=== PATIENT | female | born 1955 | race African-American/Black ===

== ENCOUNTER 2020-02-14 08:37 | Outpatient (CLI) | payer MEDICARE, SELFPAY ==
--- NOTE | 2020-02-14 08:59 | ECG_ITS ---
Measurements Intervals [place] Rate: 75 P: 30 [place]: 160 QRS: 15 QRSD: 81 T: 30 QT: 384 QTc: 430 Interpretive Statements SINUS RHYTHM LOW QRS VOLTAGE IN PRECORDIAL LEADS CANNOT RULE OUT SEPTAL INFARCT, AGE INDETERMINATE BASELINE WANDER- V1 ABNORMAL ECG Electronically Signed On 02-14-2020 10:18:49 TILE MOLDER by Raf Solis D.O.
== END 2020-02-14 08:38 | disposition home or self-care (01) ==
PROVIDERS: PCP Physician Assistant; Visit Provider Physician Assistant
DX: Z13.6 Encounter for screening for cardiovascular disorders (principal)
CPT/HCPCS: 93005

== ENCOUNTER 2020-03-27 01:14 | Outpatient (CLI) | payer MEDICARE, SELFPAY ==
[2020-03-27 18:47] LABS: SARS-CoV-2 RNA PCR Negative
== END 2020-03-27 01:15 | disposition home or self-care (01) ==
LOC: ANHCOVIDDT 01:14
PROVIDERS: Family Provider Internal Medicine; PCP Physician Assistant; Visit Provider Internal Medicine Cardiovascular Disease
DX: Z01.812 Encounter for preprocedural laboratory examination (principal); Z20.822 Contact with and (suspected) exposure to COVID-19
CPT/HCPCS: C9803; U0003; U0005

== ENCOUNTER 2021-08-17 11:21 | Outpatient (CLI) | payer MEDICARE, SELFPAY ==
--- NOTE | ~2021-08-17 | MM_ITS ---
EXAMINATION: MM diagnostic emely BI w keith HISTORY: Left breast pain TECHNIQUE: ML, MLO and CC 3-D tomosynthesis images of both breasts were performed and synthetic 2-D i mages were generated. CAD analysis was submitted and interpreted. COMPARISON: Mammogram and ultrasound examinations dating back to 01/07/2016, including 08/21 2017 conner vidal right breast ultrasound BREAST PARENCHYMAL COMPOSITION: There are scattered areas of fibroglandular density. FINDINGS: No suspicious mass, architectural distortion, malignant calcification, skin thickening or r etraction or significant new or developing density of either breast is evident since 01/07/2016 IMPRESSION: 1. No mammographic evidence of malignancy 2. Routine annual mammographic screening is recommended BI-RADS Category 1: Negative Reviewed, dictated and finalized at location A.
== END 2021-08-17 11:22 | disposition home or self-care (01) ==
PROVIDERS: PCP Physician Assistant; Visit Provider Physician Assistant
DX: R92.8 Other abnormal and inconclusive findings on diagnostic imaging of breast (principal)
CPT/HCPCS: 77062; 77066; G0279

== ENCOUNTER 2021-11-14 08:52 | Outpatient (CLI) | payer MEDICARE, SELFPAY ==
--- NOTE | ~2021-11-14 | NM_ITS ---
EXAMINATION: NM hepatobiliary wo pharm DATE: 11/14/2021 11:48 CDT INDICATION: Right upper quadrant abdominal pain COMPARISON: None. TECHNIQUE: 5 mCi Tc-99m mebrofenin (Choletec) was administered intravenously. Scintigraphic images o f the abdomen were obtained for one hour. At the 1 hour time point, the patient drank 8 oz Ensure, an d imaging was continued for 60 minutes. Gallbladder ejection fraction was calculated by the technolog ist. FINDINGS: There is normal clearance of radiotracer from the blood pool. There is homogeneous tracer u ptake by the liver. Activity progresses to the bowel and gallbladder. The gallbladder ejection fract ion is 70%. Note that with this technique, normal GBEF >= 33%. IMPRESSION: 1. Normal hepatobiliary scan. Reviewed, dictated and finalized at location A.
== END 2021-11-14 08:53 | disposition home or self-care (01) ==
PROVIDERS: PCP Physician Assistant; Visit Provider Physician Assistant
DX: R10.11 Right upper quadrant pain (principal)
CPT/HCPCS: 78226; A9537

== ENCOUNTER 2021-12-29 00:54 | Day surgery (SDC) | payer MEDICARE, SELFPAY ==
[2021-12-19 10:46] VITALS: BMI 27.2
--- NOTE | 2021-12-28 15:46 | PM.HPGS ---
History of Present Illness History of Present Illness Consent: Risks, benefits, and alternatives have been discussed and questions answered. Patient agrees to proceed with procedure. Chief complaint: epigastric pain; neoplasm screening Narrative: Jacki Leslie is a 66 year old female Was being investigated for persistent upper abdominal pain. She has had pain for the past several months. Ultrasound and HIDA scan were done which were normal. She became aware of these pains some time after starting Enbrel injections for her rheumatoid arthritis. She is due for colon cancer screening. Her last colonoscopy was 12 years ago. Review of Systems Review of Systems: All systems reviewed & are unremarkable except as noted in HPI and below PMFSH Past Medical History Medical History Arthritis COPD (chronic obstructive pulmonary disease) History of torn meniscus of right knee Hx of anxiety disorder Hx of diverticulitis of colon Lupus Surgical History Surgical History Hx of tubal ligation Family History Family History Father Family history of glaucoma Family history of cataracts Family history of diabetes mellitus in first degree relative Family history of heart disease in male family member before age 55 Grandparent Family history of glaucoma Diabetes mellitus Mother Family history of cataracts Family history of arthritis Family history of heart disease in male family member before age 55 Social History Social History Smoking status: Former smoker Alcohol intake: current Alcohol use details: social Substance use: never Substance use type: does not use Living arrangements: with family Spiritual care concerns: No Meds Home Medications and Allergies Home Medications Medication Instructions Recorded Confirmed Type amlodipine 5 mg tablet 10 mg PO DAILY 11/22/21 12/19/21 History aspirin 81 mg tablet,delayed 81 mg PO DAILY 11/22/21 12/19/21 History release cholecalciferol (vitamin D3) 25 25 mcg PO DAILY 11/22/21 12/19/21 History mcg (1,000 unit) capsule fluticasone propionate 44 1 inh inhalation ONCE 11/22/21 12/19/21 History mcg/actuation HFA aerosol inhaler folic acid 1 mg tablet 1 mg PO DAILY 11/22/21 12/19/21 History isosorbide dinitrate 30 mg tablet 30 mg PO DAILY 11/22/21 12/19/21 History leflunomide 20 mg tablet 20 mg PO DAILY 11/22/21 12/19/21 History methotrexate sodium 2.5 mg tablet 15 mg PO WEEKLY 11/22/21 12/19/21 History multivitamin 1 tablet PO DAILY 11/22/21 12/19/21 History nitroglycerin 0.4 mg sublingual 0.4 mg sublingual Q5M PRN Chest 11/22/21 12/19/21 History tablet Pain polyvinyl alcohol-povidone (PF) 1 drp EACH EYE QHS 11/22/21 12/19/21 History 1.4 %-0.6 % eye drops in a dropperette prednisone 5 mg tablet 5 mg PO .COMPLEX 11/22/21 12/19/21 History rosuvastatin 40 mg tablet 40 mg PO DAILY 11/22/21 12/19/21 History Allergies Allergy/AdvReac Type Severity Reaction Status Date / Time hydrocodone AdvReac ITCHING, Verified 12/29/21 09:04 VOMITING Exam Const: General: alert Orientation/consciousness: patient oriented x3 Chest: Chest palpation & inspection: localized rib tenderness with anteroposterior compression ( Right lower ribs) Resp: Auscultation: clear to auscultation bilaterally Cardio: Rhythm: regular rhythm GI: GI Palp: Yes Soft to palpation and No Tenderness to palpation present (GI) Neuro: General: patient oriented x3 Assessment and Plan Assessment and plan (1) Epigastric pain: Code(s): R10.13 - Epigastric pain Status: Acute Assessment and Plan: EGD with possible biopsy or dilatation or cautery. (2) Colon cancer screening: Code(s): Z12.11 - Encounter for screening for malign
[2021-12-29 09:05] VITALS: BP 167/59; PULSE 77; RESP 20; TEMP 36.2; O2SAT 100
[2021-12-29] MEDS: LACTATED RINGERS 1,000 ML 150 ML IV CONT (09:23)
--- NOTE | 2021-12-29 09:57 | WPDANESEPPF ---
Anes - Initial Pre Proc Eval Procedure: Operation Date: 12/29/21 10:30 Proposed Procedures p Esophagogastroduodenoscopy & Screening Colonoscopy - Lauro Pham MD Date/Time: 12/29/21 09:57 Surgeon: Lauro Pham MD Pre Op Diagnosis: epigastric pain; neoplasm screening Patient Data Age: 66 Gender: F Height: 1.7 m Weight: 77.4 kg Last Vital Signs Temp 97.1 F L 12/29/21 09:05 Pulse 77 12/29/21 09:05 Resp 20 12/29/21 09:05 BP 167/59 H 12/29/21 09:05 Pulse Ox 100 12/29/21 09:05 O2 Del Method Room Air 12/29/21 09:05 Allergies Allergy/AdvReac Type Severity Reaction Status Date / Time hydrocodone AdvReac ITCHING, Verified 12/29/21 09:04 VOMITING Home Medications Medication Instructions Recorded Confirmed Type amlodipine 5 mg tablet 10 mg PO DAILY 11/22/21 12/19/21 History aspirin 81 mg tablet,delayed 81 mg PO DAILY 11/22/21 12/19/21 History release cholecalciferol (vitamin D3) 25 25 mcg PO DAILY 11/22/21 12/19/21 History mcg (1,000 unit) capsule fluticasone propionate 44 1 inh inhalation ONCE 11/22/21 12/19/21 History mcg/actuation HFA aerosol inhaler folic acid 1 mg tablet 1 mg PO DAILY 11/22/21 12/19/21 History isosorbide dinitrate 30 mg tablet 30 mg PO DAILY 11/22/21 12/19/21 History leflunomide 20 mg tablet 20 mg PO DAILY 11/22/21 12/19/21 History methotrexate sodium 2.5 mg tablet 15 mg PO WEEKLY 11/22/21 12/19/21 History multivitamin 1 tablet PO DAILY 11/22/21 12/19/21 History nitroglycerin 0.4 mg sublingual 0.4 mg sublingual Q5M PRN Chest 11/22/21 12/19/21 History tablet Pain polyvinyl alcohol-povidone (PF) 1 drp EACH EYE QHS 11/22/21 12/19/21 History 1.4 %-0.6 % eye drops in a dropperette prednisone 5 mg tablet 5 mg PO .COMPLEX 11/22/21 12/19/21 History rosuvastatin 40 mg tablet 40 mg PO DAILY 11/22/21 12/19/21 History Patient hx anesthesia problems: none Family hx anesthesia problems: none Results Review: All pre-operative results and documents have been reviewed as part of the pre-operative evaluation. [facility] Past Medical History Medical History Arthritis COPD (chronic obstructive pulmonary disease) History of torn meniscus of right knee Hx of anxiety disorder Hx of diverticulitis of colon Lupus Surgical History Surgical History Hx of tubal ligation Family History Family History Father Family history of glaucoma Family history of cataracts Family history of diabetes mellitus in first degree relative Family history of heart disease in male family member before age 55 Grandparent Family history of glaucoma Diabetes mellitus Mother Family history of cataracts Family history of arthritis Family history of heart disease in male family member before age 55 Social History Social History Smoking status: Former smoker Alcohol intake: current Alcohol use details: social Substance use: never Substance use type: does not use Living arrangements: with family Spiritual care concerns: No Anes - Eval Final PreProcedure Day of Procedure 12/29/21 09:57 Patient weight: normal Heart: regular rate and rhythm Lungs: clear to auscultation Airway: Mallampati scale class II Neurological: alert and oriented Last oral intake: >/= 8 hours ASA classification: III Emergent: no Anesthetic plan: proceed Anesthesia type and monitoring: general GIVS and standard monitoring Results Review: All pre-operative results and documents have been reviewed as part of the pre-operative evaluation. Informed Consent: The patient's anesthetic plan and its attendant risks and benefits were discussed with the patient/family/POA. Questions were solicited and answers provided to the satisfaction of the patient/family/POA.
[2021-12-29] MEDS: BENZOCAINE (*SP) 60 ML SPRAY CAN (HURRICAINE) 1 SPRAY MUCOUS MEM (10:03)
--- NOTE | 2021-12-29 10:07 | SUR.OPER ---
EGD: [id number] COLON: [id number]
[2021-12-29 10:30] VITALS: BP 92/48; PULSE 75; RESP 22; O2SAT 100
[2021-12-29 10:40] VITALS: BP 100/43; PULSE 70; RESP 26; O2SAT 100
[2021-12-29 10:50] VITALS: BP 107/52; PULSE 67; RESP 13; O2SAT 100
== END 2021-12-29 11:05 | disposition home or self-care (01) ==
PROVIDERS: PCP Physician Assistant; Visit Provider Internal Medicine Gastroenterology
PROC: 0DJ08ZZ Inspection of Upper Intestinal Tract, Via Natural or Artificial Opening Endoscopic (ICD-10-PCS; CPT 43235; principal; 2021-12-29 10:30)
DX: R10.13 Epigastric pain (principal); K22.2 Esophageal obstruction; Z12.11 Encounter for screening for malignant neoplasm of colon; K57.30 Diverticulosis of large intestine without perforation or abscess without bleeding; K64.8 Other hemorrhoids; J44.9 Chronic obstructive pulmonary disease, unspecified
CPT/HCPCS: 43239; 43249; G0121; 87081; 88305; C1726; J2704; J7120

== ENCOUNTER 2022-10-05 09:33 | Outpatient (CLI) | payer MEDICARE, SELFPAY ==
--- NOTE | ~2022-10-05 | MR_ITS ---
MRI of the right elbow CLINICAL HISTORY: Mass, swelling TECHNIQUE: Coronal T1-weighted and T2 fat-sat images, axial T1-weighted, T2 fat-sat, and T1 fat-sat i mages, and sagittal T1-weighted and T2 fat-sat images were acquired. Following intravenous administra tion of 15 cc MultiHance gadolinium, T1-weighted fat-sat imaging was performed in the axial, coronal, and sagittal planes. FINDINGS: Ulnar collateral ligament is intact. Radial collateral ligament and the lateral ulnar colla teral ligament are intact. There is minimal tendinosis at the common extensor tendon origin. Common f lexor tendon origin is unremarkable. There is focal degenerative change at the articulation of the coronoid process of the ulna with the d istal humerus, with focal subchondral marrow edema and underlying chondromalacia. Remaining bone lima ow signals are unremarkable. No significant elbow joint effusion. Biceps, brachialis, and triceps tendons are intact. Visualized muscle signals are unremarkable. There is fat attenuation intramuscular mass at the proximal aspect of the brachioradialis muscle belly, co mpatible with intramuscular lipoma, measuring 2.7 x 1.7 x 4.8 cm in size.. No abnormal postcontrast enhancement identified. IMPRESSION: 2.7 x 1.7 x 4.8 cm intramuscular lipoma at the proximal aspect of the brachioradialis muscle belly. Focal degenerative change at the elbow joint, as detailed above. Reviewed, dictated and finalized at [facility]. IMPRESSION: 2.7 x 1.7 x 4.8 cm intramuscular lipoma at the proximal aspect of the brachiora dialis muscle belly. Focal degenerative change at the elbow joint, as detailed above.
--- NOTE | ~2022-10-05 | US_ITS ---
EXAMINATION: US soft tissue head and neck DATE: 10/05/2022 11:23 INDICATION: Sialadenitis, unspecified. TECHNIQUE: Multiple grayscale and Doppler ultrasound images of the head and neck were obtained. COMPARISON: None FINDINGS: The parotid glands are unremarkable. There are normal lymph nodes in the parotid glands. IMPRESSION: 1. Normal parotid glands. Reviewed, dictated and finalized at location A. IMPRESSION: 1. Normal parotid glands.
== END 2022-10-05 09:34 ==
LOC: GOSHIMG 09:36
PROVIDERS: PCP Physician Assistant; Visit Provider Physician Assistant
DX: R22.31 Localized swelling, mass and lump, right upper limb (principal); K11.20 Sialoadenitis, unspecified
CPT/HCPCS: 73223; 76536; A9577

== ENCOUNTER 2022-12-21 08:52 | Outpatient (CLI) | payer MEDICARE, SELFPAY ==
--- NOTE | ~2022-12-21 | CT_ITS ---
EXAMINATION: CT soft tissue neck w con DATE: 12/21/2022 09:38 INDICATION: Neck swelling. TECHNIQUE: Computed tomography (CT) of the neck was performed with 75 mL Omnipaque-350 intravenous co ntrast. Automated exposure control and iterative reconstruction technique were employed. The dose-deon gth product was 559.70 mGy-cm. COMPARISON: Ultrasound 10/05/2022 FINDINGS: There is mild emphysema. There is plaque in proximal left internal carotid artery with 0% s tenosis relative to normal distal artery lumen diameter. Aortic atherosclerosis is noted. There are n o pathologically enlarged lymph nodes. The major salivary glands are unremarkable. There is mild muco hector thickening in the paranasal sinuses. There is a trace left mastoid effusion. There is mild cervic al spondylosis. IMPRESSION: 1. No abnormal mass or lymphadenopathy. 2. Mild emphysema. Reviewed, dictated and finalized at location E.
[2022-12-21 09:24] LABS: Estimated Glomerular Filt Rate > 60
== END 2022-12-21 08:53 ==
LOC: GOSHIMG 08:53
PROVIDERS: PCP Physician Assistant; Visit Provider Physician Assistant
DX: R22.1 Localized swelling, mass and lump, neck (principal); J43.9 Emphysema, unspecified
CPT/HCPCS: 70491; Q9967

== ENCOUNTER 2023-03-08 12:36 | Outpatient (CLI) | payer MEDICARE, SELFPAY ==
--- NOTE | ~2023-03-08 | XR_ITS ---
XR hand BI arthritis min 3V DATE: 03/08/2023 12:59 INDICATION: Rheumatoid arthritis TECHNIQUE: 3 views COMPARISON: None FINDINGS: Probable old healed fracture deformity of the head of the proximal phalanx of the right fir st digit. Mild osteoarthritis at the first 3 metacarpophalangeal joints of the right hand. There are are well marginated erosions along the lateral aspect of the head of the proximal phalanx a nd lateral base of the middle phalanx of the second digit. No erosive changes of either hand is noted otherwise. No fracture, dislocation, periosteal reaction or bone destruction of either hand is noted otherwise. No chondrocalcinosis. IMPRESSION: Well marginated erosions at either side of the lateral aspect of the proximal phalanx of the left second digit Minimal osteoarthritis at first through third metacarpophalangeal joints of right hand Probable old fracture deformity of head of proximal phalanx of right first digit Reviewed, dictated and finalized at location L. [facility] INFECTION PREVENTION IMPRESSION: Well marginated erosions at either side of the lateral aspect of th e proximal phalanx of the left second digit Minimal osteoarthritis at first through third metacarpophalangeal joints of rig ht hand Probable old fracture deformity of head of proximal phalanx of right first digi t
== END 2023-03-08 12:37 ==
PROVIDERS: PCP Physician Assistant
DX: M19.041 Primary osteoarthritis, right hand (principal)
CPT/HCPCS: 73130

== ENCOUNTER 2023-08-17 09:00 | Outpatient (CLI) | payer MEDICARE, SELFPAY ==
[2023-08-17 18:41] LABS: Basophils Percent Auto 0.4 % (0.2-1.2); Eosinophils Absolute Auto 0.1 K/mm3 (0-0.3); Eosinophils Percent Auto 1.1 % (0-4.4); Hematocrit 40.2 % (37.0-47.0); Hemoglobin 12.4 g/dL (12.0-15.0); Immature Granulocyte Absolute 0.02 K/mm3 (0.00-0.031); Immature Granulocyte Percent A 0.4 % (0-0.5); Lymphocytes Absolute Auto 1.82 K/mm3 (0.9-3.2); Mean Corpuscular HGB Conc 30.8 g/dl (32-36); Mean Corpuscular Hemoglobin 27.1 pg (26-34); Mean Corpuscular Volume 87.8 fl (80-100); Mean Platelet Volume 10.7 fl (7.4-10.4); Monocytes Absolute Auto 0.7 K/mm3 (0.1-0.6); Neutrophils Absolute Auto 2.9 K/mm3 (1.3-6.7); Neutrophils Percent Auto 52.1 % (45.5-73.1); Platelet Count Result 233 k/mm3 (150-375); Red Blood Count 4.58 M/mm3 (4.2-5.4); Red Cell Distribution Width 15.7 % (11.5-14.5); White Blood Count 5.5 K/mm3 (4.5-10.0)
[2023-08-17 19:14] LABS: LDL Cholesterol Direct 232 mg/dL
[2023-08-17 19:16] LABS: Erythrocyte Sedimentation Rate 40 mm/hr (0-20)
[2023-08-17 19:21] LABS: Free T4 Free Thyroxine 1.19 ng/mL (0.78-2.19)
[2023-08-17 19:34] LABS: Alanine Aminotransferase 12 U/L (6-35); Albumin Level 4.5 g/dL (3.5-5.1); Alkaline Phosphatase 81 U/L (38-126); Anion Gap 7 mmol/L (4-12); Aspartate Amino Transferase 31 U/L (14-36); Bilirubin,Total 0.7 mg/dL (0.2-1.3); Blood Urea Nitrogen 7 mg/dL (7-17); CRP 0.7 mg/dL (<1.0); Calcium 9.3 mg/dL (8.4-10.2); Carbon Dioxide 28 mmol/L (22-30); Chloride 107 mmol/L (98-107); Estimated Glomerular Filt Rate > 60; Glucose 81 mg/dL (65-110); HDL Direct 32 mg/dL; Sodium 142 mmol/L (137-145); Triglycerides 151 mg/dL (<150)
[2023-08-17 19:42] LABS: Cholesterol 344 mg/dL (0-200)
[2023-08-17 20:18] LABS: Hemoglobin A1C 4.9 % (<5.7)
[2023-08-17 22:01] LABS: Folic Acid 5.1 ng/mL (2.76->20)
== END 2023-08-17 09:01 | disposition home or self-care (01) ==
PROVIDERS: PCP Physician Assistant; Visit Provider Physician Assistant
DX: M06.9 Rheumatoid arthritis, unspecified (principal); Z79.899 Other long term (current) drug therapy
CPT/HCPCS: 36415; 80053; 80061; 82607; 82746; 83036; 84439; 84443; 85025; 85652; 86140

== ENCOUNTER 2023-08-17 09:14 | Outpatient (CLI) | payer MEDICARE, SELFPAY ==
--- NOTE | ~2023-08-17 | XR_ITS ---
EXAMINATION: XR chest 2V 08/17/2023 09:33 INDICATION: Cough and fever. Shortness of breath. PROCEDURE: 2 view chest COMPARISON: 01/07/2016 FINDINGS: The lungs are clear. The cardiomediastinal silhouette is within normal limits. There are no pleural effusions. There is no pneumothorax suspected. IMPRESSION: 1: NO ACUTE CARDIOPULMONARY DISEASE. Reviewed, dictated and finalized at location B.
== END 2023-08-17 09:15 ==
LOC: GOSHIMG 09:14
PROVIDERS: PCP Physician Assistant; Visit Provider Physician Assistant
DX: R05.9 Cough, unspecified (principal); R50.9 Fever, unspecified; R06.02 Shortness of breath
CPT/HCPCS: 71046

== ENCOUNTER 2023-09-03 10:05 | Outpatient (CLI) | payer MEDICARE, SELFPAY ==
[2023-09-04 07:19] LABS: Protein, Total 7.5 g/dL (6.1-8.1)
[2023-09-04 13:32] LABS: Albumin 3.7 g/dL (3.8-4.8); Alpha 1 Globulin 0.3 g/dL (0.2-0.3); Alpha 2 Globulin 0.7 g/dL (0.5-0.9); Beta 1 Globulin 0.4 g/dL (0.4-0.6); Gamma Globulin 1.8 g/dL (0.8-1.7)
[2023-09-04 15:09] LABS: Creatinine, Random Urine 140 mg/dL (20-275); Total Protein/Creatinine Ratio 100 mg/g creat (24-184)
[2023-09-05 15:29] LABS: Kappa\\Lambda Light Chains 1.96 (0.26-1.65); Lambda Light Chain 36.5 mg/L (5.7-26.3)
== END 2023-09-03 10:06 | disposition home or self-care (01) ==
PROVIDERS: PCP Physician Assistant; Visit Provider Physician Assistant
DX: R79.89 Other specified abnormal findings of blood chemistry (principal)
CPT/HCPCS: 36415; 82570; 83883; 84155; 84156; 84165; 84166

== ENCOUNTER 2023-09-11 09:05 | Outpatient (CLI) | payer MEDICARE, SELFPAY ==
--- NOTE | ~2023-09-11 | MR_ITS ---
EXAMINATION: MR lower leg LT wo con DATE: 09/11/2023 10:05 INDICATION: Left lower leg pain TECHNIQUE: Magnetic resonance imaging (MRI) of the left lower leg was performed without intravenous c ontrast. A marker was placed over the mass. Sequences included axial, sagittal and coronal T1-weight ed FSE and fluid sensitive FSE STIR. The contralateral right lower leg is included on the coronal hugh ges. COMPARISON: None. FINDINGS: There is a focal reticular pattern of subcutaneous edema in the fat the anteromedial to the proximal left tibial diaphysis there is a small focus of susceptibility artifact in the subcutaneous fat at th e same level but along the lateral margin of the anterior tibia likely related to the reported prior laceration. No abscess or other abnormal fluid collections. Physiologic amount fluid at the knee join t. There is somewhat serpiginous pattern of low T1 and increased fluid signal in the medial patella w hich is nonspecific but suggestive of osteonecrosis. Bone marrow signal is otherwise normal throughou t both lower legs. The musculature in the left calf appears normal and symmetric with the contralater al right calf. Vasculature is unremarkable. IMPRESSION: 1. Minimal subcutaneous edema underlying the marker indicating the region of concern with tiny focus of susceptibility artifact in the adjacent subcutaneous tissues likely related to reported prior lace ration. No abscess or underlying osseous abnormality. 2. Nonspecific region of decreased T1 and increased T2 signal in the patella with somewhat serpiginou s pattern suggestive of osteonecrosis. Consider correlation with either dedicated radiographs or CT o f the left knee. Reviewed, dictated and finalized at location A. IMPRESSION: 1. Minimal subcutaneous edema underlying the marker indicating the region of co ncern with tiny focus of susceptibility artifact in the adjacent subcutaneous t issues likely related to reported prior laceration. No abscess or underlying os seous abnormality. 2. Nonspecific region of decreased T1 and increased T2 signal in the patella wi th somewhat serpiginous pattern suggestive of osteonecrosis. Consider correlati on with either dedicated radiographs or CT of the left knee.
== END 2023-09-11 09:06 ==
LOC: GOSHIMG 09:07
PROVIDERS: PCP Physician Assistant; Visit Provider Family Medicine Sports Medicine
DX: M79.662 Pain in left lower leg (principal); R50.9 Fever, unspecified; Z86.19 Personal history of other infectious and parasitic diseases
CPT/HCPCS: 73718

== ENCOUNTER 2023-09-24 12:39 | Outpatient (CLI) | payer MEDICARE, SELFPAY ==
--- NOTE | ~2023-09-24 | CT_ITS ---
EXAMINATION: CT knee LT wo con DATE: 09/24/2023 13:03 INDICATION: Acute left knee pain. TECHNIQUE: Computed tomography (CT) of the left knee was performed without intravenous contrast. Auto mated exposure control and iterative reconstruction technique were employed. The dose-length product was 321.76 mGy-cm. COMPARISON: MRI 09/11/2023. FINDINGS: Bone alignment is normal. No fracture. There is sclerosis in the patella, consistent with o steonecrosis. There is mild tricompartmental osteoarthritis. There is chondrocalcinosis of menisci. T here is a small knee joint effusion. IMPRESSION: 1. Osteonecrosis of the patella. 2. Mild left knee osteoarthritis. 3. Small left knee joint effusion. Reviewed, dictated and finalized at location A.
== END 2023-09-24 12:40 ==
LOC: GOSHIMG 12:40
PROVIDERS: PCP Physician Assistant; Visit Provider Family Medicine Sports Medicine
DX: M17.12 Unilateral primary osteoarthritis, left knee (principal); M25.462 Effusion, left knee; M87.88 Other osteonecrosis, other site
CPT/HCPCS: 73700

== ENCOUNTER 2023-10-03 12:53 | Outpatient (CLI) | payer MEDICARE, SELFPAY ==
--- NOTE | ~2023-10-03 | XR_ITS ---
COMPLETE BONE SURVEY Ordering provider: Kodi Murphy MD History: 67 years Female with . Plasma cell disorder . Comparison: FINDINGS: Standard bone survey for multiple myeloma was performed with images of the spine, lower and upper extremities as well as the chest and skull. BONES: No bony lytic or sclerotic lesions of the imaged osseous structures are identified. JOINT SPACES: Degenerative disc disease at the level of L4-L5 with degenerative changes of the lumbar spine. Degenerative changes of the thoracic spine loss of height is seen at the level of T10, T11 an d T12. Changes are most likely chronic. Follow-up mammography SOFT TISSUES: Normal. IMPRESSION: 1. No radiographic findings of multiple myeloma or metastatic lesions. Reviewed, dictated and finalized at location A.
== END 2023-10-03 12:54 ==
PROVIDERS: PCP Physician Assistant; Visit Provider Internal Medicine Hematology & Oncology
DX: D72.9 Disorder of white blood cells, unspecified (principal)
CPT/HCPCS: 77075

== ENCOUNTER 2023-10-05 09:29 | Outpatient (CLI) | payer MEDICARE, SELFPAY ==
[2023-10-05 13:45] LABS: Basophils Percent Auto 0.3 % (0.2-1.2); Eosinophils Absolute Auto 0.1 K/mm3 (0-0.3); Eosinophils Percent Auto 1.3 % (0-4.4); Hematocrit 40.6 % (37.0-47.0); Hemoglobin 12.5 g/dL (12.0-15.0); Immature Granulocyte Absolute 0.03 K/mm3 (0.00-0.031); Immature Granulocyte Percent A 0.5 % (0-0.5); Lymphocytes Absolute Auto 1.34 K/mm3 (0.9-3.2); Lymphocytes Percent Auto 21.9 % (18.3-44.2); Mean Corpuscular HGB Conc 30.8 g/dl (32-36); Mean Corpuscular Hemoglobin 27.5 pg (26-34); Mean Corpuscular Volume 89.4 fl (80-100); Mean Platelet Volume 9.9 fl (7.4-10.4); Monocytes Absolute Auto 0.6 K/mm3 (0.1-0.6); Monocytes Percent Auto 9.5 % (2.6-8.5); Neutrophils Absolute Auto 4.1 K/mm3 (1.3-6.7); Neutrophils Percent Auto 66.5 % (45.5-73.1); Platelet Count Result 281 k/mm3 (150-375); Red Blood Count 4.54 M/mm3 (4.2-5.4); Red Cell Distribution Width 16.5 % (11.5-14.5); White Blood Count 6.1 K/mm3 (4.5-10.0)
[2023-10-05 15:04] LABS: Erythrocyte Sedimentation Rate 19 mm/hr (0-20)
[2023-10-05 19:01] LABS: Alanine Aminotransferase 11 U/L (6-35); Albumin Level 4.2 g/dL (3.5-5.1); Alkaline Phosphatase 87 U/L (38-126); Anion Gap 8 mmol/L (4-12); Aspartate Amino Transferase 38 U/L (14-36); Bilirubin,Total 0.8 mg/dL (0.2-1.3); Blood Urea Nitrogen 7 mg/dL (7-17); CRP < 0.5 mg/dL (<1.0); Calcium 9.6 mg/dL (8.4-10.2); Carbon Dioxide 28 mmol/L (22-30); Chloride 104 mmol/L (98-107); Estimated Glomerular Filt Rate > 60; Glucose 81 mg/dL (65-110); Potassium 3.9 mmol/L (3.4-5.0); Sodium 140 mmol/L (137-145)
[2023-10-05 21:32] LABS: Immunoglobulin A 518 mg/dL (70-400); Immunoglobulin G 2156 mg/dL (700-1600); Immunoglobulin M 124 mg/dL (40-230)
[2023-10-08 13:03] LABS: Albumin 4.1 g/dL (3.8-4.8); Alpha 1 Globulin 0.3 g/dL (0.2-0.3); Alpha 2 Globulin 0.7 g/dL (0.5-0.9); Beta 1 Globulin 0.4 g/dL (0.4-0.6); Gamma Globulin 1.8 g/dL (0.8-1.7)
[2023-10-08 13:33] LABS: Kappa\\Lambda Light Chains 1.97 (0.26-1.65); Lambda Light Chain 29.5 mg/L (5.7-26.3)
== END 2023-10-05 09:30 | disposition home or self-care (01) ==
LOC: ANHGOSHLAB 09:35
PROVIDERS: PCP Physician Assistant; Visit Provider Internal Medicine Hematology & Oncology
DX: D72.9 Disorder of white blood cells, unspecified (principal)
CPT/HCPCS: 36415; 80053; 82784; 83883; 84155; 84165; 85025; 85652; 86140

== ENCOUNTER 2023-10-30 13:53 | Outpatient (CLI) | payer MEDICARE, SELFPAY ==
--- NOTE | ~2023-10-30 | CT_ITS ---
EXAMINATION:CT diagnostic chest wo con DATE: 10/30/2023 15:46 INDICATION: Chronic obstructive pulmonary disease, unspecified. TECHNIQUE: Computed tomography (CT) of the chest was performed without intravenous contrast. Automate d exposure control and iterative reconstruction technique were employed. The dose-length product (DLP ) was 208.76 mGy-cm. COMPARISON: None. FINDINGS: There is mild emphysema. There is a 4 mm nodule in left upper lobe, likely benign. There is bronchiectasis in the inferior lungs. There is mild atelectasis bilaterally. No pleural effusion. Th e heart size is normal. No pericardial effusion. There is moderate thoracic spondylosis. There is mil d chronic anterior wedging of T11-L1 vertebral bodies. IMPRESSION: 1. Mild emphysema. Reviewed, dictated and finalized at location A. IMPRESSION: 1. Mild emphysema.
--- NOTE | 2023-10-31 07:23 | WPDPFTINT ---
PFT Procedure Performed PFT Procedure Performed Spirometry with Pre/Post Bronchodilator Plethysmography (Lung Vol) Diffusing Cap (DLCO) Flow Vol Loop PFT Interpretation This is a pulmonary function test with pre and post-bronchodilator spirometry, plethysmography and diffusing capacity. The test was performed and results interpreted in accordance with the 2019 and 2005 ATS/ERS Task Force guidelines respectively using the Global Lung Function Initiative-2012 reference equations. Patient demonstrated good effort and cooperation. Reproducibility criteria were met. The quality of the pre bronchodilator spirometry maneuver was Grade A and post bronchodilator spirometry maneuver was Grade A. Findings: Spirometry: There is decreased maximal expiratory airflow at low lung volumes. The contour the inspiratory flow tracing is normal. The pre bronchodilator FVC is 3.06 L, 112% predicted. The pre bronchodilator FEV1 is 2.30 L, 109% predicted. The pre bronchodilator FEV1: FVC ratio 75%. The post bronchodilator FVC is 3.14 L, representing a 3% increase. The post bronchodilator FEV1 is 2.38 L, representing a 3% increase. The post bronchodilator FEV1: FVC ratio is 76%. Plethysmography: The total lung capacity is 5.88 L, 122% predicted. The functional residual capacity is 3.72 L, 119% predicted. The residual volume is 2.43 L, 113% predicted. The slow vital capacity is 3.45 L, 126% predicted. Diffusing capacity: The diffusing capacity unadjusted for hemoglobin and carboxyhemoglobin is 15.1, 69% predicted. The diffusing capacity adjusted for alveolar volume is 3.10, 74% predicted. Impression: The slow vital capacity is greater than forced vital capacity with a mildly concave expiratory tracing with a normal FEV1. This is suggestive of small airways disease. There is no significant improvement after inhaling a single dose of albuterol. The lung volumes are normal. The diffusing capacity unadjusted for hemoglobin and carboxyhemoglobin is mildly decreased and normalizes when adjusted for alveolar volume. There are no prior studies for comparison
== END 2023-10-30 13:54 | disposition home or self-care (01) ==
LOC: ANHPFT 13:56
PROVIDERS: PCP Internal Medicine; Visit Provider Physician Assistant
DX: J43.9 Emphysema, unspecified (principal); L93.0 Discoid lupus erythematosus; M06.9 Rheumatoid arthritis, unspecified; R91.1 Solitary pulmonary nodule
CPT/HCPCS: 71250; 94060; 94726; 94729

== ENCOUNTER 2024-04-23 08:30 | Outpatient (CLI) | payer MEDICARE, SELFPAY ==
--- OUTSIDE RECORDS SUMMARY | 2024-04-23 08:55 | XMS_ITS | Encounter Summary ---
Author Organization [facility] Address [address] [place] [address] Phone Care Team Providers Care Light Industrial Supervisor Name Role Phone Caitlin Luo Primary Care Pr ovider Encounter Details Date Type Department Care Team (Late st Contact Info) Description 06/08/2020 Orders Only [facility] Scanning, Provider Social History Tobacco Use Types Packs/Day Years Used Date Smoking Tobacco: Former Smokeless Tobacco: Never Alcohol Use Standard Drinks/Week Comments Yes 0 (1 standard drink = 0.6 oz pur e alcohol) socially Comments Unknown Sex and Gender Information Value Date Recorded Sex Assigned at Not on file Legal Sex 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 Gender Identity Female 08/07/2018 2:56 PM CDT Sexual Orientation Not on file documented as of this encounter Plan of Treatment Not on file documented as of this encounter Procedures Procedure Name Priority Date/Time Associated Diagnosis Comments SCAN - LABS 06/08/2020 documented in this encounter Results * SCAN - LABS (06/08/2020) us Provider Scanning Final Result documented in this encounter Visit Diagnoses Not on filedocumented in this encounter Care Teams Light Industrial Supervisor Relationship Specialty Start Date End Date Caitlin Luo PA PCP - General Physician Claim Approver 06/30/19 documented as of this encounter
--- OUTSIDE RECORDS SUMMARY | 2024-04-23 08:56 | XMS_ITS | Data Portability ---
Author Organization [facility] [employer], Main Office Address [address] [place] [address] Assessment No assessment recorded. Plan of Treatment Reminders Order Date Submit Date Provider Last Modified By Organization Details Last Modified Time Details Appointments None recorded. Lab HbA1c (hemoglobin A1c), blood 2022 023 [email or web address] Not available 4 08:46:46 lipid panel, serum 2022 023 MICHAEL Not available 3 15:52:24 CBC w/ auto diff 2022 023 MICHAEL Not available 3 15:52:25 BMP, serum or plasma 2022 023 MICHAEL Not available 3 15:52:24 hepatic function panel, serum 2022 023 MICHAEL Not available 3 15:52:25 TSH + free T4, serum 2022 023 MICHAEL Not available 3 15:52:25 Referral None recorded. Procedures None recorded. Surgeries None recorded. Imaging MRI, elbow, w/wo contrast 2022 023 [facility], [address], [place], [address], 3 16:15:38 US, parotid gland 2022 023 [facility], [facility] [facility] , [address], [place], [address], 3 16:15:11 Medication Orders amoxicillin 875 mg-potassiu m clavulanate 125 mg tablet 2022 023 [email or web address] [facility] [address], [address] [facility], [place], [address], 15:37:52 Patient TargetsNo targets recorded. Patient InstructionsNo instructions recorded. Reason for Referral None Reported. Results Created Date Observation Date Name Description Value Unit Range Abnormal Flag Note LastModifiedBy Organization Detail LastModifiedTime 08/19/19 21 07/14/2020 naga r monit or No observ ation record ed. MIGRATION. Not Available 04/26/2022 06:51:47 01/14/20 21 01/11/2021 XR, chest , 2 view No observ ation record ed. MIGRATION. Not Available 04/26/2022 06:51:47 08/18/19 22 08/17/2021 MAMMO , diagn ostic , digit al, bilat eral No observ ation record ed. MIGRATION. [facility] [address], [place], [address], 04/26/2022 06:51:47 10/05/19 22 08/09/2021 XR, knee No observ ation record ed. MIGRATION. [facility] [id number] [place] [address], [address], 04/26/2022 06:51:47 10/25/19 22 10/24/2021 US, abdom en No observ ation record ed. MIGRATION. [address] , [place], [address], 04/26/2022 06:51:47 11/16/19 22 11/14/2021 NM, hepat obili boogie scan, w/ CCK No observ ation record ed. MIGRATION. [facility] ([facility]) [address] [facility] [address], [place], [address], 04/26/2022 06:51:47 12/30/19 22 12/29/2021 upper endos copy proce dure (EGD) (PROC ) No observ ation record ed. [id number] Not Available 04/26/2022 06:51:47 01/04/20 22 08/19/2021 imagi ng/di agnos tic resul t No observ ation record ed. [id number] Not Available 04/26/2022 06:51:47 10/07/19 23 10/05/2022 US, parot id gland No observ ation record ed. [email or web address] [facility] [address] [facility] [address], [place], [address], 10/11/2022 16:51:27 10/07/19 23 10/05/2022 MRI, elbow , w/wo contr ast No observ ation record ed. [email or web address] [facility] [address], [place], [address], 10/11/2022 16:51:28 12/22/19 23 12/21/2022 CT, neck, soft tissu e, w/ contr ast No observ ation record ed. [email or web address] [facility] [facility] [address], [place], [address], 12/21/2022 16:14:04 03/09/19 24 03/08/2023 XR, hand, 2 view No observ ation record ed. [email or web address] [facility] [address] [place], [address], 03/10/2023 13:02:51 Result Notes None recorded. Problems Name Problem SNOMED Code Status Onset Date Resolution Date Notes Provider Name and Address Organization Details Recorded Time Pain in upper limb 631667561 Active Not Available [facility] 3 06:45:02 Benign essential hypertension 2758434 Active 2020 DEVEN Timmons, [place] [facility] 3 15:44:07 Scattered fibroglandula r densities 540780222 Active 2021 Not Available [facility] 3 06:45:02 Chronic obstructive pulmonary disease 03261312 Active 2021 Not Available Count includes the [facility] 3 06:45:02 Acute sinusitis 08009749 Active 2021 Not Available [facility] 3 06:45:03 Backache 466537717 Active Not Available Count includes the [facility] 3 06:45:03 Blood glucose outside reference range 817587133 Active 2021 Not Available [facility] 3 06:45:03 Mammography abnormal 599134421 Active Not Available Count includes the [facility] 3 06:45:03 Gastroesophag eal reflux disease 295959459 Active DEVEN Timmons, [place] - [facility] 3 15:44:10 Pure hypercholeste rolemia 281996222 Active Not Available Count includes the [facility] 3 06:45:03 Malaise and fatigue 112192577 Active Not Available Count includes the [facility] 3 06:45:03 Eruption 866395046 Active Not Available Count includes the [facility] 3 06:45:03 Hip joint painful on movement 120094768 Active Not Available Count includes the [facility] 3 06:45:04 Right upper quadrant pain 909623252 Active 2021 Not Available Count includes the [facility] 3 06:45:04 Vitamin D deficiency 40554997 Active Not Available Count includes the [facility] 3 06:45:04 Acute pharyngitis 246713794 Active Not Available Count includes the [facility] 3 06:45:04 Sinusitis 52770168 Active Not Available Count includes the [facility] 3 06:45:04 Familial hypercholeste rolemia 513878612 Active 2021 Not Available Count includes the [facility] 3 06:45:04 Cough 42174408 Active Not Available Count includes the [facility] 3 06:45:04 Rheumatoid arthritis 78558630 Active Not Available Count includes the [facility] 3 06:45:05 Epicondylitis 67701381 Active Not Available Count includes the [facility] 3 06:45:05 Upper abdominal pain 36461779 Active 2021 Not Available Count includes the [facility] 3 06:45:05 Parotitis 47140212 Active 2022 SUNNY Buchanan [address], [place], [address] , [employer] 3 15:29:14 Mass of upper limb 911909247 Active 2022 SUNNY Buchanan [address], [place], [address] , [employer] 3 15:37:36 High glucose level in blood 799825824 Active 2022 SUNNY Buchanan [address], [place], [address] , [employer] 15:38:37 Anxiety 05732048 Active 2022 SUNNY Buchanan [address], [place], [address] , [employer] 3 13:50:10 Lipoma of upper arm 683280431 Active 2022 SUNNY Buchanan [address], [place], [address] , [employer] 3 09:16:52 Hypertrophy of parotid gland 51155405 Active 2022 SUNNY Buchanan [address], [place], [address] , [employer] 3 19:46:00 Neck swelling 317545098 Active 2022 SUNNY Buchanan [address], [place], [address] , [employer] 3 19:46:10 Problem Notes None recorded. Procedures Surgical History Date Name Laterality Status Provider Name and Address Organization Details Recorded Time 02/26/18 79 Tubal Ligation completed Not Available [facility] 04/26 06:40:21 02/26/18 70 tonsillectomy completed Not Available [facility] 2022 06:40:21 Imaging Results Imaging Date Name Status LastModified by Organization Details LastModified Time 07/14/2020 holter monitor completed [id number] Information not available 04/26/2022 06:51:47 01/11/2021 XR, chest, 2 view completed [id number] Information not available 04/26/2022 06:51:47 11/14/2021 NM, hepatobiliary scan, w/ CCK completed [id number] [facility]) [address] [facility] [address], [place], [address], 04/26/2022 06:51:47 08/19/2021 imaging/diagnosti c result completed [id number] Information not available 04/26/2022 06:51:47 12/29/2021 upper endoscopy procedure (EGD) (PROC) completed [id number] Information not available 04/26/2022 06:51:47 08/17/2021 MAMMO, diagnostic, digital, bilateral completed [id number] [facility] [address], [place], [address], 04/26/2022 06:51:47 10/24/2021 US, abdomen completed [id number], [place], [address], 04/26/2022 06:51:47 08/09/2021 XR, knee completed [id number] 0026 [facility] [address] [place] [address], [address], 04/26/2022 06:51:47 10/05/2022 US, parotid gland completed [email or web address] [facility] [address] [facility] [address], [place], [address], 10/11/2022 16:51:27 10/05/2022 MRI, elbow, w/wo contrast completed [email or web address] [facility] [address], [place], [address], 10/11/2022 16:51:28 12/21/2022 CT, neck, soft tissue, w/ contrast completed [email or web address] [facility] [address] [facility] [address], [place], [address], 12/21/2022 16:14:04 03/08/2023 XR, hand, 2 view completed [email or web address] [facility] [address] [place], [address], 03/10/2023 13:02:51 Procedure Notes None recorded. Medical Equipment None Reported. Allergies No known drug allergies Medications Name Sig Start Date Stop Date Status Note LastModified by Organization Details LastModified Time cyclobenz aprine 10 mg tablet TAKE 1 TABLET BY MOUTH EVERYDAY AT BEDTIME PRN 05/15 completed Not Available Not Available Not Available amoxicill in 500 mg capsule Take 1 capsule every 8 hours by oral route for 7 days. 05/21 completed Not Available Not Available Not Available Qvar 80 mcg/actua tion Metered Aerosol oral inhaler INHALE 2 PUFFS BY MOUTH TWICE DAILY 05/15 completed Not Available Not Available Not Available prednison e 10 mg tablet Take by oral route. active Not Available Not Available No t Available azithromy miguel 250 mg tablet TAKE 2 TABLETS BY MOUTH ON DAY 1 THEN TAKE 1 TABLET ON DAYS 2 5 active Not Available Not Available No t Available ibuprofen 800 mg tablet TAKE 1 TAB BY MOUTH W/ FOOD EVERY 8 HRS NEEDED FOR MODERATE /SEVERE PAIN X3DAYS THEN NEEDED 08/06 completed Not Available Not Available Not Available benzonata te 200 mg capsule Take 1 capsule 3 times a day by oral route as needed. 04/07 completed Not Available Not Available Not Available hydrocodo ne 5 mg-acetam inophen 325 mg tablet TAKE 1 TABLET BY MOUTH AT BEDTIME NEEDED FOR PAIN 09/08 completed Not Available Not Available Not Available prednison e 20 mg tablet TAKE 2 TABLETS BY MOUTH DAILY FOR 5 DAYS active Not Available Not Available No t Available isosorbid e mononitra te ER 30 mg tablet,ex tended release 24 hr Take 1 tablet every day by oral route. 05/15 completed Not Available Not Available Not Available Tubersol 5 tub. unit/0.1 mL intraderm al injection solution 0.1ml subderma l 10/[address] [facility] #[id number] 752-21 Pt tests NEGATIVE on 04/06/17 ds Not Available Not Available Not Available prednison e 5 mg tablet TAKE 4 TABLETS BY MOUTH ONCE DAILY FOR 7 DAYS THEN 3 ONCE DAILY FOR 7 DAYS THEN 2 ONCE DAILY FOR 7 DAYS THEN 1 ONCE DAILY FOR 7 DAYS 09/29 completed Not Available Not Available Not Available Pyridium 200 mg tablet Take 1 tablet 3 times a day by oral route for 3 days. 08/06 completed Not Available Not Available Not Available clobetaso l 0.05 % topical cream APPLY 8 TIMES DAILY 07/05 completed Not Available Not Available Not Available Remicade 100 mg intraveno us solution Inject by intraven ous route. active Not Available Not Available No t Available amlodipin e 5 mg tablet TAKE 1 TABLET BY MOUTH EVERY DAY 2022 active Not Available Not Available Not Avai lable leflunomi de 20 mg tablet TAKE 1 TABLET BY MOUTH ONCE DAILY 09/26 completed Not Available Not Available Not Available tramadol 50 mg tablet TAKE 1-2 TABS BY MOUTH UP TO 3 TIMES DAILY NEEDED 2023 active Not Available Not Available Not Avai lable Macrobid 100 mg capsule Take 1 capsule every 12 hours by oral route. 08/06 completed Not Available Not Available Not Available cyprohept adine 4 mg tablet TAKE 2 TABLETS BY MOUTH EVERY DAY AT BEDTIME 07/05 completed Not Available Not Available Not Available alprazola m 0.5 mg tablet TAKE 1 TABLET BY MOUTH 1 HOUR PRIOR TO PROCEDUR E, ANOTHER 30 MIN PRIOR TO PROCEDUR E AND 1 ON STANDBY 05/15 completed Not Available Not Available Not Available amoxicill in 875 mg tablet TAKE 1 TABLET BY MOUTH EVERY 12 HOURS active Not Available Not Available No t Available famotidin e 20 mg tablet Take 1 tablet twice a day by oral route for 30 days. 05/15 completed Not Available Not Available Not Available lorazepam 0.5 mg tablet TAKE 1-2 tabs 30 min. before testing PRN active Not Available Not Available No t Available methotrex ate sodium 2.5 mg tablet TAKE 6 TABLETS BY MOUTH ONCE A WEEK active Not Available Not Available No t Available benzonata te 100 mg capsule active Not Available Not Available Not Available erythromy miguel 5 mg/gram (0.5 %) eye ointment APPLY 1/2 INCH STRIP TO BOTH EYE INCISION SITES THREE TIMES DAILY 09/25 completed Not Available Not Available Not Available Cipro 500 mg tablet Take 1 tablet every 12 hours by oral route with meals. active Not Available Not Available No t Available promethaz ine 25 mg tablet 09/08 completed Not Available Not Available Not Available Qvar 40 mcg/actua tion Metered Aerosol oral inhaler Inhale 2 puffs twice a day by inhalati on route. 2015 active Not Available Not Available Not Avai lable nitroglyc deana 0.4 mg sublingua l tablet DISSOLVE ONE TABLET UNDER THE TONGUE EVERY 5 MINUTES NEEDED FOR CHEST PAIN. DO NOT EXCEED A TOTAL OF 3 DOSES IN 15 MINUTES active Not Available Not Available No t Available diclofena c sodium 75 mg tablet,de layed release TAKE ONE BY MOUTH TWICE DAILY WITH FOOD 06/30 completed Not Available Not Available Not Available folic acid 1 mg tablet TAKE 1 TABLET BY MOUTH ONCE DAILY active Not Available Not Available No t Available halobetas ol propionat e 0.05 % topical cream 03/05 completed Not Available Not Available Not Available Levaquin 500 mg tablet Take 1 tablet every 24 hours by oral route. 08/24 completed Not Available Not Available Not Available clobetaso l 0.05 % topical ointment APPLY A THIN LAYER TO THE AFFECTED AREA(S) TOPICALL Y 2 TIMES PER DAY 07/05 completed Not Available Not Available Not Available lotepredn ol etabonate 0.5 % eye drops,magdiel pension INSTILL 1 DROP INTO EACH EYE ONCE DAILY 09/26 completed Not Available Not Available Not Available Cheratuss in AC 10 mg-100 mg/5 mL oral liquid Take 10 mL every 4 hours by oral route as needed. 08/24 completed Not Available Not Available Not Available hydroxych loroquine 200 mg tablet Take 1 tablet every day by oral route. 2014 active Not Available Not Available Not Avai lable ibuprofen 600 mg tablet 07/05 completed Not Available Not Available Not Available fluocinon cas 0.05 % topical solution active Not Available Not Available Not Available cefuroxim e axetil 500 mg tablet TAKE 1 TABLET BY MOUTH EVERY 12 HOURS active Not Available Not Available No t Available methylpre dnisolone 4 mg tablets in a dose pack active Not Available Not Available Not Available fluticaso ne propionat e 50 mcg/actua tion nasal spray,magdiel pension SPRAY 2 SPRAYS BY INTRANAS AL ROUTE ONCE DAILY NEEDED 05/15 completed Not Available Not Available Not Available diazepam 5 mg tablet 07/05 completed Not Available Not Available Not Available amoxicill in 875 mg-potass ium clavulana te 125 mg tablet TAKE 1 TABLET BY MOUTH TWICE A DAY active Not Available Not Available No t Available Adderall 10 mg tablet Take 1 tablet every day by oral route as needed. 06/29 completed Not Available Not Available Not Available Restasis 0.05 % eye drops in a dropperet te INSTILL 1 DROP INTO EACH EYE TWICE DAILY active Not Available Not Available No t Available rosuvasta tin 20 mg tablet Take 1 tablet every day by oral route at bedtime. 04/25 completed Not Available Not Available Not Available rosuvasta tin 40 mg tablet TAKE 1 TABLET BY MOUTH EVERY DAY active Not Available Not Available No t Available Crestor 10 mg tablet 05/15 completed Not Available Not Available Not Available Cymbalta 30 mg capsule,d elayed release Take 1 capsule every day by oral route at bedtime. 08/06 completed Not Available Not Available Not Available fluocinol one acetonide oil 0.01 % ear drops APPLY 4 DROPS TO EACH EAR ONCE DAILY NEEDED FOR ITCHING active Not Available Not Available No t Available Enbrel SureClick 50 mg/mL (1 mL) subcutane ous pen injector 06/29 completed Not Available Not Available Not Available oxycodone 10 mg tablet TAKE 1 TABLET BY MOUTH TWICE A DAY 05/15 completed Not Available Not Available Not Available diclofena c 1 % topical gel APPLY 4 GRAMS TO ARTHRITI C JOINTS THREE TIMES DAILY NEEDED. active Not Available Not Available No t Available Cimzia Starter Kit 03/01 completed Has not started yet. Not Available Not Available Not Available Combivent Respimat 20 mcg-100 mcg/actua tion solution for inhalatio n INHALE 1 PUFF(S) 4 TIMES A DAY BY INHALATI ON ROUTE NEEDED. 06/29 completed Not Available Not Available Not Available Praluent Pen 75 mg/mL subcutane ous pen injector Inject 1 mL every 2 weeks by subcutan eous route as directed . 01/25 completed Patient stated it was never rx Not Available Not Available Not Available Repatha Pushtrone x 420 mg/3.5 mL subcutane ous wearable injector Inject 3.5 mL every month by subcutan eous route. active Not Available Not Available No t Available Wixela Inhub 250 mcg-50 mcg/dose powder for inhalatio n TAKE 1 PUFF BY MOUTH TWICE A DAY 2023 active Not Available Not Available Not Avai lable Vitals Date Recorded Body mass index (BMI) Body height Oxygen saturation Oxygen saturation in Arterial blood by Pulse oximetry Heart rate Respiratory rate Body temperature Body weight Systolic blood pressure Diastolic blood pressure Provider Name and Address Organization Details Last Updated DateTime 1 27.6 kg/m2 171.45 cm 97 % 97 % 81 /min 16 /min 97.3 [degF] 25275.0 3 g 138 mm[Hg] 76 mm[Hg] Not Available [facility] 3 06:42:05 Date Recorded Body mass index (BMI) Body height Oxygen saturation Oxygen saturation in Arterial blood by Pulse oximetry Heart rate Body temperature Body weight Systolic blood pressure Diastolic blood pressure Provider Name and Address Organization Details Last Updated DateTime 1 26.8 kg/m2 171.45 cm 92 % 92 % 82 /min 96.7 [degF] 02727.3 5 g 120 mm[Hg] 80 mm[Hg] Not Available [facility] 3 06:42:05 Date Recorded Body mass index (BMI) Body height Oxygen saturation Oxygen saturation in Arterial blood by Pulse oximetry Heart rate Body weight Systolic blood pressure Diastolic blood pressure Provider Name and Address Organization Details Last Updated DateTime 2 27.2 kg/m2 171.45 cm 100 % 100 % 68 /min 41329.2 6 g 128 mm[Hg] 80 mm[Hg] Not Available [facility] 3 06:42:05 Date Recorded Body height Body weight Body temperature Heart rate Oxygen saturation Oxygen saturation in Arterial blood by Pulse oximetry Systolic blood pressure Diastolic blood pressure Provider Name and Address Organization Details Last Updated DateTime 3 171.45 cm 28768.0 7 g 97.2 [degF] 77 /min 96 % 96 % 116 mm[Hg] 72 mm[Hg] Tg Strong RN [facility] Evri [facility] 3 15:12:06 Date Recorded Body height Body temperature Body mass index (BMI) Body weight Respiratory rate Heart rate Systolic blood pressure Diastolic blood pressure Provider Name and Address Organization Details Last Updated DateTime 3 171.45 cm 98.3 [degF] 27.9 kg/m2 12917.4 2 g 16 /min 67 /min 130 mm[Hg] 82 mm[Hg] DEVEN Timmons [facility] Evri [facility] 3 15:11:14 Social History Question Answer Notes LastModified by Organizat ion Details LastModified Time Tobacco Smoking Status Former Smoker Not Available [facility] 04/26/2022 06:39:57 What Is Your Level Of Alcohol Consumption? None [id number] Information not available 04/26/2022 What Is Your Level Of Caffeine Consumption? Occasional [id number] Information not available 04/26/2022 How Much Tobacco Do You Chew? None [id number] Information not available 04/26/2022 In The 14 Days Before Symptom Onset, Have You Had Close Contact With A Laboratory-confir med COVID-19 While That Case Was Ill? No [id number] Information not available 04/26/2022 In The 14 Days Before Symptom Onset, Have You Had Close Contact With A Person Who Is Under Investigation For COVID-19 While That Person Was Ill? No [id number] Information not available 04/26/2022 Are You Currently Employed? Yes [email or web address] Information not available 09/25/2022 What Type Of Diet Are You Following? REGULAR [id number] Information not available 04/26/2022 Which Illicit Or Recreational Drugs Have You Used? None [id number] Information not available 04/26/2022 Do You Or Have You Ever Used E-cigarettes Or Vape? Never Used Electronic Cigarettes [id number] Information not available 04/26/2022 What Is Your Occupation? [employer] [id number] Information not available 04/26/2022 Have There Been Any Changes To Your Family Or Social Situation? No [email or web address] Information no t available 09/25/2022 Do You Use Insect Repellent Routinely? No [email or web address] Information not available 09/25/2022 What Was The Date Of Your Most Recent Tobacco Screening? 05/21/2020 [id number] Information not available 04/26/2022 Do You Use Your Seat Belt Or Car Seat Routinely? Yes [email or web address] Information not available 09/25/2022 Do You Have Smoke And Carbon Monoxide Detectors In Your Home? Yes Information not available 09/25/2022 At What Age Did You Start Smoking Tobacco? 14 [id number] Information not available 04/26/2022 Do You Or Have You Ever Used Smokeless Tobacco? Never Used Smokeless Tobacco [id number].[id number] Information not available 04/26/2022 How Much Tobacco Do You Smoke? 0.25 PPD [id number] Information not available 04/26/2022 Do You Use Any Illicit Or Recreational Drugs? No Information not available 09/25/2022 Do You Use Sunscreen Routinely? Yes [email or web address] Information not available 09/25/2022 Have You Recently Traveled Abroad? No [email or web address] Information not available 09/25/2022 Do You Have Any Dietary Restrictions? No [email or web address] Information not available 09/25/2022 Do You Or Have You Ever Used Any Other Forms Of Tobacco Or Nicotine? No [email or web address] Information not available 09/25/2022 Sex: Unknown Functional Status Question Answer Note LastModified by Organizat ion Details LastModified Time What is your exercise level? None [id number] Information not available 04/26/2022 Mental Status None recorded. Family History Relationship Description Onset Age of this Age Resolved Age Notes LastModified by Organization Details LastModified Time Mother Heart disease [id number] Not available 04/26/2022 06:40:23 Father Diabetes mellitus [id number] Not available 04/26/2022 06:40:23 Son Malignant neoplasm of brain [id number] Not available 04/26/2022 06:40:23 Son Malignant tumor of lung Right [id number] Not available 04/26/2022 06:40:23 Medical History Condition Response BACK / NECK PROBLEMS Y HEARTBURN / REFLUX Y HYPERTENSION Y HIGH CHOLESTEROL / HYPERLIPIDEMIA Y Gynecological HistoryNo gynecological history recorded. Obstetrics History GPAL:G 0 P 0 0 0 0 Immunizations Vaccine Type Date Status Note Provider Nam e and Address Organization Details Recorded Time Influenza, split virus, trivalent, preservative 3 completed Not Available Count includes the [facility] 04/26/2022 06:51:18 influenza, unspecified formulation 5 completed Not Available Count includes the [facility] 04/26/2022 06:51:18 influenza, unspecified formulation 6 completed Not Available Count includes the [facility] 04/26/2022 06:51:18 Past Encounters Encounter ID Performer Location Encounter Start Date Encounter Closed Date Diagnosis/Indication Diagnosis SNOMED-CT Code Diagnosis ICD10 Code Diagnosis Note [id number] [facility] [address] [place] [address] 05/21/2020 00:00:00 05/22/2020 14:46:18 [id number] [facility] [place] [facility] [address] [place] [address] 06/30/2020 00:00:00 07/13/2020 18:28:00 [id number] [facility] [address] [place] [address] 09/29/2021 00:00:00 10/26/2021 15:26:19 [id number] SUNNY Buchanan [facility] [place] [facility] [address] [place] [address] 05/15/2022 14:45:21 05/15/2022 15:36:02 Parotitis [id number] K11.20 start augmentin course as directed Rheumatoid arthritis [id number] M06.9 pt has underlying Rheumatoid arthritis, follows with Rheumatolo gy. They have told patient to have her PCP complete order for walker rollator. [id number] SUNNY Buchanan [facility] [place] [address] [place] [address] 09/26/2022 14:26:14 09/26/2022 15:42:40 Parotitis [id number] K11.20 still to get u/s of parotid gland for hx of parotitis x 2 episodes Mass of upper limb 48343 5008 R22.31 refer for RUE /elbow MRI w/wo contrast. Familial hypercholesterolemia [id number] E78.01 due for fasting lipids High gluco se level in blood [id number] R73.9 due for A1c lab Long-term drug therapy [id number] Z79.899 routine bmp, CBC, LFT and TFTs Health Concerns Section Related Observation LastModified by Organization Detai ls LastModified Time None Recorded Concern Status LastModified by Organization Details LastModified Time None Recorded Advance Directives Directive None Recorded Payers Encounter Date Sequence Insurance Name Policy Number Policy Olivas Covered Member ID Olivas Member ID Guarantor Name 05/15/2022 1 [facility] [id number] Karitta C Anuj [id number] Karitta C Anuj 09/26/2022 1 [facility] [id number] Karitta C Anuj [id number] Karitta C Anuj Notes Date Note Type Note Provider Name and Address Organization Details Recorded Time 021 text/ht ml Generic HPI TemplateReported bypatient.Notes:Pt presents today for second repatha injection. Pt reports she could not walk for five days after first inj. States her leg was very sore. Not Available [employer] 05/22/2020 14:46:18 021 text/ht ml NeckReported bypatient.Location:midline Quality:aching; burning; throbbing; sharp; frequent; not changing Severity:severe; pain level 8/10 Duration:3 weeks Timing:cannot identify Context:cannot identify Alleviating Factors:lying down; heat Aggravating Factors:sitting Associated Symptoms:no weakness; no numbness; no tingling; no swelling; no redness; no warmth; no ecchymosis; no catching/locking; no popping/clicking; no buckling; no grinding; no instability; no radiation down arm; no drainage; no fever; no chills; no weight loss; no change in bowel/bladder habits Previous Surgery:none Prior Imaging:none Previous Injections:none Previous PT:none Work Related:no Working:no Not Available [employer] 07/13/2020 18:28:00 022 text/ht ml COPDReported bypatient.Notes:stable on medication regimenGeneric HPI TemplateReported bypatient.Notes:rheumatoid arthritis on medication from specialistHyperlipidemiaReported bypatient.Notes:not taking medicationHypertensionReported bypatient.Notes:on medication Not Available [employer] 10/26/2021 15:26:19 023 text/ht ml Enlarged Lymph NodeReported bypatient.Location:right; upper neck Identified:patient identified Associated Symptoms:fatigue; right ear pain SUNNY Buchanan [address], [place], [address], [employer] 05/23/2022 23:25:14 023 text/ht ml Generic HPI TemplateReported bypatient.Location:R upper arm Quality:painful swollen knot that radiates down to her hand Severity:worse Duration:pain comes and goes. Onset/Timing:couple weeks Context:unknown Aggravating factors:using that arm SUNNY Buchanan [address], [place], [address], [employer] 10/22/2022 23:16:15 OBGyn Episode No OBEpisode recorded.
--- OUTSIDE RECORDS SUMMARY | 2024-04-23 08:56 | XMS_ITS | Data Portability ---
Author Organization [facility]win Chetan Address [address] [place] [address] Care Team Providers Care Mechanic Senior Name Role Phone CAITLIN LUO Primary Care Provider Unavailab le Assessment Encounter Date Assessment Date Assessment LastModified by Organization Details LastModified Time 03/18/2024 03/18/2024 APR 23 NCS of LE s planned. Seeing ortho surgeon LLJose Enrique. Not available 03/18/2024 11:17:45 Plan of Treatment Reminders Order Date Submit Date Provider Last Modified By Organization Details Last Modified Time Details Appointments ANY 15 2024 10:00A M SUNNY Buchanan Not available Not available Not available Lab CBC w/ auto diff 2023 024 [email or web address] [address], [place], [address], 08/31/2023 15:08:41 BMP, serum or plasma 2023 024 [email or web address] [address], [place], [address], 09/05/2023 09:22:43 hepatic function panel, serum 2023 024 [email or web address] [facility] [address], [place], [address], 09/04/2023 12:01:58 TSH + free T4, serum 2023 024 [email or web address] [address], [place], [address], 08/31/2023 15:08:21 vitamin B12 + folate, serum or blood [address] [facility] [address], [place], [address], 08/31/2023 15:08:22 lipid panel w/ direct LDL, serum 2023 024 [facility], [address] [place] [address] [address], [place], [address], 09/05/2023 11:11:22 HbA1c (hemoglob in A1c), blood [address] [facility] [address], [place], [address], 08/31/2023 15:08:22 ESR (erythroc yte sedimenta tion rate), blood [address] [facility] [address], [place], [address], 08/31/2023 15:08:22 C reactive protein, QN, serum or plasma [address] [facility] [address], [place], [address], 08/31/2023 15:08:22 Referral orthopedi c surgeon referral 2023 024 [facility], [address], [place], [address], 10/15/2023 13:44:19 physical therapist referral 2023 024 [email or web address] [facility] [address] , [place], [address], 07/19/2023 11:05:29 Procedures None recorded. Surgeries None recorded. Imaging None recorded. Medication Orders lidocaine 5 % topical patch 2024 025 [id number] [address] [place], [address], 03/18/2024 11:27:00 amlodipin e 5 mg tablet 2024 025 [email or web address] [address] [place], [address], 04/17/2024 10:55:23 ergocalci ferol (vitamin D2) 1,250 mcg (50,000 unit) capsule 2023 024 [facility] [address] [place], [address], 07/30/2023 10:56:41 sulfameth oxazole 800 mg-trimet hoprim 160 mg tablet 2023 024 [email or web address] [facility] [address] [place], [address], 07/30/2023 10:22:11 Patient TargetsNo targets recorded. Patient Instructions Encounter Date Encounter Id Patient Instructions Last Modified By Organization Details Last Modified Time 03/18/2024 [id number] A healthy lifestyle: care instructions Not available 03/18/2024 11:26:58 Reason for Referral Physical Therapist Referral for Decreased muscle function left leg pain s/p fall and incision Referring Physician: Kristal Harrison, Family Medicine, Encounter Date: 05/31/2023 Orthopedic Surgeon Referral for Injury of left lower leg left lower leg injury , sequalae of pain Referring Physician: Caitlin Luo, Internal Medicine, Encounter Date: 07/30/2023 Results Created Date Observation Date Name Description Value Unit Range Abnormal Flag Note LastModifiedBy Organization Detail LastModifiedTime 08/17/19 24 08/17/2023 XR, chest , 2 view No observ ation record ed. [facility] [address] [place], [address], 08/21/2023 11:52:23 09/11/19 24 09/11/2023 MRI, lower leg, w/o contr ast No observ ation record ed. [email or web address] [address], [place], [address], 09/16/2023 01:01:36 09/24/19 24 09/24/2023 CT, knee, w/o contr ast No observ ation record ed. [email or web address] [address] [facility] [address], [place], [address], 09/24/2023 19:51:51 10/30/19 24 10/30/2023 CT, chest , w/o contr ast No observ ation record ed. [address], [place], [address], 10/31/2023 08:41:21 10/31/19 24 10/30/2023 PFT, compl ete No observ ation record ed. [address], [place], [address], 10/31/2023 08:42:11 Result Notes None recorded. Problems Name Problem SNOMED Code Status Onset Date Resolution Date Notes Provider Name and Address Organization Details Recorded Time Long-term drug therapy Active 2023 SUNNY Buchanan Attn: Pebbles melgar,[address] [place], [address], [facility] 4 13:51:56 Anxiety 49504287 Active 2023 SUNNY Buchanan Attn: Pebbles melgar,[address] [place], [address], [facility] 4 13:53:21 Vitamin D deficiency 55164107 Active 2023 SUNNY Buchanan Attn: Pebbles melgar,[address] [place], [address], [place] [facility] 4 13:53:33 Familial hypercholes terolemia 772189588 Active 2023 SUNNY Buchanan Attn: Pebbles melgar,[address] [facility], [place], [address], [place] [facility] 4 13:53:59 Rheumatoid arthritis 35787021 Active 2023 SUNNY Buchanan Attn: Pebbles melgar,[address] [facility], [place], [address], [place] [facility] 4 13:54:00 Asthma 303985826 Active 2023 SUNNY Buchanan Attn: Pebbles melgar,[address] [facility], [place], [address], [place] [facility] 4 13:54:50 Body mass index 25-29 - overweight 260881711 Active 2023 SUNNY Buchanan Attn: Pebbles melgar,[address] [facility], [place], [address], [place] [facility] 4 13:55:17 Pain of left knee joint 8885517542975 07 Active 2024 SUNNY Buchanan Attn: Pebbles melgar,[address] [facility], [place], [address], [place] [facility] 5 17:03:14 Notes:Some problems listed i n Document: #[id number] could not be added to this patient's chart. Please review this document and add these problems to the patient's chart manually as needed. Problem Notes None recorded. Procedures Surgical History Date Name Laterality Status Provider Name and Address Organization Details Recorded Time 4 Suture/Stapl e removal completed SUNNY CESAR Attn: Accounting,[address] [facility], [place], [address], [place] [facility] 06/03/2023 12:36:39 Imaging Results Imaging Date Name Status [facility]Modified by [facility] Details LastModified Time 08/17/2023 XR, chest, 2 view completed [facility] [address] [facility] [address], [place], [address], 08/21/2023 11:52:23 09/11/2023 MRI, lower leg, w/o contrast [facility], [place], [address], 09/16/2023 01:01:36 09/24/2023 CT, knee, w/o contrast completed [facility] [address] [place] [address] [address], [place], [address], 09/24/2023 19:51:51 10/30/2023 CT, chest, w/o contrast completed [address], [place], [address], 10/31/2023 08:41:21 10/30/2023 PFT, complete completed [address] [facility] [place] [address] [address], [place], [address], 10/31/2023 08:42:11 Procedure Notes None recorded. Medical Equipment None Reported. Allergies No known drug allergies Medications Name Sig Start Date Stop Date Status Note LastModified by Organization Details LastModified Time prednison e 10 mg tablet Take 4 tablets as needed by oral route for 90 days. active Not Available Not Available No t Available meloxicam 15 mg tablet TAKE 1 TABLET (15 MG TOTAL) BY MOUTH DAILY. 03/18 completed stomach issues Not Available Not Available Not Available leflunomi de 10 mg tablet Take 1 tablet every day by oral route for 90 days. active Not Available Not Available No t Available Advair Diskus 100 mcg-50 mcg/dose powder for inhalatio n Inhale 1 puff twice a day by inhalati on route. 07/29 completed Not Available Not Available Not Available Remicade 100 mg intraveno us solution Inject by intraven ous route. active 500 mg every 6 weeks Not Available Not Available Not Available amlodipin e 5 mg tablet Take 1 tablet every day by oral route for 90 days. active Not Available Not Available No t Available sulfameth oxazole 800 mg-trimet hoprim 160 mg tablet Take 1 tablet every 12 hours by oral route with meal(s) for 7 days. 07/29 completed Not Available Not Available Not Available leflunomi de 20 mg tablet Take 1 tablet every day by oral route. 07/29 completed Not Available Not Available Not Available tramadol 50 mg tablet TAKE 1 TO 2 TABLETS BY MOUTH 3 TIMES A DAY NEEDED active Not Available Not Available No t Available lorazepam 0.5 mg tablet TAKE 1 TABLET BY MOUTH 30 MIN BEFORE APPOINTM ENT NEEDED. 03/18 completed Not Available Not Available Not Available methotrex ate sodium 2.5 mg tablet TAKE 8 TABLETS BY MOUTH ONCE A WEEK 03/18 completed Not Available Not Available Not Available cephalexi n 500 mg capsule TAKE 1 CAPSULE BY MOUTH EVERY 6 HOURS 05/24 completed Not Available Not Available Not Available erythromy miguel 5 mg/gram (0.5 %) eye ointment APPLY 1/2 INCH STRIP TO BOTH EYE INCISION SITES THREE TIMES A DAY. 07/29 completed Not Available Not Available Not Available lidocaine 5 % topical patch APPLY 1 PATCH BY TOPICAL ROUTE ONCE DAILY (MAY WEAR UP TO 12HOURS. ) 2024 active Not Available Not Available Not Avai lable nitroglyc deana 0.4 mg sublingua l tablet DISSOLVE ONE TABLET UNDER THE TONGUE EVERY 5 MINUTES NEEDED FOR CHEST PAIN. DO NOT EXCEED A TOTAL OF 3 DOSES IN 15 MINUTES active Not Available Not Available No t Available diclofena c sodium 75 mg tablet,de layed release TAKE 1 TABLET (75 MG TOTAL) BY MOUTH 2 (TWO) TIMES A DAY TAKE WITH FOOD 03/18 completed Not Available Not Available Not Available folic acid 1 mg tablet TAKE 1 TABLET BY MOUTH ONCE DAILY 03/18 completed Not Available Not Available Not Available mupirocin 2 % topical ointment APPLY TO AFFECTED AREA 3 TIMES A DAY 07/29 completed No longer using, Patient stated Not Available Not Available Not Available ergocalci ferol (vitamin D2) 1,250 mcg (50,000 unit) capsule TAKE 1 CAPSULE EVERY WEEK BY ORAL ROUTE. active Not Available Not Available No t Available lotepredn ol etabonate 0.5 % eye drops,magdiel pension INSTILL 1 DROP INTO EACH EYE ONCE DAILY active Not Available Not Available No t Available ketoconaz ole 2 % topical cream APPLY TOPICALL Y DAILY FOR 2 WEEKS 07/29 completed No longer taking due to end of course Not Available Not Available Not Available amoxicill in 875 mg-potass ium clavulana te 125 mg tablet TAKE 1 TABLET BY MOUTH EVERY 12 HOURS 07/29 completed No longer taking due to end of course Not Available Not Available Not Available polyvinyl alcohol-p ovidone (PF) 1.4 %-0.6 % eye drops in a dropperet te active Not Available Not Available Not Available elderberr y fruit active Not Available Not Available Not Available diclofena c 1 % topical gel APPLY 4 GRAMS TO ARTHRITI C JOINTS THREE TIMES DAILY NEEDED. 07/29 completed Not Available Not Available Not Available salmon oil 1,000 mg-omega- 3 fatty acids 210 mg capsule Take by oral route. active Not Available Not Available No t Available lidocaine 5 % medicated patch and dimethico ne 5 % topical cream 03/18 completed Not Available Not Available Not Available Repatha Pushtrone x 420 mg/3.5 mL subcutane ous wearable injector Inject 3.5 mL every month by subcutan eous route. 03/18 completed ever 6 weeks infusion Not Available Not Available Not Available Wixela Inhub 250 mcg-50 mcg/dose powder for inhalatio n Inhale 1 puff twice a day by inhalati on route. active Not Available Not Available No t Available aspirin 81 mg capsule Take 1 capsule every day by oral route. active Not Available Not Available No t Available Vitals Date Recorded Oxygen saturation Oxygen saturation in Arterial blood by Pulse oximetry Heart rate Body height Body mass index (BMI) Body weight Systolic blood pressure Diastolic blood pressure Provider Name and Address Organization Details Last Updated DateTime 4 99 % 99 % 64 /min 170.18 cm 29.1 kg/m2 14277.1 8 g 156 mm[Hg] 81 mm[Hg] Kami Rankin [place] - [facility] 4 15:08:16 Date Recorded Respiratory rate Systolic blood pressure Diastolic blood pressure Provider Name and Address Organization Details Last Updated DateTime 05/25/2023 18 /min 130 mm[Hg] 86 mm[Hg] SUNNY CESAR Attn: Accounting, [address] [place], [address], [facility] 05/25/2023 15:54:27 Date Recorded Body height Body mass index (BMI) Body weight Oxygen saturation Oxygen saturation in Arterial blood by Pulse oximetry Heart rate Respiratory rate Systolic blood pressure Diastolic blood pressure Provider Name and Address Organization Details Last Updated DateTime 4 170.18 cm 28.3 kg/m2 01076.2 2 g 97 % 97 % 103 /min 20 /min 126 mm[Hg] 80 mm[Hg] Yael Cruz MA [place] - [facility] 4 11:43:09 Date Recorded Heart rate Provider Name an d Address Organization Details Last Updated DateTime 05/31/2023 76 /min SUNNY CESAR Attn: Accounting,[address] [place], [address], [place] - [facility] 06/03/2023 12:34:31 Date Recorded Body height Body mass index (BMI) Body weight Heart rate Oxygen saturation Oxygen saturation in Arterial blood by Pulse oximetry Systolic blood pressure Diastolic blood pressure Provider Name and Address Organization Details Last Updated DateTime 4 170.18 cm 27.5 kg/m2 50992.1 8 g 71 /min 99 % 99 % 140 mm[Hg] 72 mm[Hg] Cherise Interiano [place] [facility] 4 10:36:30 Date Recorded Respiratory rate Systolic blood pressure Diastolic blood pressure Provider Name and Address Organization Details Last Updated DateTime 07/30/2023 18 /min 110 mm[Hg] 80 mm[Hg] SUNNY Buchanan Attn: Accounting, [address] [place], [address], [place] [facility] 07/30/2023 10:57:02 Date Recorded Body height Body mass index (BMI) Body weight Respiratory rate Oxygen saturation Oxygen saturation in Arterial blood by Pulse oximetry Heart rate Systolic blood pressure Diastolic blood pressure Provider Name and Address Organization Details Last Updated DateTime 5 170.18 cm 28 kg/m2 38270.0 3 g 18 /min 99 % 99 % 72 /min 140 mm[Hg] 82 mm[Hg] Sammie Munoz [place] - [facility] 5 11:07:31 Date Recorded Body height Body mass index (BMI) Body weight Respiratory rate Oxygen saturation Oxygen saturation in Arterial blood by Pulse oximetry Heart rate Systolic blood pressure Diastolic blood pressure Provider Name and Address Organization Details Last Updated DateTime 170.18 cm 27.3 kg/m2 97637.0 7 g 18 /min 97 % 97 % 82 /min 140 mm[Hg] 82 mm[Hg] Sammie Munoz MA [facility] 5 10:58:48 Date Recorded Systolic blood pressure Diastolic blood pressure Provider Name and Address Organization Details Last Updated DateTime 04/17/2024 148 mm[Hg] 80 mm[Hg] SUNNY Buchanan Attn: Accounting,[address] [place], [address], [facility] 04/17/2024 11:15:44 Social History Question Answer Notes LastModified by Organizat ion Details LastModified Time Tobacco Smoking Status Former Smoker Cherise Interiano MA [facility], [facility] 07/30/2023 10:33:14 Do You Have An Advance Directive? No Information not available 07/30/2023 What Is Your Level Of Alcohol Consumption? Occasional Information not available 07/30/2023 How Many Years Have You Consumed Alcohol? 50 Information not available 07/30/2023 Are You Blind Or Do You Have Difficulty Seeing? No Information not available 07/30/2023 What Is Your Level Of Caffeine Consumption? Heavy Information not available 07/30/2023 In The 14 Days Before Symptom Onset, Have You Had Close Contact With A Laboratory-confir med COVID-19 While That Case Was Ill? No Information not available 07/27/2023 In The 14 Days Before Symptom Onset, Have You Had Close Contact With A Person Who Is Under Investigation For COVID-19 While That Person Was Ill? No Information not available 07/27/2023 Have You Been To An Area Known To Be High Risk For COVID-19? No Information not available 07/27/2023 Are You Currently Employed? No Information not available 07/30/2023 Are You Deaf Or Do You Have Serious Difficulty Hearing? Yes Information not available 07/30/2023 What Type Of Diet Are You Following? REGULAR Information not available 07/30/2023 Are There Any Guns Present In Your Home? No Information not available 07/30/2023 What Was The Date Of Your Most Recent Tobacco Screening? 04/17/2024 Information not available 04/17/2024 What Is Your Current Pack Years? 10packyears Information not available 07/30/2023 What Is Your Relationship Status? Information not available 07/30/2023 Do You Use Your Seat Belt Or Car Seat Routinely? Yes Information not available 07/27/2023 Do You Have Smoke And Carbon Monoxide Detectors In Your Home? Yes Information not available 07/27/2023 How Much Tobacco Do You Smoke? 0.5 PPD Information not available 07/30/2023 Do You Feel Stressed (tense, Restless, Nervous, Or Anxious, Or Unable To Sleep At Night)? [id number] Information not available 07/30/2023 Do You Use Any Illicit Or Recreational Drugs? No Information not available 07/30/2023 Do You Use Sunscreen Routinely? No Information not available 07/30/2023 Has Tobacco Cessation Counseling Been Provided? No Information not available 07/30/2023 On What Date Was Tobacco Cessation Counseling Provided? 04/17/2024 Information not available 04/17/2024 How Many Years Have You Smoked Tobacco? 30 Information not available 07/30/2023 Do You Or Have You Ever Used Any Other Forms Of Tobacco Or Nicotine? No Information not available 07/30/2023 Sex: Female Functional Status Question Answer Note LastModified by Organization D etails LastModified Time Are you able to care for yourself? Yes Information n ot available 07/27/2023 What is your exercise level? None Information not available 07/30/2023 Mental Status None recorded. Family History Relationship Description Onset Age of this Age Resolved Age Notes LastModified by Organization Details LastModified Time Mother Coronary arterioscler osis mebyma Not available 2023 10:30:30 Mother Heart disease mebyma Not available 2023 10:31:05 Mother Hypercholest erolemia mebyma Not available 2023 10:31:12 Maternal Grandmother Diabetes mellitus mebyma Not available 2023 10:30:49 Father Diabetes mellitus mebyma Not available 2023 10:30:49 Father Hypertensive disorder mebyma Not available 2023 10:31:31 Paternal Grandmother Heart disease mebyma Not available 2023 10:31:05 Paternal Grandmother Hypertensive disorder mebyma Not available 2023 10:31:36 Medical History Condition Response Muscle, Joint, or Bone Problems Y Other Osteoporosis Y Gynecological History Statement/Question Response Menses Monthly N If Post Menopausal, Age at Menopause 49 Obstetrics History GPAL:G 0 P 0 0 0 0 Immunizations Vaccine Type Date Status Note Provider Nam e and Address Organization Details Recorded Time SARS-COV-2 (COVID-19) vaccine, UNSPECIFIED 4 completed SUNNY Buchanan Attn: Accounting,[address] [place], [address], [place] [facility] 11/07/2023 12:57:55 Influenza, high-dose, quadrivalent, PF 2 completed Sammie Munoz [place] null, [place] [facility] 02/25/2024 16:06:52 COVID-19, mRNA, LNP-S, PF, 30 mcg/0.3 mL dose 2 completed Sammie Munoz [place], [place] [facility] 02/25/2024 16:06:52 COVID-19 vaccine, vector-nr, rS-Ad26, PF, 0.5 mL 1 completed Sammie Munoz [place], [place] [facility] 02/25/2024 16:06:52 COVID-19, mRNA, LNP-S, PF, 30 mcg/0.3 mL dose, niko-sucrose 2 completed Sammie Munoz [place], [place] [facility] 02/25/2024 16:06:52 COVID-19, mRNA, LNP-S, bivalent, PF, 30 mcg/0.3 mL dose 2 completed GIANFRANCO [place], [place] [facility] 02/25/2024 16:06:52 Tdap 4 completed GIANFRANCO [place] [facility] 02/25/2024 16:06:52 Influenza, split virus, trivalent, preservative 3 completed GIANFRANCO [place] [facility] 02/25/2024 16:06:52 Respiratory syncytial virus (RSV) MAB, unspecified 4 completed GIANFRANCO [place], [place] [facility] 02/25/2024 16:08:02 Past Encounters Encounter ID Performer Location Encounter Start Date Encounter Closed Date Diagnosis/Indication Diagnosis SNOMED-CT Code Diagnosis ICD10 Code Diagnosis Note [id number] SUNNY CESAR [facility] [address] [place] [address] 05/25/2023 14:49:49 05/25/2023 15:59:40 Superficial bacterial infection of skin 372008927 L08.9 15 sutures placed 9 days agoput on keflex 05/17/23PEx - 7.5 cm horizontal laceration to L upper leg, 15 interrupte d sutures in place, erythema and minimal yellow discharge present, moderately TTPremoved 1 stitch, pt could not tolerate further removal due to painstart bactrimwil l remove stitches next week [id number] SUNNY CESAR [facility] [address] [place] [address] 05/31/2023 11:37:11 05/31/2023 12:21:25 Decreased muscle function 98697478 M62.9 pt c/o weakness to left lower leg s/p fall and suture placements tates that she has not applied full weight on left leg since fallambula aydin with cane to R handrefer to PTf/u after complete PT Removal of suture 079614 01 Z48.02 05/31/23: 14 sutures removed, see pictures in chart post suture removaladv ised to finish bactrim scriptappl y neosporin once a day, thin layerkeep wound dry and clean, can leave band-aid off at home 05/25/23:15 sutures placed 9 days agoput on keflex 05/17/23PEx - 7.5 cm horizontal laceration to L upper leg, 15 interrupte d sutures in place, erythema and minimal yellow discharge present, moderately TTPremoved 1 stitch, pt could not tolerate further removal due to painstart bactrimwil l remove stitches next week [id number] SUNNY Buchanan [facility] [employer] [address] [place] [address] 07/30/2023 09:49:47 07/30/2023 10:59:45 Long-term drug therapy 914023551 Z79.899 full lab panel due: cbc, cmp, lft, tft, b12 and folate Rheumatoid arthritis 698 19179 M06.9 pt is managed by [facility]os . she is due for ESR and CRP and we will copy her specialist on this lab. Familial hypercholesterolemia 919286563 E78.01 due for fasting lipids Vitamin D deficiency 347 55989 E55.9 refill on weekly high dose vit D rx Diabetes m ellitus screening 264912208 Z13.1 a1c screening is due Anxiety 26383001 F41.9 patient has notable anxiety related to her fall on the sidewalk, causing laceration to the LLE that was extended healing and treatment course. she is very nervous to walk outside now. Injury of left lower leg 4196532239 3469577 S89.92XS pt would like to consult with Ortho for her continued LLE pain post fall injury. Asthma 341702927 J45.90 9 stable. controlled . on Wixela inhaler. Body mass index 25-29 - overweight 900958454 Z68.27 [id number] SUNNY Buchanan [facility] [employer] [address] [place] [address] 03/18/2024 10:28:38 03/18/2024 15:03:16 Body mass index 25-29 - overweight 144383184 Z68.28 BMI is 28 Overweight 132785078 E66 .3 Familial hypercholesterolemia 310533019 E78.01 Patient needs to touch base again with her cardiologi st if she is interested in restarting aggressive injectable hyperlipid emia treatment. In the past she was on Repatha that was managed by Dr. Denson Rheumatoid arthritis 698 19031 M06.9 pt is managed by [facility] . remicade 500mg every 6 weeks. Vitamin D deficiency 347 24113 E55.9 Patient has a history of vitamin-D deficiency and does take high-dose weekly supplement Long-term drug therapy 309694299 Z79.899 Labs are up-to-date with this office and from her specialist Pain of le ft knee joint 4177878136 07834 M25.562 Refill given on lidocaine topical patches to use for 12 hour increments as Benign ess ential hypertension 1517476 I10 Start amlodipine 5 mg daily to treat blood pressure that has been elevated higher at home and today is 140/82. Adult heal th examination 129801170 Z00.01 Annual wellness exam completed [id number] SUNNY Buchanan [facility] - [place] [address] [place] [address] 04/17/2024 10:41:57 04/17/2024 11:24:02 Body mass index 25-29 - overweight 099895627 Z68.28 BMI is 28 Overweight 598131793 E66 .3 Pain of left breast 1010 224382 N64.4 Pain in axilla 388875915 M79.629 Benign ess ential hypertension 1925400 I10 continue amlodipine 5mg daily. Positive s creening for depression on PHQ-9 (Patient Health Questionnaire 9) [id number] 42999 Z13.31 Health Concerns Section Related Observation LastModified by Organization Detai ls LastModified Time None Recorded Concern Status LastModified by Organization Details LastModified Time None Recorded Advance Directives Directive N: Payers Encounter Date Sequence Insurance Name Policy Number Policy Olivas Covered Member ID Olivas Member ID Guarantor Name 05/25/2023 1 *SELF PAY* Mary Marshall Anuj 05/25/2023 1 [facility] [id number] [place] C Anuj [id number] Jacki Marshall Anuj 05/31/2023 1 [facility] [id number] [place] Joanna Anuj [id number] Jacki Marshall Anuj 07/30/2023 1 [facility] [id number] Karitta C Anuj [id number] Jacki Leslie 03/18/2024 1 [facility] (MEDICARE REPLACEMENT/A DVANTAGE - HMO) [id number] Jacki Keenet [id number] Jacki Leslie Notes Date Note Type Note Provider Name and Address Organization Details Recorded Time 4 text/html Pt presents for suture removal. Reports 9 days ago, she was walking on side walk, tried to step over metal sign in the middle of the sidewalk and fell. She went to [place] [facility] and had 15 stitches placed to her L lower leg. Pt was given keflex on 05/17/23. C/o pain to L lower leg where stitches are placed. She has been elevating her leg, no relief with tramadol. SUNNY CESAR Attn: Accounting,[address] [facility], [place], [address], [facility] - [facility] 05/28/2023 12:09:53 4 text/html Pt presents for suture removal. Reports she has 1 more day left of bactrim. SUNNY CESAR Attn: Accounting,[address] [facility], [place], [address], [place] 06/03/2023 12:40:29 4 text/html Asthma F/UReported bypatient.Notes:underling asthma. no acute concerns or c/o. she is on wixela inhaler.Musculoskeletal PainReported bypatient.Notes:Patient has underlying Rheumatoid Arthritis and f/u with specialist for management. LLE leg injury, fell on sidewalk and hit a road closed sign that was laying across sidewalk. Severe LLE leg laceration and injury , her bone was visible the laceration was so bad. She had sutures. she has seen wound care at [facility]. Wound has healed very well, but her LLE lateral is still very painful. She is scared walking and has so much anxiety related to this traumatic event. SUNNY Buchanan Attn: Accounting,[address] [facility], [place], [address], [place] 08/25/2023 13:55:24 5 text/html Asthma F/UReported bypatient.Notes:underling asthma. no acute concerns or c/o. 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 In the past she has seen Cardiology for injectable hyperlipidemia therapy but she is not on that any longer and has not followed up with the interior systems carpenter about it.HypertensionReported bypatient.Notes:Patient's blood pressure has been running a bit higher lately per her report. She used to be on amlodipine therapy but that was stopped at some point when her pressure was lower and she has not been on any agent.Musculoskeletal PainReported bypatient.Notes:Patient has underlying Rheumatoid Arthritis and f/u with specialist for management.Currently the patient has pain in her left knee joint which is as a result of a fall she suffered on the sidewalk when her left lower extremity was injured. She would like a refill on lidocaine patches that have been helpful. SUNNY Buchanan Attn: Accounting,[address] [place], [address], [facility] 03/30/2024 17:03:52 OBGyn Episode No OBEpisode recorded.
--- OUTSIDE RECORDS SUMMARY | 2024-04-23 08:56 | XMS_ITS | Patient Health Record ---
Author Organization [facility] Address [address] [place] [address] Care Team Providers Care Greenhouse Grower Name Role Phone SHANICE LORENZO Unavailable [phone] DARNELL ESCOTO Unavailable Unavailable Reason For Referral No Information Plan Of Treatment No Information Insurance Providers Payer Name Payer Address Payer Phone Subscriber Number Group Number Insured Name Patient Relationship to Insured Coverage Start Date Coverage End Date [employer] MEDICARE COMPLETE [address] [address] [place] [address] [id number] LEONARDO PATEL Self - patient is the insured
--- OUTSIDE RECORDS SUMMARY | 2024-04-23 08:57 | XMS_ITS | Patient Health Summary ---
Author Organization [facility] Address [address] [place] [address] Care Team Providers Care Manager Hospital Name Role Phone Caitlin Covarrubias Primary Care Pr ovider Note from [facility],non-owned Affiliates and Associated Physician Practices is amultiple site organization consisting of ambulatory clinics and hospital sitesin [place], [place], [place] and [place]. This disclosure is being madepursuant to the Care Everywhere program and may not contain all information available regarding this patient. Last updated 17.[facility] Ship It Bag Check Allergies No known active allergies Social History Tobacco Use Types Packs/Day Years Used Date Smoking Tobacco: Never Assessed Sex and Gender Information Value Date Recorded Sex Assigned at Not on file Gender Identity Not on file Sexual Orientation Not on file Procedures * CT NECK SOFT TISSUE W CONT(Performed 08/14/2019) Performed for Neck mass * CREATININE BLOOD - POINT OF CARE (IP)(Performed 08/14/2019) Performed for Neck mass Results * CT NECK SOFT TISSUE W CONT (08/14/2019 12:58 PM CDT) Anatomical Region Laterality Modality Head Computed Tomogra phy 08/14/2019 1:00 PM CDT Impressions 08/14/2019 1:03 PM CDT BB marker adjacent to left parotid gland and a small associated lymph node. No extensive inflammation or fluid collection or mass identified. *Reading Radiologist: Arnel Cintron on 08/14/2019 at 1:03 PM Narrative 08/14/2019 1:[address] neck for soft tissues with contrast. HISTORY: Leg left-sided neck swelling. Images from the skull base to the thoracic inlet during contrast infusion of 80 cc Isovue-370 are reviewed. A BB marker was placed on the skin surface on the left near the area of inflammation. This lies just superficial to the parotid gland. Parotid gland is normal in size and has normal homogeneous density. Few small lymph nodes are seen nearby but I do not see a large mass fluid collection or extensive inflammation in this area. The airway is patent. Thyroid gland is homogeneous. Lung apices are clear. Procedure Note Arnel Cintron MD - 08/14/2019 CT neck for soft tissues with contrast. HISTORY: Leg left-sided neck swelling. Images from the skull base to the thoracic inlet during contrast infusion of 80 cc Isovue-370 are reviewed. A BB marker was placed on the skin surface on the left near the area of inflammation. This lies just superficial to the parotid gland. Parotid gland is normal in size and has normal homogeneous density. Few small lymph nodes are seen nearby but I do not see a large mass fluid collection or extensive inflammation in this area. The airway is patent. Thyroid gland is homogeneous. Lung apices are clear. IMPRESSION BB marker adjacent to left parotid gland and a small associated lymph node. No extensive inflammation or fluid collection or mass identified. *Reading Radiologist: Arnel Cintron on 08/14/2019 at 1:03 PM [address]ie Cobb MD CT ORDERABLES * CREATININE BLOOD - POINT OF CARE (IP) (08/14/2019 12:48 PM CDT) Creatinine POCT 0.89 0.7 - 1.2 mg/dL [facility] POCT TESTING QC Verified Yes Yes [facility] POC T TESTING Blood BLOOD SPECIMEN / Unknown 08/14/2019 12:48 PM CDT Carie Cobb MD LAB - POINT OF CARE ORDERABLES [facility] POCT TESTING [address] [phone] Care Teams Manager Hospital Relationship Specialty Start Date End Date Caitlin Covarrubias PA [address] [place] [id number] PCP - General Physician Pizza Cook 08/14/19
--- OUTSIDE RECORDS SUMMARY | 2024-04-23 08:57 | XMS_ITS | CONTINUITY OF CARE DOCUMENT ---
Author Name reginaldo hair Address Unknown Organization [facility] Address [address] [facility] [address] [place] [address] Phone [phone] Care Team Providers Care Motel Keeper Name Role Phone Bruno Flores MD Unavailable PATRICK YODER Unavailable [phone] PATRICK YODER Unavailable [phone] INSURANCE PROVIDERS Payer name Policy type / Coverage type [place] red republican ID [id number] PPO Other [id number]
--- OUTSIDE RECORDS SUMMARY | 2024-04-23 08:57 | XMS_ITS ---
Author Organization [facility] Address [address] [address] Care Team Providers Care Hospitality Ambassador Name Role Phone SHANICE LORENZO Unavailable [phone] DARNELL ESCOTO Unavailable Unavailable Encounters Encounter Location Date Provider Diagnosis [facility] [address] [address] 01/09/2024 SHANICE LORENZO Plan Of Treatment No Information Progress Notes * JORGEYOLIERegina CDOB: (68 yo F)Acc No.[id number]:01/09/2024 Progress Notes Patient: LEONARDO NEFF Provider: Kristy LORENZO M.D. :1955 A ge:68 Y S ex:Female Date:01/09/2024 Address:[address] [place], [place] [id number] Subjective: * Chief Complaints: * * Medical History: Objective: * Vitals: Assessment: Plan: * Treatment: * * Electronic signature of SANTA LORENZO MD on 04/23/2024 at 08:57 AM STOCKROOM KEEPER Sign off status: Pending * Provider: Kristy LORENZO M.D. Date: 03/10/2023 Generated for Michael ortega/Gera/Jerri on: 0 04/23/2024 08:57 AM STOCKROOM KEEPER
--- OUTSIDE RECORDS SUMMARY | 2024-04-23 08:57 | XMS_ITS | Encounter Summary ---
Author Organization [facility] Address [address] [place] [address] Phone Care Team Providers Care Building Manager Name Role Phone Caitlin Luo Primary Care Pr ovider Encounter Details Date Type Department Care Team (Late st Contact Info) Description 08/19/2021 Orders Only [facility] Scanning, Provider Social History Tobacco Use Types Packs/Day Years Used Date Smoking Tobacco: Former Smokeless Tobacco: Never Alcohol Use Standard Drinks/Week Comments Yes 0 (1 standard drink = 0.6 oz pur e alcohol) socially Comments Unknown Sex and Gender Information Value Date Recorded Sex Assigned at Not on file 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 Gender Identity Female 08/07/2018 2:56 PM CDT Sexual Orientation Not on file documented as of this encounter Plan of Treatment Not on file documented as of this encounter Procedures Procedure Name Priority Date/Time Associated Diagnosis Comments SCAN - RADIOLOGY/IMAGING 08/19/2021 documented in this encounter Results * SCAN - RADIOLOGY/IMAGING (08/19/2021) Anatomical Region Laterality Modality Other us Provider Scanning Final Result documented in this encounter Visit Diagnoses Not on filedocumented in this encounter Care Teams Building Manager Relationship Specialty Start Date End Date Caitlin Lou PA PCP - General Physician Steel Division Supervisor 06/30/19 documented as of this encounter
--- OUTSIDE RECORDS SUMMARY | 2024-04-23 08:57 | XMS_ITS | Clinical Summary ---
Author Organization [facility] Address [address] [place] [address] Phone Care Team Providers Care Bottoming Room Supervisor Name Role Phone Iglesia Junior MD Primary Care Provider [phone] Allergies No known active allergies Medications traMADol (ULTRAM) 50 mg tablet Take 100 mg by mouth every 6 hours as needed for Pain. Active multivitamin (DAILY-ANNA MARIE) tablet Take 1 Tab by mouth daily women's lacrosse coach. Active rosuvastatin (CRESTOR) 40 mg tablet TAKE 1 TABLET BY MOUTH EVERY DAY 5 8 Active predniSONE (DELTASONE) 5 mg tablet Take 5 mg by mouth daily with breakfast. Active dextroamphetami ne-amphetamine (ADDERALL) 10 mg tablet Take 10 mg by mouth 4 times daily. Active leflunomide (ARAVA) 20 mg Tablet Take 20 mg by mouth daily. Active cyanocobalamin 1,000 mcg Tablet Take 1,000 mcg by mouth daily. Active vit C/vit E/lutein/min/om ega-3 (OCUVITE ORAL) Take by mouth. Activ e ipratropium/alb uterol sulfate (COMBIVENT INHALATION) Take by inhalation Continuous as needed. Active ibuprofen (MOTRIN) 800 mg tablet Take 1 Tablet (800 mg) by mouth every 8 hours as needed for Pain, Moderate or Pain, Severe 3 times a day for 3 days WITH FOOD, then prn. 30 Tablet 8 Active cyclobenzaprine (FLEXERIL) 10 mg tablet Take 1 Tablet (10 mg) by mouth 3 times daily as needed for Spasm. 10 Tablet 8 Active aspirin (ECOTRIN EC) 81 mg Tablet, Delayed Release (E.C.) Take 81 mg by mouth daily. Active cephALEXin (KEFLEX) 500 mg capsule Take 500 mg by mouth every 6 hours. 4 Active cholecalciferol , vitamin D3, 1,000 unit Take 1,000 Units by mouth daily. Active diclofenac sodium (VOLTAREN) 1 % gel APPLY 4 GRAMS TO ARTHRITIC JOINTS THREE TIMES DAILY NEEDED 4 Active fluticasone propion-salmete roL (Wixela Inhub) 250-50 mcg/dose disk inhaler TAKE 1 PUFF BY MOUTH TWICE A DAY 3 Active Flaxseed Oil Oil Take 1 Tablet by mouth. Active lidocaine (LIDODERM) 5 % Adhesive Patch, Medicated Apply 1 Patch to skin as directed. 4 Active methotrexate (RHEUMATREX) 2.5 mg Tablet Take 2.5 mg by mouth every 7 days. 4 Active mupirocin (BACTROBAN) 2 % Ointment Apply to affected area. 4 Active polyvinyl alcohol-povidon ,PF, (REFRESH CLASSIC) 1.4-0.6 % solution 1 Drop by Ophthalmic route. Active sulfamethoxazol e-trimethoprim (BACTRIM DS) 800-160 mg tablet 160 mg of trimethoprim. 4 Active Active Problems Problem Noted Date Diagnosed Date Mastodynia 10/25/2017 Muscle spasm 10/25/2017 Lymphedema 10/25/2017 Chest pain 05/16/2013 SOB (shortness of breath) 05/16/2013 Right leg pain 05/16/2013 S/P TKR (total knee replacement) 05/16/2013 Encounters Date Type Department Care Team Description 04/15/2024 External Device Data ST[facility] ABSTRACTION Provider, Abstract 03/19/2024 External Device Data ST[facility] ABSTRACTION Provider, Abstract 03/19/2024 External Device Data ST[facility] ABSTRACTION Provider, Abstract 03/12/2024 External Device Data [facility] ABSTRACTION Provider, Abstract from Last 3 Months Immunizations Immunization Administration Dates Next Due (PREVNAR 13)(6 WKS UP) PNEUM OCOCCAL CONJUGATE (PCV13) 0.5 ML, IM 12/16/2012 Family History Medical History Relation Name Comments Diabetes Father Hypertension Father Diabetes Maternal Grandmother Hypertension Maternal Grandmother Heart Disease Mother Diabetes Paternal Grandmother Hypertension Paternal Grandmother Relation Name Status Comments Father Maternal Grandmother Mother Paternal Grandmother Social History Tobacco Use Types Packs/Day Years Used Date Smoking Tobacco: Former Cigarettes 1 40 0 07/28/1967 - 07/28/2007 Smokeless Tobacco: Never Tobacco Cessation:Counseling Given: Not Answered Alcohol Use Standard Drinks/Week Comments Yes 0 (1 standard drink = 0.6 oz pur e alcohol) social Comments No Sex and Gender Information Value Date Recorded Sex Assigned at Not on file 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 Gender Identity Not on file Sexual Orientation Not on file Occupation Industry Job Start Date Job End Date Not on file Not on file Not on file Not on file Last Filed Vital Signs Vital Sign Reading Time Taken Comments Blood Pressure 118/87 11/01/2023 9:36 AM CDT Pulse 66 11/01/2023 9:36 AM CDT Temperature 36.5 C (97.7 F) 11/01/2023 9:36 AM CDT Respiratory Rate 16 11/01/2023 9:36 AM CDT Oxygen Saturation 98% 11/01/2023 9:36 AM CDT Inhaled Oxygen Concentration - - Weight 80.3 kg (177 lb) 11/01/2023 9:36 AM CDT Height 170.2 cm (5' 7 ) 09/25/2023 10:11 AM CDT Body Mass Index 27.72 09/25/2023 10:11 AM CDT Plan of Treatment Upcoming Encounters Date Type Department Care Team (Late st Contact Info) Description 05/01/2024 10:15 AM LOGGING TRUCK DRIVER Office Visit [facility] Oncology and Hematology - [place] [address] [facility] [address] [place] [address] Kodi Murphy MD [address] [facility] [address] [place] [address] Health Maintenance Due Date Last Done Comments Pre-Diabetes and Diabetes Screening 1955 BREAST CANCER SCREENING 1994 COLORECTAL SCREENING 10/09/1999 Colorectal Cancer Screening 10/09/1999 FIT-DNA Q 3 years 10/09/1999 FIT/FOBT Q 1 year 10/09/1999 Flex Sig/CT Colonography Q 5 years 10/09/1999 ZOSTER VACCINE (1 of 2) 2004 PNEUMOCOCCAL VACCINE 65+ YEARS (2 of 2 - PPSV23) 02/1012/16/2012 RSV VACCINE (60+ or ) (1 - Risk 60-74 years 1-dose series) 2014 OSTEOPOROSIS SCREENING 10/09/2019 INFLUENZA VACCINE (#1) 2023 11/28/2012 COVID-19 Vaccine (2 - season) 2023 DTAP/TDAP/TD VACCINES (2 - Td or Tdap) 05/14/2033 Insurance [address] [place] [id number] [facility] Address: [facility] [address] [place] [address] [place] [address] [address] [place] [id number] Advance Directives For more information, please contact: [phone] * Full Code (Latest Code Status on File) Date Activated Date Inactivated Comments 05/16/2013 8:51 PM 05/17/2013 6:48 PM Care Teams Bottoming Room Supervisor Relationship Specialty Start Date End Date Iglesia Junior MD [address] [place] [address] PCP - General Internal Medicine 09/25/23
--- OUTSIDE RECORDS SUMMARY | 2024-04-23 08:57 | XMS_ITS | Referral Summary ---
Author Organization [facility] Address [address] [place] [address] Care Team Providers Care Public Health Worker Name Role Phone Caitlin Luo Primary Care Pr ovider Encounters Date Type Department Care Team Description 04/21/2024 10:30 AM CHAIRMAN AND CHIEF EXECUTIVE OFFICER Infusion [facility] [address] [place] [phone] Rheumatoid arthritis involving multiple sites, unspecified whether rheumatoid factor present (HCC) (Primary Dx) 04/03/2024 ACO Quality [facility] Accountable Care Organization [address] [place] [id number] Darling Whyte 03/10/2024 10:00 AM CHAIRMAN AND CHIEF EXECUTIVE OFFICER Infusion [facility] [address] [place] [phone] Rheumatoid arthritis involving multiple sites, unspecified whether rheumatoid factor present (HCC) (Primary Dx) 02/16/2024 Nurse Triage [facility] Medical Group Patient Access [address] [place] [address] [place] [phone] Mercedes Valdez, KAROLINE 02/05/2024 2:00 PM CHAIRMAN AND CHIEF EXECUTIVE OFFICER Office Visit [facility] Sports Medicine and Primary Care at [address] [place] [address] Iglesia Bolden DO Osteonecrosis of left knee region (HCC) (Primary Dx) 01/30/2024 Telephone [facility] Sports Medicine and Primary Care at [address] [place] [phone] Iglesia Bolden, 01/29/2024 Telephone [facility] Sports Medicine and Primary Care at [address] [place] [address] Iglesia Bolden, 01/28/2024 Telephone [facility] Sports Medicine and Primary Care at [address] [place] [address] Iglesia Bolden, DO from Last 3 Months Allergies No known active allergies Medications amLODIPine (NORVASC) 5 mg tabletIndicatio ns:hypertension ,patient reports not everyday Take 1 tablet (5 mg total) by mouth cherry cutter before breakfast 3 Active multivitamin tabletIndicatio ns:Vitamin Deficiency Prevention Take 1 tablet by mouth cherry cutter before breakfast Active polyvinyl alcohol-povidon e (REFRESH CLASSIC) 1.4-0.6 % dropperetteIndi cations:Dry Eye Administer 1 drop into both eyes as needed Active fluticasone propion/salmete rol (ADVAIR DISKUS INHAL) Inhale 1 Dose as needed Active aspirin 81 mg enteric coated tabletIndicatio ns:heart health Take 1 tablet (81 mg total) by mouth cherry cutter before breakfast Active cholecalciferol (VITAMIN D-3) 25 mcg (1,000 unit) tabletIndicatio ns:Vitamin D Deficiency Take 1 tablet (1,000 Units total) by mouth cherry cutter before breakfast Active isosorbide mononitrate ER (IMDUR) 30 mg 24 hr tablet Take 1 tablet (30 mg total) by mouth daily 30 tablet 11 1 Active traMADoL (ULTRAM) 50 mg tablet Take 1 tablet (50 mg total) by mouth every 6 (six) hours as needed for pain 2 Active rosuvastatin (CRESTOR) 20 mg tabletIndicatio ns:hyperlipidem ia Take 1 tablet (20 mg total) by mouth nightly Active ascorbic acid/elderberry fruit (AIRBORNE, ELDERBERRY, ORAL)Indication s:supplement Take 1 tablet by mouth cherry cutter before breakfast Active zinc 50 mg tabletIndicatio ns:supplement Take 1 tablet by mouth cherry cutter before breakfast Active flaxseed oiL oilIndications: supplement Take 1 tablet by mouth cherry cutter before breakfast Active vitamin E acetate (VITAMIN E ORAL) Take 1 tablet by mouth cherry cutter before breakfast Active ubidecarenone (CO Q-10 ORAL)Indication s:supplement Take 1 tablet by mouth cherry cutter before breakfast Active traMADoL (ULTRAM) 50 mg tablet Take 1 tablet (50 mg total) by mouth every 6 (six) hours as needed for pain 15 tablet 3 Active inFLIXimab (Remicade) 100 mg injection Infuse 30 mL (300 mg total) into a venous catheter Every 8 weeks. Active nitroglycerin (NITROSTAT) 0.4 mg SL tabletIndicatio ns:acute episode of anginal pain Place 1 tablet (0.4 mg total) under the tongue every 5 (five) minutes as needed for chest pain May repeat dose q 5 min, up to 3 doses total 25 tablet 3 3 Active Additional Information Patient not taking.Reported on 06/11/2023 evolocumab (Repatha Pushtronex) 420 mg/3.5 mL wearable injector Inject 420 mg under the skin every 28 (twenty-eight) days 3.5 mL 11 3 Active Wixela Inhub 250-50 mcg/dose diskus inhaler TAKE 1 PUFF BY MOUTH TWICE A DAY 3 Active vit C/E/Zn/hand coper/lut/ lui/bio/saf (RETAINE VISION ORAL) Take by mouth Active NON FORMULARY, FOR INPATIENT USE, Tumeric oral daily Active folic acid (FOLVITE) 1 mg tabletIndicatio ns:Rheumatoid arthritis involving multiple sites, unspecified whether rheumatoid factor present (HCC),Encounter for long-term (current) use of high-risk medication Take 1 tablet (1 mg total) by mouth daily 90 tablet 3 4 Active sulfamethoxazol e-trimethoprim (BACTRIM DS) 800-160 mg per tablet 1 tablet (160 mg of trimethoprim total) 4 Active mupirocin (BACTROBAN) 2 % ointmentIndicat ions:Unspecifie d open wound, left lower leg, initial encounter Apply topically 3 (three) times a day 22 g 4 Active ketoconazole (NIZORAL) 2 % cream Apply topically daily X 2 weeks 30 g 4 Active leflunomide (ARAVA) 10 mg tabletIndicatio ns:Rheumatoid Arthritis Take 1 tablet (10 mg total) by mouth daily 90 tablet 1 4 06/24/19 25 Active meloxicam (MOBIC) 15 mg tabletIndicatio ns:Osteonecrosi s of left knee region (HCC) Take 1 tablet (15 mg total) by mouth daily 30 tablet 1 4 Active Additional Information Patient not taking.Informant: Self, Reported on 03/10/2024 lidocaine (LIDODERM) 5 %Indications:Os teonecrosis of left knee region (HCC),Chronic pain of left knee,Hypersensi tivity, subsequent encounter,Wound of left lower extremity, sequela PLACE 1 PATCH ON THE LEFT BARRETO DAILY NEEDED FOR PAIN REMOVE & DISCARD PATCH WITHIN 12 HOURS. 30 patch 1 4 Active Active Problems Problem Noted Date Diagnosed Date Meibomian gland dysfunction (MGD) of both eyes 0 06/13/2023 Assessment & Plan (06/13/2023 9:19 AM CDT): Rec daily lid massage with warm cloth and baby shampoo Warm compress daily Refraction disorder 06/23/2022 Assessment & Plan (06/13/2023 9:17 AM CDT): Release updated glasses Rx Assessment & Plan (06/23/2022 9:36 AM CDT): Release updated glasses Rx Dermatochalasis of both upper eyelids 05/11/2022 Overview (05/11/2022): Added automatically from request for surgery [id number] Assessment & Plan (07/16/2022 1:14 AM CDT): Jacki Leslie is doing well after Bilateral Upper Eyelid Blepharoplasty - Bilateral and Left Upper Eyelid Lesion Excision - Left on 06/07/2022. She demonstrates excellent healing and has been instructed to return in 2-3 months to allow further healing. Photophobia of both eyes 04/21/2022 Dry eye syndrome of both eyes 04/21/2022 Assessment & Plan (06/13/2023 9:17 AM CDT): Cont pfats BID+ Assessment & Plan (04/21/2022 10:40 AM CHAIRMAN AND CHIEF EXECUTIVE OFFICER): Moderate to severe dry eye disease No improvement with Restasis in the past Recommend retain artificial tear drops 3 to 4 times a day Continue lubricating ointment at night Add daily steroid Blepharospasm of both eyes 04/21/2022 Assessment & Plan (04/21/2022 10:40 AM CHAIRMAN AND CHIEF EXECUTIVE OFFICER): Patient at that this should improve with the dry eye Age-related nuclear cataract, bilateral 04/21/19 Assessment & Plan (06/13/2023 9:16 AM CDT): Defer cataract surgery until signs and symptoms indicate. Pt was educated on the diagnosis. Recommend daily UV protection. Release updated glasses Rx Assessment & Plan (04/21/2022 10:41 AM CHAIRMAN AND CHIEF EXECUTIVE OFFICER): Not yet visually significant, monitor Xanthelasma of eyelid, bilateral 04/06/2022 Assessment & Plan (05/11/2022 6:03 PM CDT): Risks, benefits and alternatives were discussed. Risks included but were not limited to pain, infection, bleeding, scarring, eyelid asymmetry, need for additional procedures, and anesthetic morbidity. Following this discussion, the patient wishes to proceed with bilateral upper eyelid lesion excision. We will schedule this in the near future. Assessment & Plan (04/06/2022 4:57 PM CHAIRMAN AND CHIEF EXECUTIVE OFFICER): Risks, benefits and alternatives were discussed. Risks included but were not limited to pain, bleeding, scarring, recurrence, and possible need for additional procedures. Following this discussion, the patient wishes to proceed with bilateral upper eyelid lesion excision. We will schedule this in the near future. Myogenic ptosis of eyelid of both eyes Assessment & Plan (06/23/2022 9:41 AM CDT): status post (s/p) ptosis repair follow as scheduled with Dr. Eliezer verdugo to incision sites Assessment & Plan (05/11/2022 6:03 PM CDT): Bilateral upper eyelid ptosis with symptomatic visual obstruction. Risks, benefits and alternatives were discussed. Risks of surgery included but were not limited to pain, infection, bleeding, scarring, eyelid asymmetry, need for additional procedures, anesthetic morbidity. Following this discussion, the patient wishes to proceed with bilateral upper eyelid ptosis repair. We will schedule this in the near future. Assessment & Plan (04/06/2022 4:59 PM CHAIRMAN AND CHIEF EXECUTIVE OFFICER): Bilateral upper eyelid ptosis with symptomatic visual obstruction. Risks, benefits and alternatives were discussed. Risks of surgery included but were not limited to pain, infection, bleeding, scarring, eyelid asymmetry, need for additional procedures, anesthetic morbidity. Following this discussion, the patient wishes to proceed with bilateral upper eyelid ptosis repair. We will schedule this in the near future following ptosis visual zamora at next visit. Decreased peripheral vision of both eyes 023 Upper abdominal pain 11/16/2021 Right upper quadrant pain 10/19/2021 Blood glucose abnormal 09/29/2021 Chronic obstructive pulmonary disease 09/29/2021 Familial hypercholesterolemia 09/29/2021 Acute pharyngitis 07/21/2020 Cough 07/21/2020 Epicondylitis 07/21/2020 Gastroesophageal reflux disease 07/21/2020 Hip joint painful on movement 07/21/2020 Malaise and fatigue 07/21/2020 Pain in upper limb 07/21/2020 Vitamin D deficiency 07/21/2020 Sinusitis 07/21/2020 Rash 07/21/2020 Pure hypercholesterolemia 07/21/2020 Benign essential hypertension 04/20/2020 Lymphedema 10/25/2017 Muscle spasm 10/25/2017 Overweight 04/06/2014 Hyperlipidemia 04/06/2014 Chest pain 05/16/2013 Right leg pain 05/16/2013 S/P TKR (total knee replacement) 05/16/2013 SOB (shortness of breath) 05/16/2013 Raised antibody titer 08/27/2012 Raynaud's phenomenon 08/27/2012 Encounter for long-term (cur rent) use of high-risk medication 06/30/2010 Rheumatoid arthritis 06/30/2010 Encounter for preventive health examination 04/26 Immunizations Immunization Administration Dates Next Due Tdap 05/15/2023 Social History Tobacco Use Types Packs/Day Years Used Date Smoking Tobacco: Former Cigarettes Q uit: 2004 Smokeless Tobacco: Never Tobacco Cessation:Counseling Given: Not Answered Alcohol Use Standard Drinks/Week Comments Yes 0 (1 standard drink = 0.6 oz pur e alcohol) socially AUDIT-C Answer Date Recorded Q1: How often do you have a drink containing alcohol? Never 09/03/2023 Q2: How many drinks containi ng alcohol do you have on a typical day when you are drinking? Patient does not drink Q3: How often do you have si x or more drinks on one occasion? Never 09/03/2023 Hunger Vital Sign Answer Date Recorded Within the past 12 months, y ou worried that your food would run out before you got the money to buy more. Often true 04/21/19 25 Within the past 12 months, t he food you bought just didn't last and you didn't have money to get more. Often true 04/21/2024 Personal Safety Answer Date Recorded Have you ever been in or are you currently in a harmful physical or emotional relationship or is someone making you feel afraid or unsafe? Denies 04/21/2024 Comments No Sex and Gender Information Value Date Recorded Sex Assigned at Not on file Legal Sex Female 10:27 PM CHAIRMAN AND CHIEF EXECUTIVE OFFICER Gender Identity Female 08/07/2018 2:56 PM CDT Sexual Orientation Not on file Last Filed Vital Signs Vital Sign Reading Time Taken Comments Blood Pressure 165/71 04/21/2024 1:40 PM CHAIRMAN AND CHIEF EXECUTIVE OFFICER Pulse 77 04/21/2024 1:40 PM CHAIRMAN AND CHIEF EXECUTIVE OFFICER Temperature 36.4 C (97.5 F) 04/21/2024 10:28 AM CHAIRMAN AND CHIEF EXECUTIVE OFFICER Respiratory Rate 18 03/10/2024 10:02 AM CHAIRMAN AND CHIEF EXECUTIVE OFFICER Oxygen Saturation 98% 04/21/2024 1:40 PM CHAIRMAN AND CHIEF EXECUTIVE OFFICER Inhaled Oxygen Concentration - - Weight 78.5 kg (173 lb) 04/21/2024 10:28 AM CHAIRMAN AND CHIEF EXECUTIVE OFFICER Height 170.2 cm (5' 7 ) 02/05/2024 2:10 PM CHAIRMAN AND CHIEF EXECUTIVE OFFICER Body Mass Index 27.1 02/05/2024 2:10 PM CHAIRMAN AND CHIEF EXECUTIVE OFFICER Plan of Treatment Not on file Procedures Procedure Name Priority Date/Time Associated Diagnosis Comments HEPATITIS C ANTIBODY Routine 08/09/2021 12:52 PM CDT Rheumatoid arthritis involving multiple sites, unspecified whether rheumatoid factor present (HCC) Encounter for long-term (current) use of high-risk medication from Last 3 Months or Most Recently Relevant to Health Maintenance Results * Hepatitis C antibody (08/09/2021 12:52 PM CDT) Hep C Ab Nonreactive Nonreactive JORGE VELA Comment: Interpretive Data Nonreactive: Antibodies to HCV not detected. Does NOT exclude the possibility of recent exposure to HCV. Equivocal: Equivocal for HCV antibodies. Supplemental molecular testing will be automatically performed to determine infection status in accordance with current CDC screening recommendations. Reactive: Positive for HCV antibodies. This may represent current or past HCV infection. Supplemental molecular testing will be automatically performed to determine current infection status in accordance with current CDC screening recommendations. Interpretive data was last revised on 2019. Testing performed by: [facility], [address] [place] [address]., [id number] Blood 08/09/2021 12:5 2 PM CDT 08/09/2021 4:13 PM CDT us Katherine Calle MD LAB MICROBIOLOGY - GENERAL ORDERABLES Final Result Performing Organization Address City/State/ZIP Co wy Phone Number [facility] [id number] [facility] Department [place] [address] from Last 3 Months or Most Recently Relevant to Health Maintenance Insurance [facility] [facility] MEDICARE Address: [address] [place] [phone] MEDICARE [employer] Care Teams Public Health Worker Relationship Specialty Start Date End Date Caitlin Luo PA PCP - General Physician Animal Behaviourist 06/30/19
--- OUTSIDE RECORDS SUMMARY | 2024-04-23 08:57 | XMS_ITS | Clinical Summary ---
Author Organization [facility] Address [address] [place] [address] Care Team Providers Care Director Of Events Name Role Phone Unavailable Primary Care Provider Unavailabl e Immunizations Immunization Administration Dates Next Due Covid-19 Vaccine, Vector-nr, [id number], Pf, 0.5 Ml ([employer]) 11/09/2020 Social History Tobacco Use Types Packs/Day Years Used Date Smoking Tobacco: Never Assessed Comments Unknown Sex and Gender Information Value Date Recorded Sex Assigned at Not on file Legal Sex Female 9:52 PM CDT Gender Identity Not on file Sexual Orientation Not on file Plan of Treatment Health Maintenance Due Date Last Done Comments DEXA Bone Density 1955 Hepatitis C Virus (HCV) Screening 1955 TdaP Immunization 1955 Colonoscopy 10/09/1999 Colorectal Cancer Screening 10/09/1999 Cologuard 2004 Immunochemical Fecal Occult Blood 2004 Mammogram 2004 Pneumococcal Immunization (5 0+ years) (1 of 1 - PCV) 2004 Zoster Immunization (1 of 2) 2004 Influenza Immunization (#1) 2023 SARS-COV-2 Immunization (3 - 2023- season) 2023 03/27/2021, 11/09/2020 Respiratory Syncytial Virus (RSV) Immunization (Adult) (1 - 1-dose 75+ series) 2029 Hepatitis B Immunization Aged Out No longer eligible based on patient's age to complete this topic Meningococcal Immunization (ACWY) Aged Out No longer eligible b ased on patient's age to complete this topic Rotavirus Immunization Aged Out No lo nger eligible based on patient's age to complete this topic
--- OUTSIDE RECORDS SUMMARY | 2024-04-23 08:57 | XMS_ITS | Clinical Summary ---
Author Organization [facility] Address [address] [address] Care Team Providers Care Warp Spooler Name Role Phone Caitlin Luo Primary Care Pr ovider Allergies No known active allergies Medications amLODIPine (NORVASC) 5 mg tabletIndicatio ns:hypertension ,patient reports not everyday Take 1 tablet (5 mg total) by mouth shot examiner before breakfast 3 Active multivitamin tabletIndicatio ns:Vitamin Deficiency Prevention Take 1 tablet by mouth shot examiner before breakfast Active polyvinyl alcohol-povidon e (REFRESH CLASSIC) 1.4-0.6 % dropperetteIndi cations:Dry Eye Administer 1 drop into both eyes as needed Active fluticasone propion/salmete rol (ADVAIR DISKUS INHAL) Inhale 1 Dose as needed Active aspirin 81 mg enteric coated tabletIndicatio ns:heart health Take 1 tablet (81 mg total) by mouth shot examiner before breakfast Active cholecalciferol (VITAMIN D-3) 25 mcg (1,000 unit) tabletIndicatio ns:Vitamin D Deficiency Take 1 tablet (1,000 Units total) by mouth shot examiner before breakfast Active isosorbide mononitrate ER (IMDUR) [...] ORAL)Indication s:supplement Take 1 tablet by mouth shot examiner before breakfast Active zinc 50 mg tabletIndicatio ns:supplement Take 1 tablet by mouth shot examiner before breakfast Active flaxseed oiL oilIndications: supplement Take 1 tablet by mouth shot examiner before breakfast Active vitamin E acetate (VITAMIN E ORAL) Take 1 tablet by mouth shot examiner before breakfast Active ubidecarenone (CO Q-10 ORAL)Indication s:supplement Take 1 tablet by mouth shot examiner before breakfast Active traMADoL (ULTRAM) 50 mg [...] MOUTH TWICE A DAY 3 Active vit C/E/Zn/copper roller handler printing/lut/ lui/bio/saf (RETAINE VISION ORAL) Take by mouth [...] (05/11/2022): Added automatically from request for surgery [id number] Assessment & Plan (07/16/2022 1:14 AM CDT): [...] BID+ Assessment & Plan (04/21/2022 10:40 AM VINE FRUIT FARMING SUPERVISOR): Moderate to severe dry eye disease No improvement with Restasis in the past Recommend retain artificial tear drops 3 to 4 times a day Continue lubricating ointment at night Add daily steroid Blepharospasm of both eyes 04/21/2022 Assessment & Plan (04/21/2022 10:40 AM VINE FRUIT FARMING SUPERVISOR): Patient at that this should improve with the dry eye Age-related nuclear cataract, bilateral 04/21/19 Assessment & Plan (06/13/2023 9:16 AM CDT): Defer cataract surgery until signs and symptoms indicate. Pt was educated on the diagnosis. Recommend daily UV protection. Release updated glasses Rx Assessment & Plan (04/21/2022 10:41 AM VINE FRUIT FARMING SUPERVISOR): Not yet visually significant, monitor Xanthelasma of [...] future. Assessment & Plan (04/06/2022 4:57 PM VINE FRUIT FARMING SUPERVISOR): Risks, benefits and alternatives were discussed. Risks [...] future. Assessment & Plan (04/06/2022 4:59 PM VINE FRUIT FARMING SUPERVISOR): Bilateral upper eyelid ptosis with symptomatic visual [...] 06/30/2010 Encounter for preventive health examination 04/26 Encounters Date Type Department Care Team Description 04/21/2024 10:30 AM VINE FRUIT FARMING SUPERVISOR Infusion [facility] [address] [place] [phone] Rheumatoid arthritis involving multiple sites, unspecified whether rheumatoid factor present (HCC) (Primary Dx) 04/03/2024 ACO Quality [facility] Accountable Care Organization [address] [place] [id number] Darling Whyte 03/10/2024 10:00 AM VINE FRUIT FARMING SUPERVISOR Infusion [facility] Formerly [facility] [place] [phone] Rheumatoid arthritis involving multiple sites, unspecified whether rheumatoid factor present (HCC) (Primary Dx) 02/16/2024 Nurse Triage [facility] Medical Group Patient Access [address] [place] [address] [place] [phone] Mercedes Valdez RN 02/05/2024 2:00 PM VINE FRUIT FARMING SUPERVISOR Office Visit [facility] Medical [facility] Sports Medicine and Primary Care at [address] [phone] Iglesia Bolden DO Osteonecrosis of left knee region (HCC) (Primary Dx) 01/30/2024 Telephone [facility] Medical [facility] Sports Medicine and Primary Care at [address] [place] [phone] Iglesia Bolden DO 01/29/2024 Telephone [facility] Sports Medicine and Primary Care at [address] [place] [address] Iglesia Bolden DO 01/28/2024 Telephone [facility] Sports Medicine and Primary Care at [address] [place] [address] Iglesia Bolden, from Last 3 Months Immunizations Immunization Administration Dates Next Due Tdap 05/15/2023 Surgical History Surgery Date Site/Laterality Comments TUBAL LIGATION 02/26/1979 - 02/26/1980 KNEE CARTILAGE SURGERY 02/27/2012 - 02/25/2013 Medical History Medical History Date Comments Hypertension Hyperlipidemia Lupus COPD (chronic obstructive pulmonary disease) (HC C) Arthritis Dry eye syndrome, bilateral Family History Medical History Relation Name Comments Diabetes Father Hypertension Father Family history of hypertension - (Added by TW Conv) Stroke Father Heart disease Mother Hyperlipidemia Mother Anesthesia problems Neg Hx Relation Name Status Comments Father (Age 70) Mother (Age 70) Social History Tobacco Use Types Packs/Day Years [...] on file Legal Sex Female 10:27 PM VINE FRUIT FARMING SUPERVISOR Gender Identity Female 08/07/2018 2:56 PM CDT Sexual Orientation Not on file Obstetrics History Last Filed Vital Signs Vital Sign Reading Time Taken Comments Blood Pressure 165/71 04/21/2024 1:40 PM VINE FRUIT FARMING SUPERVISOR Pulse 77 04/21/2024 1:40 PM VINE FRUIT FARMING SUPERVISOR Temperature 36.4 C (97.5 F) 04/21/2024 10:28 AM VINE FRUIT FARMING SUPERVISOR Respiratory Rate 18 03/10/2024 10:02 AM VINE FRUIT FARMING SUPERVISOR Oxygen Saturation 98% 04/21/2024 1:40 PM VINE FRUIT FARMING SUPERVISOR Inhaled Oxygen Concentration - - Weight 78.5 kg (173 lb) 04/21/2024 10:28 AM VINE FRUIT FARMING SUPERVISOR Height 170.2 cm (5' 7 ) 02/05/2024 2:10 PM VINE FRUIT FARMING SUPERVISOR Body Mass Index 27.1 02/05/2024 2:10 PM VINE FRUIT FARMING SUPERVISOR Plan of Treatment Health Maintenance Due Date Last Done Comments Breast Cancer Screening-Mammogram 1955 Colon Cancer Screening-Colonoscopy 1954 Depression Screening 1954 Osteoporosis Screening-Bone Density Scan 1954 Zoster Vaccine (1 of 2) 1973 Pneumococcal vaccine 65+ (2 of 2 - PPSV23) 02/10/2013 12/16/2012 Well Visit 65+ 10/09/2019 Covid-19 Vaccine (2 - Jansse n risk series) 12/07/2020 11/09/2020 Fall Risk Assessment 06/08/2023 06/07/2022 Influenza Vaccine (#1) 2023 6, 02/26/2014, 11/28/2012 DTaP/Tdap/Td Vaccine (2 - Td or Tdap) 05/14/2033 Hepatitis B Screening Completed 08/09/2021 Hepatitis C Screening Completed 08/09/2021 Procedures Procedure Name Priority Date/Time Associated Diagnosis [...] last revised on 2019. Testing performed by: [facility], [facility] [place]., [address] Blood 08/09/2021 12:5 2 PM CDT 08/09/2021 4:13 PM CDT us Katherine Calle MD LAB MICROBIOLOGY - GENERAL ORDERABLES Final Result [facility] [id number] [facility]. Department of Laboratories [place], [place] [id number] from Last 3 Months or Most Recently Relevant to Health Maintenance Insurance [address] [place] [address] MEDICARE SOLUTIONS MEDICARE SOLUTIONS MEDICARE SOLUTIONS Care Teams Warp Spooler Relationship Specialty Start Date End Date Caitlin Luo PA PCP - General Physician Electronic Video Games Servicer 06/30/19
--- OUTSIDE RECORDS SUMMARY | 2024-04-23 08:57 | XMS_ITS | Clinical Summary ---
Author Organization [facility] Address [address] [place] [address] Care Team Providers Care Pole Truck Driver Name Role Phone Caitlin Covarrubias Primary Care Pr ovider Source Comments [facility],non-owned Affiliates and Associated Physician Practices is amultiple site organization consisting of ambulatory clinics and hospital sitesin [place], [place], [place] and [place]. This disclosure is being madepursuant to the Care Everywhere program and may not contain all information available regarding this patient. Last updated 17.[facility] [employer] Allergies No known active allergies Social History Tobacco Use Types Packs/Day Years Used Date Smoking Tobacco: Never Assessed Sex and Gender Information Value Date Recorded Sex Assigned at Not on file Gender Identity Not on file Sexual Orientation Not on file Plan of Treatment Health Maintenance Due Date Last Done Comments BONE DENSITY TESTING 1955 COLOGUARD (AGES 45-75) - COL ON CA SCREENING 1954 COLON MONITORING 1954 COLONOSCOPY - COLON CA SCREENING 1954 CT COLONOGRAPHY - COLON CA SCREENING 1954 Colorectal Cancer Screening 1954 FIT - COLON CA SCREENING 1954 FLEX SIG - COLON CA SCREENING 1954 LIPID TESTING 1954 MAMMOGRAM 1954 HEPATITIS C SCREENING 10/03/1972 DTAP/TDAP/TD VACCINES (1 - Tdap) 1973 PNEUMOCOCCAL VACCINE 50+ (1 of 1 - PCV) 2004 ZOSTER VACCINE (1 of 2) 2004 COVID-19 VACCINE (1 - 2023-2 5 season) 2023 INFLUENZA VACCINE (#1) 2023 11/28/2012 DEPRESSION SCREENING 02/27/2024 Respiratory Syncytial Virus (RSV) Vaccine Pt: or over 60 yrs (1 - 1-dose 75+ series) 2029 HEPATITIS B VACCINE Aged Out No longe r eligible based on patient's age to complete this topic HIB VACCINE Aged Out No longer eligi ble based on patient's age to complete this topic HPV VACCINE Aged Out No longer eligi ble based on patient's age to complete this topic MENINGOCOCCAL (Group B) VACCINE Aged Out No longer eligible based on patient's age to complete this topic MENINGOCOCCAL VACCINE Aged Out No tamara williams eligible based on patient's age to complete this topic Care Teams Pole Truck Driver Relationship Specialty Start Date End Date Caitlin Covarrubias PA [address] [place] [phone] PCP - General Physician Vehicle Insurance Agent 08/14/19
--- OUTSIDE RECORDS SUMMARY | 2024-04-23 08:57 | XMS_ITS | Encounter Summary ---
Author Organization [facility] Address [address] [place] [address] Phone Care Team Providers Care Gasket Supervisor Name Role Phone Caitlin Luo Primary Care Pr ovider Encounter Details Date Type Department Care Team (Late st Contact Info) Description 03/08/2023 Orders Only [facility] Scanning, Provider Social History Tobacco Use Types Packs/Day Years Used Date Smoking Tobacco: Former Cigarettes Q uit: 2005 Smokeless Tobacco: Never Alcohol Use Standard Drinks/Week Comments Yes 0 (1 standard drink = 0.6 oz pur e alcohol) socially AUDIT-C Answer Date Recorded Q1: How often do you have a drink containing alc ohol? 2-4 times a month 06/07/2022 Q2: How many drinks containi ng alcohol do you have on a typical day when you are drinking? 1 or 2 06/07/2022 Q3: How often do you have si x or more drinks on one occasion? Less than monthly 06/07/2022 Hunger Vital Sign Answer Date Recorded Within the past 12 months, y ou worried that your food would run out before you got the money to buy more. Often true 12/28/19 23 Within the past 12 months, t he food you bought just didn't last and you didn't have money to get more. Often true 12/27/2022 Personal Safety Answer Date Recorded Getting School Help Needed Denies 02/12 Comments No Sex and Gender Information Value Date Recorded Sex Assigned at Not on file Legal Sex Female 10:27 PM PERSONAL COMPANION Gender Identity Female 08/07/2018 2:56 PM CDT Sexual Orientation Not on file documented as of this encounter Plan of Treatment Not on file documented as of this encounter Procedures Procedure Name Priority Date/Time Associated Diagnosis Comments SCAN - RADIOLOGY/IMAGING 03/08/2023 documented in this encounter Results * SCAN - RADIOLOGY/IMAGING (03/08/2023) Anatomical Region Laterality Modality Other us Provider Scanning Final Result documented in this encounter Visit Diagnoses Not on filedocumented in this encounter Care Teams Gasket Supervisor Relationship Specialty Start Date End Date Caitlin Luo PA PCP - General Physician Tightener 06/30/19 documented as of this encounter
--- OUTSIDE RECORDS SUMMARY | 2024-04-23 08:57 | XMS_ITS | Referral Summary ---
Author Organization [facility] Address [address] [place] [address] Care Team Providers Care Sheet Ironworker Name Role Phone Caitlin Covarrubias Primary Care Pr ovider Source Comments [facility],non-owned Affiliates and Associated Physician Practices is amultiple site organization consisting of ambulatory clinics and hospital sitesin [place], [place], [place] and [place]. This disclosure is being madepursuant to the Care Everywhere program and may not contain all information available regarding this patient. Last updated 17.[facility] [employer] Social Allergies No known active allergies Social History Tobacco Use Types Packs/Day Years Used Date Smoking Tobacco: Never Assessed Sex and Gender Information Value Date Recorded Sex Assigned at Not on file Gender Identity Not on file Sexual Orientation Not on file Plan of Treatment Not on file Care Teams Sheet Ironworker Relationship Specialty Start Date End Date Caitlin Covarrubias PA [address] [place] [address] PCP - General Physician Certified Coding Specialist 08/14/19
== END 2024-04-23 08:31 | disposition home or self-care (01) ==
PROVIDERS: PCP Physician Assistant; Visit Provider Orthopaedic Surgery
DX: G57.32 Lesion of lateral popliteal nerve, left lower limb (principal)
CPT/HCPCS: 95886; 95908

== ENCOUNTER 2024-05-02 11:53 | Outpatient (CLI) | payer MEDICARE, SELFPAY ==
--- NOTE | ~2024-05-02 | MMUS_ITS ---
EXAMINATION: MM diagnostic emely BI w keith, US breast BI limited HISTORY: 68-year-old woman with a history of rheumatoid arthritis and lupus presents for diagnostic e valuation of bilateral breast pain. She describes it as focal pain within the LEFT lateral breast rad iating into her axilla for the past 3 weeks. She also describes a RIGHT lateral breast pain that is n onfocal, and comes and goes TECHNIQUE: Craniocaudal and mediolateral oblique 3-D tomosynthesis images were obtained and synthetic 2-D images were generated. CAD analysis was submitted and interpreted. High resolution limited bilateral breast ultrasound was performed, assessing grayscale appearance and color Doppler flow COMPARISON: Examination is compared with multiple prior studies, performed most recently on 08/17/2021 and dating back to 12/11/2012. BREAST PARENCHYMAL COMPOSITION: Not Dense. There are scattered areas of fibroglandular density. FINDINGS: MAMMOGRAPHIC FINDINGS: Multiple morphologically suspicious lymph nodes within the right axilla for which focused ultrasound will be performed. Punctate calcifications detected bilaterally, vascular in origin and benign in appearance. Otherwise, stable parenchymal pattern without suspicious microcalcifications, architectural distortio n, discrete masses or significant asymmetry. ULTRASOUND: Sonographic evaluation of the bilateral breasts were performed assessing grayscale appearance and col or Doppler flow. Sonographic evaluation of the right axilla was also performed corresponding to the area of mammograph ic/tomographic concern. Multiple nonpathologically enlarged or morphologically benign lymph nodes are detected within the erin ateral axillary tails, for which no further interrogation is needed. These lymph nodes demonstrate a robust fatty hilum and benign appearing cortical thickness. The largest within the right breast is at the 10:00 position approximately 16 cm from the nipple krishna ures 6 mm in short axis dimension. The largest within the left breast is at the 2:00 position, approximately 17 cm from the nipple, krishna uring 5.7 mm in short axis dimension. And approximately 19 cm from the nipple measuring 7.9 mm in beatriz rt axis dimension. Sonographic evaluation of the bilateral breast tissue demonstrates benign fibroglandular elements wit hout a cystic or a solid lesion of concern. IMPRESSION: No mammographic/tomographic or sonographic evidence to suggest the presence of malignancy. BI-RADS Category 2: Benign finding(s). Resumption of yearly mammography is recommended. Reviewed, dictated and finalized at location A. ANCE WILDLIFE SPECIALIST IMPRESSION: No mammographic/tomographic or sonographic evidence to suggest the presence of malignancy. BI-RADS Category 2: Benign finding(s). Resumption of yearly mammography is recommended.
--- OUTSIDE RECORDS SUMMARY | 2024-05-02 12:37 | XMS_ITS | Clinical Summary ---
Author Organization [facility] Address [address] [address] [place] [address] Care Team Providers Care Advertising Designer Name Role Phone Caitlin Covarrubias Primary Care Pr ovider Source Comments [facility],non-owned Affiliates and Associated Physician Practices is amultiple site organization consisting of ambulatory clinics and hospital sitesin [place], [place], [place] and [place]. This disclosure is being madepursuant to the Care Everywhere program and may not contain all information available regarding this patient. Last updated 17.[facility] bubl Allergies No known active allergies Social History [...] age to complete this topic Care Teams Advertising Designer Relationship Specialty Start Date End Date Caitlin Covarrubias PA [address] [place] [phone] PCP - General Physician Professor Of Business Administration 08/14/19
--- OUTSIDE RECORDS SUMMARY | 2024-05-02 12:37 | XMS_ITS | Clinical Summary ---
Author Organization [facility] Address [address] [place] [address] Phone Care Team Providers Care Geological Scout Name Role Phone Iglesia Junior MD Primary Care Provider [phone] Allergies No known active allergies Medications traMADol (ULTRAM) 50 mg tablet Take 100 mg by mouth every 6 hours as needed for Pain. 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 LAYER Gender Identity Not on file Sexual Orientation [...] 09/25/2023 10:11 AM CDT Plan of Treatment Health Maintenance Due Date Last Done Comments Pre-Diabetes and Diabetes Screening 1954 BREAST CANCER SCREENING 1994 COLORECTAL SCREENING 10/09/1999 Colorectal Cancer Screening 10/09/1999 FIT-DNA Q 3 years 10/09/1999 FIT/FOBT Q 1 year 10/09/1999 Flex Sig/CT Colonography Q 5 years 10/09/1999 ZOSTER VACCINE (1 of 2) 2004 PNEUMOCOCCAL VACCINE 50+ YEARS (2 of 2 - PPSV23) 02/1012/16/2012 RSV VACCINE (60+ or ) (1 - Risk 60-74 years 1-dose series) 2014 OSTEOPOROSIS SCREENING 10/09/2019 INFLUENZA VACCINE (#1) 2023 11/28/2012 COVID-19 Vaccine (2 - 2024-25 season) 2023 DTAP/TDAP/TD VACCINES (2 - Td or Tdap) 05/14/2033 Insurance Advance Directives For more information, please contact: [phone] * Full Code (Latest Code Status on File) Date Activated Date Inactivated Comments 05/16/2013 8:51 PM 05/17/2013 6:48 PM Care Teams Geological Scout Relationship Specialty Start Date End Date Iglesia Junior MD [address] [place] [phone] PCP - General Internal Medicine 09/25/23
--- OUTSIDE RECORDS SUMMARY | 2024-05-02 12:37 | XMS_ITS | Referral Summary ---
Author Organization [facility] Address [address] [place] [address] Care Team Providers Care Residence Director Name Role Phone Caitlin Covarrubias Primary Care Pr ovider Source Comments [facility],non-owned Affiliates and Associated Physician Practices is amultiple site organization consisting of ambulatory clinics and hospital sitesin [place], [place], [place] and [place]. This disclosure is being madepursuant to the Care Everywhere program and may not contain all information available regarding this patient. Last updated 17.[facility] [employer] Allergies No known active allergies Social History Tobacco Use Types Packs/Day Years Used Date Smoking Tobacco: Never Assessed Sex and Gender Information Value Date Recorded Sex Assigned at Not on file Gender Identity Not on file Sexual Orientation Not on file Plan of Treatment Not on file Care Teams Residence Director Relationship Specialty Start Date End Date Caitlin Covarrubias PA [address] [place] [address] PCP - General Physician Internet Manager 08/14/19
--- OUTSIDE RECORDS SUMMARY | 2024-05-02 12:37 | XMS_ITS | Clinical Summary ---
Author Organization [facility] Address [address] [place] [address] Care Team Providers Care Time Signal Wirer Name Role Phone Unavailable Primary Care Provider Unavailabl e Immunizations Immunization Administration Dates Next Due Covid-19 Vaccine, Vector-nr, Rs-ad26, Pf, 0.5 Ml (SendHub/Lumus&Lumus) 11/09/2020 Social History Tobacco Use Types Packs/Day [...]
--- OUTSIDE RECORDS SUMMARY | 2024-05-02 12:37 | XMS_ITS | Data Portability ---
Author Organization [facility] Address [address] [place] [address] Care Team Providers Care Dispatcher Ship Pilot Name Role Phone CAITLIN LUO Primary Care [...] Lab CBC w/ auto diff 2023 024 [email or web address] [address], [place], [address], 08/31/2023 15:08:41 BMP, serum or plasma 2023 024 [email or web address] [facility] [address], [place], [address], 09/05/2023 09:22:43 hepatic function panel, serum 2023 024 [email or web address] [facility] [address], [place], [address], 09/04/2023 12:01:58 TSH + free T4, serum 2023 024 [email or web address] [address], [place], [address], 08/31/2023 15:08:21 vitamin B12 + folate, serum or blood [address] [facility] [address], [place], [address], 08/31/2023 15:08:22 lipid panel w/ direct LDL, serum 2023 024 [facility] [place], [address] [place] [address] [address], [place], [address], 09/05/2023 11:11:22 HbA1c (hemoglob in A1c), blood [address] [facility] [address], [place], [address], 08/31/2023 15:08:22 ESR (erythroc yte sedimenta tion rate), blood [address] [facility] [address], [place], [address], 08/31/2023 15:08:22 C reactive protein, QN, serum or plasma [address] [facility] [address], [place], [address], 08/31/2023 15:08:22 Referral orthopedi c surgeon referral 2023 024 [facility], [address], [place], [address], 10/15/2023 13:44:19 physical therapist referral 2023 024 [email or web address] [facility] [address] , [place], [address], 07/19/2023 11:05:29 Procedures None recorded. Surgeries None recorded. Imaging US, breast, unilatera l, w/ axilla 2024 025 [email or web address] [facility], [address], [place], [address], 04/17/2024 11:24:02 MAMMO, diagnosti c, bilateral [email or web address] [facility] [address] [facility], [address], [place], [address], 04/17/2024 11:24:02 Medication Orders lidocaine 5 % topical patch 2024 025 [facility]acy #[id number], [address] [place] [address], [address], 03/18/2024 11:27:00 amlodipin e 5 mg tablet 2024 025 [email or web address] [facility]Pharmacy #3259, [address] [place], [address], 04/17/2024 10:55:23 ergocalci ferol (vitamin D2) 1,250 mcg (50,000 unit) capsule 2023 024 [facility]Ph[facility]acy #3259, [address] [place], [address], 07/30/2023 10:56:41 sulfameth oxazole 800 mg-trimet hoprim 160 mg tablet 2023 024 [email or web address] [facility]/Pharmacy #3259, [address] [place], [address], 07/30/2023 10:22:11 Patient TargetsNo targets recorded. Patient Instructions Encounter Date Encounter Id Patient Instructions Last Modified By Organization Details Last Modified Time 03/18/2024 [id number] A healthy lifestyle: care instructions Not available 03/18/2024 11:26:58 04/17/2024 [id number] A healthy lifestyle: care instructions [facility] Not available 04/17/2024 11:17:47 Reason for Referral Physical Therapist Referral for [...] 2 view No observ ation record ed. [facility] [address] [place] [address] [address], [place], [address], 08/21/2023 11:52:23 09/11/19 24 09/11/2023 MRI, lower leg, w/o contr ast No observ ation record ed. [address] [facility] [address] [place] [address] [address], [place], [address], 09/16/2023 01:01:36 09/24/19 24 09/24/2023 CT, knee, w/o contr ast No observ ation record ed. [address] [facility] [address] [place] [address] [address], [place], [address], 09/24/2023 19:51:51 10/30/19 24 10/30/2023 CT, chest , w/o contr ast No observ ation record ed. [place] [address] [facility] [address], [place], [address], 10/31/2023 08:41:21 10/31/19 24 10/30/2023 PFT, compl ete No observ ation record ed. [place] [address] [facility] [address], [place], [address], 10/31/2023 08:42:11 Result Notes None recorded. Problems Name Problem SNOMED Code Status Onset Date Resolution Date Notes Provider Name and Address Organization Details Recorded Time Long-term drug therapy Active 2023 SUNNY Buchanan Attn: Pebbles g,[address] [place], [address], [place] [facility] 4 13:51:56 Anxiety 86887281 Active 2023 SUNNY Buchanan Attn: Pebbles g,[address] [place], [address], [place] [facility] 4 13:53:21 Vitamin D deficiency 81232673 Active 2023 SUNNY Buchanan Attn: Pebbles g,[address] [place], [address], [place] [facility] 4 13:53:33 Familial hypercholes terolemia 239606601 Active 2023 SUNNY Buchanan Attn: Accountin g,[address] [place], [address], [place] [facility] 4 13:53:59 Rheumatoid arthritis 50285881 Active 2023 SUNNY Buchanan Attn: Accountin g,[address] [place], [address], [place] [facility] 4 13:54:00 Asthma 531216996 Active 2023 SUNNY Buchanan Attn: Accountin g,[address] [place], [address], [place] [facility] 4 13:54:50 Body mass index 25-29 - overweight 108687538 Active 2023 SUNNY Buchanan Attn: Accountin g,[address] [place], [address], [place] [facility] 4 13:55:17 Pain of left knee joint 1334999647234 07 Active 2024 SUNNY Buchanan Attn: Accountin g,[address] [facility], [place], [address], [place] [facility] 5 17:03:14 Benign essential hypertensio n 7779676 Active 2024 SUNNY Buchanan Attn: Pebbles melgar,[address] [facility], [place], [address], [place] [facility] 5 08:04:55 Overweight 528451885 Active 2024 SUNNY Buchanan Attn: Pebbles melgar,[address] [facility], [place], [address], [place] [facility] 5 08:05:20 Positive screening for depression on PHQ-9 (Patient Health Questionnai re 9) 8967688716127 00 Active 2024 SUNNY Buchanan Attn: Pebbles melgar,[address] [facility], [place], [address], [place] [facility] 5 08:05:35 Notes:Some problems listed i n Document: #[id number] could not be added to this patient's chart. Please review this document and add these problems to the patient's chart manually as needed. Problem Notes None recorded. Procedures Surgical History Date Name Laterality Status Provider Name and Address Organization Details Recorded Time 4 Suture/Stapl e removal completed SUNNY CESAR Attn: Accounting,[address] [facility], [place], [address], [place] [facility] 06/03/2023 12:36:39 Imaging Results Imaging Date Name Status [facility] by [facility] Details LastModified Time 08/17/2023 XR, chest, 2 view completed [facility] [address] [facility], [place], [address], 08/21/2023 11:52:23 09/11/2023 MRI, lower leg, w/o contrast completed [email or web address] [facility] [address] [facility] [address], [place], [address], 09/16/2023 01:01:36 09/24/2023 CT, knee, w/o contrast completed [email or web address] [facility] [address] [facility] [address], [place], [address], 09/24/2023 19:51:51 10/30/2023 CT, chest, w/o contrast completed [address] [facility] [address], [place], [address], 10/31/2023 08:41:21 10/30/2023 PFT, complete completed [email or web address] [address] [facility] [address], [place], [address], 10/31/2023 08:42:11 Procedure Notes None recorded. Medical [...] % 64 /min 170.18 cm 29.1 kg/m2 46079.1 8 g 156 mm[Hg] 81 mm[Hg] Kami Rankin MA [facility] 4 15:08:16 Date Recorded Respiratory rate Systolic blood pressure Diastolic blood pressure Provider Name and Address Organization Details Last Updated DateTime 05/25/2023 18 /min 130 mm[Hg] 86 mm[Hg] SUNNY CESAR Attn: Accounting, [address] [place], [address], [facility] 05/25/2023 15:54:27 Date Recorded Body height Body mass index (BMI) Body weight Oxygen saturation Oxygen saturation in Arterial blood by Pulse oximetry Heart rate Respiratory rate Systolic blood pressure Diastolic blood pressure Provider Name and Address Organization Details Last Updated DateTime 4 170.18 cm 28.3 kg/m2 52389.2 2 g 97 % 97 % 103 /min 20 /min 126 mm[Hg] 80 mm[Hg] Yael Cruz MA [facility] 4 11:43:09 Date Recorded Heart rate Provider Name an d Address Organization Details Last Updated DateTime 05/31/2023 76 /min SUNNY CESAR Attn: Accounting,[address] [place], [address], [facility] 06/03/2023 12:34:31 Date Recorded Body height Body mass index (BMI) Body weight Heart rate Oxygen saturation Oxygen saturation in Arterial blood by Pulse oximetry Systolic blood pressure Diastolic blood pressure Provider Name and Address Organization Details Last Updated DateTime 170.18 cm 27.5 kg/m2 42838.1 8 g 71 /min 99 % 99 % 140 mm[Hg] 72 mm[Hg] Cherise Interiano MA [facility] 4 10:36:30 Date Recorded Respiratory rate Systolic blood pressure Diastolic blood pressure Provider Name and Address Organization Details Last Updated DateTime 07/30/2023 18 /min 110 mm[Hg] 80 mm[Hg] SUNNY Buchanan Attn: Accounting, [address] [place], [address], [facility] 07/30/2023 10:57:02 Date Recorded Body height Body mass index (BMI) Body weight Respiratory rate Oxygen saturation Oxygen saturation in Arterial blood by Pulse oximetry Heart rate Systolic blood pressure Diastolic blood pressure Provider Name and Address Organization Details Last Updated DateTime 5 170.18 cm 28 kg/m2 59785.0 3 g 18 /min 99 % 99 % 72 /min 140 mm[Hg] 82 mm[Hg] Sammie Munoz MA [facility] 5 11:07:31 Date Recorded Body height Body mass index (BMI) Body weight Respiratory rate Oxygen saturation Oxygen saturation in Arterial blood by Pulse oximetry Heart rate Systolic blood pressure Diastolic blood pressure Provider Name and Address Organization Details Last Updated DateTime 5 170.18 cm 27.3 kg/m2 42157.0 7 g 18 /min 97 % 97 % 82 /min 140 mm[Hg] 82 mm[Hg] Sammie Munoz MA [facility] 5 10:58:48 Date Recorded Systolic blood pressure Diastolic blood pressure Provider Name and Address Organization Details Last Updated DateTime 04/17/2024 148 mm[Hg] 80 mm[Hg] SUNNY Buchanan Attn: Accounting,[address] [facility], [place], [address], [facility] 04/17/2024 11:15:44 Social History Question Answer Notes LastModified by Organizat ion Details LastModified Time Tobacco Smoking Status Former Smoker Cherise Interiano MA [facility], [facility] 07/30/2023 10:33:14 Do You Have An Advance [...] Anxious, Or Unable To Sleep At Night)? [id number] Information not available 07/30/2023 Do You Use [...] 4 completed SUNNY Buchanan Attn: Accounting,[address] [place], [address], [place] [facility] 11/07/2023 12:57:55 Influenza, high-dose, quadrivalent, PF 2 completed GIANFRANCO [place], [place] [facility] 02/25/2024 16:06:52 COVID-19, mRNA, LNP-S, PF, 30 mcg/0.3 mL dose 2 completed GIANFRANCO [place] [facility] 02/25/2024 16:06:52 COVID-19 vaccine, vector-nr, rS-Ad26, PF, 0.5 mL 1 completed GIANFRANCO [place] [facility] 02/25/2024 16:06:52 COVID-19, mRNA, LNP-S, PF, 30 mcg/0.3 mL dose, niko-sucrose 2 completed GIANFRANCO [place] [facility] 02/25/2024 16:06:52 COVID-19, mRNA, LNP-S, bivalent, PF, 30 mcg/0.3 mL dose 2 completed GIANFRANCO [place] [facility] 02/25/2024 16:06:52 Tdap 4 completed GIANFRANCO [place] [facility] 02/25/2024 16:06:52 Influenza, split virus, trivalent, preservative 3 completed GIANFRANCO [place] [facility] 02/25/2024 16:06:52 Respiratory syncytial virus (RSV) MAB, unspecified 4 completed Sammie Munoz MA [facility] 02/25/2024 16:08:02 Past Encounters Encounter ID Performer Location Encounter Start Date Encounter Closed Date Diagnosis/Indication Diagnosis SNOMED-CT Code Diagnosis ICD10 Code Diagnosis Note [id number] SUNNY CESAR [facility] [address] [place] [address] 05/25/2023 14:49:49 05/25/2023 15:59:40 Superficial bacterial infection of skin 964363045 L08.9 15 sutures placed 9 days agoput on keflex 05/17/23PEx - 7.5 cm horizontal laceration to L upper leg, 15 interrupte d sutures in place, erythema and minimal yellow discharge present, moderately TTPremoved 1 stitch, pt could not tolerate further removal due to painstart bactrimwil l remove stitches next week [id number] SUNNY CESAR [facility] [address] [place] [address] 05/31/2023 11:37:11 05/31/2023 12:21:25 Decreased muscle function 62487364 M62.9 pt c/o weakness to left lower leg s/p fall and suture placements tates that she has not applied full weight on left leg since fallambula aydin with cane to R handrefer to PTf/u after complete PT Removal of suture 171710 01 Z48.02 05/31/23: 14 sutures removed, see [...] painstart bactrimwil l remove stitches next week [id number] SUNNY Buchanan [facility] [place] [address] [place] [address] 07/30/2023 09:49:47 07/30/2023 10:59:45 Long-term drug therapy 682708935 Z79.899 full lab panel due: cbc, cmp, lft, tft, b12 and folate Rheumatoid arthritis 698 39654 M06.9 pt is managed by Ninoska cobos . she is due for ESR and CRP and we will copy her specialist on this lab. Familial hypercholesterolemia 248625926 E78.01 due for fasting lipids Vitamin D deficiency 347 33548 E55.9 refill on weekly high dose vit D rx Diabetes m ellitus screening 511683461 Z13.1 a1c screening is due Anxiety 93720545 F41.9 patient has notable anxiety related to her fall on the sidewalk, causing laceration to the LLE that was extended healing and treatment course. she is very nervous to walk outside now. Injury of left lower leg 2879261032 1361689 S89.92XS pt would like to consult with Ortho for her continued LLE pain post fall injury. Asthma 104350317 J45.90 9 stable. controlled . on Wixela inhaler. Body mass index 25-29 - overweight 796562749 Z68.27 [id number] SUNNY Buchanan [facility] [employer] [place] [address] [place] [address] 03/18/2024 10:28:38 03/18/2024 15:03:16 Body mass index 25-29 - overweight 940090518 Z68.28 BMI is 28 Overweight 284410057 E66 .3 Familial hypercholesterolemia 187936135 E78.01 Patient needs to touch base again with her cardiologi st if she is interested in restarting aggressive injectable hyperlipid emia treatment. In the past she was on Repatha that was managed by Dr. Denson Rheumatoid arthritis 698 00352 M06.9 pt is managed by Ninoska cobos . remicade 500mg every 6 weeks. Vitamin D deficiency 347 46703 E55.9 Patient has a history of vitamin-D deficiency and does take high-dose weekly supplement Long-term drug therapy 695336116 Z79.899 Labs are up-to-date with this office and from her specialist Pain of le ft knee joint 7815212766 79500 M25.562 Refill given on lidocaine topical patches to use for 12 hour increments as Benign ess ential hypertension 9966999 I10 Start amlodipine 5 mg daily to treat blood pressure that has been elevated higher at home and today is 140/82. Adult heal th examination 963275175 Z00.01 Annual wellness exam completed [id number] SUNNY Buchanan [facility] - Yoni Denise [address] [place] [address] 04/17/2024 10:41:57 04/17/2024 11:24:02 Body mass index 25-29 - overweight 298243235 Z68.27 BMI is 27.3 Overweight 637567043 E66 .3 Pain of left breast 1010 950268 N64.4 Refer for diagnostic bilateral mammogram for pain in the left breast Pain in axilla 585578262 M79.629 Check ultrasound of the left axilla Benign ess ential hypertension 4619839 I10 continue amlodipine 5mg daily. Patient still has blood pressure a little bit above goal today at 148/80 but she is in quite a bit of discomfort today. Positive s creening for depression on PHQ-9 (Patient Health Questionnaire 9) 5582447987 72839 Z13.31 Patient scored a 10 on her screening today. She is not interested in any medication for mental health. A lot of her symptoms are related to her joint pain and fatigue Health Concerns Section Related Observation LastModified by Organization Detai ls LastModified Time None Recorded Concern Status LastModified by Organization Details LastModified Time None Recorded Advance Directives Directive N: Payers Encounter Date Sequence Insurance Name Policy Number Policy Olivas Covered Member ID Olivas Member ID Guarantor Name 05/25/2023 1 *SELF PAY* Mary Marshall Anuj 05/25/2023 1 [facility] [id number] Jacki Marshall Anuj [id number] Jacki Marshall Anuj 05/31/2023 1 [facility] [id number] Jacki Marshall Anuj [id number] Jacki Marshall Anuj 07/30/2023 1 [facility] [id number] Jacki Marshall Anuj [id number] Jacki Marshall Anuj 03/18/2024 1 [facility] (MEDICARE REPLACEMENT/ ADVANTAGE - HMO) [id number] Jacki Keenet [id number] Jacki Leslie 04/17/2024 1 [facility] (MEDICARE REPLACEMENT/ ADVANTAGE - HMO) [id number] Jacki Keenet [id number] Jacki Leslie Notes Date Note Type Note Provider Name and Address Organization Details Recorded Time 4 text/html Pt presents for suture removal. Reports 9 days ago, she was walking on side walk, tried to step over metal sign in the middle of the sidewalk and fell. She went to [facility] and had 15 stitches placed to her L lower leg. Pt was given keflex on 05/17/23. C/o pain to L lower leg where stitches are placed. She has been elevating her leg, no relief with tramadol. SUNNY CESAR Attn: Accounting,[address] [place], [address], [facility] 05/28/2023 12:09:53 4 text/html Pt presents for suture removal. Reports she has 1 more day left of bactrim. SUNNY CESAR Attn: Accounting, [address] [place], [address], [facility] 06/03/2023 12:40:29 4 text/html Asthma F/UReported bypatient.Notes:underling [...] sutures. she has seen wound care at [facility]. Wound has healed very well, but her LLE lateral is still very painful. She is scared walking and has so much anxiety related to this traumatic event. SUNNY Buchanan Attn: Accounting,[address] [place], [address], [facility] 08/25/2023 13:55:24 5 text/html Asthma F/UReported bypatient.Notes:underling asthma. no acute concerns or c/o. 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 In the past she has seen Cardiology for injectable hyperlipidemia therapy but she is not on that any longer and has not followed up with the nurse practitioner per diem about it.HypertensionReported bypatient.Notes:Patient's blood pressure has been [...] been helpful. SUNNY Buchanan Attn: Accounting,[address] [place], [address], [facility] 03/30/2024 17:03:52 5 text/html Asthma F/UReported bypatient.Notes:underling asthma. no acute concerns or c/o. 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 In the past she has seen Cardiology for injectable hyperlipidemia therapy but she is not on that any longer and has not followed up with the nurse practitioner per diem about it.HypertensionReported bypatient.Notes:Patient's blood pressure has been [...] on lidocaine patches that have been helpful. Patient has pain in her left breast and in her left axillary region for about a week. No injury no redness no warmth mild swelling she thinks. USNNY Buchanan Attn: Accounting,[address] [place], [address], [facility] 04/28/2024 08:05:54 OBGyn Episode No OBEpisode recorded.
--- OUTSIDE RECORDS SUMMARY | 2024-05-02 12:37 | XMS_ITS | CONTINUITY OF CARE DOCUMENT ---
Author Name reginaldo hair Address Unknown Organization [facility] Address [address] [place] [address] Phone [phone] Care Team Providers Care Bread Dough Mixer Name Role Phone Bruno Flores MD Unavailable PATRICK YODER Unavailable PATRICK YODER Unavailable INSURANCE PROVIDERS Payer name Policy type / Coverage type [place] red constitution party ID [employer] PPO Other [id number]
--- OUTSIDE RECORDS SUMMARY | 2024-05-02 12:37 | XMS_ITS | Continuity of Care Document ---
Author Organization [facility] Address [address] [place] [address] Phone Care Team Providers Care Machinist Job Setter Name Role Phone Unavailable Unavailable Unavailable Procedures Procedure Date ELECTROCARDIOGRAM, TRACING OFFICE OUTPT NEW 30 MIN Advance Directives Directive Yes / No Effective Date File Name No Information Encounters Encounter Description Practice Location Reason(s) For Visit Diagnoses Date Provider Providers Copied on Encounter OFFICE OUTPT NEW 30 MIN [facility], [address], [place], [place], [id number] , tel:[phone] [place] TOBACCO USE DISORDERRHEUMATO ID ARTHRITISCHEST PAIN NECPURE HYPERCHOLESTEROL [id number] No Information Family History Family Member Type Diagnosis Age At Onset No Information Payers Payer name Insurance type Covered alliance party ID Authoriza tion(s) No Information Social History Type Description Quantity Date Captured Comments Sex Female Smoking Status No Information Vital Signs Date / Time: Height Weight BMI Pulse Rate Blood Pressure Temperature Respiratory Rate Body Surface Area Head Circumference Head Circ. Percentile Wt./[place]ill[place]. Percentile BMI percentile Pulse Ox Inhaled Ox 5:20 PM 0.00 in 206.00 lbs 0.00 kg/m eter (2) 0 /min 158/72 mm[Hg] 97.40 F 0 /min 0.00 cm 0 % Chief Complaint And Reason For Visit No Information Reason For Referral Reason For Referral No Information History Of Present Illness Encounter Date Complaint History Of Prese nt Illness No Information Functional Status Date Functional Assessmen t No Information Instructions Date Instruction Additional Infor mation No Information Assessments Type Assessment Date No Information Patient Care Teams Name Effective Dates (start - stop) Status Members No Information
--- OUTSIDE RECORDS SUMMARY | 2024-05-02 12:37 | XMS_ITS | Encounter Summary ---
Author Organization [facility] Address [address] [place] [address] Phone Care Team Providers Care Office Systems Technology Instructor Name Role Phone Caitlin Luo Primary Care [...] on file Legal Sex Female 10:27 PM [employer] Gender Identity Female 08/07/2018 2:56 PM CDT [...] on filedocumented in this encounter Care Teams Office Systems Technology Instructor Relationship Specialty Start Date End Date Caitlin Luo PA PCP - General Physician Sewage Treatment Plant Operator 06/30/19 documented as of this encounter
--- OUTSIDE RECORDS SUMMARY | 2024-05-02 12:37 | XMS_ITS | Encounter Summary ---
Author Organization [facility] Address [address] [place] [address] Phone Care Team Providers Care Cupola Operator Insulation Name Role Phone Caitlin Luo Primary Care [...] on file Legal Sex Female 10:27 PM LOCKSTITCH BINDER Gender Identity Female 08/07/2018 2:56 PM CDT [...] on filedocumented in this encounter Care Teams Cupola Operator Insulation Relationship Specialty Start Date End Date Caitlin Luo PA PCP - General Physician Purchasing Manager 06/30/19 documented as of this encounter
--- OUTSIDE RECORDS SUMMARY | 2024-05-02 12:37 | XMS_ITS | Encounter Summary ---
Author Organization [facility] Address [address] [place] [address] Phone Care Team Providers Care Coil Rewind Machine Operator Name Role Phone Caitlin Luo Primary Care [...] on file Legal Sex Female 10:27 PM MEDICAL EDUCATION COORDINATOR Gender Identity Female 08/07/2018 2:56 PM CDT [...] on filedocumented in this encounter Care Teams Coil Rewind Machine Operator Relationship Specialty Start Date End Date Caitlin Luo PA PCP - General Physician Risk Engineer 06/30/19 documented as of this encounter
--- OUTSIDE RECORDS SUMMARY | 2024-05-02 12:37 | XMS_ITS | Continuity of Care Document ---
Author Organization [facility] Address [address] [place] [address] Phone Care Team Providers Care Chief Engineer Research Name Role Phone Onesimo Garcia DO Unavailable Unavailable Advance Directives Directive Yes / No Effective Date File Name No Information Encounters Encounter Description Practice Location Reason(s) For Visit Diagnoses Date Provider Providers Copied on Encounter [facility], [address], [place], [place], [id number], [place] tel:[phone] [facility] No Information Jose Ott. [address] [facility], [place], [address], [place]. tel: [phone] Family History Family Member Type Diagnosis Age At Onset No Information Payers Payer name Insurance type Covered libertarian ID Authoriza tion(s) No Information Social History Type Description Quantity Date Captured Comments Sex Female Smoking Status No Information Chief Complaint And Reason For Visit No [...]
--- OUTSIDE RECORDS SUMMARY | 2024-05-02 12:37 | XMS_ITS | Data Portability ---
Author Organization [facility], Main Office Address [address] [place] [address] Assessment No assessment recorded. Plan of Treatment [...] Imaging MRI, elbow, w/wo contrast 2022 023 [facility], [address], [place], [address], 3 16:15:38 US, parotid gland 2022 023 [facility], [facility] [facility] , [address], [place], [address], 3 16:15:11 Medication Orders amoxicillin 875 mg-potassiu m clavulanate 125 mg tablet 2022 023 [email or web address] [facility] [address], [address] [facility], [place], [address], 15:37:52 Patient TargetsNo targets recorded. Patient InstructionsNo [...] eral No observ ation record ed. MIGRATION. [facility] [address], [place], [address], 04/26/2022 06:51:47 10/05/19 22 08/09/2021 XR, knee No observ ation record ed. MIGRATION. [facility] [address] [place] [address], [address], 04/26/2022 06:51:47 10/25/19 22 10/24/2021 US, abdom en No observ ation record ed. MIGRATION. [address] , [place], [address], 04/26/2022 06:51:47 11/16/19 22 11/14/2021 NM, hepat obili boogie scan, w/ CCK No observ ation record ed. MIGRATION. [facility] (Imaging) [address] [facility] [address], [place], [address], 04/26/2022 06:51:47 12/30/19 22 12/29/2021 upper endos copy proce dure (EGD) (PROC ) No observ ation record ed. [id number] Not Available 04/26/2022 06:51:47 01/04/20 22 08/19/2021 imagi ng/di agnos tic resul t No observ ation record ed. [id number] Not Available 04/26/2022 06:51:47 10/07/19 23 10/05/2022 US, parot id gland No observ ation record ed. [email or web address] [facility] [address] [facility] [address], [place], [address], 10/11/2022 16:51:27 10/07/19 23 10/05/2022 MRI, elbow , w/wo contr ast No observ ation record ed. [email or web address] [facility] [address], [place], [address], 10/11/2022 16:51:28 12/22/19 23 12/21/2022 CT, neck, soft tissu e, w/ contr ast No observ ation record ed. [email or web address] [facility] [facility] [address], [place], [address], 12/21/2022 16:14:04 03/09/19 24 03/08/2023 XR, hand, 2 view No observ ation record ed. [email or web address] [facility] [address] [place], [address], 03/10/2023 13:02:51 Result Notes None recorded. Problems Name Problem SNOMED Code Status Onset Date Resolution Date Notes Provider Name and Address Organization Details Recorded Time Pain in upper limb 908871045 Active Not Available [facility] 3 06:45:02 Benign essential hypertension 2521783 Active 2020 DEVEN Timmons, [place] - [place] [employer] 3 15:44:07 Scattered fibroglandula r densities 132634233 Active 2021 Not Available [facility] 3 06:45:02 Chronic obstructive pulmonary disease 62040498 Active 2021 Not Available [facility] 3 06:45:02 Acute sinusitis 39573162 Active 2021 Not Available [facility] 3 06:45:03 Backache 429301917 Active Not Available [facility] 3 06:45:03 Blood glucose outside reference range 189715278 Active 2021 Not Available [facility] 3 06:45:03 Mammography abnormal 511575354 Active Not Available [facility] 3 06:45:03 Gastroesophag eal reflux disease 624639960 Active DEVEN Timmons, [place] - [facility] 3 15:44:10 Pure hypercholeste rolemia 843105817 Active Not Available [facility] 3 06:45:03 Malaise and fatigue 127898037 Active Not Available [facility] 3 06:45:03 Eruption 063214341 Active Not Available [facility] 3 06:45:03 Hip joint painful on movement 054168518 Active Not Available [facility] 3 06:45:04 Right upper quadrant pain 965961984 Active 2021 Not Available [facility] 3 06:45:04 Vitamin D deficiency 59190389 Active Not Available [facility] 3 06:45:04 Acute pharyngitis 391044267 Active Not Available [facility] 3 06:45:04 Sinusitis 71626143 Active Not Available [facility] 3 06:45:04 Familial hypercholeste rolemia 698419937 Active 2021 Not Available [facility] 3 06:45:04 Cough 43481818 Active Not Available [facility] 3 06:45:04 Rheumatoid arthritis 25335081 Active Not Available [facility] 3 06:45:05 Epicondylitis 82993085 Active Not Available [facility] 3 06:45:05 Upper abdominal pain 54981377 Active 2021 Not Available [facility] 3 06:45:05 Parotitis 28763463 Active 2022 SUNNY Buchanan [address], [place], [address] , [employer] 3 15:29:14 Mass of upper limb 726684186 Active 2022 SUNNY Buchanan [address], [place], [address] , [employer] 3 15:37:36 High glucose level in blood 209712008 Active 2022 SUNNY Buchanan [address], [place], [address] , [employer] 15:38:37 Anxiety 46405422 Active 2022 SUNNY Buchanan [address], [place], [address] , [employer] 3 13:50:10 Lipoma of upper arm 785347995 Active 2022 SUNNY Buchanan [address], [place], [address] , [employer] 3 09:16:52 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 Procedures Surgical History Date Name Laterality Status Provider Name and Address Organization Details Recorded Time 02/26/18 79 Tubal Ligation completed Not Available [facility] 04/26 06:40:21 02/26/18 70 tonsillectomy completed Not Available [facility] 2022 06:40:21 Imaging Results Imaging Date Name Status LastModified by Organization Details LastModified Time 07/14/2020 holter monitor completed [id number] Information not available 04/26/2022 06:51:47 01/11/2021 XR, chest, 2 view completed [id number]. [id number] Information not available 04/26/2022 06:51:47 11/14/2021 NM, hepatobiliary scan, w/ CCK completed [id number] [facility] (Imaging) [address] [facility] [address], [place], [address], 04/26/2022 06:51:47 08/19/2021 imaging/diagnosti c result completed [id number] Information not available 04/26/2022 06:51:47 12/29/2021 upper endoscopy procedure (EGD) (PROC) completed MIGRATION.[id number] Information not available 04/26/2022 06:51:47 08/17/2021 MAMMO, diagnostic, digital, bilateral completed [id number] 7397 [facility] [address], [place], [address], 04/26/2022 06:51:47 10/24/2021 US, abdomen completed [id number].[id number], [place], [address], 04/26/2022 06:51:47 08/09/2021 XR, knee completed [id number].[id number] 3 0026 [facility] [address] [place] [address], [address], 04/26/2022 06:51:47 10/05/2022 US, parotid gland completed [email or web address] [facility] [address] [facility] [address], [place], [address], 10/11/2022 16:51:27 10/05/2022 MRI, elbow, w/wo contrast completed [email or web address] [facility] [address], [place], [address], 10/11/2022 16:51:28 12/21/2022 CT, neck, soft tissue, w/ contrast completed [email or web address] [facility] [address] [facility] [address], [place], [address], 12/21/2022 16:14:04 03/08/2023 XR, hand, 2 view completed [email or web address] [facility] [address] [place], [address], 03/10/2023 13:02:51 Procedure Notes None recorded. Medical [...] injection solution 0.1ml subderma l 10/01 completed [facility] #[id number] Pt tests NEGATIVE on 04/06/17 ds [...] % 81 /min 16 /min 97.3 [degF] 22123.0 3 g 138 mm[Hg] 76 mm[Hg] Not Available [facility] 3 06:42:05 Date Recorded Body mass index (BMI) Body height Oxygen saturation Oxygen saturation in Arterial blood by Pulse oximetry Heart rate Body temperature Body weight Systolic blood pressure Diastolic blood pressure Provider Name and Address Organization Details Last Updated DateTime 1 26.8 kg/m2 171.45 cm 92 % 92 % 82 /min 96.7 [degF] 55806.3 5 g 120 mm[Hg] 80 mm[Hg] Not Available [facility] 3 06:42:05 Date Recorded Body mass index (BMI) Body height Oxygen saturation Oxygen saturation in Arterial blood by Pulse oximetry Heart rate Body weight Systolic blood pressure Diastolic blood pressure Provider Name and Address Organization Details Last Updated DateTime 2 27.2 kg/m2 171.45 cm 100 % 100 % 68 /min 07696.2 6 g 128 mm[Hg] 80 mm[Hg] Not Available [facility] 3 06:42:05 Date Recorded Body height Body weight Body temperature Heart rate Oxygen saturation Oxygen saturation in Arterial blood by Pulse oximetry Systolic blood pressure Diastolic blood pressure Provider Name and Address Organization Details Last Updated DateTime 3 171.45 cm 44564.0 7 g 97.2 [degF] 77 /min 96 % 96 % 116 mm[Hg] 72 mm[Hg] Tg Strong RN [facility] [employer] [facility] 3 15:12:06 Date Recorded Body height Body temperature Body mass index (BMI) Body weight Respiratory rate Heart rate Systolic blood pressure Diastolic blood pressure Provider Name and Address Organization Details Last Updated DateTime 3 171.45 cm 98.3 [degF] 27.9 kg/m2 43546.4 2 g 16 /min 67 /min 130 mm[Hg] 82 mm[Hg] DEVEN Timmons [facility] [employer] [facility] 3 15:11:14 Social History Question Answer Notes LastModified by Organizat ion Details LastModified Time Tobacco Smoking Status Former Smoker Not Available [facility] 04/26/2022 06:39:57 What Is Your Level Of Alcohol Consumption? None [id number] Information not available 04/26/2022 What Is Your Level Of Caffeine Consumption? Occasional [id number].[id number] Information not available 04/26/2022 How Much Tobacco Do You Chew? None MIGRATION.[id number] 1752 Information not available 04/26/2022 In The 14 Days Before Symptom Onset, Have You Had Close Contact With A Laboratory-confir med COVID-19 While That Case Was Ill? No MIGRATION.[id number] 2935 Information not available 04/26/2022 In The 14 Days Before Symptom Onset, Have You Had Close Contact With A Person Who Is Under Investigation For COVID-19 While That Person Was Ill? No MIGRATION.[id number] 9256 Information not available 04/26/2022 Are You Currently Employed? Yes [email or web address] Information not available 09/25/2022 What Type Of Diet Are You Following? REGULAR [id number] 1850 Information not available 04/26/2022 Which Illicit Or Recreational Drugs Have You Used? None MIGRATION.[id number] Information not available 04/26/2022 Do You Or Have You Ever Used E-cigarettes Or Vape? Never Used Electronic Cigarettes MIGRATION.[id number] Information not available 04/26/2022 What Is Your Occupation? [employer] MIGRATION.[id number] 7296 Information not available 04/26/2022 Have There Been Any Changes To Your Family Or Social Situation? No [email or web address] Information no t available 09/25/2022 Do You Use Insect Repellent Routinely? No Information not available 09/25/2022 What Was The Date Of Your Most Recent Tobacco Screening? 05/21/2020 MIGRATION.[id number] Information not available 04/26/2022 Do You Use Your Seat Belt Or Car Seat Routinely? Yes [email or web address] Information not available 09/25/2022 Do You Have Smoke And Carbon Monoxide Detectors In Your Home? Yes [email or web address] Information not available 09/25/2022 At What Age Did You Start Smoking Tobacco? 14 MIGRATION.539971 2763 Information not available 04/26/2022 Do You Or Have You Ever Used Smokeless Tobacco? Never Used Smokeless Tobacco MIGRATION.466030 3771 Information not available 04/26/2022 How Much Tobacco Do You Smoke? 0.25 PPD MIGRATION.337880 4889 Information not available 04/26/2022 Do You Use Any Illicit Or Recreational Drugs? No [email or web address] Information not available 09/25/2022 Do You Use Sunscreen Routinely? Yes [email or web address] Information not available 09/25/2022 Have You Recently Traveled Abroad? No Information not available 09/25/2022 Do You Have Any Dietary Restrictions? No Information not available 09/25/2022 Do You Or Have You Ever Used Any Other Forms Of Tobacco Or Nicotine? No [email or web address] Information not available 09/25/2022 Sex: Unknown Functional Status Question Answer Note LastModified by Organizat ion Details LastModified Time What is your exercise level? None [id number] Information not available 04/26/2022 Mental Status None recorded. Family History Relationship Description Onset Age of this Age Resolved Age Notes LastModified by Organization Details LastModified Time Mother Heart disease [id number] [id number] Not available 04/26/2022 06:40:23 Father Diabetes mellitus MIGRATION.981 [id number] Not available 04/26/2022 06:40:23 Son Malignant neoplasm of brain MIGRATION.646 [id number] Not available 04/26/2022 06:40:23 Son Malignant tumor of lung Right MIGRATION.037 [id number] Not available 04/26/2022 06:40:23 Medical History Condition Response BACK / NECK PROBLEMS Y HEARTBURN / REFLUX Y HYPERTENSION Y HIGH CHOLESTEROL / HYPERLIPIDEMIA Y Gynecological HistoryNo gynecological history recorded. Obstetrics History GPAL:G 0 P 0 0 0 0 Immunizations Vaccine Type Date Status Note Provider Nam e and Address Organization Details Recorded Time Influenza, split virus, trivalent, preservative 3 completed Not Available [facility] 04/26/2022 06:51:18 influenza, unspecified formulation 5 completed Not Available [facility] 04/26/2022 06:51:18 influenza, unspecified formulation 6 completed Not Available [facility] 04/26/2022 06:51:18 Past Encounters Encounter ID Performer Location Encounter Start Date Encounter Closed Date Diagnosis/Indication Diagnosis SNOMED-CT Code Diagnosis ICD10 Code Diagnosis Note [id number] [facility] [address] [place] [address] 05/21/2020 00:00:00 05/22/2020 14:46:18 [id number] [facility] [address] [place] [address] 06/30/2020 00:00:00 07/13/2020 18:28:00 [id number] [facility] [address] [place] [address] 09/29/2021 00:00:00 10/26/2021 15:26:19 [id number] SUNNY Buchanan [facility] [address] [place] [address] 05/15/2022 14:45:21 05/15/2022 15:36:02 Parotitis 92291670 K11.20 start augmentin course as directed Rheumatoid arthritis 698 87984 M06.9 pt has underlying Rheumatoid arthritis, follows with Rheumatolo gy. They have told patient to have her PCP complete order for walker rollator. [id number] SUNNY Buchanan [facility] [address] [place] [address] 09/26/2022 14:26:14 09/26/2022 15:42:40 Parotitis 51648697 K11.20 still to get u/s of parotid gland for hx of parotitis x 2 episodes Mass of upper limb 30306 5008 R22.31 refer for RUE /elbow MRI w/wo contrast. Familial hypercholesterolemia 792335951 E78.01 due for fasting lipids High gluco se level in blood 725067306 R73.9 due for A1c lab Long-term drug therapy 671729397 Z79.899 routine bmp, CBC, LFT and TFTs Health Concerns Section Related Observation LastModified by Organization Detai ls LastModified Time None Recorded Concern Status LastModified by Organization Details LastModified Time None Recorded Advance Directives Directive None Recorded Payers Encounter Date Sequence Insurance Name Policy Number Policy Olivas Covered Member ID Olivas Member ID Guarantor Name 05/15/2022 1 [facility] [id number] Karitta C Anuj [id number] Karitta C Anuj 09/26/2022 1 [facility] [id number] Karitta C Anuj [id number] Karitta C Anuj Notes Date Note Type Note Provider Name and Address Organization Details Recorded Time 021 text/ht ml Generic HPI TemplateReported bypatient.Notes:Pt presents today for second repatha injection. Pt reports she could not walk for five days after first inj. States her leg was very sore. Not Available [employer] 05/22/2020 14:46:18 021 text/ht ml NeckReported bypatient.Location:midline [...] Previous PT:none Work Related:no Working:no Not Available [employer] 07/13/2020 18:28:00 022 text/ht ml COPDReported bypatient.Notes:stable on medication regimenGeneric HPI TemplateReported bypatient.Notes:rheumatoid arthritis on medication from specialistHyperlipidemiaReported bypatient.Notes:not taking medicationHypertensionReported bypatient.Notes:on medication Not Available [employer] 10/26/2021 15:26:19 023 text/ht ml Enlarged Lymph NodeReported bypatient.Location:right; upper neck Identified:patient identified Associated Symptoms:fatigue; right ear pain SUNNY Buchanan [address], [place], [address], [employer] 05/23/2022 23:25:14 023 text/ht ml Generic HPI TemplateReported bypatient.Location:R upper arm Quality:painful swollen knot that radiates down to her hand Severity:worse Duration:pain comes and goes. Onset/Timing:couple weeks Context:unknown Aggravating factors:using that arm SUNNY Buchanan [address], [place], [address], [employer] 10/22/2022 23:16:15 OBGyn Episode No OBEpisode recorded.
--- OUTSIDE RECORDS SUMMARY | 2024-05-02 12:38 | XMS_ITS | Patient Health Summary ---
Author Organization [facility] Address [address] [facility] [place] [address] Care Team Providers Care Hose Tender Name Role Phone Caitlin Covarrubias Primary Care Pr ovider Note from [facility],non-owned Affiliates and Associated Physician Practices is amultiple site organization consisting of ambulatory clinics and hospital sitesin [place], [place], [place] and [place]. This disclosure is being madepursuant to the Care Everywhere program and may not contain all information available regarding this patient. Last updated 17.[facility] [employer] Allergies No known active allergies Social History [...] OF CARE ORDERABLES [facility] [address] [phone] Care Teams Hose Tender Relationship Specialty Start Date End Date Caitlin Covarrubias PA [address] [place] [id number] PCP - General Physician Extractor Puller 08/14/19
--- OUTSIDE RECORDS SUMMARY | 2024-05-02 12:38 | XMS_ITS | Referral Summary ---
Author Organization [facility] Address [address] [facility] [place] [address] Care Team Providers Care Automobile Service Writer Name Role Phone Caitlin Luo Primary Care Pr ovider Encounters Date Type Department Care Team Description 04/23/2024 Telephone [facility] Accountable Care Organization [address] [place] [id number] Sharda Rios MA Successful Phone Call (AWV SCHEDULING) 04/21/2024 10:30 AM DISTRIBUTION TECH Infusion [facility] [address] [facility] [address] [place] [phone] Rheumatoid arthritis involving multiple sites, unspecified whether rheumatoid factor present (HCC) (Primary Dx) 04/03/2024 ACO Quality [facility] Care [address] [address] Darling Whyte 03/10/2024 10:00 AM DISTRIBUTION TECH Infusion [facility] [address] [facility] [address] [place] [phone] Rheumatoid arthritis involving multiple sites, unspecified whether rheumatoid factor present (HCC) (Primary Dx) 02/16/2024 Nurse Triage [facility] Medical [facility] Patient Access [address] [place] [address] [place] [phone] Mercedes Valdez RN 02/05/2024 2:00 PM DISTRIBUTION TECH Office Visit [facility] Sports Medicine and Primary Care at [address] [place] [address] Iglesia Bolden DO Osteonecrosis of left knee region (HCC) (Primary Dx) from Last 3 Months Allergies No known active allergies Medications amLODIPine (NORVASC) 5 mg tabletIndicatio ns:hypertension ,patient reports not everyday Take 1 tablet (5 mg total) by mouth display mechanic before breakfast 3 Active multivitamin tabletIndicatio ns:Vitamin Deficiency Prevention Take 1 tablet by mouth display mechanic before breakfast Active polyvinyl alcohol-povidon e (REFRESH CLASSIC) 1.4-0.6 % dropperetteIndi cations:Dry Eye Administer 1 drop into both eyes as needed Active fluticasone propion/salmete rol (ADVAIR DISKUS INHAL) Inhale 1 Dose as needed Active aspirin 81 mg enteric coated tabletIndicatio ns:heart health Take 1 tablet (81 mg total) by mouth display mechanic before breakfast Active cholecalciferol (VITAMIN D-3) 25 mcg (1,000 unit) tabletIndicatio ns:Vitamin D Deficiency Take 1 tablet (1,000 Units total) by mouth display mechanic before breakfast Active isosorbide mononitrate ER (IMDUR) [...] ORAL)Indication s:supplement Take 1 tablet by mouth display mechanic before breakfast Active zinc 50 mg tabletIndicatio ns:supplement Take 1 tablet by mouth display mechanic before breakfast Active flaxseed oiL oilIndications: supplement Take 1 tablet by mouth display mechanic before breakfast Active vitamin E acetate (VITAMIN E ORAL) Take 1 tablet by mouth display mechanic before breakfast Active ubidecarenone (CO Q-10 ORAL)Indication s:supplement Take 1 tablet by mouth display mechanic before breakfast Active traMADoL (ULTRAM) 50 mg [...] MOUTH TWICE A DAY 3 Active vit C/E/Zn/sonoscope operator/lut/ lui/bio/saf (RETAINE VISION ORAL) Take by mouth [...] (05/11/2022): Added automatically from request for surgery [id number] Assessment & Plan (07/16/2022 1:14 AM CDT): [...] BID+ Assessment & Plan (04/21/2022 10:40 AM DISTRIBUTION TECH): Moderate to severe dry eye disease No improvement with Restasis in the past Recommend retain artificial tear drops 3 to 4 times a day Continue lubricating ointment at night Add daily steroid Blepharospasm of both eyes 04/21/2022 Assessment & Plan (04/21/2022 10:40 AM DISTRIBUTION TECH): Patient at that this should improve with the dry eye Age-related nuclear cataract, bilateral 04/21/19 23 Assessment & Plan (06/13/2023 9:16 AM CDT): Defer cataract surgery until signs and symptoms indicate. Pt was educated on the diagnosis. Recommend daily UV protection. Release updated glasses Rx Assessment & Plan (04/21/2022 10:41 AM DISTRIBUTION TECH): Not yet visually significant, monitor Xanthelasma of [...] future. Assessment & Plan (04/06/2022 4:57 PM DISTRIBUTION TECH): Risks, benefits and alternatives were discussed. Risks included but were not limited to pain, bleeding, scarring, recurrence, and possible need for additional procedures. Following this discussion, the patient wishes to proceed with bilateral upper eyelid lesion excision. We will schedule this in the near future. Myogenic ptosis of eyelid of both eyes 3 Assessment & Plan (06/23/2022 9:41 AM CDT): [...] future. Assessment & Plan (04/06/2022 4:59 PM DISTRIBUTION TECH): Bilateral upper eyelid ptosis with symptomatic visual [...] Cigarettes Q uit: 2005 Smokeless Tobacco: Never Tobacco Cessation:Counseling Given: Not [...] on file Legal Sex Female 10:27 PM DISTRIBUTION TECH Gender Identity Female 08/07/2018 2:56 PM CDT Sexual Orientation Not on file Last Filed Vital Signs Vital Sign Reading Time Taken Comments Blood Pressure 165/71 04/21/2024 1:40 PM DISTRIBUTION TECH Pulse 77 04/21/2024 1:40 PM DISTRIBUTION TECH Temperature 36.4 C (97.5 F) 04/21/2024 10:28 AM DISTRIBUTION TECH Respiratory Rate 18 03/10/2024 10:02 AM DISTRIBUTION TECH Oxygen Saturation 98% 04/21/2024 1:40 PM DISTRIBUTION TECH Inhaled Oxygen Concentration - - Weight 78.5 kg (173 lb) 04/21/2024 10:28 AM DISTRIBUTION TECH Height 170.2 cm (5' 7 ) 02/05/2024 2:10 PM DISTRIBUTION TECH Body Mass Index 27.1 02/05/2024 2:10 PM DISTRIBUTION TECH Plan of Treatment Not on file Procedures [...] CDT) Hep C Ab Nonreactive Nonreactive [facility] Comment: Interpretive Data Nonreactive: Antibodies to HCV [...] last revised on 2019. Testing performed by: [facility], [facility] [facility], [place]., [address] Blood 08/09/2021 12:5 2 PM CDT 08/09/2021 4:13 PM CDT us Katherine Calle MD LAB MICROBIOLOGY - GENERAL ORDERABLES Final Result [facility] [address] [facility]. Department [place] [address] from Last 3 Months or Most Recently Relevant to Health Maintenance Insurance [employer] [facility] Address: [facility] [address] [place] [address] [employer] [facility] Address: [address] [phone] [address] [place] [address] [employer] [facility] Address: [address] [phone] Care Teams Automobile Service Writer Relationship Specialty Start Date End Date Caitlin Luo PA PCP - General Physician Machine Marker 06/30/19
--- OUTSIDE RECORDS SUMMARY | 2024-05-02 12:38 | XMS_ITS | Clinical Summary ---
Author Organization [facility] Address [address] [phone] Care Team Providers Care Plaster Machine Operator Name Role Phone Caitlin Luo Primary Care Pr ovider Allergies No known active allergies Medications amLODIPine (NORVASC) 5 mg tabletIndicatio ns:hypertension ,patient reports not everyday Take 1 tablet (5 mg total) by mouth credit collections specialist before breakfast 3 Active multivitamin tabletIndicatio ns:Vitamin Deficiency Prevention Take 1 tablet by mouth credit collections specialist before breakfast Active polyvinyl alcohol-povidon e (REFRESH CLASSIC) 1.4-0.6 % dropperetteIndi cations:Dry Eye Administer 1 drop into both eyes as needed Active fluticasone propion/salmete rol (ADVAIR DISKUS INHAL) Inhale 1 Dose as needed Active aspirin 81 mg enteric coated tabletIndicatio ns:heart health Take 1 tablet (81 mg total) by mouth credit collections specialist before breakfast Active cholecalciferol (VITAMIN D-3) 25 mcg (1,000 unit) tabletIndicatio ns:Vitamin D Deficiency Take 1 tablet (1,000 Units total) by mouth credit collections specialist before breakfast Active isosorbide mononitrate ER (IMDUR) [...] ORAL)Indication s:supplement Take 1 tablet by mouth credit collections specialist before breakfast Active zinc 50 mg tabletIndicatio ns:supplement Take 1 tablet by mouth credit collections specialist before breakfast Active flaxseed oiL oilIndications: supplement Take 1 tablet by mouth credit collections specialist before breakfast Active vitamin E acetate (VITAMIN E ORAL) Take 1 tablet by mouth credit collections specialist before breakfast Active ubidecarenone (CO Q-10 ORAL)Indication s:supplement Take 1 tablet by mouth credit collections specialist before breakfast Active traMADoL (ULTRAM) 50 mg [...] MOUTH TWICE A DAY 3 Active vit C/E/Zn/certified flex endoscope reprocessor/lut/ lui/bio/saf (RETAINE VISION ORAL) Take by mouth [...] (05/11/2022): Added automatically from request for surgery [id number] Assessment & Plan (07/16/2022 1:14 AM CDT): Jacki eLslie is doing well after Bilateral Upper Eyelid [...] BID+ Assessment & Plan (04/21/2022 10:40 AM HOUSING MANAGEMENT OFFICER): Moderate to severe dry eye disease No improvement with Restasis in the past Recommend retain artificial tear drops 3 to 4 times a day Continue lubricating ointment at night Add daily steroid Blepharospasm of both eyes 04/21/2022 Assessment & Plan (04/21/2022 10:40 AM HOUSING MANAGEMENT OFFICER): Patient at that this should improve with the dry eye Age-related nuclear cataract, bilateral 04/21/19 Assessment & Plan (06/13/2023 9:16 AM CDT): Defer cataract surgery until signs and symptoms indicate. Pt was educated on the diagnosis. Recommend daily UV protection. Release updated glasses Rx Assessment & Plan (04/21/2022 10:41 AM HOUSING MANAGEMENT OFFICER): Not yet visually significant, monitor Xanthelasma [...] future. Assessment & Plan (04/06/2022 4:57 PM HOUSING MANAGEMENT OFFICER): Risks, benefits and alternatives were discussed. [...] future. Assessment & Plan (04/06/2022 4:59 PM HOUSING MANAGEMENT OFFICER): Bilateral upper eyelid ptosis with symptomatic [...] Type Department Care Team Description 04/23/2024 Telephone [facility] Accountable Care [address] [address] Sharda Rios MA Successful Phone Call (AWV SCHEDULING) 04/21/2024 10:30 AM HOUSING MANAGEMENT OFFICER Infusion [facility]fusion [facility] [address] [facility] [address] [facility] [address] [place] [phone] Rheumatoid arthritis involving multiple sites, unspecified whether rheumatoid factor present (HCC) (Primary Dx) 04/03/2024 ACO Quality [address] [address] Darling Whyte 03/10/2024 10:00 AM HOUSING MANAGEMENT OFFICER Infusion [facility] [address] [facility] [address] [facility] [address] [place] [phone] Rheumatoid arthritis involving multiple sites, unspecified whether rheumatoid factor present (HCC) (Primary Dx) 02/16/2024 Nurse Triage [facility] Patient Access [address] [place] [address] [place] [phone] Mercedes Valdez RN 02/05/2024 2:00 PM HOUSING MANAGEMENT OFFICER Office Visit [facility] Sports Medicine and Primary Care at [address] [place] [address] Iglesia Bolden DO Osteonecrosis of left knee region (HCC) (Primary Dx) from Last 3 Months Immunizations Immunization Administration [...] on file Legal Sex Female 10:27 PM HOUSING MANAGEMENT OFFICER Gender Identity Female 08/07/2018 2:56 PM CDT Sexual Orientation Not on file Obstetrics History Last Filed Vital Signs Vital Sign Reading Time Taken Comments Blood Pressure 165/71 04/21/2024 1:40 PM HOUSING MANAGEMENT OFFICER Pulse 77 04/21/2024 1:40 PM HOUSING MANAGEMENT OFFICER Temperature 36.4 C (97.5 F) 04/21/2024 10:28 AM HOUSING MANAGEMENT OFFICER Respiratory Rate 18 03/10/2024 10:02 AM HOUSING MANAGEMENT OFFICER Oxygen Saturation 98% 04/21/2024 1:40 PM HOUSING MANAGEMENT OFFICER Inhaled Oxygen Concentration - - Weight 78.5 kg (173 lb) 04/21/2024 10:28 AM HOUSING MANAGEMENT OFFICER Height 170.2 cm (5' 7 ) 02/05/2024 2:10 PM HOUSING MANAGEMENT OFFICER Body Mass Index 27.1 02/05/2024 2:10 PM HOUSING MANAGEMENT OFFICER Plan of Treatment Health Maintenance Due Date [...] CDT) Hep C Ab Nonreactive Nonreactive [facility] Comment: Interpretive Data Nonreactive: Antibodies to HCV [...] last revised on 2019. Testing performed by: [facility], [facility] [facility], [place]., [address] Blood 08/09/2021 12:5 2 PM CDT 08/09/2021 4:13 PM CDT Katherine Calle MD LAB MICROBIOLOGY - GENERAL ORDERABLES Final Result [facility] [id number] [place] [address] from Last 3 Months or Most Recently Relevant to Health Maintenance Insurance [employer]IC[employer] [place] [address] Care Teams Plaster Machine Operator Relationship Specialty Start Date End Date Caitlin Luo PA PCP - General Physician Driver Operator 06/30/19
== END 2024-05-02 11:54 | disposition home or self-care (01) ==
PROVIDERS: PCP Physician Assistant; Visit Provider Physician Assistant
DX: N64.4 Mastodynia (principal); M79.629 Pain in unspecified upper arm
CPT/HCPCS: 76642; 77062; 77066; G0279

== ENCOUNTER 2024-09-24 08:13 | Outpatient (CLI) | payer MEDICARE, SELFPAY ==
--- OUTSIDE RECORDS SUMMARY | 2024-09-24 08:25 | XMS_ITS | Clinical Summary ---
Author Organization [facility] Address [address] [place] [address] Care Team Providers Care Rehab Specialist Name Role Phone Caitlin Covarrubias Primary Care Pr ovider Source Comments [facility],non-owned Affiliates and Associated Physician Practices is amultiple site organization consisting of ambulatory clinics and hospital sitesin [place], [place], [place] and [place]. This disclosure is being madepursuant to the Care Everywhere program and may not contain all information available regarding this patient. 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 Gender Identity Not on file Sexual Orientation [...] (1 of 2) 2004 COVID-19 VACCINE (1 2023-2 5 season) 2023 DEPRESSION SCREENING 02/27/2024 INFLUENZA VACCINE (#1) 2024 11/28/2012 Respiratory Syncytial Virus (RSV) Vaccine Pt: or [...] to complete this topic MENINGOCOCCAL (Group B) VACC INE SHARED DECISION-MAKING Aged Out No longer eligibl e based on patient's age to complete this topic MENINGOCOCCAL GROUPS A/C/Y/W VACCINE Aged Out No longer eligible b ased on patient's age to complete this topic Insurance [employer] [address] [place] [address] Care Teams Rehab Specialist Relationship Specialty Start Date End Date Caitlin Covarrubias PA [address] [place] [address] PCP - General Physician Lacer And Tier 08/14/19
--- OUTSIDE RECORDS SUMMARY | 2024-09-24 08:25 | XMS_ITS | Encounter Summary ---
Author Organization [facility] Healthcare Address [address] [place] [address] Care Team Providers Care Rn Diabetes Name Role Phone Caitlin Luo Primary Care Pr ovider Katherine Calle MD Unavailable [phone] Stuart Denson MD Unavailable Reason for Referral * MRI/CAT/PET Scan (Routine) - Closed Specialty Diagnoses / Procedures Referred By Guy winslow Referred To Contact Radiology Diagnoses Abnormal nuclear stress test Encounter for pre-operative cardiovascular clearance Procedures CTA Heart and Coronary Arteries W Morphology when Performed Misti Michel NP [address] [place] [address] Phone: tel: fax: [address] [address] Referral ID Status Reason Start Date Expiration Date Visits Re quested Visits Authorized [id number] Closed 08/26/2024 09/25/2025 1 1 Reason for Visit * MRI/CAT/PET Scan (Routine) - Closed Specialty Diagnoses / Procedures Referred By Contsawyer winslow Referred To Contact Radiology Diagnoses Abnormal nuclear stress test Encounter for pre-operative cardiovascular clearance Procedures CTA Heart and Coronary Arteries W Morphology when Performed Misti Michel NP [address] [place] [address] Phone: tel: fax: [facility] [address] [place] [address] Referral ID Status Reason Start Date Expiration Date Visits Re quested Visits Authorized [id number] Closed 08/26/2024 09/25/2025 1 1 Encounter Details Date Type Department Care Team (Latest Contact Info) Description 09/22/2024 12:00 PM CDT - 09/22/2024 11:59 PM CDT Hospital Encounter [facility] [address] [place] [id number] Abnormal nuclear stress test; Encounter for pre-operative cardiovascular clearance Discharge Disposition: Discharge to home or self care Social History Tobacco Use Types Packs/Day Years Used Date Smoking Tobacco: Former Cigarettes 0.1 32 1 973 - 2005 Smokeless Tobacco: Never Alcohol Use Standard Drinks/Week Comments Yes 0 (1 standard drink = 0.6 oz pur e alcohol) socially AUDIT-C Answer Date Recorded Q1: How often do you have a drink containing alc ohol? Monthly or less 08/15/2024 Q2: How many drinks containi ng alcohol do you have on a typical day when you are drinking? 1 or 2 08/15/2024 Q3: How often do you have si x or more drinks on one occasion? Never 08/15/2024 Hunger Vital Sign Answer Date Recorded Within the past 12 months, y ou worried that your food would run out before you got the money to buy more. Often true 07/02/19 25 Within the past 12 months, t he food you bought just didn't last and you didn't have money to get more. Often true 07/01/2024 Personal Safety Answer Date Recorded Have you ever been in or are you currently in a harmful physical or emotional relationship or is someone making you feel afraid or unsafe? 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 CTA uses a CAT scan machine and an injection of contrast (radiology dye) into your blood vessels tohelp see blood vessel diseases or conditions such as abnormal blood vessels or blockages. You may have been given 0.8mg sublingual Nitroglycerin during the study today. A headache will be the most common side effect of Nitroglycerin administration. You should not experience any other sideeffects from these medications. You may take prescribed medication as normal. documented in this encounter Medications at Time of Discharge amLODIPine (NORVASC) 5 mg tabletIndications:hypert ension Take 1 tablet (5 mg total) by mouth truck driver helper before breakfast 05/16/19 13 cod liver oiL capsuleIndications:Vitam in D Deficiency,supplement Take 1 capsule by mouth truck driver helper before breakfast evolocumab (Repatha SureClick) 140 mg/mL pen injectorIndications:Pure hypercholesterolemia INJECT 1 ML SUBCUTANEOUSLY EVERY 2 WEEKS IN ABDOMEN,THIGH,OR OUTER AREA OF UPPER ARM (ROTATE SITES) 2 mL 11 08/27/19 25 garlic 1,000 mg capsuleIndications:suppl ement Take 1 capsule by mouth truck driver helper before breakfast inFLIXimab (Remicade) 100 mg injectionIndications:Rhe umatoid Arthritis Infuse 60 mL (600 mg total) IV every 6 (six) weeks Last dose 06/2024 isosorbide mononitrate ER (IMDUR) 30 mg 24 hr tabletIndications:Hypert ension, unspecified type,Abnormal nuclear stress test Take 1 tablet (30 mg total) by mouth daily 90 tablet 3 08/27/19 25 026 leflunomide (ARAVA) 10 mg tabletIndications:Rheuma toid arthritis involving multiple sites, unspecified whether rheumatoid factor present (HCC) TAKE 1 TABLET BY MOUTH EVERY DAY 90 tablet 1 07/16/19 25 lidocaine (LIDODERM) 5 %Indications:Osteonecros is of left knee region (HCC),Chronic pain of left knee,Hypersensitivity, subsequent encounter,Wound of left lower extremity, sequela PLACE 1 PATCH ON THE LEFT BARRETO DAILY NEEDED FOR PAIN REMOVE & DISCARD PATCH WITHIN 12 HOURS. 30 patch 1 09/09/19 25 pregabalin (LYRICA) 25 mg capsule Take 1 capsule (25 mg total) by mouth 3 (three) times a day 90 capsule 3 08/06/19 25 salmon oiL-omega-3 fatty acids 1,000-210 mg capsuleIndications:suppl ement Take 1 capsule by mouth truck driver helper before breakfast traMADoL (ULTRAM) 50 mg tablet Take 1 tablet (50 mg total) by mouth every 6 (six) hours as needed for pain 15 tablet 06/08/19 23 turmeric root extract 500 mg capsuleIndications:suppl ement Take 1 capsule by mouth truck driver helper before breakfast ubidecarenone (CO Q-10 ORAL)Indications:supplem ent Take 1 tablet by mouth truck driver helper before breakfast vit C/E/Zn/helicopter mechanic/lut/lui/bio/s af (RETAINE VISION ORAL)Indications:eye supplement Take 1 capsule by mouth truck driver helper before breakfast Vitamin D2 1,250 mcg (50,000 unit) capsuleIndications:Vitam in D Deficiency Take 1 capsule (50,000 Units total) by mouth once a week Sunday05/21/19 25 vitamin E acetate (VITAMIN E ORAL)Indications:supplem ent Take 1 tablet by mouth every other day Wixela Inhub 250-50 mcg/dose diskus inhalerIndications:COPD SOB Inhale 1 puff daily as needed (COPD SOB) 12/27/19 23 documented as of this encounter Discharge Disposition Disposition Code Departure Means Destination Discharge to home or self care documented in this encounter Plan of Treatment Upcoming Encounters Date Type Department Care Team (Latest Contact Info) Description 10/09/2024 11:30 AM CDT Hospital Encounter [facility] Cardiac Catheterization Lab [address] [place] [address] Stuart Denson MD [address] [place] [address] Abnormal nuclear stress test; Hypercholesterolemia 10/09/2024 11:30 AM CDT - 10/09/2024 1:00 PM CDT Surgery [facility] Cardiac Catheterization Lab [address] [place] [address] Stuart Denson MD [address] [place] [address] LEFT HEART CATHETERIZATION WITH CORONARY ANGIOGRAPHY GRAFT AND WITH OR WITHOUT LEFT VENTRICULOGRAM [id number] documented as of this encounter Goals Goal Patient Goal Type Associated Problems Recent Progress Patient-Stated? Author CCM Chronic Pain Care Plan Chronic Care Management Worsening(0 08/05/2024 9:36 AM CDT) Shira Giron RN Note: Problem: Chronic Pain Goals: 1. Minimize further functional decline 2. Maximize quality of life 3. Control pain Strategies: - Activity/exercise program recommendation - Conservative stepwise pain medicine strategy with multi-disciplinary approach - Recommend healthy lifestyle strategies and compensatory methods as needed documented as of this encounter Procedures Procedure Name Priority Date/Time Associated Diagnosis Comments CT HEART MORPHOLOGY AND CORONARY ARTERIES W CONTRAST Schedule Routine, Read Routine (OP Routine) 09/22/2024 1:30 PM CDT Abnormal nuclear stress test Encounter for pre-operative cardiovascular clearance documented in this encounter Results * CTA Heart and Coronary Arteries W Morphology when Performed (09/22/2024 1:30 PM CDT) Anatomical Region Laterality Modality Chest N/A Computed Tomogra phy 09/22/2024 2:26 PM CDT Impressions 09/22/2024 4:27 PM CDT 1. Noncalcified atherosclerotic plaque of the mid right coronary artery results in severe (70-99%) stenosis. Recommend further evaluation with cardiac catheterization. Dictated by: Jimbo Patel M.D. The radiology attending physician has personally reviewed this study, and had reviewed and/or edited this written report and agrees with it. Electronically signed by: Arnie Tay M.D., MPH Narrative 09/22/2024 4:27 PM CDT EXAMINATION: CORONARY CT ANGIOGRAM HISTORY: Ischemic symptoms, presurgical clearance COMPARISON: CT 04/20/2017 TECHNIQUE: CT angiography of the coronary arteries was performed after the administration of 95 mL of Optiray 350. Images were also obtained precontrast for the purposes of calcium scoring. Prior to the examination, 0 mg of intravenous metoprolol and 0.8 mg of sublingual nitroglycerin were administered. The patient's heart rate and blood pressure at the time of the examination were 73 beats per minute and 160/75 mmHg. Images were transferred to a 3D workstation for additional post-processing. FINDINGS: The coronary arteries are right system dominant. There is no anomalous coronary artery origin or course. Right coronary system: There is a noncalcified atherosclerotic plaque of the mid right coronary artery resulting in severe (70-99%) stenosis. Left coronary system: Focal noncalcified plaque at the left anterior descending coronary artery origin results in minimal (less than 25%) stenosis. No significant left main or left circumflex coronary artery atherosclerotic disease. The calculated calcium score is 0. This score places the patient between the 25th and 50th percentiles for an age- and gender-matched population. Other findings: Bibasilar mild linear atelectasis or scarring. Heart size is normal. No pericardial effusion. Thoracic aorta and main pulmonary artery are normal caliber. Procedure Note Arnie Tay MD - 09/22/2024 EXAMINATION: CORONARY CT ANGIOGRAM HISTORY: Ischemic symptoms, presurgical clearance COMPARISON: CT 04/20/2017 TECHNIQUE: CT angiography of the coronary arteries was performed after the administration of 95 mL of Optiray 350. Images were also obtained precontrast for the purposes of calcium scoring. Prior to the examination, 0 mg of intravenous metoprolol and 0.8 mg of sublingual nitroglycerin were administered. The patient's heart rate and blood pressure at the time of the examination were 73 beats per minute and 160/75 mmHg. Images were transferred to a 3D workstation for additional post-processing. FINDINGS: The coronary arteries are right system dominant. There is no anomalous coronary artery origin or course. Right coronary system: There is a noncalcified atherosclerotic plaque of the mid right coronary artery resulting in severe (70-99%) stenosis. Left coronary system: Focal noncalcified plaque at the left anterior descending coronary artery origin results in minimal (less than 25%) stenosis. No significant left main or left circumflex coronary artery atherosclerotic disease. The calculated calcium score is 0. This score places the patient between the 25th and 50th percentiles for an age- and gender-matched population. Other findings: Bibasilar mild linear atelectasis or scarring. Heart size is normal. No pericardial effusion. Thoracic aorta and main pulmonary artery are normal caliber. IMPRESSION: 1. Noncalcified atherosclerotic plaque of the mid right coronary artery results in severe (70-99%) stenosis. Recommend further evaluation with cardiac catheterization. Dictated by: Jimbo Patel M.D. The radiology attending physician has personally reviewed this study, and had reviewed and/or edited this written report and agrees with it. Electronically signed by: Arnie Tay M.D., MPH Misti Michel NP IMG CT PROCEDURES Eleonora l Result documented in this encounter Visit Diagnoses Diagnosis Abnormal nuclear stress test Encounter for pre-operative cardiovascular clearance Abnormal nuclear stress test Hypercholesterolemia Pure hypercholesterolemia Abnormal nuclear stress test Hypercholesterolemia Pure hypercholesterolemia documented in this encounter Administered Medications Inactive Administered Medications - up to 3 most recent administrations Medication Order MAR Action Action Date Dose Rate Site ioversoL (OPTIRAY 350) syringe 100 mL 100 mL, intravenous, Once in imaging, contrast, Starting on Sun09/22/24 at 1318, For 1 dose Contrast Given 09/22/2024 1:29 PM CDT 95 mL nitroglycerin (NITROSTAT) sublingual tablet 0.8 mg 0.8 mg, sublingual, Once as needed, other, coronary artery vasodilation, Starting on Sun09/22/24 at 1312, For 1 hour, Administer during CT procedure only. Administer when blood pressure is greater than 100/60 and patient has not taken any vasodilator medication or has critical aortic stenosis. Given by Other 09/22/2024 1:24 PM CDT 0.8 mg documented in this encounter Orders Medications Ordered That Javad ht Not Have Been Administered Count Last Ordered Date First Ordered Date metoprolol (LOPRESSOR) injection 10 mg 1 documented in this encounter Care Teams Rn Diabetes Relationship Specialty Start Date End Date Caitlin Luo PA PCP - General Physician Before And After School Daycare Worker 06/30/19 Katherine Calle MD [address] [facility] RHE[facility], [address] [address] Consulting Physician Rheumatology 06/24/24 Stuart Denson MD [address] [facility] [address] [facility], [address] [address] Consulting Physician Cardiology 08/22/24 documented as of this encounter
--- OUTSIDE RECORDS SUMMARY | 2024-09-24 08:25 | XMS_ITS | Encounter Summary ---
Author Organization [facility] Address [address] [place] [address] Care Team Providers Care Government Property Inspector Name Role Phone Iglesia Junior MD Primary Care Provider [phone] Encounter Details Date Type Department Care Team (Late st Contact Info) Description 09/23/2024 External Device Data [place] ABSTRACTION Provider, Abstract NO ADDRESS ON FILE Social History Tobacco Use Types Packs/Day Years Used Date Smoking Tobacco: Former Cigarettes 1 40 0 07/28/1967 - 07/28/2007 Smokeless Tobacco: Never Alcohol Use Standard Drinks/Week Comments Yes 0 (1 standard drink = 0.6 oz pur e alcohol) social Comments No Sex and Gender Information Value Date Recorded Sex Assigned at Not on file Legal Sex Female 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
--- OUTSIDE RECORDS SUMMARY | 2024-09-24 08:25 | XMS_ITS | Clinical Summary ---
Author Organization [facility] Address [address] [place] [address] Care Team Providers Care Unit Tender Name Role Phone Marisol Luoeva CORREA Primary Care Pr ovider Katherine Calle MD Unavailable [phone] Stuart Denson MD Unavailable Allergies No known active allergies Medications amLODIPine (NORVASC) 5 mg tabletIndications:hype rtension Take 1 tablet (5 mg total) by mouth insurance risk analyst before breakfast 2012 Active vitamin E acetate (VITAMIN E ORAL)Indications:suppl ement Take 1 tablet by mouth every other day Active ubidecarenone (CO Q-10 ORAL)Indications:suppl ement Take 1 tablet by mouth insurance risk analyst before breakfast Active traMADoL (ULTRAM) 50 mg tablet Take 1 tablet (50 mg total) by mouth every 6 (six) hours as needed for pain 15 tablet 2022 Active Additional Information Patient taking differently:50 mg oral Every 6 hours PRN, pain,Indications: Pain, Informant: Self, Reported on 08/26/2024 inFLIXimab (Remicade) 100 mg injectionIndications:R heumatoid Arthritis Infuse 60 mL (600 mg total) IV every 6 (six) weeks Last dose 06/2024 Active nitroglycerin (NITROSTAT) 0.4 mg SL tabletIndications:acut e episode of anginal pain Place 1 tablet (0.4 mg total) under the tongue every 5 (five) minutes as needed for chest pain May repeat dose q 5 min, up to 3 doses total 25 tablet 3 2022 Active Additional Information Patient taking differently:0.4 mg sublingual Every 5 min PRN, chest pain, May repeat dose q 5 min, up to 3 doses totalLast dose 08/01/2024 x2, Indications: acute episode of anginal pain, Informant: Self, Reported on 08/15/2024 Wixela Inhub 250-50 mcg/dose diskus inhalerIndications: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 D SOB Inhale 1 puff daily as needed (COPD SOB) 2022 Active vit C/E/Zn/photocopier technician/lut/lui/bio /saf (RETAINE VISION ORAL)Indications:eye supplement Take 1 capsule by mouth insurance risk analyst before breakfast Active Vitamin D2 1,250 mcg (50,000 unit) capsuleIndications:Vit mack D Deficiency Take 1 capsule (50,000 Units total) by mouth once a week Sunday Active leflunomide (ARAVA) 10 mg tabletIndications:Rheu matoid arthritis involving multiple sites, unspecified whether rheumatoid factor present (HCC) TAKE 1 TABLET BY MOUTH EVERY DAY 90 tablet 1 2024 Active Additional Information Patient taking differently:10 mg oralDaily (early AM), Indications: Rheumatoid Arthritis, Informant: Self, Reported on 08/26/2024 pregabalin (LYRICA) 25 mg capsule Take 1 capsule (25 mg total) by mouth 3 (three) times a day 90 capsule 3 2024 Active Additional Information Patient taking differently:25 mg oral 3 times daily,Indications: Pain from RA, Lupus, Informant: Self, Reported on 08/26/2024 turmeric root extract 500 mg capsuleIndications:sup plement Take 1 capsule by mouth insurance risk analyst before breakfast Active garlic 1,000 mg capsuleIndications:sup plement Take 1 capsule by mouth insurance risk analyst before breakfast Active salmon oiL-omega-3 fatty acids 1,000-210 mg capsuleIndications:sup plement Take 1 capsule by mouth insurance risk analyst before breakfast Active cod liver oiL capsuleIndications:Vit mack D Deficiency,supplement Take 1 capsule by mouth insurance risk analyst before breakfast Active isosorbide mononitrate ER (IMDUR) 30 mg 24 hr tabletIndications:Hype rtension, unspecified type,Abnormal nuclear stress test Take 1 tablet (30 mg total) by mouth daily 90 tablet 3 08/26 Active evolocumab (Repatha SureClick) 140 mg/mL pen injectorIndications:Pu re hypercholesterolemia INJECT 1 ML SUBCUTANEOUSLY EVERY 2 WEEKS IN ABDOMEN,THIGH,O R OUTER AREA OF UPPER ARM (ROTATE SITES) 2 mL 11 2024 Active lidocaine (LIDODERM) 5 %Indications:Osteonecr osis of left knee region (HCC),Chronic pain of left knee,Hypersensitivity, subsequent encounter,Wound of left lower extremity, sequela PLACE 1 PATCH ON THE LEFT BARRETO DAILY NEEDED FOR PAIN REMOVE & DISCARD PATCH WITHIN 12 HOURS. 30 patch 1 2024 Active isosorbide mononitrate ER (IMDUR) 30 mg 24 hr tablet Take 1 tablet (30 mg total) by mouth daily 30 tablet 11 08/26 Discontinued( Reorder) evolocumab (Repatha Pushtronex) 420 mg/3.5 mL wearable injector Inject 420 mg under the skin every 28 (twenty-eight) days 3.5 mL 11 08/26 Discontinued lidocaine (LIDODERM) 5 %Indications:Osteonecr osis of left knee region (HCC),Chronic pain of left knee,Hypersensitivity, subsequent encounter,Wound of left lower extremity, sequela PLACE 1 PATCH ON THE LEFT BARRETO DAILY NEEDED FOR PAIN REMOVE & DISCARD PATCH WITHIN 12 HOURS. 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 Neuropathic pain 07/01/2024 Meibomian gland dysfunction (MGD) of both eyes [...] (05/11/2022): Added automatically from request for surgery [id number] Assessment & Plan (07/16/2022 1:14 AM CDT): [...] BID+ Assessment & Plan (04/21/2022 10:40 AM WINDOW SYSTEMS ADMINISTRATOR): Moderate to severe dry eye disease No improvement with Restasis in the past Recommend retain artificial tear drops 3 to 4 times a day Continue lubricating ointment at night Add daily steroid Blepharospasm of both eyes 04/21/2022 Assessment & Plan (04/21/2022 10:40 AM WINDOW SYSTEMS ADMINISTRATOR): Patient at that this should improve with the dry eye Age-related nuclear cataract, bilateral 04/21/19 Assessment & Plan (06/13/2023 9:16 AM CDT): Defer cataract surgery until signs and symptoms indicate. Pt was educated on the diagnosis. Recommend daily UV protection. Release updated glasses Rx Assessment & Plan (04/21/2022 10:41 AM WINDOW SYSTEMS ADMINISTRATOR): Not yet visually significant, monitor Xanthelasma of [...] future. Assessment & Plan (04/06/2022 4:57 PM WINDOW SYSTEMS ADMINISTRATOR): Risks, benefits and alternatives were discussed. Risks [...] future. Assessment & Plan (04/06/2022 4:59 PM WINDOW SYSTEMS ADMINISTRATOR): Bilateral upper eyelid ptosis with symptomatic visual [...] Encounters Date Type Department Care Team Description 09/23/2024 Results Follow-Up [facility] Cardiology [address] [place] [phone] Misti Michel NP CTA Heart and Coronary Arteries W Morphology when Performed 09/22/2024 12:00 PM CDT - 09/22/2024 11:59 PM CDT Hospital Encounter [facility] [address] [place] [address] Abnormal nuclear stress test; Encounter for pre-operative cardiovascular clearance Discharge Disposition: Discharge to home or self care 09/05/2024 12:00 PM CDT Infusion [facility] [address] [place] [address] for Advanced Medicine 7th [place] [address] Rheumatoid arthritis involving multiple sites, unspecified whether rheumatoid factor present (HCC) (Primary Dx) 08/26/2024 10:30 AM CDT Office Visit [facility] Cardiology [address] [place] [address] [place] [phone] Misti Mcihel NP Abnormal nuclear stress test (Primary Dx); Hypertension, unspecified type; Pure hypercholesterolemia; Lipid screening; Encounter for pre-operative cardiovascular clearance 08/26/2024 Telephone [facility] Cardiology [address] [place] [address] [place] [phone] Misti Michel NP Med Change Request 08/25/2024 Telephone [facility] Cardiology [address] [place] [address] [place] [phone] Misti Michel NP 08/22/2024 Telephone [facility] [address] [place] [address] Advanced Medicine 6th [place] [address] Inés De Jesus 08/21/2024 Telephone [facility] [address] [place] [address] Advanced Medicine 6th [place] [address] Marisela Avalos 08/20/2024 Telephone [facility] [address] [place] [address] Advanced Medicine 6th [place] [address] Inés De Jesus 08/20/2024 Telephone [facility] [address] [place] [address] Advanced Medicine 6th [place] [address] Marisela Avalos SURGERY CANCELLATION 08/18/2024 Telephone [facility] [address] [place] [address] Advanced Medicine 6th [place] [address] Inés De Jesus 08/15/2024 11:59 PM CDT Anesthesia Event [facility] Operating Room [facility] [address] [place] [phone] Sharona Mariano NP 08/08/2024 Telephone [facility] [address] [place] [address] Advanced Medicine [address] [place] [phone] Virginia Lujan MD PhD question 08/05/2024 9:03 AM CDT - 08/05/2024 11:59 PM CDT Hospital Encounter [facility] at the [facility] Medicine [address] [place] [address] Virginia Lujan MD PhD Neuropathic pain (Primary Dx) Discharge Disposition: Discharge to home or self care 08/05/2024 Telephone [facility] [address] 6th [place] [address] [place] [address] Inés De Jesus 07/15/2024 10:30 AM CDT Infusion [facility] Outpatient Infusion Center [facility] [place] [address] Rheumatoid arthritis involving multiple sites, unspecified whether rheumatoid factor present (HCC) (Primary Dx) 07/01/2024 8:06 AM CDT - 07/01/2024 11:59 PM CDT Hospital Encounter [facility] at the [facility] Advanced Medicine [address] [place] [address] Virginia Lujan MD PhD Neuropathic pain (Primary Dx); Chronic pain of left knee Discharge Disposition: Discharge to home or self care 06/27/2024 Orders Only [facility] [address] [place] [address] 5th [place] [address] [place] [address] Katherine Calle MD Rheumatoid arthritis involving multiple sites, unspecified whether rheumatoid factor present (HCC) (Primary Dx); Encounter for long-term (current) use of high-risk medication 06/25/2024 11:25 AM CDT Lab [facility] Metabolism and Lipid [facility] 5th [place] [address] [place] [address] Rheumatoid arthritis involving multiple sites, unspecified whether rheumatoid factor present (HCC); Encounter for long-term (current) use of high-risk medication 06/25/2024 10:00 AM CDT Office Visit [facility] [address] [place] [address] 5th [place] [address] Katherine Calle MD Rheumatoid arthritis involving multiple sites, unspecified whether rheumatoid factor present (HCC) (Primary Dx); Encounter for long-term (current) use of high-risk medication; Chronic pain of right knee 06/25/2024 Results Follow-Up [facility] [address] 5th [place] [address] [place] [address] Katherine Calle MD Comprehensive metabolic panel, CBC with auto differential from Last 3 Months Immunizations Immunization Administration Dates Next Due Tdap 05/15/2023 Surgical History Surgery Date Site/Laterality Comments TUBAL LIGATION 02/26/1979 - 02/26/1980 KNEE CARTILAGE SURGERY 02/27/2012 - 02/25/2013 Can't remember which knee COLONOSCOPY 02/26/2023 - 02/26/2024 N/A Medical History Medical History Date Comments Hypertension [...] 1 973 - 2005 Smokeless Tobacco: Never Tobacco Cessation:Counseling Given: [...] on file Legal Sex Female 10:27 PM WINDOW SYSTEMS ADMINISTRATOR Gender Identity Female 08/07/2018 2:56 PM CDT Sexual Orientation Not on file Obstetrics History Last Filed Vital Signs Vital Sign Reading Time Taken Comments Blood Pressure 160/75 09/22/2024 1:05 PM CDT Pulse 71 09/22/2024 1:05 PM CDT Temperature 36.3 C (97.4 F) 09/05/2024 12:22 PM CDT Respiratory Rate 16 09/05/2024 3:20 PM CDT Oxygen Saturation 99% 09/05/2024 3:20 PM CDT Inhaled Oxygen Concentration - - Weight 80.3 kg (177 lb) 09/05/2024 12:22 PM CDT Height 170.2 cm (5' 7) 08/26/2024 10:04 AM CDT Body Mass Index 27.72 08/26/2024 10:04 AM CDT Plan of Treatment Upcoming Encounters Date Type Department Care Team (Latest Contact Info) Description 10/09/2024 11:30 AM CDT Hospital Encounter [facility] Cardiac Catheterization Lab [id number] [place] [phone] Stuart Denson MD [address] [facility] [place] [address] Abnormal nuclear stress test; Hypercholesterolemia 10/09/2024 11:30 AM CDT - 10/09/2024 1:00 PM CDT Surgery [facility] Cardiac Catheterization Lab [id number] [place] [address] Stuart Denson MD [address] [place] [address] LEFT HEART CATHETERIZATION WITH CORONARY ANGIOGRAPHY GRAFT AND WITH OR WITHOUT LEFT VENTRICULOGRAM [address] Health Maintenance Due Date Last Done Comments Breast Cancer Screening-Mammogram 1954 Colon Cancer Screening-Colonoscopy 1954 Depression Screening 1954 Osteoporosis Screening-Bone Density Scan 1954 Hepatitis B Screening 1972 Zoster Vaccine (1 of 2) 1973 Pneumococcal vaccine 65+ (2 of 2 - PPSV23) 02/10/2013 12/16/2012 Well Visit 65+ 10/09/2019 Fall Risk Assessment 06/08/2023 06/07/2022 Covid-19 Vaccine (3 - season) 2023, 11/09/2020 Influenza Vaccine (#1) 2024 6, 02/26/2014, 11/28/2012 DTaP/Tdap/Td Vaccine (2 - Td or Tdap) 05/14/2033 Hepatitis C Screening Completed 08/09/2021 Goals Goal Patient Goal Type Associated Problems Recent Progress Patient-Stated? Author CCM Chronic Pain Care Plan Chronic Care Management Worsening(0 08/05/2024 9:36 AM CDT) Shira Giron, KAROLINE Note: Problem: Chronic Pain Goals: 1. Minimize further functional decline 2. Maximize quality of life 3. Control pain Strategies: - Activity/exercise program recommendation - Conservative stepwise pain medicine strategy with multi-disciplinary approach - Recommend healthy lifestyle strategies and compensatory methods as needed Procedures Procedure Name Priority Date/Time Associated Diagnosis Comments CT HEART MORPHOLOGY AND CORONARY ARTERIES W CONTRAST Schedule Routine, Read Routine (OP Routine) 09/22/2024 1:30 PM CDT Abnormal nuclear stress test Encounter for pre-operative cardiovascular clearance ELECTROCARDIOGRAM REPORT Routine 08/26/2024 3:07 PM CDT Hypertension, unspecified type Encounter for pre-operative cardiovascular clearance POCT LIPID PANEL Routine 08/26/2024 10:17 AM CDT Lipid screening CBC WITH AUTO DIFFERENTIAL Routine 06/25/2024 11:36 AM CDT Rheumatoid arthritis involving multiple sites, unspecified whether rheumatoid factor present (HCC) Encounter for long-term (current) use of high-risk medication COMPREHENSIVE METABOLIC PANEL Routine 06/25/2024 11:36 AM CDT Rheumatoid arthritis involving multiple sites, unspecified whether rheumatoid factor present (HCC) Encounter for long-term (current) use of high-risk medication ID ARTHROCENTESIS ASPIR&/INJ MAJOR JT/BURSA W/O US Routine 06/25/2024 10:00 AM CDT Rheumatoid arthritis involving multiple sites, unspecified whether rheumatoid factor present (HCC) Encounter for long-term (current) use of high-risk medication Chronic pain of right knee HEPATITIS C ANTIBODY Routine 08/09/2021 12:52 PM CDT Rheumatoid arthritis involving multiple sites, unspecified whether rheumatoid factor present (HCC) Encounter for long-term (current) use of high-risk medication from Last 3 Months or Most Recently Relevant to Health Maintenance Results * CTA Heart and Coronary Arteries [...] NP IMG CT PROCEDURES Eleonora l Result * Electrocardiogram Report (08/26/2024 3:07 PM CDT) [facility] ORDERABLES Final Result * (ABNORMAL) POCT lipid panel (08/26/2024 10:17 AM CDT) [facility] Cholesterol, POC 416 <200 MG/DL HDL, POC 28(A) >=40 mg/dL Triglycerides, POC 407(A) <=149 mg/dL LDL Cholesterol POC 307(A) <=129 mg/dL Chol/HDL Ratio, POC 14.9 NONE Non-HDL Cholesterol, POC 388 NONE mg/dL Cholesterol Total, POC 416(A) 30 - 199 mg/dL Capillary blood 08/26/2024 1 0:17 AM CDT [facility] POINT OF CARE TEST ORD ERABLES Final Result * (ABNORMAL) CBC with auto differential (06/25/2024 11:36 AM CDT) [facility] White Blood Count 3.2(L) 3.6 - 11.2 K/uL [facility] RBC 4.65 3.63 - 4.92 M/uL [facility] Hemoglobin 12.5 11.9 - 15.5 g/dL [facility] Hematocrit 38.3 36.1 - 44.3 % [facility] MCV 82.3 80.0 - 97.6 fL [facility] MCH 26.9 26.7 - 33.7 pg [facility] MCHC 32.7 32.7 - 35.5 g/dL [facility] RBC Dist Width 14.3 12.3 - 17.0 % [facility] Platelet Count 271 140 - 440 K/uL [facility] MPV 6.9 6.8 - 10.4 fL [facility] Neutrophils % 31.4(L) 38.7 - 74.5 % [facility] Lymphocyte % 52.6 20.0 - 54.3 % [facility] Monocytes % 15.1(H) 4.3 - 13.5 % [facility] Eosinophils % 0.0 0.0 - 6.0 % [facility] Basophil % 0.9 0.0 - 3.0 % [facility] Absolute Neutrophil 1.0(L) 1.8 - 6.6 K/uL [facility] Absolute Lymphocyte 1.7 0.8 - 3.3 K/uL [facility] Absolute Monocyte 0.5 0.2 - 1.2 K/uL [facility] Absolute Eosinophil 0.0 0.0 - 0.5 K/uL [facility] Absolute Basophil 0.0 0.0 - 0.2 K/uL [facility] Nucleated RBC % 0.5(H) 0.0 - 0.4 /100 WBC [facility] Blood 06/25/2024 11:3 6 AM CDT 06/25/2024 12:37 PM CDT us Mason Barnes MD LAB BLOOD ORDERABLES Eleonora l Result [facility] CORE LAB [facility] * (ABNORMAL) Comprehensive metabolic panel (06/25/2024 11:36 AM CDT) Pathologist [facility] Total Protein 9.7(H) 6.1 - 8.4 g/dL [facility] Comment:Repeated and Verifie d Albumin 3.8 3.5 - 5.2 g/dL [facility] Calcium 9.2 8.6 - 10.3 mg/dL [facility] BUN 6(L) 7 - 23 mg/dL [facility] Total Bilirubin 0.46 0.20 - 1.40 mg/dL [facility] Alk Phos, Total 72 35 - 129 IU/L [facility] AST (SGOT) 28 11 - 47 IU/L [facility] ALT (SGPT) 13 6 - 53 IU/L [facility] Creatinine 0.69 0.60 - 1.10 mg/dL [facility] Sodium 141 135 - 145 mmol/L [facility] Potassium 3.8 3.3 - 5.1 mmol/L [facility] Chloride 104 95 - 107 mmol/L [facility] CO2 Content 26 21 - 29 mmol/L [facility] Glucose 73 64 - 99 mg/dL [facility] Comment: NONFASTING GLUCOSE RANGE = 64-199 mg/dL FASTING GLUCOSE 64 - 99 = NORMAL FASTING GLUCOSE 100 - 125 = IMPAIRED FASTING GLUCOSE FASTING GLUCOSE >=126 = PROVISIONAL DIAGNOSIS OF DIABETES eGFR >90.0 >60.0 mL/min/1.7 3 m2 [facility] Blood 06/25/2024 11:3 6 AM CDT 06/25/2024 12:37 PM CDT us Mason Barnes MD LAB BLOOD ORDERABLES Eleonora l Result [facility] * ID ARTHROCENTESIS ASPIR&/INJ MAJOR JT/BURSA W/O US (06/25/2024 10:00 AM CDT) Narrative Katherine Calle MD - 06/25/2024 10:00 AM CDT Katherine Calle MD 06/27/2024 2:15 PM Arthrocentesis Large Joint: R knee Performed by: Mason Barnes MD Authorized by: Katherine Calle MD Large Joint Injection/Aspiration: Consent Given by: Patient Site marked: the procedure site was marked Timeout: prior to procedure the correct patient, procedure, and site was verified Verbal consent obtained: Yes Supporting Documentation: Indications: Pain Procedure Details: Location: Knee Site: R knee Prep: patient was prepped using a clean technique Needle Size: 25 G Approach: Anterolateral Medications: 40 mg triamcinolone 40 mg/mL Patient tolerance: Patient tolerated the procedure well with no immediate complications us Katherine Calle MD IN CLINIC/BEDSIDE ORDERABL ES Final Result * Hepatitis C antibody (08/09/2021 12:52 PM [...] last revised on 2019. Testing performed by: [facility], [address] [place] [address]., [id number] Blood 08/09/2021 12:5 2 PM CDT 08/09/2021 4:13 PM CDT us Katherine Calle MD LAB MICROBIOLOGY - GENERAL ORDERABLES Final Result [facility] [address] [facility]. [place] [address] from Last 3 Months or Most Recently Relevant to Health Maintenance Insurance [address] [place] [phone] [facility] MEDICARE ADVANTAGE [facility] MEDICARE ADVANTAGE [facility] MEDICARE ADVANTAGE [employer] Care Teams Unit Tender Relationship Specialty Start Date End Date Caitlin Luo PA PCP - General Physician [employer] 06/30/19 Katherine Calle MD [address] [facility], [address] [address] Consulting Physician Rheumatology 06/24/24 Stuart Denson MD [address] [facility] [address] [facility], [facility] [address] [place] [address] Consulting Physician Cardiology 08/22/24
--- OUTSIDE RECORDS SUMMARY | 2024-09-24 08:25 | XMS_ITS | Referral Summary ---
Author Organization [facility] Address [address] [place] [address] Care Team Providers Care Hot Knife Foxing Cutter Name Role Phone Marisol Luoeva CORREA Primary Care Pr ovider Katherine Calle MD Unavailable [phone] Stuart Denson MD Unavailable Encounters Date Type Department Care Team Description 09/23/2024 Results Follow-Up [facility] Cardiology [address] [address] Misti Michel NP CTA Heart and Coronary Arteries W Morphology when Performed 09/22/2024 12:00 PM CDT - 09/22/2024 11:59 PM CDT Hospital Encounter [facility] Radiology [facility] [address] [place] [address] Abnormal nuclear stress test; Encounter for pre-operative cardiovascular clearance Discharge Disposition: Discharge to home or self care 09/05/2024 12:00 PM CDT Infusion [facility] [address] [place] [address] for Advanced Medicine 7th [place] [address] Rheumatoid arthritis involving multiple sites, unspecified whether rheumatoid factor present (HCC) (Primary Dx) 08/15/2024 11:59 PM CDT Anesthesia Event [facility] Operating Room [facility] [address] [place] [address] Sharona Mariano NP 08/26/2024 Telephone [facility] Cardiology [address] [place] [address] [place] [address] Misti Michel NP Med Change Request 08/26/2024 10:30 AM CDT Office Visit [facility] Cardiology [address] [place] [address] [place] [address] Misti Michel NP Abnormal nuclear stress test (Primary Dx); Hypertension, unspecified type; Pure hypercholesterolemia; Lipid screening; Encounter for pre-operative cardiovascular clearance 08/25/2024 Telephone [facility] Cardiology [address] [place] [address] [place] [address] Misti Michel NP 08/22/[address] [facility] Surgery [address] [place] [address] Advanced Medicine 6th [place] [address] Inés De Jesus 08/21/[address] [facility] Surgery [address] [place] [address] [facility] 6th [place] [address] Marisela Avalos 08/20/[address] [facility] Surgery [facility] Advanced Medicine 6th [place] [address] Inés De Jesus 08/20/[address] [facility] Surgery [address] [place] [address] [facility] 6th [place] [address] Marisela Avalos SURGERY CANCELLATION 08/18/[address] [facility] Surgery [address] [facility] Advanced Medicine 6th [place] [address] Inés De Jesus 08/08/[address] [facility] [address] [place] [address] Advanced Medicine [address] [place] [address] Virginia Lujan MD PhD question 08/05/[address] [facility] Surgery [facility] Advanced Medicine 6th [place] [address] Inés De Jesus 08/05/2024 9:03 AM CDT - 08/05/2024 11:59 PM CDT Hospital Encounter [facility] Medicine [address] [facility] [address] [place] [address] Virginia Lujan MD PhD Neuropathic pain (Primary Dx) Discharge Disposition: Discharge to home or self care 07/15/2024 10:30 AM CDT Infusion [facility] Outpatient Infusion Center [address] [facility] [address] [place] [address] Rheumatoid arthritis involving multiple sites, unspecified whether rheumatoid factor present (HCC) (Primary Dx) 07/01/2024 8:06 AM CDT - 07/01/2024 11:59 PM CDT Hospital Encounter [facility] [address] [facility] [address] [place] [address] Virginia Lujan MD PhD Neuropathic pain (Primary Dx); Chronic pain of left knee Discharge Disposition: Discharge to home or self care 06/27/[address] [facility] Rheumatology [address] [place] [address] [place] [address] [place] [address] Katherine Calle MD Rheumatoid arthritis involving multiple sites, unspecified whether rheumatoid factor present (HCC) (Primary Dx); Encounter for long-term (current) use of high-risk medication 06/25/2024 Results Follow-Up [facility] Rheumatology [facility] [address] [place] [address] [place] [address] Katherine Calle MD Comprehensive metabolic panel, CBC with auto differential 06/25/2024 11:[address] [facility] Endocrinology Metabolism and Lipid [facility] [address] [place] [address] [place] [address] Rheumatoid arthritis involving multiple sites, unspecified whether rheumatoid factor present (HCC); Encounter for long-term (current) use of high-risk medication 06/25/2024 10:00 AM CDT Office Visit [facility] Rheumatology [address] [place] [address] [place] [address] [place] [address] Katherine Calle MD Rheumatoid arthritis involving multiple sites, unspecified whether rheumatoid factor present (HCC) (Primary Dx); Encounter for long-term (current) use of high-risk medication; Chronic pain of right knee from Last 3 Months Allergies No known active allergies Medications amLODIPine (NORVASC) 5 mg tabletIndications:hype rtension Take 1 tablet (5 mg total) by mouth senior buyer planner before breakfast 2012 Active vitamin E acetate (VITAMIN E ORAL)Indications:suppl ement Take 1 tablet by mouth every other day Active ubidecarenone (CO Q-10 ORAL)Indications:suppl ement Take 1 tablet by mouth senior buyer planner before breakfast Active traMADoL (ULTRAM) 50 mg [...] on 08/15/2024 Wixela Inhub 250-50 mcg/dose diskus inhalerIndications:CONCRETE CONVEYOR OPERATOR D SOB Inhale 1 puff daily as needed (COPD SOB) 2022 Active vit C/E/Zn/copying machine mechanic/lut/lui/bio /saf (RETAINE VISION ORAL)Indications:eye supplement Take 1 capsule by mouth senior buyer planner before breakfast Active Vitamin D2 1,250 mcg [...] capsuleIndications:sup plement Take 1 capsule by mouth senior buyer planner before breakfast Active garlic 1,000 mg capsuleIndications:sup plement Take 1 capsule by mouth senior buyer planner before breakfast Active salmon oiL-omega-3 fatty acids 1,000-210 mg capsuleIndications:sup plement Take 1 capsule by mouth senior buyer planner before breakfast Active cod liver oiL capsuleIndications:Vit mack D Deficiency,supplement Take 1 capsule by mouth senior buyer planner before breakfast Active isosorbide mononitrate ER (IMDUR) 30 mg 24 hr tabletIndications:Hype rtension, unspecified type,Abnormal nuclear stress test Take 1 tablet (30 mg total) by mouth daily 90 tablet 3 08/26 Active evolocumab (Repatha Eugene) 140 mg/mL pen injectorIndications:Pu re hypercholesterolemia INJECT [...] (twenty-eight) days 3.5 mL 11 08/26 Discontinued Active Problems Problem Noted Date [...] (05/11/2022): Added automatically from request for surgery [id number] Assessment & Plan (07/16/2022 1:14 AM CDT): [...] BID+ Assessment & Plan (04/21/2022 10:40 AM HEALTHCARE RECRUITER): Moderate to severe dry eye disease No improvement with Restasis in the past Recommend retain artificial tear drops 3 to 4 times a day Continue lubricating ointment at night Add daily steroid Blepharospasm of both eyes 04/21/2022 Assessment & Plan (04/21/2022 10:40 AM HEALTHCARE RECRUITER): Patient at that this should improve with the dry eye Age-related nuclear cataract, bilateral 04/21/19 23 Assessment & Plan (06/13/2023 9:16 AM CDT): Defer cataract surgery until signs and symptoms indicate. Pt was educated on the diagnosis. Recommend daily UV protection. Release updated glasses Rx Assessment & Plan (04/21/2022 10:41 AM HEALTHCARE RECRUITER): Not yet visually significant, monitor Xanthelasma of [...] future. Assessment & Plan (04/06/2022 4:57 PM HEALTHCARE RECRUITER): Risks, benefits and alternatives were discussed. Risks [...] future. Assessment & Plan (04/06/2022 4:59 PM HEALTHCARE RECRUITER): Bilateral upper eyelid ptosis with symptomatic visual [...] on file Legal Sex Female 10:27 PM HEALTHCARE RECRUITER Gender Identity Female 08/07/2018 2:56 PM CDT [...] Description 10/09/2024 11:30 AM CDT Hospital Encounter [facility] Cardiac Catheterization Lab [address] [place] [address] Stuart Denson MD [address], [address] [place], [place] [phone] Abnormal nuclear stress test; Hypercholesterolemia 10/09/2024 11:30 AM CDT - 10/09/2024 1:00 PM CDT Surgery [facility] Cardiac Catheterization Lab [id number] [place] [address] Stuart Denson MD [address], [address] [place] [address] LEFT HEART CATHETERIZATION WITH CORONARY ANGIOGRAPHY GRAFT AND WITH OR WITHOUT LEFT VENTRICULOGRAM [id number] Goals Goal Patient Goal Type Associated Problems [...] for long-term (current) use of high-risk medication IN ARTHROCENTESIS ASPIR&/INJ MAJOR JT/BURSA W/O US Routine [...] Electronically signed by: Arnie Tay M.D., MPH us Misti Michel NP IMG CT PROCEDURES Eleonora l Result * Electrocardiogram Report (08/26/2024 3:07 PM CDT) us Misti Michel NP ECG ORDERABLES Final Result * (ABNORMAL) POCT lipid panel (08/26/2024 10:17 AM CDT) [facility] Cholesterol, POC 416 <200 MG/DL HDL, POC 28(A) >=40 mg/dL Triglycerides, POC 407(A) <=149 mg/dL LDL Cholesterol POC 307(A) <=129 mg/dL Chol/HDL Ratio, POC 14.9 NONE Non-HDL Cholesterol, POC 388 NONE mg/dL Cholesterol Total, POC 416(A) 30 - 199 mg/dL Capillary blood 08/26/2024 1 0:17 AM CDT us Misti Michel NP POINT OF CARE TEST ORD ERABLES Final Result * (ABNORMAL) CBC with auto differential (06/25/2024 11:36 AM CDT) White Blood Count 3.2(L) 3.6 - 11.2 [...] Mason Barnes MD LAB BLOOD ORDERABLES Eleonora tovar Result [facility] * (ABNORMAL) Comprehensive metabolic panel (06/25/2024 11:36 AM CDT) Total Protein 9.7(H) 6.1 - 8.4 g/dL [...] IM [facility] * IN ARTHROCENTESIS ASPIR&/INJ MAJOR JT/BURSA W/O US (06/25/2024 [...] the procedure well with no immediate complications Katherine Calle MD IN CLINIC/BEDSIDE ORDERABL ES [...] last revised on 2019. Testing performed by: [facility], [address] [place] [address]., [id number] Blood 08/09/2021 12:5 2 PM CDT 08/09/2021 4:13 PM CDT Katherine Calle MD LAB MICROBIOLOGY - GENERAL ORDERABLES Final Result [facility] [address] [facility]. [place] [address] from Last 3 Months or Most Recently Relevant to Health Maintenance Insurance UHC MEDICARE ADVANTAGE UHC MEDICARE ADVANTAGE [id number] [place] [address] MEDICARE ADVANTAGE IDPA Care Teams Hot Knife Foxing Cutter Relationship Specialty Start Date End Date Caitlin Luo PA PCP - General Physician Technology Teacher 06/30/19 Katherine Calle MD [address] [facility] RHEUMATOLOGY, [address] [address] Consulting Physician Rheumatology 06/24/24 Stuart Denson MD [address] C [facility] [address] [facility], [facility] [address]10 [place] [address] Consulting Physician Cardiology 08/22/24
--- OUTSIDE RECORDS SUMMARY | 2024-09-24 08:25 | XMS_ITS | Encounter Summary ---
Author Organization [facility] Address [address] [place] [address] Phone Care Team Providers Care Lining Cutter Name Role Phone BhargaviMarisol martineva CORREA Primary Care Pr ovider Katherine Calle MD Unavailable [phone] Stuart Denson MD Unavailable Encounter Details Date Type Department Care Team (Late st Contact Info) Description 03/08/2023 Orders Only [facility] Scanning, Provider Social History Tobacco Use Types Packs/Day Years Used Date Smoking Tobacco: Former Cigarettes Q uit: 2004 Smokeless Tobacco: Never Alcohol Use Standard Drinks/Week [...] on file 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 Gender Identity Female 08/07/2018 2:56 PM CDT Sexual Orientation Not on file documented as of this encounter Plan of Treatment Upcoming Encounters Date Type Department Care Team (Latest Contact Info) Description 10/09/2024 11:30 AM CDT Hospital Encounter [facility] Cardiac Catheterization Lab [address] [place] [address] Stuart Denson MD [address] [facility] [address], [address] [id number] Abnormal nuclear stress test; Hypercholesterolemia 10/09/2024 11:30 AM CDT - 10/09/2024 1:00 PM CDT Surgery [facility] Cardiac Catheterization Lab [address] [place] [address] Stuart Denson MD [address], [place] [address] [place], [place] [id number] LEFT HEART CATHETERIZATION WITH CORONARY ANGIOGRAPHY GRAFT AND WITH OR WITHOUT LEFT VENTRICULOGRAM [id number] documented as of this encounter Procedures Procedure Name Priority Date/Time Associated Diagnosis Comments SCAN - RADIOLOGY/IMAGING 03/08/2023 documented in this encounter Results * SCAN - RADIOLOGY/IMAGING (03/08/2023) Anatomical Region Laterality Modality Other us Provider Scanning Final Result documented in this encounter Visit Diagnoses Not on filedocumented in this encounter Care Teams Lining Cutter Relationship Specialty Start Date End Date Caitlin Luo PA PCP - General Physician Industrial Automation Specialist 06/30/19 Katherine Calle MD [address] [facility] RHEUMATOLOGY, [address] [address] Consulting Physician Rheumatology 06/24/24 Stuart Denson MD [address], [address] [place] [address] Consulting Physician Cardiology 08/22/24 documented as of this encounter
--- OUTSIDE RECORDS SUMMARY | 2024-09-24 08:25 | XMS_ITS | Patient Health Record ---
Author Organization [facility] Address [address] [place] [address] Care Team Providers Care Rack Loader Name Role Phone SHANICE LORENZO Unavailable [phone] DARNELL ESCOTO Unavailable Unavailable Reason For Referral No Information Plan Of Treatment No Information Insurance Providers Payer Name Payer Address Payer Phone Subscriber Number Group Number Insured Name Patient Relationship to Insured Coverage Start Date Coverage End Date [employer] MEDICARE COMPLETE [address] [address] [place] [id number] LEONARDO PATEL Self - patient is the insured
--- OUTSIDE RECORDS SUMMARY | 2024-09-24 08:25 | XMS_ITS ---
Author Organization [facility] Address [address] [address] Care Team Providers Care Matrix Repairer Name Role Phone SHANCIE LORENZO Unavailable [phone] DARNELL ESCOTO Unavailable Unavailable Encounters Encounter Location Date Provider Diagnosis [facility] [address] [address] 01/09/2024 SHANICE LORENZO Plan Of Treatment No Information Progress Notes * JORGEYOLIERegina CDOB: (68 yo F)Acc No.[id number]:01/09/2024 Progress Notes Patient: LEONARDO NEFF Provider: Kristy LORENZO M.D. :1955 A ge:68 Y S ex:Female Date:01/09/2024 Address:[address] [place], [place] [id number] Subjective: * Chief Complaints: * * Medical History: Objective: * Vitals: Assessment: Plan: * Treatment: * * Electronic signature of SANTA LORENZO MD on 09/24/2024 at 08:24 AM CDT Sign off status: Pending * Provider: Kristy LORENZO M.D. Date: 03/10/2023 Generated for Michael ortega/Gera/Jerri on: 0 09/24/2024 08:24 AM CDT
--- OUTSIDE RECORDS SUMMARY | 2024-09-24 08:25 | XMS_ITS | Clinical Summary ---
Author Organization [facility] Address [address] [place] [address] Phone Care Team Providers Care Middle School Humanities Teacher Name Role Phone Iglesia Junior MD Primary Care Provider [phone] Allergies No known active allergies Medications traMADol (ULTRAM) 50 mg tablet Take 100 mg by mouth every 6 hours as needed for Pain. Active multivitamin (DAILY-ANNA MARIE) tablet Take 1 Tab by mouth daily tone regulator. Active rosuvastatin (CRESTOR) 40 mg tablet TAKE [...] Date Type Department Care Team Description 09/23/2024 External Device Data [facility] ABSTRACTION Provider, Abstract 09/23/2024 External Device Data [facility] ABSTRACTION Provider, Abstract 09/23/2024 External Device Data [facility] ABSTRACTION Provider, Abstract 09/10/2024 External Device Data [facility] AB[facility]CTION Provider, Abstract 09/10/2024 External Device Data [facility] AB[facility]CTION Provider, Abstract 09/09/2024 External Device Data [facility] ABSTRACTION Provider, Abstract 07/17/2024 External Device Data [facility] ABSTRACTION Provider, Abstract 07/17/2024 External Device Data [facility] ABSTRACTION Provider, Abstract 07/16/2024 External Device Data [facility] ABSTRACTION Provider, Abstract 07/15/2024 External Device Data [facility] ABSTRACTION Provider, Abstract [...] on file 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 Gender Identity Not on file Sexual Orientation [...] 9:36 AM CDT Height 170.2 cm (5' 7) 09/25/2023 10:11 AM CDT Body Mass Index [...] (1 of 2) 2004 PNEUMOCOCCAL VACCINE 50+ YEA RS (2 of 2 - PPSV23, PCV20, or PCV21) 02/10/2013 12/16/2012 RSV VACCINE (60+ or ) (1 - Risk 60-74 years 1-dose series) 2014 OSTEOPOROSIS SCREENING 10/09/2019 COVID-19 Vaccine (2 - 2023- season) 2023 INFLUENZA VACCINE (#1) 2024 11/28/2012 DTAP/TDAP/TD VACCINES (2 - Td or Tdap) 05/14/2033 Insurance [address] [place] [address] [id number] [place] [address] [place], [place] [id number] Advance Directives For more information, please contact: [phone] * Full Code (Latest Code Status on File) Date Activated Date Inactivated Comments 05/16/2013 8:51 PM 05/17/2013 6:48 PM Care Teams Middle [employer] Humanities Teacher Relationship Specialty Start Date End Date Iglesia Junior MD [address] [place] [address] PCP - General Internal Medicine 09/25/23
--- OUTSIDE RECORDS SUMMARY | 2024-09-24 08:25 | XMS_ITS | Encounter Summary ---
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 Gender Identity Female 08/07/2018 2:56 PM CDT Sexual Orientation Not on file documented as of this encounter Plan of Treatment Upcoming Encounters Date Type Department Care Team (Latest Contact Info) Description 10/09/2024 11:30 AM CDT Hospital Encounter [facility] Cardiac Catheterization Lab [address] [place] [address] Stuart Denson MD [address] [place] [address], [address] [place] [address] Abnormal nuclear stress test; Hypercholesterolemia 10/09/2024 11:30 AM CDT - 10/09/2024 1:00 PM CDT Surgery [facility] Cardiac Catheterization Lab [address] [place] [address] Stuart Denson MD [address] [facility] [address], [place] [address] [place] [address] LEFT HEART CATHETERIZATION WITH CORONARY ANGIOGRAPHY GRAFT AND WITH OR WITHOUT LEFT VENTRICULOGRAM [id number] documented as of this encounter Procedures Procedure Name Priority Date/Time Associated Diagnosis Comments SCAN - LABS 06/08/2020 documented in this encounter Results * SCAN - LABS (06/08/2020) us Provider Scanning Final Result documented in this encounter Visit Diagnoses Not on filedocumented in this encounter Care Teams Sales Development Specialist Relationship Specialty Start Date End Date Caitlin Luo PA PCP - General Physician Inspector Tubes 06/30/19 Katherine Calle MD [address] [facility] DIV IM RHEUMATOLOGY, [address] [address] Consulting Physician Rheumatology 06/24/24 Stuart Denson MD [address] [facility] [address], [facility] [address] [place] [address] Consulting Physician Cardiology 08/22/24 documented as of this encounter
--- OUTSIDE RECORDS SUMMARY | 2024-09-24 08:25 | XMS_ITS | Encounter Summary ---
Author Organization [facility] Address 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
--- OUTSIDE RECORDS SUMMARY | 2024-09-24 08:25 | XMS_ITS | Clinical Summary ---
Author Organization [facility] Address [address] [place] [address] Care Team Providers Care Real Estate Closer Name Role Phone Unavailable Primary Care Provider Unavailabl e Immunizations Immunization Administration Dates Next Due Covid-19 Vaccine, Vector-nr, Rs-ad26, Pf, 0.5 Ml ([employer]vitalclip[employer]vitalclip) 11/09/2020 Social History Tobacco Use Types Packs/Day Years Used Date Smoking Tobacco: Never Assessed Comments Unknown Sex and Gender Information Value Date Recorded Sex Assigned at Not on file Legal Sex Female 9:52 PM CDT Gender Identity Not on file Sexual Orientation Not on file Plan of Treatment Health Maintenance Due Date Last Done Comments Hepatitis C Virus (HCV) Screening 1955 TdaP Immunization 1955 Cologuard 10/09/1999 Colonoscopy 10/09/1999 Colorectal Cancer Screening 10/09/1999 Immunochemical Fecal Occult Blood 10/09/1999 Pneumococcal Immunization (5 0+ years) (1 of 1 - PCV) 2004 Zoster Immunization (1 of 2) 2004 SARS-COV-2 Immunization ( season) 2023 03/27/2021, 11/09/2020 Influenza Immunization (#1) 2024 11/28/2012 Respiratory Syncytial Virus (RSV) Immunization (Adult) (1 - 1-dose 75+ series) 2029 Hepatitis B Immunization Aged Out No longer eligible based on patient's age to complete this topic Human Papillomavirus (HPV) Immunization Aged Out No longer eligible b ased on patient's age to complete this topic Meningococcal Immunization (ACWY) Aged Out No longer eligible b ased on patient's age to complete this topic Rotavirus Immunization Aged Out No lo nger eligible based on patient's age to complete this topic
--- OUTSIDE RECORDS SUMMARY | 2024-09-24 08:25 | XMS_ITS | Encounter Summary ---
Author Organization [facility] Healthcare Address [address] [place] [address] Care Team Providers Care Dermatology Sales Representative Name Role Phone Caitlin Luo Primary Care Pr ovider Katherine Calle MD Unavailable [phone] Stuart Lynch MD Unavailable Reason for Referral * Procedure (Routine) - Pending Review Specialty Diagnoses / Procedures Referred By Contac t Referred To Contact Cardiology Diagnoses Abnormal nuclear stress test Hypercholesterolemia Misti Michel, ERICA [address] [place] [address] Phone: tel: fax: Stuart Lynch MD [address] [facility] [address], [address] [place] [address] Phone: tel: fax: Referral ID Status Reason Start Date Expiration Date Visits Requested Visits Authorized [id number] Pending Review Specialty Services Required 09/23/2024 10/23/2025 1 1 Question Answer Please select the performing region: [facility] [[id number]] Please select the performing department: [facility] [[id number]] To provider: STUART LYNCH [[id number]] # of visits: 1 Comments Patient name: Jacki Leslie :53 Procedure: [facility] Location: [facility] Date & Time: 10/09/24 at 11:30 am Arrive at 9:30 am doing procedure: SYED Dx: Abnormal Nuclear Stress Test, Hypercholesterolemia Ordering Provider: Syed Insurance: [facility] Medicare Advantage Encounter Details Date Type Department Care Team (Late st Contact Info) Description 09/23/2024 Results Follow-Up [facility] Cardiology [address] 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 Discussed Cardiac Cath procedure. Pt verbalized understanding. Procedure: [facility] Location: [facility] Date & Time: 10/09/24 at 11:30 am Arrive at 9:30 am MD doing procedure: KOYUMIKO Dx: Abnormal Nuclear Stress Test, Hypercholesterolemia Ordering Provider: Syed Insurance: [facility] Medicare Advantage Sent Email to MD Pt should take: morning meds with sips of water * Telephone Encounter - Rena Galvin RN - 09/23/2024 11:50 AM CDT LM on , reviewed result note from PH. Advised pt to call the office to discuss scheduling a cardiac catheterization. Pt cannot be cleared for nerve decompression until after cath is completed. documented in this encounter Plan of Treatment Upcoming Encounters Date Type Department Care Team (Latest Contact Info) Description 10/09/2024 11:30 AM CDT Hospital Encounter [facility] Cardiac Catheterization Lab [id number] [place] [address] Stuart Lynch MD [address], [address] [place] [address] Abnormal nuclear stress test; Hypercholesterolemia 10/09/2024 11:30 AM CDT - 10/09/2024 1:00 PM CDT Surgery [facility] Cardiac Catheterization Lab [id number] [place] [address] Stuart Lynch MD [address], [address] [place] [address] LEFT HEART CATHETERIZATION WITH CORONARY ANGIOGRAPHY GRAFT AND WITH OR WITHOUT LEFT VENTRICULOGRAM [id number] Scheduled Referrals Name Type Priority Associated Diagnoses Order Schedule Ambulatory referral to Cardiology Outpatient Referral Routine Abnormal nuclear stress test Hypercholesterolemi a 1 Occurrences starting 09/23/2024 until 09/23/2025 documented as of this encounter Goals Goal Patient Goal Type Associated Problems Recent Progress Patient-Stated? Author CCM Chronic Pain Care Plan Chronic Care Management Worsening(0 08/05/2024 9:36 AM CDT) Shira Giron, RN Note: Problem: Chronic Pain Goals: 1. Minimize further functional decline 2. Maximize quality of life 3. Control pain Strategies: - Activity/exercise program recommendation - Conservative stepwise pain medicine strategy with multi-disciplinary approach - Recommend healthy lifestyle strategies and compensatory methods as needed documented as of this encounter Visit Diagnoses Diagnosis Abnormal nuclear stress test- Primary Hypercholesterolemia Pure hypercholesterolemia Abnormal nuclear stress test Hypercholesterolemia Pure hypercholesterolemia Abnormal nuclear stress test Hypercholesterolemia Pure hypercholesterolemia documented in this encounter Care Teams Dermatology Sales Representative Relationship Specialty Start Date End Date Caitlin Luo PA PCP - General Physician Consulting Analyst 06/30/19 Katherine Calle MD [address] [facility] RHEUMATOLOGY, [address] [address] Consulting Physician Rheumatology 06/24/24 Stuart Lynch MD [address] [facility] [address], [address] [place] [address] Consulting Physician Cardiology 08/22/24 documented as of this encounter
--- OUTSIDE RECORDS SUMMARY | 2024-09-24 08:25 | XMS_ITS | Encounter Summary ---
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 Gender Identity Female 08/07/2018 2:56 PM CDT Sexual Orientation Not on file documented as of this encounter Plan of Treatment Upcoming Encounters Date Type Department Care Team (Latest Contact Info) Description 10/09/2024 11:30 AM CDT Hospital Encounter [facility] Cardiac Catheterization Lab [address] [place] [address] Stuart Denson MD [address], [address] [place] [address] Abnormal nuclear stress test; Hypercholesterolemia 10/09/2024 11:30 AM CDT - 10/09/2024 1:00 PM CDT Surgery [facility] Cardiac Catheterization Lab [address] [place] [address] Stuart Denson MD [address] [facility] [address] , [address] [address] LEFT HEART CATHETERIZATION WITH CORONARY ANGIOGRAPHY GRAFT AND WITH OR WITHOUT LEFT VENTRICULOGRAM [id number] documented as of this encounter Procedures Procedure Name Priority Date/Time Associated Diagnosis Comments SCAN - RADIOLOGY/IMAGING 08/19/2021 documented in this encounter Results * SCAN - RADIOLOGY/IMAGING (08/19/2021) Anatomical Region Laterality Modality Other us Provider Scanning Final Result documented in this encounter Visit Diagnoses Not on filedocumented in this encounter Care Teams Rhit Relationship Specialty Start Date End Date Caitlin Luo PA PCP - General Physician Signing Agent 06/30/19 Katherine Calle MD [address] [facility] RHEUMATOLOGY, [address] [address] Consulting Physician Rheumatology 06/24/24 Stuart Denson MD [address] [facility] [address], [address] [id number] Consulting Physician Cardiology 08/22/24 documented as of this encounter
--- OUTSIDE RECORDS SUMMARY | 2024-09-24 08:25 | XMS_ITS | Encounter Summary ---
Author Organization [facility] Address 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
[2024-09-24 20:05] LABS: Hematocrit 42.1 % (37.0-47.0); Hemoglobin 12.4 g/dL (12.0-15.0); Immature Granulocyte Percent A 0.0 % (0-0.5); Lymphocytes Absolute Auto 1.48 K/mm3 (0.9-3.2); Mean Corpuscular HGB Conc 29.5 g/dl (32-36); Mean Corpuscular Hemoglobin 25.3 pg (26-34); Mean Corpuscular Volume 85.9 fl (80-100); Nucleated Red Blood Cells Absolute Auto 0.000 K/mm3 (0.0-0.012); Nucleated Red Blood Cells Perc 0.0 % (0.0-0.2); Platelet Count Result 264 k/mm3 (150-375); Red Blood Count 4.90 M/mm3 (4.2-5.4); White Blood Count 2.6 K/mm3 (4.5-10.0)
[2024-09-24 20:27] LABS: Immunoglobulin A 505 mg/dL (70-400); Immunoglobulin M 247 mg/dL (40-230)
[2024-09-24 20:48] LABS: Immunoglobulin G 4457 mg/dL (700-1600)
[2024-09-24 21:32] LABS: Hypochromasia 1+; Schistocytes None Seen
[2024-09-24 21:33] LABS: Anisocytosis 1+; Band Neutrophils Percent 0 % (0-6)
== END 2024-09-24 08:14 | disposition home or self-care (01) ==
PROVIDERS: PCP Physician Assistant
DX: M06.9 Rheumatoid arthritis, unspecified (principal); Z79.899 Other long term (current) drug therapy
CPT/HCPCS: 36415; 82784; 85025

== ENCOUNTER 2024-09-24 08:31 | Outpatient (CLI) | payer MEDICARE, MEDICAID, SELFPAY ==
--- NOTE | ~2024-09-24 | XR_ITS ---
Left Hand Technique: PA, oblique, and lateral views were obtained. Clinical History: Pain Findings: No acute fracture or dislocation is seen. Osseous alignment is anatomic. There is mild dege nerative change at the second and third DIP joints. Soft tissues are unremarkable. Impression: Mild degenerative changes, as above. Reviewed, dictated and finalized at location . Impression: Mild degenerative changes, as above.
== END 2024-09-24 08:32 | disposition home or self-care (01) ==
PROVIDERS: Visit Provider Physician Assistant
DX: M79.642 Pain in left hand (principal)
CPT/HCPCS: 73130

== ENCOUNTER 2024-10-03 08:52 | Outpatient (CLI) | payer MEDICARE, MEDICAID, SELFPAY ==
--- OUTSIDE RECORDS SUMMARY | 2024-10-03 09:09 | XMS_ITS | Clinical Summary ---
Author Organization [facility] Address [address] [place] [address] Care Team Providers Care Engineering Clerk Name Role Phone Unavailable Primary Care Provider Unavailabl e Immunizations Immunization Administration Dates Next Due Covid-19 Vaccine, Vector-nr, Rs-ad26, Pf, 0.5 Ml ([employer]) 11/09/2020 Social History Tobacco Use Types Packs/Day [...]
--- OUTSIDE RECORDS SUMMARY | 2024-10-03 09:09 | XMS_ITS | Encounter Summary ---
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 Gender Identity Female 08/07/2018 2:56 PM CDT Sexual Orientation Not on file documented as of this encounter Plan of Treatment Upcoming Encounters Date Type Department Care Team (Latest Contact Info) Description 10/09/2024 11:30 AM CDT Hospital Encounter [facility] Cardiac Catheterization Lab [address] [place] [address] Stuart Denson MD [address], [address] [place] [address] Abnormal nuclear stress test; Hypercholesterolemia 10/09/2024 11:30 AM CDT - 10/09/2024 1:00 PM CDT Surgery [facility] Cardiac Catheterization Lab [address] [place] [address] Stuart Denson MD [address] [facility] [address], [place] [address] [place] [address] LEFT HEART CATHETERIZATION WITH CORONARY ANGIOGRAPHY GRAFT AND WITH OR WITHOUT LEFT VENTRICULOGRAM [id number] documented as of this encounter Procedures Procedure Name Priority Date/Time Associated Diagnosis Comments SCAN - LABS 06/08/2020 documented in this encounter Results * SCAN - LABS (06/08/2020) us Provider Scanning Final Result documented in this encounter Visit Diagnoses Not on filedocumented in this encounter Care Teams Diesel Powerplant Mechanic Helper Relationship Specialty Start Date End Date Caitlin Luo PA PCP - General Physician Preschool Aide 06/30/19 Katherine Calle MD 49[address] [facility] RHEUMATOLOGY, [address] [address] Consulting Physician Rheumatology 06/24/24 Stuart Denson MD [address] [facility] [address], [facility] [address] [place] [address] Consulting Physician Cardiology 08/22/24 documented as of this encounter
--- OUTSIDE RECORDS SUMMARY | 2024-10-03 09:09 | XMS_ITS | Clinical Summary ---
Author Organization [facility] Address [address] [facility] [address] Care Team Providers Care Regulatory Analyst Name Role Phone Caitlin Covarrubias Primary Care Pr ovider Source Comments [facility],non-owned Affiliates and Associated Physician Practices is amultiple site organization consisting of ambulatory clinics and hospital sitesin [place], [place], [place] and [place]. This disclosure is being madepursuant to the Care Everywhere program and may not contain all information available regarding this patient. 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
--- OUTSIDE RECORDS SUMMARY | 2024-10-03 09:09 | XMS_ITS | Clinical Summary ---
Author Organization [facility] Address [address] [place] [address] Care Team Providers Care Two Way Radio Installer Name Role Phone Marisol Luoeva CORREA Primary Care Pr ovider Katherine Calle MD Unavailable [phone] Stuart Denson MD Unavailable Allergies No known active allergies Medications amLODIPine (NORVASC) 5 mg tabletIndications:hype rtension Take 1 tablet (5 mg total) by mouth yacht builder before breakfast 2012 Active vitamin E acetate (VITAMIN E ORAL)Indications:suppl ement Take 1 tablet by mouth every other day Active ubidecarenone (CO Q-10 ORAL)Indications:suppl ement Take 1 tablet by mouth yacht builder before breakfast Active traMADoL (ULTRAM) 50 mg [...] on 08/15/2024 Wixela Inhub 250-50 mcg/dose diskus inhalerIndications:LINEMAN A CLASS D SOB Inhale 1 puff daily as needed (COPD SOB) 2022 Active vit C/E/Zn/buffer copper/lut/lui/bio /saf (RETAINE VISION ORAL)Indications:eye supplement Take 1 capsule by mouth yacht builder before breakfast Active Vitamin D2 1,250 mcg [...] capsuleIndications:sup plement Take 1 capsule by mouth yacht builder before breakfast Active garlic 1,000 mg capsuleIndications:sup plement Take 1 capsule by mouth yacht builder before breakfast Active salmon oiL-omega-3 fatty acids 1,000-210 mg capsuleIndications:sup plement Take 1 capsule by mouth yacht builder before breakfast Active cod liver oiL capsuleIndications:Vit mack D Deficiency,supplement Take 1 capsule by mouth yacht builder before breakfast Active isosorbide mononitrate ER (IMDUR) [...] 12 HOURS. 30 patch 1 2024 Active lidocaine (LIDODERM) 5 %Indications:Osteonecr osis of left knee region (HCC),Chronic pain of left knee,Hypersensitivity, subsequent encounter,Wound of left lower extremity, sequela PLACE 1 PATCH ON THE LEFT BARRETO DAILY NEEDED FOR PAIN REMOVE & DISCARD PATCH WITHIN 12 HOURS. 30 patch 1 09/08 Discontinued Active Problems Problem Noted Date Diagnosed [...] (05/11/2022): Added automatically from request for surgery [id number] Assessment & Plan (07/16/2022 1:14 AM CDT): [...] BID+ Assessment & Plan (04/21/2022 10:40 AM DIGITAL X RAY SERVICE ENGINEER): Moderate to severe dry eye disease No improvement with Restasis in the past Recommend retain artificial tear drops 3 to 4 times a day Continue lubricating ointment at night Add daily steroid Blepharospasm of both eyes 04/21/2022 Assessment & Plan (04/21/2022 10:40 AM DIGITAL X RAY SERVICE ENGINEER): Patient at that this should improve with the dry eye Age-related nuclear cataract, bilateral 04/21/19 Assessment & Plan (06/13/2023 9:16 AM CDT): Defer cataract surgery until signs and symptoms indicate. Pt was educated on the diagnosis. Recommend daily UV protection. Release updated glasses Rx Assessment & Plan (04/21/2022 10:41 AM DIGITAL X RAY SERVICE ENGINEER): Not yet visually significant, monitor Xanthelasma of [...] future. Assessment & Plan (04/06/2022 4:57 PM DIGITAL X RAY SERVICE ENGINEER): Risks, benefits and alternatives were discussed. Risks [...] future. Assessment & Plan (04/06/2022 4:59 PM DIGITAL X RAY SERVICE ENGINEER): Bilateral upper eyelid ptosis with symptomatic visual [...] Encounters Date Type Department Care Team Description 09/29/2024 Telephone [facility] Rheumatology [address] [place] [address] Advanced Medicine 5th [place] [address] Katherine Calle MD 09/25/2024 Telephone [facility] Rheumatology [address] [place] [address] 5th [place] [address] Kanika Cee MD 09/23/2024 Results Follow-Up [facility] Cardiology [address] [place] [phone] Misti Michel NP CTA Heart and Coronary Arteries W Morphology when Performed 09/22/2024 12:00 PM CDT - 09/22/2024 11:59 PM CDT Hospital Encounter [facility] Rad[facility] ([facility]) [address] [place] [address] Abnormal nuclear stress test; Encounter for pre-operative cardiovascular clearance Discharge Disposition: Discharge to home or self care 09/05/2024 12:00 PM CDT Infusion [facility] Specialty Infusion Center [address] [place] [address] [address] [place] [address] Rheumatoid arthritis involving multiple sites, unspecified whether rheumatoid factor present (HCC) (Primary Dx) 08/26/2024 10:30 AM CDT Office Visit [facility] Cardiology [address] [place] [phone] Misti Michel NP Abnormal nuclear stress test (Primary Dx); Hypertension, unspecified type; Pure hypercholesterolemia; Lipid screening; Encounter for pre-operative cardiovascular clearance 08/26/2024 Telephone [facility] Cardiology [address] [place] [address] [place] [phone] Misti Michel NP Med Change Request 08/25/2024 Telephone [facility] Cardiology [address] [place] [address] [place] [phone] Misti Michel NP 08/22/2024 Telephone [facility] Surgery [address] [facility] Advanced Medicine 6th [place] [address] Inés De Jesus 08/21/2024 Telephone [facility] Surgery [address] [facility] Advanced Medicine 6th [place] [address] Marisela Avalos 08/20/2024 Telephone [facility] Surgery [address] [place] [address] Advanced Medicine 6th [place] [address] Inés De Jesus 08/20/2024 Telephone [facility] Surgery [address] [place] [address] Advanced Medicine 6th [place] [address] Marisela Avalos SURGERY CANCELLATION 08/18/2024 Telephone [facility] Surgery [address] [place] [address] [place] [address] Inés De Jesus 08/15/2024 11:59 PM CDT Anesthesia Event [facility] Operating Room [facility] ([facility]) [address] [place] [address] Sharona Mariano NP 08/08/2024 Telephone [facility] Pain [facility] at [facility] [address] [place] [address] Advanced Medicine [address] [place] [address] Virginia Lujan MD PhD question 08/05/2024 9:03 AM CDT - 08/05/2024 11:59 PM CDT Hospital Encounter [facility] [address] [place] [address] Advanced Medicine [address] [place] [address] Virginia Lujan MD PhD Neuropathic pain (Primary Dx) Discharge Disposition: Discharge to home or self care 08/05/2024 Telephone [facility] Surgery [address] [facility] 6th [place] [address] [place] [phone] Inés De Jesus 07/15/2024 10:30 AM CDT Infusion [facility] Outpatient Infusion Center [address] [place] [phone] Rheumatoid arthritis involving multiple sites, unspecified whether rheumatoid factor present (HCC) (Primary Dx) from Last 3 Months Immunizations Immunization Administration Dates Next Due Tdap 05/15/2023 Surgical History Surgery Date Site/Laterality Comments TUBAL LIGATION 02/26/1979 - 02/26/1980 KNEE CARTILAGE SURGERY 02/27/2012 - 02/25/2013 Can't remember which knee COLONOSCOPY 02/26/2023 - 02/26/2024 N/A Medical History Medical History Date Comments Hypertension Hyperlipidemia Lupus COPD (chronic obstructive pulmonary disease) Arthritis Dry eye syndrome, bilateral Heart murmur pt reported Rheumatoid arthritis (HCC) Neuropathy Chronic pain Anxiety Hypercholesterolemia Abnormal nuclear stress test Family History Medical History Relation Name Comments [...] on file Legal Sex Female 10:27 PM DIGITAL X RAY SERVICE ENGINEER Gender Identity Female 08/07/2018 2:56 PM CDT [...] Description 10/09/2024 11:30 AM CDT Hospital Encounter [facility] Cardiac Catheterization Lab [address] [place] [address] Stuart Denson MD [address], [address] [address] Abnormal nuclear stress test; Hypercholesterolemia 10/09/2024 11:30 AM CDT - 10/09/2024 1:00 PM CDT Surgery [facility] Cardiac Catheterization Lab [id number] [place] [address] Stuart Denson MD [address] [place] [address] LEFT HEART CATHETERIZATION WITH CORONARY ANGIOGRAPHY GRAFT AND WITH OR WITHOUT LEFT VENTRICULOGRAM [address] Health Maintenance Due Date Last Done Comments Breast Cancer Screening-Mammogram 1954 Colon Cancer Screening-Colonoscopy 1954 Depression Screening 1954 Osteoporosis Screening-Bone Density Scan 1954 Hepatitis B Screening 1972 Zoster Vaccine (1 of 2) 1973 Pneumococcal vaccine 65+ (2 of 2 - PPSV23) 02/10/2013 12/16/2012 Well Visit 65+ 10/09/2019 Covid-19 Vaccine (3 - season) 2023, 11/09/2020 Influenza Vaccine (#1) 2024 6, 02/26/2014, 11/28/2012 Fall Risk Assessment 10/02/2025 10/02/2024 DTaP/Tdap/Td Vaccine (2 - Td or Tdap) [...] Routine 08/26/2024 10:17 AM CDT Lipid screening HEPATITIS C ANTIBODY Routine 08/09/2021 12:52 PM [...] POCT lipid panel (08/26/2024 10:17 AM CDT) [facility] Signature Cholesterol, POC 416 <200 MG/DL HDL, POC 28(A) >=40 mg/dL Triglycerides, POC 407(A) <=149 mg/dL LDL Cholesterol POC 307(A) <=129 mg/dL Chol/HDL Ratio, POC 14.9 NONE Non-HDL Cholesterol, POC 388 NONE mg/dL Cholesterol Total, POC 416(A) 30 - 199 mg/dL Capillary blood 08/26/2024 1 0:17 AM CDT Misti Michel NP POINT OF CARE TEST ORD ERABLES Final Result * Hepatitis C antibody (08/09/2021 12:52 PM CDT) Pathologist [facility] Hep C Ab Nonreactive Nonreactive JORGE VELA [...] last revised on 2019. Testing performed by: , [address] [place] [address]., [id number] Blood 08/09/2021 12:5 2 PM CDT 08/09/2021 4:13 PM CDT Katherine Calle MD LAB MICROBIOLOGY - GENERAL ORDERABLES Final Result [facility] [address] [facility] Department [place] [address] from Last 3 Months or Most Recently Relevant to Health Maintenance Insurance [facility] MEDICARE ADVANTAGE MEDICARE ADVANTAGE IDPA Care Teams Two Way Radio Installer Relationship Specialty Start Date End Date Caitlin Luo PA PCP - General Physician Jewel Staker 06/30/19 Katherine Calle MD [address] [facility] RHEUMATOLOGY, [address] [address] Consulting Physician Rheumatology 06/24/24 Stuart Denson MD [address] [facility] [address] [facility] [address] [place] [address] Consulting Physician Cardiology 08/22/24
--- OUTSIDE RECORDS SUMMARY | 2024-10-03 09:09 | XMS_ITS | Clinical Summary ---
Author Organization [facility] Address [address] [place] [address] Phone Care Team Providers Care Printed Circuit Boards Plasma Etcher Name Role Phone Iglesia Junior MD Primary Care Provider [phone] Allergies No known active allergies Medications traMADol (ULTRAM) 50 mg tablet Take 100 mg by mouth every 6 hours as needed for Pain. Active multivitamin (DAILY-ANNA MARIE) tablet Take 1 Tab by mouth daily automotive sales professional. 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
--- OUTSIDE RECORDS SUMMARY | 2024-10-03 09:09 | XMS_ITS | Patient Health Record ---
Author Organization [facility] [employer] [facility] Address [address] [place] [address] Care Team Providers Care Product Safety Specialist Name Role Phone SHANICE LORENZO Unavailable [phone] DARNELL ESCOTO Unavailable Unavailable Reason For Referral No Information Plan Of Treatment No Information Insurance Providers Payer Name Payer Address Payer Phone Subscriber Number Group Number Insured Name Patient Relationship to Insured Coverage Start Date Coverage End Date [employer] MEDICARE COMPLETE [address] [address] [place] [address] [id number] LEONARDO PATEL Self - patient is the insured
--- OUTSIDE RECORDS SUMMARY | 2024-10-03 09:09 | XMS_ITS | Encounter Summary ---
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 Gender Identity Female 08/07/2018 2:56 PM CDT Sexual Orientation Not on file documented as of this encounter Plan of Treatment Upcoming Encounters Date Type Department Care Team (Latest Contact Info) Description 10/09/2024 11:30 AM CDT Hospital Encounter [facility] Cardiac Catheterization Lab [address] [place] [address] Stuart Denson MD [address], [address] [place] [address] Abnormal nuclear stress test; Hypercholesterolemia 10/09/2024 11:30 AM CDT - 10/09/2024 1:00 PM CDT Surgery [facility] Cardiac Catheterization Lab [address] [place] [address] Stuart Denson MD [address] [facility] [address] , [address] [address] LEFT HEART CATHETERIZATION WITH CORONARY ANGIOGRAPHY GRAFT AND WITH OR WITHOUT LEFT VENTRICULOGRAM [id number] documented as of this encounter Procedures Procedure Name Priority Date/Time Associated Diagnosis Comments SCAN - RADIOLOGY/IMAGING 08/19/2021 documented in this encounter Results * SCAN - RADIOLOGY/IMAGING (08/19/2021) Anatomical Region Laterality Modality Other us Provider Scanning Final Result documented in this encounter Visit Diagnoses Not on filedocumented in this encounter Care Teams Waiter/Waitress Tourist Class Relationship Specialty Start Date End Date Caitlin Luo PA PCP - General Physician Furniture Associate 06/30/19 Katherine Calle MD 49[address] [facility] RHEUMATOLOGY, [address] [address] Consulting Physician Rheumatology 06/24/24 Stuart Denson MD [address] [facility] [address], [address] [id number] Consulting Physician Cardiology 08/22/24 documented as of this encounter
--- OUTSIDE RECORDS SUMMARY | 2024-10-03 09:09 | XMS_ITS | Encounter Summary ---
Author Organization [facility] Address [address] [place] [address] Care Team Providers Care Trench Trimmer Fine Name Role Phone Caitlin Luo Primary Care Pr ovider Katherine Calle MD Unavailable [phone] Stuart Lynch MD Unavailable Reason for Referral * Procedure (Routine) - Canceled Specialty Diagnoses / Procedures Referred By Contac t Referred To Contact Cardiology Diagnoses Abnormal nuclear stress test Hypercholesterolemia Misti Michel, ERICA [address] [place] [address] Phone: tel: fax: Stuart Lynch MD [address] [facility] C, [address] [place] [address] Phone: tel: fax: Referral ID Status Reason Start Date Expiration Date Visits Requested Visits Authorized [id number] Canceled Specialty Services Required 09/23/2024 10/23/2025 1 1 Question Answer Please select the performing region: [facility] [[id number]] Please select the performing department: [facility] [[id number]] To Provider NOTE: we will do our best to honor your provider preference, but scheduling the patient in a timely manner in our clinic will take precedence. STUART LYNCH [[id number]] # of visits: 1 Comments Patient name: Jacki Leslie :53 Procedure: [facility] Location: [facility] Date & Time: 10/09/24 at 11:30 am Arrive at 9:30 am doing procedure: SYED Dx: Abnormal Nuclear Stress Test, Hypercholesterolemia Ordering Provider: Syed Insurance: [facility] Medicare Advantage Encounter Details Date Type Department Care Team (Late st Contact Info) Description 09/23/2024 Results Follow-Up [facility] Cardiology [address] [place] [address] [address], [place] [address] Misti Michel NP [address] [facility] [address] [place] [address] [facility]A Heart and Coronary Arteries W Morphology [...] on file 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 Pt verbalized understanding and agreement. 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 Sheis scheduled to be there at 9:30 am on 10/09. Contact: * Addendum Note - Rena Galvin RN - 09/23/2024 2:58 PM CDTAddended by: RENA GALVIN on: 09/23/2024 02:58 PM Modules accepted: Orders * Telephone Encounter - Rena Galvin RN - 09/23/2024 2:07 PM CDT Spoke with pt, reviewed result note from PH. Discussed Cardiac Cath procedure. Pt verbalized understanding. Procedure: [facility] Location: [facility] Date & Time: 10/09/24 at 11:30 am Arrive at 9:30 am doing procedure: SYED Dx: Abnormal Nuclear Stress Test, Hypercholesterolemia Ordering Provider: Syed Insurance: [facility] Medicare Advantage Sent Email to Pt should take: morning meds with sips of water * Telephone Encounter - Rena Galvni RN - 09/23/2024 11:50 AM CDT LM on VM, reviewed result note from PH. Advised pt to call the office to discuss scheduling a cardiac catheterization. Pt cannot be cleared for nerve decompression until after cath is completed. documented in this encounter Plan of Treatment Upcoming Encounters Date Type Department Care Team (Latest Contact Info) Description 10/09/2024 11:30 AM CDT Hospital Encounter [facility] Cardiac Catheterization Lab [address] [place] [address] Stuart Lynch MD [address], [address] [place] [phone] Abnormal nuclear stress test; Hypercholesterolemia 10/09/2024 11:30 AM CDT - 10/09/2024 1:00 PM CDT Surgery [facility] Cardiac Catheterization Lab [address] [place] [address] Stuart Lynch MD [address], [address] [place] [address] LEFT HEART CATHETERIZATION WITH CORONARY ANGIOGRAPHY GRAFT AND WITH OR WITHOUT LEFT VENTRICULOGRAM [id number] Scheduled Referrals Name Type Priority Associated Diagnoses [...] hypercholesterolemia documented in this encounter Care Teams Trench Trimmer Fine Relationship Specialty Start Date End Date Caitlin Luo PA PCP - General Physician Clinical Program Consultant 06/30/19 Katherine Calle MD 4921 [facility] RHEUMATOLOGY, [address] [address] Consulting Physician Rheumatology 06/24/24 Stuart Lynch MD [address] [facility] [address] , [facility] [address] [place] [address] Consulting Physician Cardiology 08/22/24 documented as of this encounter
--- OUTSIDE RECORDS SUMMARY | 2024-10-03 09:09 | XMS_ITS | Encounter Summary ---
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 Gender Identity Female 08/07/2018 2:56 PM CDT Sexual Orientation Not on file documented as of this encounter Plan of Treatment Upcoming Encounters Date Type Department Care Team (Latest Contact Info) Description 10/09/2024 11:30 AM CDT Hospital Encounter [facility] Cardiac Catheterization Lab [address] [place] [address] Stuart Denson MD [address] [facility] [address], [address] [phone] Abnormal nuclear stress test; Hypercholesterolemia 10/09/2024 11:30 AM CDT - 10/09/2024 1:00 PM CDT Surgery [facility] Cardiac Catheterization Lab [address] [place] [address] Stuart Denson MD [address], [place] [id number] [place], [place] [phone] LEFT HEART CATHETERIZATION WITH CORONARY ANGIOGRAPHY GRAFT AND WITH OR WITHOUT LEFT VENTRICULOGRAM [id number] documented as of this encounter Procedures Procedure Name Priority Date/Time Associated Diagnosis Comments SCAN - RADIOLOGY/IMAGING 03/08/2023 documented in this encounter Results * SCAN - RADIOLOGY/IMAGING (03/08/2023) Anatomical Region Laterality Modality Other us Provider Scanning Final Result documented in this encounter Visit Diagnoses Not on filedocumented in this encounter Care Teams Senior Pensions Administrator Relationship Specialty Start Date End Date Caitlin Luo PA PCP - General Physician Welt Wheeler 06/30/19 Katherine Calle MD 4921 [facility] RHEUMATOLOGY, [address] [address] Consulting Physician Rheumatology 06/24/24 Stuart Denson MD [address], [address] [place] [address] Consulting Physician Cardiology 08/22/24 documented as of this encounter
--- OUTSIDE RECORDS SUMMARY | 2024-10-03 09:09 | XMS_ITS ---
Author Organization [facility] Address [address] [address] Care Team Providers Care Button Pusher Name Role Phone SHANICE LORENZO Unavailable [phone] DARNELL ESCOTO Unavailable Unavailable Encounters Encounter Location Date Provider Diagnosis [facility] [address] [address] 01/09/2024 SHANICE LORENZO Plan Of Treatment No Information Progress Notes * JORGELEONARDO Villanueva CDOB: (68 yo F)Acc No.[id number]:01/09/2024 Progress Notes Patient: LEONARDO NEFF Provider: Kristy LORENZO M.D. :1955 A ge:68 Y S ex:Female Date:01/09/2024 Address:[address] [place], [place] [id number] Subjective: * Chief Complaints: * * Medical History: Objective: * Vitals: Assessment: Plan: * Treatment: * * Electronic signature of SANTA LORENZO MD on 10/03/2024 at 09:08 AM CDT Sign off status: Pending * Provider: Kristy LORENZO M.D. Date: 03/10/2023 Generated for Michael ortega/Gera/Jerri on: 0 10/03/2024 09:08 AM CDT
[2024-10-03 09:53] LABS: Hematocrit 37.7 % (37.0-47.0); Hemoglobin 11.8 g/dL (12.0-15.0); Immature Granulocyte Percent A 0.0 % (0-0.5); Lymphocytes Absolute Auto 1.27 K/mm3 (0.9-3.2); Mean Corpuscular HGB Conc 31.3 g/dl (32-36); Mean Corpuscular Hemoglobin 25.9 pg (26-34); Mean Corpuscular Volume 82.7 fl (80-100); Nucleated Red Blood Cells Absolute Auto 0.000 K/mm3 (0.0-0.012); Nucleated Red Blood Cells Perc 0.0 % (0.0-0.2); Platelet Count Result 249 k/mm3 (150-375); Red Blood Count 4.56 M/mm3 (4.2-5.4); White Blood Count 2.5 K/mm3 (4.5-10.0)
== END 2024-10-03 08:53 | disposition home or self-care (01) ==
DX: M06.9 Rheumatoid arthritis, unspecified (principal); Z79.899 Other long term (current) drug therapy
CPT/HCPCS: 36415; 85025

== ENCOUNTER 2024-11-10 09:54 | Outpatient (CLI) | payer MEDICARE, MEDICAID, SELFPAY ==
--- OUTSIDE RECORDS SUMMARY | 2024-01-09 05:00 | XMS_ITS ---
Author Organization [facility] Address [address] [address] Care Team Providers Care Group Dynamics Instructor Name Role Phone SHANICE LORENZO Unavailable [phone] DARNELL ESCOTO Unavailable Unavailable Encounters Encounter Location Date Provider Diagnosis [facility] [address] [address] 01/09/2024 SHANICE LORENZO Plan Of Treatment No Information Progress Notes * JORGELEONARDO Villanueva CDOB: (69 yo F)Acc No.[id number]:01/09/2024 Progress Notes Patient: LEONARDO NEFF Provider: Kristy LORENZO M.D. :1955 A ge:68 Y S ex:Female Date:01/09/2024 Address:[address] [place], [place] [id number] Subjective: * Chief Complaints: * * Medical History: Objective: * Vitals: Assessment: Plan: * Treatment: * * Electronic signature of SANTA LORENZO MD on 11/10/2024 at 11:10 AM CDT Sign off status: Pending * Provider: Kristy LORENZO M.D. Date: 03/10/2023 Generated for Michael ortega/Gera/Jerri on: 0 11/10/2024 11:10 AM CDT
[2024-11-10 10:16] LABS: Hematocrit 35.9 % (37.0-47.0); Hemoglobin 11.1 g/dL (12.0-15.0); Immature Granulocyte Percent A 0.0 % (0-0.5); Lymphocytes Absolute Auto 1.41 K/mm3 (0.9-3.2); Mean Corpuscular HGB Conc 30.9 g/dl (32-36); Mean Corpuscular Hemoglobin 25.4 pg (26-34); Mean Corpuscular Volume 82.2 fl (80-100); Nucleated Red Blood Cells Absolute Auto 0.000 K/mm3 (0.0-0.012); Nucleated Red Blood Cells Perc 0.0 % (0.0-0.2); Platelet Count Result 191 k/mm3 (150-375); Red Blood Count 4.37 M/mm3 (4.2-5.4); White Blood Count 2.3 K/mm3 (4.5-10.0)
[2024-11-10 10:40] LABS: Alanine Aminotransferase 34 U/L (6-35); Albumin Level 3.9 g/dL (3.5-5.1); Alkaline Phosphatase 80 U/L (38-126); Anion Gap 5 mmol/L (4-12); Aspartate Amino Transferase 81 U/L (14-36); Bilirubin,Total 0.7 mg/dL (0.2-1.3); Blood Urea Nitrogen 4 mg/dL (7-17); Calcium 8.6 mg/dL (8.4-10.2); Carbon Dioxide 26 mmol/L (22-30); Chloride 105 mmol/L (98-107); Estimated Glomerular Filt Rate > 60; Glucose 87 mg/dL (65-110); Potassium 3.9 mmol/L (3.4-5.0); Sodium 136 mmol/L (137-145); Total Protein 10.1 g/dL (6.3-8.2)
--- OUTSIDE RECORDS SUMMARY | 2024-11-10 11:10 | XMS_ITS | Encounter Summary ---
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 Gender Identity Female 08/07/2018 2:56 PM CDT Sexual Orientation Not on file documented as of this encounter Plan of Treatment Upcoming Encounters Date Type Department Care Team (Latest Contact Info) Description 11/13/2024 8:30 AM CDT Hospital Encounter [facility] Cardiac Catheterization Lab [address] [place], [place] [id number] Stuart Denson MD [address] [place] [address], [address] [place] [address] Coronary artery disease, unspecified vessel or lesion type, unspecified whether angina present, unspecified whether [place] or transplanted heart; Chest pain, unspecified type; Coronary artery disease involving [place] coronary artery of [place] heart with unstable angina pectoris (HCC) 11/13/2024 8:30 AM CDT - 11/13/2024 11:00 AM CDT Surgery [facility] Cardiac Catheterization Lab [address] [place] [address] Stuart Denson MD [address] [facility] [address] C, [address] [address] PCI DUARTE MAJOR CORONARY [id number] - [id number] documented as of this encounter Procedures Procedure Name Priority Date/Time Associated Diagnosis Comments SCAN - LABS 06/08/2020 documented in this encounter Results * SCAN - LABS (06/08/2020) us Provider Scanning Final Result documented in this encounter Visit Diagnoses Not on filedocumented in this encounter Care Teams Relay Tester Helper Relationship Specialty Start Date End Date Caitlin Luo PA PCP - General Physician Ditch Cleaner 06/30/19 Katherine Calle MD 4921 [facility] RHEUMATOLOGY, [address] [address] Consulting Physician Rheumatology 06/24/24 Stuart Denson MD [address] [facility] [address], [place] [address] [place] [address] Consulting Physician Cardiology 08/22/24 documented as of this encounter
--- OUTSIDE RECORDS SUMMARY | 2024-11-10 11:10 | XMS_ITS | Encounter Summary ---
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 Gender Identity Female 08/07/2018 2:56 PM CDT Sexual Orientation Not on file documented as of this encounter Plan of Treatment Upcoming Encounters Date Type Department Care Team (Latest Contact Info) Description 11/13/2024 8:30 AM CDT Hospital Encounter [facility] Cardiac Catheterization Lab [address] [place] [address] Stuart Denson MD [address], [facility] [address] [place] [address] Coronary artery disease, unspecified vessel or lesion type, unspecified whether angina present, unspecified whether [place] or transplanted heart; Chest pain, unspecified type; Coronary artery disease involving [place] coronary artery of [place] heart with unstable angina pectoris (HCC) 11/13/2024 8:30 AM CDT - 11/13/2024 11:00 AM CDT Surgery [facility] Cardiac Catheterization Lab [address] [place] [address] Stuart Denson MD [address], [address] [place] [address] PCI DUARTE MAJOR CORONARY [id number] - [id number] documented as of this encounter Goals Goal Patient Goal Type Associated Problems Recent Progress Patient-Stated? Author CCM Chronic Pain Care Plan Chronic Care Management Worsening(0 08/05/2024 9:36 AM CDT) No Shira Dent RN Note: Problem: Chronic Pain Goals: 1. Minimize further functional decline 2. Maximize quality of life 3. Control pain Strategies: - Activity/exercise program recommendation - Conservative stepwise pain medicine strategy with multi-disciplinary approach - Recommend healthy lifestyle strategies and compensatory methods as needed documented as of this encounter Procedures Procedure Name Priority Date/Time Associated Diagnosis Comments SCAN - LABS 10/03/2024 documented in this encounter Results * SCAN - LABS (10/03/2024) us Provider Scanning Final Result documented in this encounter Visit Diagnoses Not on filedocumented in this encounter Care Teams Almond Blancher Hand Relationship Specialty Start Date End Date ValerioMarisolSUNNY Barry PCP - General Physician Field Map Editor 06/30/19 Katherine Calle MD 4921 [facility] RHEUMATOLOGY, [address] [address] Consulting Physician Rheumatology 06/24/24 Stuart Denson MD [address] [facility] C, [address] [place] [address] Consulting Physician Cardiology 08/22/24 documented as of this encounter
--- OUTSIDE RECORDS SUMMARY | 2024-11-10 11:10 | XMS_ITS | Patient Health Record ---
Author Organization [facility] Address [address] [place] [address] Care Team Providers Care Literacy Coach Name Role Phone SHANICE LORENZO Unavailable [phone] DARNELL ESCOTO Unavailable Unavailable Reason For Referral No Information Plan Of Treatment No Information Insurance Providers Payer Name Payer Address Payer Phone Subscriber Number Group Number Insured Name Patient Relationship to Insured Coverage Start Date Coverage End Date [employer] MEDICARE COMPLETE [address] [address] [place] [id number] LEONARDO PATEL Self - patient is the insured
--- OUTSIDE RECORDS SUMMARY | 2024-11-10 11:10 | XMS_ITS | Encounter Summary ---
Author Organization [facility] Address [address] [place] [address] Care Team Providers Care Head Of Data Name Role Phone Caitlin Luo Era CORREA Primary Care Pr ovider Katherine Calle MD Unavailable [phone] Stuart Denson MD Unavailable Encounter Details Date Type Department Care Team (Late st Contact Info) Description 11/06/2024 Telephone [facility] Cardiology 1225 [facility] [address] [place] [address] Stuart Denson MD 1225 [facility] [address] [facility] [address] [place] [address] Social History Tobacco Use Types Packs/Day Years Used Date Smoking Tobacco: Former Cigarettes 0.1 32 1 973 - 2005 Smokeless Tobacco: Never Alcohol Use Standard Drinks/Week Comments Yes 0 (1 standard drink = 0.6 oz pur e alcohol) socially AUDIT-C Answer Date Recorded Q1: How often do you have a drink containing alc ohol? Monthly or less 10/09/2024 Q2: How many drinks containi ng alcohol do you have on a typical day when you are drinking? 1 or 2 10/09/2024 Q3: How often do you have si x or more drinks on one occasion? Never 10/09/2024 Hunger Vital Sign Answer Date Recorded Within the past 12 months, y ou worried that your food would run out before you got the money to buy more. Never true 10/25/19 25 Within the past 12 months, t he food you bought just didn't last and you didn't have money to get more. Never true 10/24/2024 Personal Safety Answer Date Recorded Have you ever been in or are you currently in a harmful physical or emotional relationship or is someone making you feel afraid or unsafe? 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 Advised that DK will not give cardiac clearance until after her upcoming LHC scheduled for 11/13. Pt verbalizes understanding. Pt also reminded of preprocedure labs to get done on Sunday for upcoming LHC. 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 Pt states she had cath already on 10/09 so she is requesting an update on cardiac clearance. She states she left her paperwork with Misti. Contact: documented in this encounter Plan of Treatment Upcoming Encounters Date Type Department Care Team (Latest Contact Info) Description 11/13/2024 8:30 AM CDT Hospital Encounter [facility] Cardiac Catheterization Lab [address] [place] [address] Stuart Denson MD [address], [address] [place] [address] Coronary artery disease, unspecified vessel or lesion type, unspecified whether angina present, unspecified whether [place] or transplanted heart; Chest pain, unspecified type; Coronary artery disease involving [place] coronary artery of [place] heart with unstable angina pectoris (HCC) 11/13/2024 8:30 AM CDT - 11/13/2024 11:00 AM CDT Surgery [facility] Cardiac Catheterization Lab [address] [place] [address] Stuart Denson MD [address], [address] [place] [address] PCI DUARTE MAJOR CORONARY [id number] - [id number] documented as of this encounter Goals Goal [...] on filedocumented in this encounter Care Teams Head Of Data Relationship Specialty Start Date End Date Caitlin Luo PA PCP - General Physician Gluing Pressman 06/30/19 Katherine Calle MD 4921 [facility] RHEUMATOLOGY, [address] [address] Consulting Physician Rheumatology 06/24/24 Stuart Denson MD [address], [address] [place] [address] Consulting Physician Cardiology 08/22/24 documented as of this encounter
--- OUTSIDE RECORDS SUMMARY | 2024-11-10 11:10 | XMS_ITS | Encounter Summary ---
Author Organization [facility] Address [address] [place] [address] Phone Care Team Providers Care Warehouse General Laborer Name Role Phone AnniMarisol englisheva CORREA Primary Care Pr ovider Katherine Calle MD Unavailable [phone] Stuart Denson MD Unavailable Encounter Details Date Type Department Care Team (Late st Contact Info) Description 09/24/2024 Orders Only [facility] Scanning, Provider [...] on file Legal Sex Female 10:27 PM CLOTH FOLDER HAND Gender Identity Female 08/07/2018 2:56 PM CDT Sexual Orientation Not on file documented as of this encounter Plan of Treatment Upcoming Encounters Date Type Department Care Team (Latest Contact Info) Description 11/13/2024 8:30 AM CDT Hospital Encounter [facility] Cardiac Catheterization Lab [id number] [place] [address] Stuart Denson MD [address], [facility] [address] [place] [address] Coronary artery disease, unspecified vessel or lesion type, unspecified whether angina present, unspecified whether [place] or transplanted heart; Chest pain, unspecified type; Coronary artery disease involving [place] coronary artery of [place] heart with unstable angina pectoris (HCC) 11/13/2024 8:30 AM CDT - 11/13/2024 11:00 AM CDT Surgery [facility] Cardiac Catheterization Lab [id number] [place] [address] Stuart Denson MD [address] [address], [place] [address] [place] [address] PCI DUARTE MAJOR CORONARY [id number] - [id number] documented as of this encounter Goals Goal [...] Date/Time Associated Diagnosis Comments SCAN - LABS 09/24/2024 documented in this encounter Results * SCAN - LABS (09/24/2024) us Provider Scanning Final Result documented in this encounter Visit Diagnoses Not on filedocumented in this encounter Care Teams Warehouse General Laborer Relationship Specialty Start Date End Date ValerioMarisolSUNNY Barry PCP - General Physician Manager Of Distribution 06/30/19 Katherine Calle MD [address] [facility] RHEUMATOLOGY, [address] [address] Consulting Physician Rheumatology 06/24/24 Stuart Denson MD [address] [place] [address] [facility] C, [address] [place] [address] Consulting Physician Cardiology 08/22/24 documented as of this encounter
--- OUTSIDE RECORDS SUMMARY | 2024-11-10 11:10 | XMS_ITS | Encounter Summary ---
Author Organization [facility] Address [address] [place] [address] Care Team Providers Care Travel Registered Nurse Nicu Name Role Phone Caitlin Luogonzalo CORREA Primary Care Pr ovider Katherine Calle MD Unavailable Stuart Denson MD Unavailable Encounter Details Date Type Department Care Team (Late st Contact Info) Description 11/10/2024 Telephone [facility] Medical Group Cardiology [address] [place] [address] Stuart Denson MD [address] [facility] C [place] [address] [facility], [address] [place] [address] Social History Tobacco Use Types [...] on file 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 He states that the neutrophil count flagged and was 0.3. He will be faxing those results to the [phone]. Please advise. Thank you. documented in this encounter Plan of Treatment Upcoming Encounters Date Type Department Care Team (Latest Contact Info) Description 11/13/2024 8:30 AM CDT Hospital Encounter [facility] Cardiac Catheterization Lab [address] [place] [address] Stuart Denson MD [address] [place] [address] [place] [address], [address] [place] [address] Coronary artery disease, unspecified vessel or lesion type, unspecified whether angina present, unspecified whether the [place] or transplanted heart; Chest pain, unspecified type; Coronary artery disease involving the [place] coronary artery of the [place] heart with unstable angina pectoris (HCC) 11/13/2024 8:30 AM CDT - 11/13/2024 11:00 AM CDT Surgery [facility] Cardiac Catheterization Lab [address] [place] [address] Stuart Denson MD [address], [address] [place] [address] PCI DUARTE MAJOR CORONARY [id number] - [id number] documented as of this encounter Goals Goal [...] on filedocumented in this encounter Care Teams Travel Registered Nurse Nicu Relationship Specialty Start Date End Date Caitlin Luo PA PCP - General Physician Tuckpointer Cleaner Caulker 06/30/19 Katherine Calle MD [address] [facility] RHEUMATOLOGY, [address] [address] Consulting Physician Rheumatology 06/24/24 Stuart Denson MD [address] [facility] [address] [facility] C, [facility] [address] [place] [address] Consulting Physician Cardiology 08/22/24 documented as of this encounter
--- OUTSIDE RECORDS SUMMARY | 2024-11-10 11:10 | XMS_ITS | Clinical Summary ---
Author Organization [facility] Address [address] [place] [address] Care Team Providers Care Epoxy Coatings Installer Name Role Phone Unavailable Primary Care Provider Unavailabl e Immunizations Immunization Administration Dates Next Due Covid-19 Vaccine, Vector-nr, Rs-ad26, Pf, 0.5 Ml (TransEngen/EcoSurge&EcoSurge) 11/09/2020 Social History Tobacco Use Types Packs/Day [...] (1 of 2) 2004 Influenza Immunization (#1) 2024 11/28/2012 SARS-COV-2 Immunization ( season) 2024 03/27/2021, 11/09/2020 Respiratory Syncytial Virus (RSV) Immunization [...]
--- OUTSIDE RECORDS SUMMARY | 2024-11-10 11:10 | XMS_ITS | Encounter Summary ---
Author Organization 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 Gender Identity Female 08/07/2018 2:56 PM CDT Sexual Orientation Not on file documented as of this encounter Plan of Treatment Upcoming Encounters Date Type Department Care Team (Latest Contact Info) Description 11/13/2024 8:30 AM CDT Hospital Encounter [facility] Cardiac Catheterization Lab [address] [place] [address] Stuart Denson MD [address] [place] [address], [address] [place] [address] Coronary artery disease, unspecified vessel or lesion type, unspecified whether angina present, unspecified whether [place] or transplanted heart; Chest pain, unspecified type; Coronary artery disease involving [place] coronary artery of [place] heart with unstable angina pectoris (HCC) 11/13/2024 8:30 AM CDT - 11/13/2024 11:00 AM CDT Surgery [facility] Cardiac Catheterization Lab [address] [place] [address] Stuart Denson MD [address], [address] [place], [place] [address] PCI DUARTE MAJOR CORONARY [id number] - [id number] documented as of this encounter Procedures Procedure Name Priority Date/Time Associated Diagnosis Comments SCAN - RADIOLOGY/IMAGING 03/08/2023 documented in this encounter Results * SCAN - RADIOLOGY/IMAGING (03/08/2023) Anatomical Region Laterality Modality Other us Provider Scanning Final Result documented in this encounter Visit Diagnoses Not on filedocumented in this encounter Care Teams Banbury Mill Operator Relationship Specialty Start Date End Date Caitlin Luo PA PCP - General Physician Deicer Inspector Electric 06/30/19 Katherine Calle MD 49[address] [facility] RHEUMATOLOG[facility], [address] [address] Consulting Physician Rheumatology 06/24/24 Stuart Denson MD [address] [facility] C [facility] [address] [facility] C, [facility] [address] [place] [address] Consulting Physician Cardiology 08/22/24 documented as of this encounter
--- OUTSIDE RECORDS SUMMARY | 2024-11-10 11:10 | XMS_ITS | Encounter Summary ---
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 Gender Identity Female 08/07/2018 2:56 PM CDT Sexual Orientation Not on file documented as of this encounter Plan of Treatment Upcoming Encounters Date Type Department Care Team (Latest Contact Info) Description 11/13/2024 8:30 AM CDT Hospital Encounter [facility] Cardiac Catheterization Lab [address] [place], [place] [id number] Stuart Denson MD [address] [address] [place] [address], [address] [place] [address] Coronary artery disease, unspecified vessel or lesion type, unspecified whether angina present, unspecified whether [place] or transplanted heart; Chest pain, unspecified type; Coronary artery disease involving [place] coronary artery of [place] heart with unstable angina pectoris (HCC) 11/13/2024 8:30 AM CDT - 11/13/2024 11:00 AM CDT Surgery [facility] Cardiac Catheterization Lab [address] [place] [address] Stuart Denson MD [address] [facility] [address] , [address] [id number] PCI DUARTE MAJOR CORONARY [id number] - [id number] documented as of this encounter Procedures Procedure Name Priority Date/Time Associated Diagnosis Comments SCAN - RADIOLOGY/IMAGING 08/19/2021 documented in this encounter Results * SCAN - RADIOLOGY/IMAGING (08/19/2021) Anatomical Region Laterality Modality Other Provider Scanning Final Result documented in this encounter Visit Diagnoses Not on filedocumented in this encounter Care Teams Service Or Work Dispatcher Chief Relationship Specialty Start Date End Date Caitlin Luo PA PCP - General Physician Inspector Receiving 06/30/19 Katherine Calle MD 49[address] [facility] RHEUMATOLOGY, [address] [address] Consulting Physician Rheumatology 06/24/24 Stuart Denson MD [address] [facility] [address] , [address] [id number] Consulting Physician Cardiology 08/22/24 documented as of this encounter
--- OUTSIDE RECORDS SUMMARY | 2024-11-10 11:10 | XMS_ITS | Clinical Summary ---
Author Organization [facility] Address [address] [facility] [place] [address] Care Team Providers Care Mini Shifter Name Role Phone Caitlin Covarrubias Primary Care Pr ovider Source Comments [facility],non-owned Affiliates and Associated Physician Practices is amultiple site organization consisting of ambulatory clinics and hospital sitesin [place], [place], [place] and [place]. This disclosure is being madepursuant to the Care Everywhere program and may not contain all information available regarding this patient. 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
--- OUTSIDE RECORDS SUMMARY | 2024-11-10 11:10 | XMS_ITS | Clinical Summary ---
Author Organization [facility] Address [address] [place] [address] Phone Care Team Providers Care Taper Machine Name Role Phone Iglesia Junior MD Primary Care Provider [phone] Allergies No known active allergies Medications traMADol (ULTRAM) 50 mg tablet Take 100 mg by mouth every 6 hours as needed for Pain. Active multivitamin (DAILY-ANNA MARIE) tablet Take 1 Tab by mouth daily entry analyst. 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 Gender Identity Not on file Sexual Orientation [...] Health Maintenance Due Date Last Done Comments BREAST CANCER SCREENING 1994 COLORECTAL SCREENING 10/09/1999 [...] 2014 OSTEOPOROSIS SCREENING 10/09/2019 INFLUENZA VACCINE (#1) 2024 11/28/2012 COVID-19 Vaccine (2 - 2024- season) 2024 DTAP/TDAP/TD VACCINES (2 - Td or Tdap) 05/14/2033 Insurance [facility] Address: [place] [address] [address] [place] [address] Advance Directives For more information, please contact: [phone] * Full Code (Latest Code Status on File) Date Activated Date Inactivated Comments 05/16/2013 8:51 PM 05/17/2013 6:48 PM Care Teams Taper Machine Relationship Specialty Start Date End Date Iglesia Junior MD [address] [place] [address] PCP - General Internal Medicine 09/25/23
--- OUTSIDE RECORDS SUMMARY | 2024-11-10 11:10 | XMS_ITS | Encounter Summary ---
Author Organization [facility] Healthcare Address [address] [place] [address] Care Team Providers Care Commercial Insulator Name Role Phone Caitlin Luogonzalo CORREA Primary Care Pr ovider Katherine Calle MD Unavailable [phone] Stuart Denson MD Unavailable Encounter Details Date Type Department Care Team (Late st Contact Info) Description 10/23/2024 Telephone [facility] Medical Group Cardiology [address] [place] [address] Stuart Denson MD [facility] [facility] [place] [address] [facility], [address] [place] [address] Social History Tobacco Use Types [...] on file 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 She verbalized understanding and appreciated the callback. * Telephone Encounter - Ana Ramirez - 10/23/2024 9:00 AM CDT Pt is scheduled for an infusion on Tuesday 10/24 at [facility] center. She is requesting consent to be able to take Tylenol prior to infusion. States she does this every 6 weeks and takes 2 tylenols, 1 pepsid, and 1 benadryl. She states if there are any questions to please contact the outpatient infusion center at [phone]. Contact: documented in this encounter Plan of Treatment Upcoming Encounters Date Type Department Care Team (Latest Contact Info) Description 11/13/2024 8:30 AM CDT Hospital Encounter [facility] Cardiac Catheterization Lab [address] [place] [address] Stuart Denson MD [address] [place] [address], [address] [place] [address] Coronary artery disease, unspecified vessel or lesion type, unspecified whether angina present, unspecified whether [place] or transplanted heart; Chest pain, unspecified type; Coronary artery disease involving [place] coronary artery of [place] heart with unstable angina pectoris (HCC) 11/13/2024 8:30 AM CDT - 11/13/2024 11:00 AM CDT Surgery [facility] Cardiac Catheterization Lab [address] [place] [address] Stuart Denson MD [address], [address] [place], [place] [id number] PCI DUARTE MAJOR CORONARY [id number] - [id number] documented as of this encounter Goals Goal [...] on filedocumented in this encounter Care Teams Commercial Insulator Relationship Specialty Start Date End Date AnniCaitlin english SUNNY Wolf PCP - General Physician Spinner Operator 06/30/19 Katherine Calle MD [address] [facility] RHEUM[facility]OLOGY, [facility] [address] [place] [address] Consulting Physician Rheumatology 06/24/24 Stuart Denson MD [address], [address] [place] [address] Consulting Physician Cardiology 08/22/24 documented as of this encounter
--- OUTSIDE RECORDS SUMMARY | 2024-11-10 11:10 | XMS_ITS | Clinical Summary ---
Author Organization [facility] Address [address] [address] Care Team Providers Care Chief Jailer Name Role Phone [facility] Pr ovider Katherine Calle MD Unavailable [phone] Stuart Lynch MD Unavailable Allergies No known active allergies Medications amLODIPine (NORVASC) 5 mg tabletIndications:hype rtension Take 1 tablet (5 mg total) by mouth preparole counseling aide before breakfast 013 Active traMADoL (ULTRAM) 50 mg tablet Take 1 tablet (50 mg total) by mouth every 6 (six) hours as needed for pain 15 tablet 023 Active Additional Information Patient taking differently:50 mg oral Every 6 hours PRN, pain,Indications: Pain, Informant: Self, Reported on 10/09/2024 inFLIXimab (Remicade) 100 mg injectionIndications:R heumatoid Arthritis [...] to 3 doses total 25 tablet 3 023 Active Additional Information Patient taking differently:0.4 mg sublingual Every 5 min PRN, chest pain, May repeat dose q 5 min, up to 3 doses totalLast dose 08/01/2024 x2, Indications: acute episode of anginal pain, Informant: Self, Reported on 08/15/2024 Wixela Inhub 250-50 mcg/dose diskus inhalerIndications: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 D SOB Inhale 1 puff daily as needed (COPD SOB) 023 Active Vitamin D2 1,250 mcg (50,000 unit) capsuleIndications:Vit mack D Deficiency Take 1 capsule (50,000 Units total) by mouth once a week Sunday 025 Active leflunomide (ARAVA) 10 mg tabletIndications:Rheu matoid arthritis involving multiple sites, unspecified whether rheumatoid factor present (HCC) TAKE 1 TABLET BY MOUTH EVERY DAY 90 tablet 1 025 Active Additional Information Patient taking differently:10 mg oralDaily (early AM), Indications: Rheumatoid Arthritis, Informant: Self, Reported on 10/09/2024 pregabalin (LYRICA) 25 mg capsule Take 1 capsule (25 mg total) by mouth 3 (three) times a day 90 capsule 3 025 Active Additional Information Patient taking differently:25 mg oral 3 times daily,Indications: Pain from RA, Lupus, Informant: Self, Reported on 10/09/2024 evolocumab (Repatha SureClick) 140 mg/mL pen injectorIndications:Pu re hypercholesterolemia INJECT 1 ML SUBCUTANEOUSLY EVERY 2 WEEKS IN ABDOMEN,THIGH,OR OUTER AREA OF UPPER ARM (ROTATE SITES) 2 mL 11 025 Active lidocaine (LIDODERM) 5 %Indications:Osteonecr osis of left knee region (HCC),Chronic pain of left knee,Hypersensitivity, subsequent encounter,Wound of left lower extremity, sequela PLACE 1 PATCH ON THE LEFT BARRETO DAILY NEEDED FOR PAIN REMOVE & DISCARD PATCH WITHIN 12 HOURS. 30 patch 1 025 Active ALPRAZolam (XANAX) 0.25 mg tablet Take 1 tablet (0.25 mg total) by mouth 2 (two) times a day as needed for anxiety 025 Active aspirin 81 mg capsule Take 81 mg by mouth preparole counseling aide before breakfast Active clopidogreL (PLAVIX) 75 mg tablet Take 1 tablet (75 mg total) by mouth daily Initial dose 600mg, then 75 mg daily thereafter. 38 tablet 11 025 2025 Active ticagrelor (BRILINTA) 90 mg tablet Take 1 tablet (90 mg total) by mouth 2 (two) times a day 60 tablet 6 025 2024 Disconti nued(Alt ernate therapy) Active Problems Problem Noted Date Diagnosed Date CAD (coronary artery disease) 10/09/2024 Coronary artery disease invo lving [place] coronary artery of [place] heart with unstable angina pectoris 10/09/2024 Abnormal nuclear stress test 09/23/2024 Hypercholesterolemia 09/23/2024 [...] (05/11/2022): Added automatically from request for surgery [id number] Assessment & Plan (07/16/2022 1:14 AM CDT): Leonardo Patel is doing well after Bilateral Upper Eyelid [...] BID+ Assessment & Plan (04/21/2022 10:40 AM TABLE MAKER): Moderate to severe dry eye disease No improvement with Restasis in the past Recommend retain artificial tear drops 3 to 4 times a day Continue lubricating ointment at night Add daily steroid Blepharospasm of both eyes 04/21/2022 Assessment & Plan (04/21/2022 10:40 AM TABLE MAKER): Patient at that this should improve with the dry eye Age-related nuclear cataract, bilateral 04/21/19 Assessment & Plan (06/13/2023 9:16 AM CDT): Defer cataract surgery until signs and symptoms indicate. Pt was educated on the diagnosis. Recommend daily UV protection. Release updated glasses Rx Assessment & Plan (04/21/2022 10:41 AM TABLE MAKER): Not yet visually significant, monitor Xanthelasma of [...] future. Assessment & Plan (04/06/2022 4:57 PM TABLE MAKER): Risks, benefits and alternatives were discussed. Risks [...] ptosis repair follow as scheduled with Dr. Martins - sai verudgo to incision sites Assessment & Plan (05/11/2022 [...] future. Assessment & Plan (04/06/2022 4:59 PM TABLE MAKER): Bilateral upper eyelid ptosis with symptomatic visual [...] Encounters Date Type Department Care Team Description 11/10/2024 Telephone [facility] Medical Group Cardiology [address] [place] [address] Stuart Lynch MD 11/06/2024 Telephone [facility] Cardiology [address] [facility] [address] [place] [address] Stuart Lynch MD 11/03/2024 Telephone [facility] Medicine Rheumatology [address] [facility] 5th [place] [address] [place] [phone] Katherine Calle MD 10/24/2024 1:00 PM CDT Infusion [facility]fusion [facility] [address] [place] [phone] Rheumatoid arthritis involving multiple sites, unspecified whether rheumatoid factor present (HCC) (Primary Dx) 10/23/2024 Telephone [facility] Cardiology [address] [place] [address] Stuart Lynch MD 10/15/2024 [facility] Post Discharge Follow up phone call [address] [address] Ratna Jung RN 10/14/2024 Telephone [facility] Cardiology [address] [place] [address] Stuart Lynch MD 10/10/2024 Telephone [facility] Medicine Surgery [address] [facility] 6th [place] [address] [place] [phone] Marisela Avalos 10/09/2024 11:30 AM CDT - 10/09/2024 1:00 PM CDT Surgery [facility] Cardiac Catheterization Lab [address] [place] [address] Stuart Lynch MD LEFT HEART CATHETERIZATION WITH CORONARY ANGIOGRAPHY GRAFT AND WITH OR WITHOUT LEFT VENTRICULOGRAM [id number] 10/09/2024 9:08 AM CDT - 10/10/2024 2:50 PM CDT Hospital Encounter [address] [address] Stuart Lynch MD Abnormal nuclear stress test; Hypercholesterolemia Discharge Disposition: Discharge to home or self care 10/03/2024 Orders Only [facility] Scanning, Provider 09/29/2024 Telephone [facility] [address] [facility] [address] 5th [place] [address] Katherine Calle MD 09/25/2024 Telephone [facility] Medicine Rheumatology [address] [facility] [address] 5th Floor [address] [place] [phone] Kanika Cee MD 09/24/2024 Orders Only [facility] Scanning, Provider 09/23/2024 Results Follow-Up [facility] Cardiology [address] [place] [phone] Misti Michel NP CTA Heart and Coronary Arteries W Morphology when Performed 09/22/2024 12:00 PM CDT - 09/22/2024 11:59 PM CDT Hospital Encounter [facility] ([facility]) [address] [place] [address] Abnormal nuclear stress test; Encounter for pre-operative cardiovascular clearance Discharge Disposition: Discharge to home or self care 09/05/2024 12:00 PM CDT Infusion [facility] Specialty Infusion Center [address] [place] [address] Rheumatoid arthritis involving multiple sites, unspecified whether rheumatoid factor present (HCC) (Primary Dx) 08/26/2024 10:30 AM CDT Office Visit [facility] Cardiology [address] [place] [phone] Misti Michel NP Abnormal nuclear stress test (Primary Dx); Hypertension, unspecified type; Pure hypercholesterolemia; Lipid screening; Encounter for pre-operative cardiovascular clearance 08/26/2024 Telephone [facility] Cardiology [address] [place] [phone] Misti Michel NP Med Change Request 08/25/2024 Telephone [facility] Cardiology [address] [place] [phone] Misti Michel NP 08/22/2024 Telephone [facility] Surgery [address] [facility] 6th [place] [address] Inés De Jesus 08/21/2024 [facility] [address] [facility] 6th [place] [address] Marisela Avalos 08/20/2024 [facility] [address] [facility] 6th [place] [address] Inés De Jesus 08/20/2024 [facility] [address] [facility] [address] [facility] [place] [address] Marisela Avalos SURGERY CANCELLATION 08/18/2024 Telephone [facility] Medicine Surgery [address] [facility] [address] [facility] [place] [address] Inés De Jesus 08/15/2024 11:59 PM CDT Anesthesia Event [facility] Operating [facility] [address] [place] [address] Sharona Mariano NP from Last 3 Months Immunizations Immunization Administration Dates Next Due Tdap 05/15/2023 Surgical History Surgery Date Site/Laterality Comments TUBAL LIGATION 02/26/1979 - 02/26/1980 KNEE CARTILAGE SURGERY 02/27/2012 - 02/25/2013 Can't remember which knee COLONOSCOPY 02/26/2023 - 02/26/2024 N/A CARDIAC CATHETERIZATION 10/09/2024 N/A Procedure: LEFT HEART CATHETERIZATION WITH CORONARY ANGIOGRAPHY GRAFT AND WITH OR WITHOUT LEFT VENTRICULOGRAM [id number]; Surgeon: Stuart Lynch MD; Location: [facility]; Service: Cardiovascular; Laterality: N/A; Medical devices from this surgery are in the Medical Devices section. CARDIAC CATHETERIZATION 10/09/2024 N/A Procedure: ULTRASOUND GUIDANCE FOR VASCULAR ACCESS S&I 81824; Surgeon: Stuart Lynch MD; Location: [facility]; Service: Cardiovascular; Laterality: N/A; Medical devices from this surgery are in the Medical Devices section. CARDIAC CATHETERIZATION 10/09/2024 N/A Procedure: IVUS/OCT CORS OR GRAFTS, FIRST VESSEL (+) [id number]; Surgeon: Stuart Lynch MD; Location: [facility]; Service: Cardiovascular; Laterality: N/A; Medical devices from this surgery are in the Medical Devices section. CARDIAC CATHETERIZATION 10/09/2024 N/A Procedure: PCI DUARTE MAJOR CORONARY [id number] - [id number]; Surgeon: Stuart Lynch MD; Location: [facility]; Service: Cardiovascular; Laterality: N/A; Medical devices from this surgery are in the Medical Devices section. Medical History Medical History Date Comments Hypertension [...] on file Legal Sex Female 10:27 PM TABLE MAKER Gender Identity Female 08/07/2018 2:56 PM CDT Sexual Orientation Not on file Obstetrics History Last Filed Vital Signs Vital Sign Reading Time Taken Comments Blood Pressure 127/85 10/24/2024 4:40 PM CDT Pulse 84 10/10/2024 12:36 PM CDT Temperature 36.2 C (97.1 F) 10/24/2024 1:41 PM CDT Respiratory Rate 18 10/10/2024 12:36 PM CDT Oxygen Saturation 98% 10/10/2024 12:36 PM CDT Inhaled Oxygen Concentration - - Weight 78.7 kg (173 lb 8 oz) 10/24/2024 1:41 PM CDT Height 170.2 cm (5' 7) 10/24/2024 1:41 PM CDT Body Mass Index 27.17 10/24/2024 1:41 PM CDT Plan of Treatment Upcoming Encounters Date Type Department Care Team (Latest Contact Info) Description 11/13/2024 8:30 AM CDT Hospital Encounter [facility] Cardiac Catheterization Lab [id number] [place] [address] Stuart Lynch MD [address] [facility] [address] , [address] [address] Coronary artery disease, unspecified vessel or lesion type, unspecified whether angina present, unspecified whether [place] or transplanted heart; Chest pain, unspecified type; Coronary artery disease involving [place] coronary artery of [place] heart with unstable angina pectoris (HCC) 11/13/2024 8:30 AM CDT - 11/13/2024 11:00 AM CDT Surgery [facility] Cardiac Catheterization Lab [id number] [place] [address] Stuart Lynch MD [address] [place] [address], [address] [address] PCI DUARTE MAJOR CORONARY [id number] - [id number] Health Maintenance Due Date Last Done Comments Breast Cancer Screening-Mammogram 1955 Colon Cancer Screening-Colonoscopy 1955 Depression Screening 1955 Osteoporosis Screening-Bone Density Scan 1955 Hepatitis B Screening 1972 Zoster Vaccine (1 of 2) 1973 Pneumococcal vaccine 65+ (2 of 2 - PPSV23, PCV20, or PCV21) 02/10/2013 12/16/2012 Well Visit 65+ 10/09/2019 Covid-19 Vaccine (3 - season) 2024, 11/09/2020 Influenza Vaccine (#1) 2024 6, 02/26/2014, 11/28/2012 Fall Risk Assessment 10/10/2025 10/10/2024 DTaP/Tdap/Td Vaccine (2 - Td or Tdap) [...] lifestyle strategies and compensatory methods as needed Medical Devices Implanted Type Area Drawing Press Operator Device Identifier Shelf Expiration Date Model / Serial / Lot Medtronic Card Vasc Surgery 3.5 X 12mm Anand [place] Rx Coronary Stent [id number] - [id number] Implanted:Qty: 1 on 10/09/2024 by Stuart Lynch MD at [facility] Medtronic Card Vasc Surgery 02/05/2027 [id number] / / [id number] Medtronic Card Vasc Surgery 4.0 X 38mm Crumrod [place] Rx Coronary Stent [id number] - [id number] Implanted:Qty: 1 on 10/09/2024 by Stuart Lynch MD at [facility] Medtronic Card Vasc Surgery 09/16/2026 [id number] / / [id number] Medtronic Card Vasc Surgery 4.5 X 26mm Crumrod [place] Rx Coronary Stent [id number] - [id number] Implanted:Qty: 1 on 10/09/2024 by Stuart Lynch MD at [facility] Medtronic Card Vasc Surgery 02/13/2026 [id number] / / [id number] [employer] V[employer] System Closure Repair Femoral Artery Suture Mediated Perclose Prostyle [id number] - [id number] Implanted:Qty: 1 on 10/09/2024 by Stuart Lynch MD at [facility] [employer] 07/26/2026 [id number] / / [id number] Procedures Procedure Name Priority Date/Time Associated Diagnosis Comments TRANSTHORACIC ECHO (TTE) COMPLETE W DOPPLER/CF WO CONTRAST Routine 10/10/2024 9:49 AM CDT PCI DUARTE STENT ADDTN'L COR BRANCH (+) [id number] Routine 10/09/2024 1:42 PM CDT Abnormal nuclear stress test Hypercholesterolemi a DUARTE MAJOR CORONARY Routine 10/09/2024 1:42 PM CDT Abnormal nuclear stress test Hypercholesterolemi a CORONARY OCT, 1ST VESSEL Routine 10/09/2024 1:42 PM CDT Abnormal nuclear stress test Hypercholesterolemi a VASCULAR ACCESS US GUIDANCE Routine 10/09/2024 1:42 PM CDT Abnormal nuclear stress test Hypercholesterolemi a LEFT HEART CATHETERIZATION WITH CORONARY ANGIOGRAPHY GRAFT AND LEFT VENTRICULOGRAM Routine 10/09/2024 1:42 PM CDT Abnormal nuclear stress test Hypercholesterolemi a MODERATE SEDATION 10/09/2024 11:40 AM CDT Abnormal nuclear stress test Hypercholesterolemi a EGFR Routine 10/09/2024 10:33 AM CDT CBC WITHOUT DIFFERENTIAL Routine 10/09/2024 10:33 AM CDT BASIC METABOLIC PANEL Routine 10/09/2024 10:33 AM CDT SCAN - LABS 10/03/2024 SCAN - LABS 09/24/2024 CT HEART MORPHOLOGY AND CORONARY ARTERIES W [...] Recently Relevant to Health Maintenance Results * TRANSTHORACIC ECHO (TTE) COMPLETE W DOPPLER/CF WO CONTRAST (10/10/2024 9:49 AM CDT) EF Mod BP 68 % CONS SCIMAGE Anatomical Region Laterality Modality Ultrasound 10/10/2024 8:37 AM CDT Narrative 10/10/2024 10:21 [place] [address] Echocardiogram Report Patient Name: LEONARDO PATEL C : 1955 Study Date: 10/10/2024 8:37:17 AM Gender: F Tech: Location: [id number] Ref Provider: STUART LYNCH Height(Cm): 170 BSA: 1.93 Weight(Kg): 79 Heart Rate: 74 BP: 103 / 68 Quality: Good Order Provider: STUART LYNCH PROCEDURES: Echocardiographic Report: Transthoracic echocardiogram with complete 2D, M-Mode, and color Doppler examination. INDICATIONS: Chest Pain and Coronary Artery Disease. MEASUREMENTS: 2D/MM Value Range Doppler Value Range EF Teich 2D 81.7 percent [ 54.0 - 74.0 ] BRAYDON Vmax 2.54 cm2 EF Mod BP 68 % [ 54 - 74 ] AV Mean PG 5 mmHg LVIDd 2D 4.01 cm [ 3.80 - 5.20 ] AV Peak Tavo 1.54 m/s [ 1.00 - 1.70 ] LVIDs 2D 2.01 cm [ 2.20 - 3.50 ] AV VTI 34.73 cm LVPWd 2D 1.09 cm [ 0.60 - 0.90 ] LVOT Diam 1.95 cm IVSd 2D 1.11 cm [ 0.60 - 0.90 ] LVOT Peak Tavo 1.27 m/s [ 0.70 - 1.10 ] LA Dimension 2D 4.24 cm [ 2.70 - 3.80 ] LVOT VTI 24.47 cm LA Dimension MM 4.28 cm [ 2.70 - 3.80 ] SI LVOT 41.7 ml/m2 [ >= 35.0 ] AoR Diam 2D 3.55 cm [ 2.70 - 3.70 ] MV E Peak Tavo 0.73 m/s [ 0.60 - 1.30 ] AoR Diam MM 3.15 cm [ 2.70 - 3.70 ] MV A Peak Tavo 1.12 m/s [ 1.00 - 1.20 ] LA Volume Index 31.15 cc/m2 [ 16.00 - 34.00 ] MV Mean PG 2 mmHg ACS MM 1.82 cm MV Decel Time 251 msec [ 104 - 258 ] PV Peak Tavo 0.92 m/s [ 0.40 - 0.80 ] TR Peak Tavo 2.56 m/s [ 1.00 - 2.80 ] TR Peak PG 26 mmHg E` 0.10 m/s E/E` 7.36 2D/MM Value Range Doppler Value Range - FINDINGS: Atrial Septum: Normal atrial septum. Left Ventricle: Normal left ventricular size. Mild concentric left ventricular hypertrophy. Normal global left ventricular systolic function. Impaired diastolic relaxation Grade I. Ejection fraction is measured at 68 %. Global Longitudinal Strain is -18 %. Left Atrium: Left atrial size is within upper limits of normal. Right Ventricle: Normal right ventricular size. Normal right ventricular systolic function. Right Atrium: The right atrium is normal in size. Aortic Valve: Trileaflet aortic valve. Aortic cusps appear mildly calcified. Mild aortic stenosis. Continued echo surveillance recommended. Valve area of 2.3 cm2. Mitral Valve: Mild mitral annular calcification. Trivial regurgitation of the mitral valve. Pulmonic Valve: Normal structure of the pulmonic valve. Trivial regurgitation in the pulmonic valve. Tricuspid Valve: Normal structure of the tricuspid valve. Estimated peak RVSP is 31 mmHg. Trivial regurgitation in the tricuspid valve. Pericardium: Normal pericardium with no significant pericardial effusion. Aorta: Mild aortic root calcification. IVC: Normal size and normal respiratory collapse consistent with normal right atrial pressure (<5 mmHg). CONCLUSIONS: Normal left ventricular size. Mild concentric left ventricular hypertrophy. Normal global left ventricular systolic function. Impaired diastolic relaxation Grade I. Ejection fraction is measured at 68 %. Global Longitudinal Strain is -18 %. Normal right ventricular size. Normal right ventricular systolic function. Mitral annular calcification. Trivial regurgitation of the mitral valve. Aortic cusps appear mildly calcified. Trileaflet aortic valve. Mild aortic stenosis. BRAYDON 2.3 cm2. Continued echo surveillance recommended. Estimated RVSP 31 mmHg. Trivial regurgitation in the tricuspid valve. Electronically Signed By: Stuart Lynch MD, [facility] 10/10/2024 10:20:17 AM CDT Procedure Note Stuart Lynch MD - 10/10/2024 [place] [address] Echocardiogram Report Patient Name: LEONARDO PATEL C : 1955 Study Date: 10/10/2024 8:37:17 AM Gender: F Tech: Location: [place] [address] Ref Provider: STUART LYNCH Height(Cm): 170 BSA: 1.93 Weight(Kg): 79 Heart Rate: 74 BP: 103 / 68 Quality: Good Order Provider: STUART LYNCH PROCEDURES: Echocardiographic Report: Transthoracic echocardiogram with complete 2D, M-Mode, and color Dopplerexamination. INDICATIONS: Chest Pain and Coronary Artery Disease. MEASUREMENTS: 2D/MM Value Range DopplerValue Range EF Teich 2D 81.7 percent [ 54.0 - 74.0 ] BRAYDON Vmax2.54 cm2 EF Mod BP 68 % [ 54 - 74 ] AV Mean PG 5mmHg LVIDd 2D 4.01 cm [ 3.80 - 5.20 ] AV Peak Vel1.54 m/s [ 1.00 - 1.70 ] LVIDs 2D 2.01 cm [ 2.20 - 3.50 ] AV VTI34.73 cm LVPWd 2D 1.09 cm [ 0.60 - 0.90 ] LVOT Diam1.95 cm IVSd 2D 1.11 cm [ 0.60 - 0.90 ] LVOT Peak Vel1.27 m/s [ 0.70 - 1.10 ] LA Dimension 2D 4.24 cm [ 2.70 - 3.80 ] LVOT VTI24.47 cm LA Dimension MM 4.28 cm [ 2.70 - 3.80 ] SI LVOT41.7 ml/m2 [ >= 35.0 ] AoR Diam 2D 3.55 cm [ 2.70 - 3.70 ] MV E Peak Vel0.73 m/s [ 0.60 - 1.30 ] AoR Diam MM 3.15 cm [ 2.70 - 3.70 ] MV A Peak Vel1.12 m/s [ 1.00 - 1.20 ] LA Volume Index 31.15 cc/m2 [ 16.00 - 34.00 ] MV Mean PG 2mmHg ACS MM 1.82 cm MV Decel Gdmc525 msec [ 104 - 258 ] PV Peak Tavo 0.92 m/s [ 0.40 - 0.80 ] TR Peak Tavo 2.56 m/s [ 1.00 - 2.80 ] TR Peak PG 26 mmHg E` 0.10 m/s E/E` 7.36 2D/MM Value Range DopplerValue Range - FINDINGS: Atrial Septum: Normal atrial septum. Left Ventricle: Normal left ventricular size. Mild concentric left ventricularhypertrophy. Normal global left ventricular systolic function. Impaired diastolic relaxation Grade I.Ejection fraction is measured at 68 %. Global Longitudinal Strain is -18 %. Left Atrium: Left atrial size is within upper limits of normal. Right Ventricle: Normal right ventricular size. Normal right ventricular systolicfunction. Right Atrium: The right atrium is normal in size. Aortic Valve: Trileaflet aortic valve. Aortic cusps appear mildly calcified. Mild aorticstenosis. Continued echo surveillance recommended. Valve area of 2.3 cm2. Mitral Valve: Mild mitral annular calcification. Trivial regurgitation of the mitralvalve. Pulmonic Valve: Normal structure of the pulmonic valve. Trivial regurgitation in thepulmonic valve. Tricuspid Valve: Normal structure of the tricuspid valve. Estimated peak RVSP is 31 mmHg.Trivial regurgitation in the tricuspid valve. Pericardium: Normal pericardium with no significant pericardial effusion. Aorta: Mild aortic root calcification. IVC: Normal size and normal respiratory collapse consistent with normal rightatrial pressure (<5 mmHg). CONCLUSIONS: Normal left ventricular size. Mild concentric left ventricularhypertrophy. Normal global left ventricular systolic function. Impaired diastolic relaxation Grade I.Ejection fraction is measured at 68 %. Global Longitudinal Strain is -18 %. Normal right ventricular size. Normal right ventricular systolicfunction. Mitral annular calcification. Trivial regurgitation of the mitral valve. Aortic cusps appear mildly calcified. Trileaflet aortic valve. Mild aorticstenosis. BRAYDON 2.3 cm2. Continued echo surveillance recommended. Estimated RVSP 31 mmHg. Trivial regurgitation in the tricuspid valve. Electronically Signed By: Stuart Lynch MD, [facility] 10/10/2024 10:20:17 AM CDT us Stuart Lynch MD CV ECHO PROCEDURES Final Result * LEFT HEART CATHETERIZATION WITH CORONARY ANGIOGRAPHY GRAFT AND LEFT VENTRICULOGRAM, VASCULAR ACCESSUS GUIDANCE, CORONARY OCT, 1ST VESSEL, DUARTE MAJOR CORONARY, PCI DUARTE STENT ADDTN'L COR BRANCH (+) [id number] (10/09/2024 1:42 PM CDT) Anatomical Region Laterality Modality X-Ray Angiograph y Narrative 10/09/2024 2:12 PM CDT CARDIAC CATHETERIZATION AND INTERVENTION REPORT DATE OF PROCEDURE: 10/09/24 INDICATION FOR PROCEDURE: CAD, unstable angina BRIEF CLINICAL HISTORY: Leonardo Patel is a 69 y.o. female with CAD, hypertension, RA, dyslipidemia. Patient has been experiencing worsening exertional chest pain for last 2-3 months. She has been on medical treatment including aspirin, PCSK9 inhibitor; and antianginals. She continued to have exertional chest discomfort. She had coronary CTA done on 09/22/2024 which reportedly showed noncalcified atherosclerotic plaque of mid RCA-70-99% stenosis. Calcium score was reported to be 0. Coronary angiogram was recommended. Benefits and risks of the procedure were discussed with the patient in depth, and informed consent was taken prior to the procedure. Risks of the procedure include but are not limited to vascular complications like groin hematoma, retroperitoneal bleed, vessel perforation; periprocedural FL, cardiac arrhythmias, stroke, contrast induced nephropathy, and . After discussing all the benefits, risks and alternatives, patient was willing to proceed with the procedure. PROCEDURES PERFORMED: Ultrasound-guided right radial arterial access Selective left and right coronary angiogram Percutaneous coronary intervention- A) intravascular ultrasound (IVUS) of right coronary artery; B) balloon angioplasty and stenting of diffusely diseased RCA using 4.0 x 38 mm and 4.5 x 26 mm Medtronic anand [place] zotarolimus eluting stents in an overlapping fashion); B) balloon angioplasty and stenting of ostial RPDA using a 3.5 x 12 mm Medtronic anand [place] zotarolimus eluting stent (ZES); balloon angioplasty of focal stenosis in the distal RPDA Moderate sedation-CPT code 70221 and beyond Deployment of Perclose vascular closure device at right common femoral arterial access site MODERATE SEDATION: Midazolam 4 mg , Fentanyl 100 mcg, start time 1202 stop time 1342, total direct [id number] monitoring of conscious sedation 100 minutes (CPT 63848) TRAINED OBSERVER: Vijaya Travis RN was trained observer for moderate sedation. ACCESS SITE: Right radial artery and right common femoral artery. Patient had severe spasm in the right radial artery and most of the PCI was performed through the right common femoral arterial access site. PROCEDURE: After obtaining informed consent, patient was brought to the laborer vegetable farm and prepped and draped in the usual sterile manner. Time-out and immediate reassessment of the patient was performed. After local anesthesia with lidocaine, right radial artery access was taken with micropuncture needle under ultrasound guidance followed by insertion of a 6 Kenyan sheath. Patient received 2.5 mg of verapamil, 100 mcg of nitroglycerin through the arterial sheath. She was also given 5000 units of heparin IV. During intervention, patient received bivalirudin for procedural anticoagulation. Selective left and right coronary angiography was performed using 5 F JL3.5 and 5F JR4 catheters respectively. Orthogonal views were taken. Estimated blood loss was minimal. All specimens removed. The angiographic and other findings, and details of intervention are given below. FINDINGS: LEFT MAIN CORONARY: Large caliber vessel, no significant focal stenosis. LEFT ANTERIOR DESCENDING ARTERY: Lad is a medium to large caliber vessel in the proximal segment with mild diffuse disease. Vessel tapers distally and becomes small-caliber vessel and does not reach LV apex. Major diagonal branch is a medium to large caliber vessel with mild diffuse plaque in the ostial-proximal segment. LEFT CIRCUMFLEX ARTERY: Medium to large caliber vessel; gives rise to small /diminutive OM1 branch; and large caliber, tortuous OM2 branch which has about 70 % stenosis at the ostium. The remaining OM branches are small-caliber vessel. Main LCX is small-caliber vessel and continues in the AV groove. RIGHT CORONARY ARTERY: Large caliber, dominant vessel with diffuse disease. There is diffuse ectasia in the RCA with about 80% stenosis in the mid segment. About 70-80% stenosis seen at the ostium of the large caliber RPDA. Distal segment of RPDA has high-grade focal about 80-90% stenosis. RPL branch is a medium to large caliber vessel without significant focal stenosis. LEFT VENTRICULOGRAM: Not performed HEMODYNAMIC ASSESSMENT: Opening pressure 101/63, closing pressure 194/98 mmHg. INTERVENTION REPORT: Based on patient's clinical presentation and angiographic findings, we proceeded with the intervention on the diffusely diseased RCA including RPDA branch. 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 Bivalirudin was used for procedural anticoagulation. Initially, we proceeded with the PCI through the right radial arterial access. RCA ostium was selectively engaged using 6 Kenyan AL1 guide catheter. The stenosis in the RCA and RPL was crossed using 0.014 luge wire. Next, balloon angioplasty was performed using a 2.5 x 8 mm NC balloon in the focal stenosis in the distal segment of the RPDA with good angiographic results. The same balloon was used for balloon angioplasty of the ostial RPL branch. IVUS was performed using WeGathero venetie ira eye catheter which showed distal reference diameter of 3.8 x 4.2 mm; proximal reference diameter 4.8 x 5.7 mm. Next, 4.0 x 20 mm scoring balloon was advanced, however, there was difficulty in advancing the balloon. Patient had severe radial artery spasm and it was difficult to realign the guide catheter to the RCA ostium. Despite adequate sedation and intra-arterial vasodilators including verapamil and nitroglycerin, the radial artery vasospasm did not improve. In light of this, access was taken in the right common femoral artery with micropuncture needle followed by insertion of a 6 Kenyan sheath. RCA was selectively engaged using 3DRC guide catheter. The stenosis in the RCA and RPDA was crossed using 0.014 Asahi black wire. Next, balloon angioplasty was performed using the same 4.0 x 20 mm squared flex balloon. Balloon angioplasty was performed in the diffusely diseased segments of the RCA. Next, a 3.5 x 12 mm Medtronic anand [place] ZES was deployed at a maximum of 16 atmospheres at the ostium of the RPDA. Postdilation was performed using the stent balloon with good angiographic results. Next, 4.0 x 38 mm and 4.5 x 26 mm Medtronic anand [place] ZES were deployed in the RCA in an overlapping fashion from distal to proximal segment. Postdilation was performed using a 5.0 x 15 mm NC balloon at high inflation pressures. IVUS was performed which showed reasonable stent apposition. Final angiogram after removal of the wire showed good angiographic results without any angiographically visible dissection or distal embolization. Patient had ST segment elevation during the intervention which resolved post PCI. Due to severe hypertension, patient received IV metoprolol 10 mg IV in 2 divided doses which resulted in improvement in the blood pressure. Right common femoral arterial access site hemostasis was achieved with deployment of Perclose vascular closure device with supplemental manual pressure. Radial band was applied for local hemostasis of the right radial arterial access site. Patient tolerated procedure well without any immediate procedural complications. CONCLUSIONS: CAD- A) about 70% stenosis at the ostium of OM2 branch; B) diffusely diseased, ectatic RCA with about 80% stenosis in the mid segment; 70-80% stenosis at the ostium of RPDA; high-grade focal stenosis in the distal segment of RPDA. PCI-IVUS, PTCA/stenting of diffusely diseased RCA using 4.0 x 38 mm and 4.5 x 26 mm Medtronic anand [place] ZES in an overlapping fashion; PTCA/stenting of ostial RPDA using a 3.5 x 12 mm Medtronic anand [place] ZES; POBA of distal RPDA. PLAN/RECOMMENDATIONS: Dual antiplatelet therapy with aspirin and ticagrelor, preferably for 6 months or longer if patient is able to tolerate; in addition to other medications including continuation of PCSK9 inhibitor. Symptoms/ischemia guided PCI of the OM branch can be considered in future based on clinical course. Due to complexity of the procedure and insufficient social support, patient will be admitted overnight for observation, and likely discharged home tomorrow if clinically stable. Outpatient cardiology follow up. Voice recognition software was used to complete this document, therefore, therapeutic case manager variances may occur. Stuart Lynch MD, [facility] 10/09/24 us Stuart Lycnh MD CV CARDIAC CATH PROCEDURES Final Result * eGFR (10/09/2024 10:33 AM CDT) eGFR >90 >=60 mL/min/1. 73 m2 Comment: Interpretive Data Reference Interval Normal >/= 90 mL/min/1.73m2 Mildly decreased* 60 - 89 mL/min/1.73m2 Mildly to moderately decreased 45 - 59 mL/min/1.73m2 Moderately to severely decreased 30 - 44 mL/min/1.73m2 Severely decreased 15 - 29 mL/min/1.73m2 Kidney Failure < 15 mL/min/1.73m2 *Relative to young adult level Estimated glomerular filtration rate is determined by the 2020 CKD-EPI equation recommended by the National Kidney Foundation (A Unifying Approach to GFR Estimation: Recommendations of the NKF-ASK Task Force on Reassessing the Inclusion of Race in Diagnosing Kidney Disease, JASN 2020). The CKD-EPI equation should not be used for patients with unstable renal function and has not been validated in children and those over 70. Current interpretive data was last reviewed 2020. Blood 10/09/2024 10:3 3 AM CDT 10/09/2024 10:49 AM CDT Stuart Lynch MD LAB BLOOD ORDERABLES Final Resul t Performing Organization Address City/[facility] Co de Phone Number [facility] [address] [place] [address] * (ABNORMAL) CBC without differential (10/09/2024 10:33 AM CDT) WBC 3.19(L) 3.80 - 9.90 K/cumm Hgb 11.9 11.9 - 15.5 g/dL [facility] Hct 37.6 35.6 - 45.5 % [facility] Plt 276 150 - 400 K/cumm [facility] MPV 9.0(L) 9.1 - 12.3 fL [facility] RBC 4.58 3.90 - 5.20 M/cumm [facility] MCV 82.1 81.3 - 96.4 fL [facility] MCH 26.0(L) 27.1 - 33.3 pg [facility] MCHC 31.6(L) 32.3 - 35.7 g/dL [facility] RDW CV 14.6 11.1 - 14.9 % [facility] RDW SD 43.8 35.7 - 48.1 fL [facility] NRBC abs 0.00 0.00 - 0.01 K/cumm [facility] Blood 10/09/2024 10:3 3 AM CDT 10/09/2024 10:49 AM CDT Narrative [facility] - 10/09/2024 11:03 AM CDT If most recent labs were drawn prior to 4 AM, draw only prior to initiating procedure. Stuart Lynch MD LAB BLOOD ORDERABLES Final Resul t Performing Organization Address [facility] Co de Phone Number JORGE DOMINGO [address] [place] [address] * Basic metabolic panel (10/09/2024 10:33 AM CDT) Sodium 136 135 - 145 mmol/L Potassium, pl 4.0 3.3 - 4.9 mmol/L [facility] Comment:Hemolysis present. R esults may be affected. Chloride 104 97 - 110 mmol/L [facility] CO2 24 22 - 32 mmol/L [facility] Anion gap 8 2 - 15 mmol/L [facility] BUN 8 6 - 25 mg/dL [facility] Creatinine 0.65 0.60 - 1.10 mg/dL [facility] Glucose 93 70 - 199 mg/dL [facility] Comment: Interpretive Data Fasting glucose >/= 126 mg/dl is diagnostic for diabetes. Fasting is defined as no caloric intake for at least 8 hours. Fasting glucose between 100 mg/dl to 125 mg/dl is diagnostic of prediabetes. In a patient with classic symptoms of hyperglycemia or hyperglycemic crisis, a random glucose >/= 200 mg/dl is diagnostic for diabetes. In the absence of unequivocal hyperglycemia, results should be confirmed by repeat testing. The classification and Diagnosis of Diabetes Diabetes Care 2021; 46: S19-S40. Current interpretive data was last revised 2022. Calcium 9.1 8.5 - 10.3 mg/dL [facility] Blood 10/09/2024 10:3 3 AM CDT 10/09/2024 10:49 AM CDT us Stuart Lynch MD LAB BLOOD ORDERABLES Final Resul t JORGE [address] [place] [address] * SCAN - LABS (10/03/2024) us Provider Scanning Final Result * SCAN - LABS (09/24/2024) us Provider Scanning Final Result * CTA Heart and Coronary Arteries W [...] POCT lipid panel (08/26/2024 10:17 AM CDT) Cholesterol, POC 416 <200 MG/DL HDL, POC [...] last revised on 2019. Testing performed by: [facility], [address] [place] [address]., [id number] Blood 08/09/2021 12:5 2 PM CDT 08/09/2021 4:13 PM CDT Katherine Calle MD LAB MICROBIOLOGY - GENERAL ORDERABLES Final Result [facility] [address] [facility] [place] [address] from Last 3 Months or Most Recently Relevant to Health Maintenance Insurance [facility] MEDICARE ADVANTAGE [id number] [facility] [address] [place] [place] [id number] [facility] MEDICARE ADVANTAGE IDPA Care Teams Chief Jailer Relationship Specialty Start Date End Date Caitlin Luo PA PCP - General Physician Roller Helper 06/30/19 Katherine Calle MD [address] [facility] RHEUMATOLOGY, [address] [address] Consulting Physician Rheumatology 06/24/24 Stuart Lynch MD [address] [facility] [address] [facility], [facility] [address] [place] [address] Consulting Physician Cardiology 08/22/24
== END 2024-11-10 09:55 | disposition home or self-care (01) ==
PROVIDERS: PCP Physician Assistant; Visit Provider Internal Medicine Cardiovascular Disease
DX: I25.10 Atherosclerotic heart disease of native coronary artery without angina pectoris (principal); Z01.812 Encounter for preprocedural laboratory examination
CPT/HCPCS: 36415; 80053; 85025

== ENCOUNTER 2024-12-01 06:52 | Outpatient (CLI) | payer MEDICARE, MEDICAID, SELFPAY ==
--- NOTE | ~2024-12-01 | US_ITS ---
ULTRASOUND ABDOMEN LIMITED (RIGHT UPPER QUADRANT) Clinical History: Elevated liver enzymes Comparison: None Technique: Right upper quadrant sonography Findings: Liver: Normal size. Echogenic. No intrahepatic biliary ductal dilatation. Normal hepatopedal flow main portal vein. Common Duct: Normal caliber. 3 mm. Gallbladder: No stones. No wall thickening. No pericholecystic fluid. Pancreas: Unremarkable. Right kidney: Unremarkable. Retrohepatic IVC: Unremarkable. IMPRESSION: 1. No acute findings. 2. Hepatic steatosis and/or diffuse hepatocellular disease. Reviewed, dictated and finalized at location R.
== END 2024-12-01 06:53 | disposition home or self-care (01) ==
LOC: MICIMG 06:53
PROVIDERS: PCP Physician Assistant; Visit Provider Physician Assistant
DX: R74.8 Abnormal levels of other serum enzymes (principal); K90.9 Intestinal malabsorption, unspecified; E83.01 Wilson's disease
CPT/HCPCS: 76705

== ENCOUNTER 2024-12-11 08:59 | Outpatient (CLI) | payer MEDICARE, MEDICAID, SELFPAY ==
--- OUTSIDE RECORDS SUMMARY | 2024-01-09 05:00 | XMS_ITS ---
Author Organization [facility] Address [address] [address] Care Team Providers Care Under Seal Operator Name Role Phone SHANICE LORENZO Unavailable [phone] DARNELL ESCOTO Unavailable Unavailable Encounters Encounter Location Date Provider Diagnosis [facility] [address] [address] 01/09/2024 SHANICE LORENZO Plan Of Treatment No Information Progress Notes * JORGEYOLIE VillanuevaRegina CDOB: (69 yo F)Acc No.[id number]:01/09/2024 Progress Notes Patient: LEONARDO NEFF Provider: Kristy LORENZO M.D. :1955 A ge:68 Y S ex:Female Date:01/09/2024 Address:[address] [place], [place] [id number] Subjective: * Chief Complaints: * * Medical History: Objective: * Vitals: Assessment: Plan: * Treatment: * * Electronic signature of SANTA LORENZO MD on 12/11/2024 at 09:40 AM CDT Sign off status: Pending * Provider: Kristy LORENZO M.D. Date: 03/10/2023 Generated for Michael ortega/Gera/Jerri on: 09:40 AM CDT
--- NOTE | ~2024-12-11 | US_ITS ---
EXAMINATION: US arterial duplex LE RT DATE: 12/11/2024 10:30 INDICATION: Right groin pain post coronary angiogram TECHNIQUE: Multiple grayscale and Doppler ultrasound images of the right groin were obtained. COMPARISON: None FINDINGS: Normal arterial waveforms with brisk systolic upstrokes at the right external iliac, common femoral, superficial femoral and deep femoral arteries. Small of nonhemodynamically significant atherosclerotic plaque at the right common femoral artery. No pseudoaneurysm or hematoma. Normal venous waveforms which augment at the right common femoral and external iliac veins with no arterialization to suggest AV fistula. IMPRESSION: 1. Normal ultrasound of the right groin with no hematoma or pseudoaneurysm. Reviewed, dictated and finalized at location A.
--- OUTSIDE RECORDS SUMMARY | 2024-12-11 09:41 | XMS_ITS | Encounter Summary ---
Author Organization 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 Gender Identity Female 08/07/2018 2:56 PM CDT [...] on filedocumented in this encounter Care Teams Director Of Special Events Relationship Specialty Start Date End Date Caitlin Luo PA PCP - General Physician Resolution Specialist 06/30/19 Katherine Calle MD 49[address] [facility] RHEUMATOLOGY, [address] [address] Consulting Physician Rheumatology 06/24/24 Stuart Denson MD 12[address] [facility] [address] [facility], [facility] [address] [place] [address] Consulting Physician Cardiology 08/22/24 documented as of this encounter
--- OUTSIDE RECORDS SUMMARY | 2024-12-11 09:41 | XMS_ITS | Clinical Summary ---
Author Organization [facility] Address [address] [place] [address] Care Team Providers Care Plastic Surgery Manager Name Role Phone Unavailable Primary Care Provider Unavailabl e Immunizations Immunization Administration Dates Next Due Covid-19 Vaccine, Vector-nr, Rs-ad26, Pf, 0.5 Ml ([employer]) 11/09/2020 Social History Tobacco Use Types Packs/Day [...]
--- OUTSIDE RECORDS SUMMARY | 2024-12-11 09:41 | XMS_ITS | Clinical Summary ---
Author Organization [facility] Address [address] [facility] [place] [address] Care Team Providers Care Management Assistant Name Role Phone Caitlin Covarrubias Primary Care Pr ovider Source Comments [facility],non-owned Affiliates and Associated Physician Practices is amultiple site organization consisting of ambulatory clinics and hospital sitesin [place], [place], [place] and [place]. This disclosure is being madepursuant to the Care Everywhere program and may not contain all information available regarding this patient. 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
--- OUTSIDE RECORDS SUMMARY | 2024-12-11 09:41 | XMS_ITS | Clinical Summary ---
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 013 Active traMADoL (ULTRAM) 50 mg tablet Take 1 tablet (50 mg total) by mouth every 6 (six) hours as needed for pain 15 tablet 023 Active inFLIXimab (Remicade) 100 mg injectionIndications:R heumatoid Arthritis Infuse 60 mL (600 mg total) IV every 6 (six) weeks Last dose 06/2024 Active Vitamin D2 1,250 mcg (50,000 unit) [...] Indications: Rheumatoid Arthritis, Informant: Self, Reported on 11/13/2024 pregabalin (LYRICA) 25 mg capsule Take 1 capsule (25 mg total) by mouth 3 (three) times a day 90 capsule 3 Active evolocumab (Repatha SureClick) 140 mg/mL pen injectorIndications:Pu re hypercholesterolemia INJECT 1 ML SUBCUTANEOUSLY EVERY 2 WEEKS IN ABDOMEN,THIGH,OR OUTER AREA OF UPPER ARM (ROTATE SITES) 2 mL 11 025 Active Additional Information Patient not taking.Reported on 11/28/2024 lidocaine (LIDODERM) 5 %Indications:Osteonecr osis of left [...] mg capsule Take 81 mg by mouth truck 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 38 tablet 11 025 2025 Active nitroglycerin (NITROSTAT) 0.4 mg SL tabletIndications:acut e episode of anginal pain Place 1 tablet (0.4 mg total) under the tongue every 5 (five) minutes as needed for chest pain May repeat dose q 5 min, up to 3 doses total 25 tablet 3 025 2025 Active albuterol (PROAIR RESPICLICK) 90 mcg/actuation inhaler Inhale 2 puffs every 6 (six) hours as needed for wheezing Active fluticasone/umeclidin/ vilanter (TRELEGY ELLIPTA INHAL) Inhale 1 puff 2 (two) times a day Active nitroglycerin (NITROSTAT) 0.4 mg SL tabletIndications:acut e episode of anginal pain Place 1 tablet (0.4 mg total) under the tongue every 5 (five) minutes as needed for chest pain May repeat dose q 5 min, up to 3 doses total 25 tablet 3 023 2024 Disconti nued(Reo rder) Wixela Inhub 250-50 mcg/dose diskus 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 Inhale 1 puff daily as needed (COPD SOB) 023 2024 Disconti nued(Alt ernate therapy) Active Problems Problem Noted Date Diagnosed Date CAD (coronary artery disease) 10/09/2024 Coronary artery disease invo lving [place] coronary artery of [place] heart with unstable angina pectoris 10/09/2024 Abnormal [...] (05/11/2022): Added automatically from request for surgery [id number] Assessment & Plan (07/16/2022 1:14 AM CDT): [...] BID+ Assessment & Plan (04/21/2022 10:40 AM RECORDIST CHIEF): Moderate to severe dry eye disease No improvement with Restasis in the past Recommend retain artificial tear drops 3 to 4 times a day Continue lubricating ointment at night Add daily steroid Blepharospasm of both eyes 04/21/2022 Assessment & Plan (04/21/2022 10:40 AM RECORDIST CHIEF): Patient at that this should improve with the dry eye Age-related nuclear cataract, bilateral 04/21/19 23 Assessment & Plan (06/13/2023 9:16 AM CDT): Defer cataract surgery until signs and symptoms indicate. Pt was educated on the diagnosis. Recommend daily UV protection. Release updated glasses Rx Assessment & Plan (04/21/2022 10:41 AM RECORDIST CHIEF): Not yet visually significant, monitor Xanthelasma of [...] future. Assessment & Plan (04/06/2022 4:57 PM RECORDIST CHIEF): Risks, benefits and alternatives were discussed. Risks [...] future. Assessment & Plan (04/06/2022 4:59 PM RECORDIST CHIEF): Bilateral upper eyelid ptosis with symptomatic visual [...] Encounters Date Type Department Care Team Description 12/02/2024 Orders Only [facility] Cardiology [address] [place] [phone] José Miguel Proctor MD 11/28/2024 11:30 AM CDT Office Visit [facility] Cardiology [address] [facility] [address] [place] [phone] Gracia Lo NP Coronary artery disease of [place] artery of [place] heart with stable angina pectoris; Presence of stent in coronary artery; Status post coronary angiogram; Postprocedural hemorrhage of a circulatory system organ or structure following other circulatory system procedure 11/13/2024 10:30 AM CDT - 11/13/2024 1:00 PM CDT Surgery [facility] Cardiac Catheterization Lab [address] [place] [id number] Stuart Lynch MD PCI DUARTE MAJOR CORONARY C9600 - [id number] 11/13/2024 9:00 AM CDT - 11/14/2024 4:00 PM CDT Hospital Encounter [address] [address] Stuart Lynch MD Coronary artery disease, unspecified vessel or lesion type, unspecified whether angina present, unspecified whether [place] or transplanted heart; Chest pain, unspecified type; Coronary artery disease involving [place] coronary artery of [place] heart with unstable angina pectoris (HCC) Discharge Disposition: Discharge to home or self care 11/10/2024 Telephone [facility] Cardiology [address] [facility] [address] [place] [phone] Stuart Lynch MD 11/06/2024 Telephone [facility] Cardiology [address] [facility] [address] [phone] Stuart Lynch MD 11/03/2024 Telephone [facility] Medicine Rheumatology [address] [facility] Advanced Medicine 5th [place] [address] [place] [address] Katherine Calle MD 10/24/2024 1:00 PM CDT Infusion [facility] [address] [facility] [address] [place] [address] Rheumatoid arthritis involving multiple sites, unspecified whether rheumatoid factor present (HCC) (Primary Dx) 10/23/2024 Telephone [facility] Cardiology [address] [place] [phone] Stuart Lynch MD 10/15/2024 [facility] Post Discharge Follow up phone call [facility] [phone] [place] [address] Ratna Jung RN 10/14/2024 Telephone [facility] Cardiology [address] [place] [address] Stuart Lynch MD [facility] 10/10/2024 Telephone [facility] Medicine Surgery [address] [facility] 6th [place] [phone] Marisela Avalos 10/09/2024 11:30 AM CDT - 10/09/2024 1:00 PM CDT Surgery [facility] Cardiac Catheterization Lab [address] [place] [address] Stuart Lynch MD LEFT HEART CATHETERIZATION WITH CORONARY ANGIOGRAPHY GRAFT AND WITH OR WITHOUT LEFT VENTRICULOGRAM [id number] 10/09/2024 9:08 AM CDT - 10/10/2024 2:50 PM CDT Hospital Encounter [address] [address] Stuart Lynch MD Abnormal nuclear stress test; Hypercholesterolemia Discharge Disposition: Discharge to home or self care 10/03/2024 Orders Only [facility] Scanning, Provider 09/29/2024 Telephone [facility] Medicine Rheumatology [address] [place] [address] Advanced Medicine 5th [place] [phone] Katherine Calle MD 09/25/2024 Telephone [facility] Medicine Rheumatology [facility] Advanced Medicine 5th [place] [phone] Kanika Cee MD 09/24/2024 Orders Only [facility] Scanning, Provider 09/23/2024 Results Follow-Up [facility] Cardiology [address] [facility] [address] [address] Misti Michel NP CTA Heart and Coronary Arteries W Morphology when Performed 09/22/2024 12:00 PM CDT - 09/22/2024 11:59 PM CDT Hospital Encounter [facility] ([facility]) [address] [place] [address] Abnormal nuclear stress test; Encounter for pre-operative cardiovascular clearance Discharge Disposition: Discharge to home or self care from Last 3 Months Immunizations Immunization Administration Dates Next Due Tdap 05/15/2023 Surgical History Surgery Date Site/Laterality Comments TUBAL LIGATION 02/26/1979 - 02/26/1980 KNEE CARTILAGE SURGERY 02/27/2012 - 02/25/2013 Can't remember which knee COLONOSCOPY 02/26/2023 - 02/26/2024 N/A CARDIAC CATHETERIZATION 10/09/2024 N/A Procedure: LEFT HEART CATHETERIZATION WITH CORONARY ANGIOGRAPHY GRAFT AND WITH OR WITHOUT LEFT VENTRICULOGRAM [id number]; Surgeon: Stuart Lynch MD; 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 CARDIAC CATHETERIZATION 10/09/2024 N/A Procedure: IVUS/OCT CORS OR GRAFTS, FIRST VESSEL (+) [id number]; Surgeon: Stuart Lynch MD; 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 CARDIAC CATHETERIZATION 10/09/2024 N/A Procedure: PCI DUARTE MAJOR CORONARY C9600 - [id number]; Surgeon: Stuart Lynch MD; 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 TONSILLECTOMY CARDIAC CATHETERIZATION 11/13/2024 N/A Procedure: PCI DUARTE MAJOR CORONARY C9600 - [id number]; Surgeon: Stuart Lynch MD; Location: CARDIAC [facility]ARNET[place] MACHINE OPERATOR HELPER; Service: Cardiovascular; Laterality: N/A; left circumflex artery Medical devices from this surgery are in the Medical Devices section. 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 CARDIAC CATHETERIZATION 11/13/2024 N/A Procedure: LEFT HEART CATHETERIZATION WITH CORONARY ANGIOGRAPHY AND WITH OR WITHOUT LEFT VENTRICULOGRAM [id number]; Surgeon: Stuart Lynch MD; 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 Medical History Medical History Date Comments Hypertension Hyperlipidemia Lupus COPD (chronic obstructive pulmonary disease) Arthritis Dry eye syndrome, bilateral Heart murmur pt reported Rheumatoid arthritis (HCC) Neuropathy Chronic pain Anxiety Hypercholesterolemia Abnormal nuclear stress test Coronary artery disease Myocardial infarction (HCC) Emphysema of lung RA (rheumatoid arthritis) Osteoarthritis Depression Family History Medical History Relation Name Comments [...] drink containing alc ohol? Monthly or less 11/13/2024 Q2: How many drinks containi ng alcohol do you have on a typical day when you are drinking? 1 or 2 11/13/2024 Q3: How often do you have si x or more drinks on one occasion? Never 11/13/2024 Hunger Vital Sign Answer Date Recorded Within [...] making you feel afraid or unsafe? Denies 11/13/2024 Comments No Sex and Gender Information Value Date Recorded Sex Assigned at Not on file Legal Sex Female 10:27 PM RECORDIST CHIEF Gender Identity Female 08/07/2018 2:56 PM CDT Sexual Orientation Not on file Obstetrics History Last Filed Vital Signs Vital Sign Reading Time Taken Comments Blood Pressure 136/74 11/28/2024 11:32 AM CDT Pulse 76 11/28/2024 11:32 AM CDT Temperature 37.6 C (99.7 F) 11/14/2024 12:40 PM CDT Respiratory Rate 20 11/14/2024 12:40 PM CDT Oxygen Saturation 97% 11/28/2024 11:32 AM CDT Inhaled Oxygen Concentration - - Weight 76.2 kg (168 lb) 11/28/2024 11:32 AM CDT Height 170.2 cm (5' 7) 11/28/2024 11:32 AM CDT Body Mass Index 26.31 11/28/2024 11:32 AM CDT Plan of Treatment Health Maintenance [...] 2024 6, 02/26/2014, 11/28/2012 Fall Risk Assessment 11/14/2025 11/14/2024 DTaP/Tdap/Td Vaccine (2 - Td or Tdap) 05/14/2033 Hepatitis B Screening Completed 08/09/2021 Hepatitis C Screening Completed 08/09/2021 Goals Goal [...] as needed Medical Devices Implanted Type Area Email Engineer Device Identifier Shelf Expiration Date Model / Serial / Lot Medtronic Card Vasc Surgery 3.5 X 12mm [place] [employer]dick Rx Coronary Stent [id number] - [id number] Implanted:Qty: 1 on 10/09/2024 by Stuart Lynch MD at [facility] Medtronic Card Vasc Surgery 02/05/2027 [id number] / / [id number] Medtronic Card Vasc Surgery 4.0 X 38mm Anand Reddick Rx Coronary Stent [id number] - [id number] Implanted:Qty: 1 on 10/09/2024 by Stuart Lynch MD at [facility] Medtronic Card Vasc Surgery 09/16/2026 [id number] / / [id number] Medtronic Card Vasc Surgery 4.5 X 26mm Anand Reddick Rx Coronary Stent [id number] - [id number] Implanted:Qty: 1 on 10/09/2024 by Stuart Lynch MD at [facility] Medtronic Card Vasc Surgery 02/13/2026 [id number] / / [id number] [place] V[employer] System Closure Repair Femoral Artery Suture Mediated Perclose Prostyle 16679-85 - [id number] Implanted:Qty: 1 on 10/09/2024 by Stuart Lynch MD at [facility] [employer] 07/26/2026 [id number] / / [id number] [place] Vascular System Closure Repair Femoral Artery Suture Mediated Perclose Prostyle 50870-83 - [id number] Implanted:Qty: 1 on 11/13/2024 by Stuart Lynch MD at [facility] [employer] 08/25/2026 [id number] / / [id number] Medtronic Card Vasc Surgery 3.5 X 12mm [place] Reddick Rx Coronary Stent [id number] - [id number] Implanted:Qty: 1 on 11/13/2024 by Stuart Lynch MD at [facility] Medtronic [facility] Vasc Surgery 06/08/2027 [id number] / / [id number] Medtronic [facility] Vas Surgery 3.0 X 15mm Anand Reddick Rx Coronary Stent [id number] - [id number] Implanted:Qty: 1 on 11/13/20[facility] Vasc Surgery 01/28/2027 [id number] / / [id number] [place] Vascular System Closure Repair Femoral Artery Suture Mediated Perclose Prostyle 55215-54 - [id number] Implanted:Qty: 1 on 11/13/2024 by Stuart Lynch MD at [facility] Vascular 08/25/2026 [id number] / / [id number] Procedures Procedure Name Priority Date/Time Associated Diagnosis Comments CBC WITHOUT DIFFERENTIAL Routine 11/26/2024 3:51 PM CDT EGFR STAT 11/14/2024 12:40 PM CDT BASIC METABOLIC PANEL STAT 11/14/2024 12:40 PM CDT CBC WITHOUT DIFFERENTIAL STAT 11/14/2024 12:40 PM CDT US GROIN PSEUDO DUPLEX RIGHT ED Urgent/IP Urgent 11/14/2024 12:11 PM CDT PCI DUARTE STENT ADDTN'L COR BRANCH (+) [id number] Routine 11/13/2024 11:44 AM CDT Coronary artery disease, unspecified vessel or lesion type, unspecified whether angina present, unspecified whether [place] or transplanted heart Chest pain, unspecified type Coronary artery disease involving [place] coronary artery of [place] heart with unstable angina pectoris (HCC) CORONARY OCT, 1ST VESSEL Routine 11/13/2024 11:44 AM CDT Coronary artery disease, unspecified vessel or lesion type, unspecified whether angina present, unspecified whether [place] or transplanted heart Chest pain, unspecified type Coronary artery disease involving [place] coronary artery of [place] heart with unstable angina pectoris (HCC) LEFT HEART CATHETERIZATION WITH CORONARY ANGIOGRAPHY AND WITH AND WITHOUT LEFT VENTRICULOGRAM Routine 11/13/2024 11:44 AM CDT Coronary artery disease, unspecified vessel or lesion type, unspecified whether angina present, unspecified whether [place] or transplanted heart Chest pain, unspecified type Coronary artery disease involving [place] coronary artery of [place] heart with unstable angina pectoris (HCC) VASCULAR ACCESS US GUIDANCE Routine 11/13/2024 11:44 AM CDT Coronary artery disease, unspecified vessel or lesion type, unspecified whether angina present, unspecified whether [place] or transplanted heart Chest pain, unspecified type Coronary artery disease involving [place] coronary artery of [place] heart with unstable angina pectoris (HCC) DUARTE MAJOR CORONARY Routine 11/13/2024 11:44 AM CDT Coronary artery disease, unspecified vessel or lesion type, unspecified whether angina present, unspecified whether [place] or transplanted heart Chest pain, unspecified type Coronary artery disease involving [place] coronary artery of [place] heart with unstable angina pectoris (HCC) MODERATE SEDATION 11/13/2024 10:27 AM CDT Coronary artery disease, unspecified vessel or lesion type, unspecified whether angina present, unspecified whether [place] or transplanted heart Chest pain, unspecified type Coronary artery disease involving [place] coronary artery of [place] heart with unstable angina pectoris (HCC) TRANSTHORACIC ECHO (TTE) COMPLETE W DOPPLER/CF WO CONTRAST Routine 10/10/2024 9:49 AM CDT PCI DUARTE STENT ADDTN'L COR BRANCH (+) [id number] Routine 10/09/2024 1:42 PM CDT Abnormal nuclear stress test Hypercholesterolemia DUARTE MAJOR CORONARY Routine 10/09/2024 1: 42 PM CDT Abnormal nuclear stress test Hypercholesterolemia CORONARY OCT, 1ST VESSEL Routine 10/09/2024 1:42 PM CDT Abnormal nuclear stress test Hypercholesterolemia VASCULAR ACCESS US GUIDANCE Routine 10/09/2024 1:42 PM CDT Abnormal nuclear stress test Hypercholesterolemia LEFT HEART CATHETERIZATION WITH CORONARY ANGIOGRAPHY GRAFT AND LEFT VENTRICULOGRAM Routine 10/09/2024 1:42 PM CDT Abnormal nuclear stress test Hypercholesterolemia MODERATE SEDATION 10/09/2024 11:40 AM CDT Abnormal nuclear stress test Hypercholesterolemia EGFR Routine 10/09/2024 10:33 AM CDT CBC WITHOUT DIFFERENTIAL Routine 10/09/2024 10:33 AM CDT BASIC METABOLIC PANEL Routine 10/09/2024 10:33 AM CDT SCAN - LABS 10/03/2024 SCAN - LABS 09/24/2024 CT HEART MORPHOLOGY AND CORONARY ARTERIES W CONTRAST Schedule Routine, Read Routine (OP Routine) 09/22/2024 1:30 PM CDT Abnormal nuclear stress test Encounter for pre-operative cardiovascular clearance HEPATITIS C ANTIBODY Routine 08/09/2021 12:52 PM CDT Rheumatoid arthritis involving multiple sites, unspecified whether rheumatoid factor present (HCC) Encounter for long-term (current) use of high-risk medication from Last 3 Months or Most Recently Relevant to Health Maintenance Results * (ABNORMAL) CBC without differential (11/26/2024 3:51 PM CDT) SCRIBED WBC 2.3(A) 3.8 - 9.9 K/cumm EXTERNAL LAB SCRIBED Hemoglobin 11.1(A) 11.9 - 15.5 g/dL EXTERNAL LAB SCRIBED Hematocrit 35.9(A) 38.9 - 50.3 % EXTERNAL LAB SCRIBED Platelets 191 150 - 400 K/cumm EXTERNAL LAB SCRIBED MPV 8.2(A) 9.1 - 12.3 fL EXTERNAL LAB SCRIBED RBC 4.37 3.90 - 5.20 M/cumm EXTERNAL LAB SCRIBED MCV 82.2 81.3 - 96.4 fL EXTERNAL LAB SCRIBED MCH 25.4(A) 27.1 - 33.3 pg EXTERNAL LAB SCRIBED MCHC 30.9(A) 32.3 - 35.7 g/dL EXTERNAL LAB SCRIBED RDW CV 15.9(A) 11.1 - 14.9 % EXTERNAL LAB Blood us Historical Provider MD LAB BLOOD ORDERABLES Edit ed Result - Final EXTERNAL LAB * eGFR (11/14/2024 12:40 PM CDT) eGFR >90 >=60 mL/min/1. 73 m2 [...] interpretive data was last reviewed 2020. Blood 11/14/2024 12:4 0 PM CDT 11/14/2024 12:58 PM CDT us Antonieta Velarde NP LAB BLOOD ORDERABLES Final Resul t JORGE [address] [place] [address] * (ABNORMAL) CBC without differential (11/14/2024 12:40 PM CDT) WBC 2.16(L) 3.80 - 9.90 K/cumm Hgb 10.6(L) 11.9 - 15.5 g/dL [facility] Hct 34.1(L) 35.6 - 45.5 % [facility] Plt 201 150 - 400 K/cumm [facility] MPV 8.6(L) 9.1 - 12.3 fL [facility] RBC 4.15 3.90 - 5.20 M/cumm [facility] MCV 82.2 81.3 - 96.4 fL [facility] MCH 25.5(L) 27.1 - 33.3 pg [facility] MCHC 31.1(L) 32.3 - 35.7 g/dL [facility] RDW CV 16.0(H) 11.1 - 14.9 % [facility] RDW SD 48.4(H) 35.7 - 48.1 fL [facility] NRBC abs 0.00 0.00 - 0.01 K/cumm [facility] Blood 11/14/2024 12:4 0 PM CDT 11/14/2024 12:59 PM CDT Antonieta Velarde NP LAB BLOOD ORDERABLES Final Resul t [facility] [address] [address] [place] [address] * (ABNORMAL) Basic metabolic panel (11/14/2024 12:40 PM CDT) Pathologist [facility] Sodium 135 135 - 145 mmol/L Potassium, pl 3.6 3.3 - 4.9 mmol/L [facility] Chloride 103 97 - 110 mmol/L [facility] CO2 23 22 - 32 mmol/L [facility] Anion gap 9 2 - 15 mmol/L [facility] BUN 6 6 - 25 mg/dL [facility] Creatinine 0.61 0.60 - 1.10 mg/dL [facility] Glucose 85 70 - 199 mg/dL [facility] Comment: [...] interpretive data was last revised 2022. Calcium 8.3(L) 8.5 - 10.3 mg/dL JORGE DOMINGO Blood 11/14/2024 12:4 0 PM CDT 11/14/2024 12:58 PM CDT Antonieta Syd MALDONADO LAB BLOOD ORDERABLES Final Resul t JORGE [id number] [address] [place] [address] * US Groin Pseudo Duplex Right (11/14/2024 12:11 PM CDT) Anatomical Region Laterality Modality Vascular Right Ultrasound 11/14/2024 2:08 PM CDT Impressions 11/14/2024 2:08 PM CDT No evidence of right groin pseudoaneurysm or hematoma. Electronically signed by: Anthony Moore M.D. Narrative 11/14/2024 2:08 PM CDT EXAMINATION: US GROIN PSEUDO DUPLEX RIGHT Date: 11/14/2024 11:40 AM History: Right groin pain and swelling Technique: A right groin duplex imaging evaluation was performed using grayscale, 2-D color flow, and spectral analysis imaging for the purposes of evaluation for possible pseudoaneurysm. Findings: There is no evidence of right groin pseudoaneurysm or hematoma. Normal waveforms are identified within the right common femoral artery, proximal femoral artery, and proximal deep femoral artery. Normal respirophasic waveforms are seen within the right common femoral vein, proximal femoral vein, and proximal deep femoral vein. Procedure Note Anthony Moore MD - 09/19/2025 EXAMINATION: US GROIN PSEUDO DUPLEX RIGHT Date: 11/14/2024 11:40 AM History: Right groin pain and swelling Technique: A right groin duplex imaging evaluation was performed using grayscale, 2-D color flow, and spectral analysis imaging for the purposes of evaluation for possible pseudoaneurysm. Findings: There is no evidence of right groin pseudoaneurysm or hematoma. Normal waveforms are identified within the right common femoral artery, proximal femoral artery, and proximal deep femoral artery. Normal respirophasic waveforms are seen within the right common femoral vein, proximal femoral vein, and proximal deep femoral vein. IMPRESSION: No evidence of right groin pseudoaneurysm or hematoma. Electronically signed by: Anthony Moore M.D. Antonieta Velarde NP IMG US PROCEDURES Final Result * DUARTE MAJOR CORONARY, VASCULAR ACCESS US GUIDANCE, LEFT HEART CATHETERIZATION WITH CORONARY ANGIOGRAPHY AND WITH AND WITHOUT LEFT VENTRICULOGRAM, CORONARY OCT, 1ST VESSEL, PCI DUARTE STENT ADDTN'L COR BRANCH (+) [id number] (11/13/2024 11:44 AM CDT) Anatomical Region Laterality Modality X-Ray Angiograph y Addenda Addendum by Stuart Lynch MD on 11/13/2024 12:11 PM CDT CARDIAC CATHETERIZATION AND INTERVENTION REPORT DATE OF PROCEDURE: 11/13/24 INDICATION FOR PROCEDURE: Known CAD, planned PCI of left circumflex artery and OM BRIEF CLINICAL HISTORY: Leonardo Patel is a 69 y.o. female 7 with CAD s/p PTCA/stenting of diffusely diseased RCA using 4.0 x 38 mm and 4.5 x 26 mm Medtronic anand Reddick ZES in an overlapping fashion; PTCA/stenting of ostial RPDA using a 3.5 x 12 mm Medtronic anand Reddick ZES; POBA of distal RPDA on 10/09/2024 in the setting of unstable angina, hypertension, RA, dyslipidemia. On prior cardiac catheterization, patient was also found to have about 70% stenosis of the ostium of the OM branch in a bifurcating fashion. She was brought back to the labor arbitrator hearing office today with planned PCI of LCX/OM. Benefits and risks of the procedure were discussed with the patient in depth, and informed consent was taken prior to the procedure. Risks of the procedure include but are not limited to vascular complications like groin hematoma, retroperitoneal bleed, vessel perforation; periprocedural IA, cardiac arrhythmias, stroke, contrast induced nephropathy, and . After discussing all the benefits, risks and alternatives, patient was willing to proceed with the procedure. PROCEDURES PERFORMED: Ultrasound-guided right common femoral arterial access Selective left coronary angiogram Percutaneous coronary intervention- A) intravascular ultrasound of left circumflex artery and OM branch B) balloon angioplasty and stenting of left circumflex and OM branch two Medtronic anand Reddick zotarolimus eluting stents (3.5 x 12 mm in the OM branch and 3.0 x 15 mm in the LCX using mini crush technique) Moderate sedation-CPT code 75171 and beyond Deployment of 2 Perclose suture mediated vascular closure devices MODERATE SEDATION: Midazolam 2 mg , Fentanyl 100 mcg, start time 1050 stop time 1144, total direct [id number] monitoring of conscious sedation 54 minutes (CPT 54696) TRAINED OBSERVER: Elizabeth Shah RN was trained observer for moderate sedation. ACCESS SITE: Right common femoral artery. On previous cardiac catheterization, patient had significant spasm of the right radial artery, therefore, intervention was performed through the right common femoral arterial access today. PROCEDURE: After obtaining informed consent, patient was brought to the labor arbitrator hearing office and prepped and draped in the usual sterile manner. Time-out and immediate reassessment of the patient was performed. After local anesthesia with lidocaine, right right common femoral artery access was taken with micropuncture needle under ultrasound guidance followed by insertion of a 7 Moroccan sheath. Selective left coronary angiogram was performed using 7 Moroccan CLS 3.5 guide catheter. Estimated blood loss was minimal. All specimens [...] caliber, tortuous OM2 branch which has about 70-80 % stenosis at the ostium. The remaining OM branches are small-caliber vessel. Main LCX is small to medium-caliber vessel and continues in the AV groove. RIGHT CORONARY ARTERY: Not injected today. LEFT VENTRICULOGRAM: Not performed HEMODYNAMIC ASSESSMENT: Opening pressure 142/62, closing pressure 162/70 mmHg INTERVENTION REPORT: Left main coronary artery ostium was selectively engaged using 7 Moroccan CLS 3.5 guide catheter. Patient had already been on dual antiplatelet treatment with aspirin and clopidogrel, and reported taking today's dose prior to arrival to the labor arbitrator hearing office. Bivalirudin was used for procedural anticoagulation. A 0.014 luge guidewire was advanced in the left circumflex artery, and stenosis was crossed. Another 0.014 luge guidewire was advanced in the OM branch. Next, balloon angioplasty was performed in the main branch using a 3.0 x 12 mm balloon. After this, balloon angioplasty was performed in the side branch/major OM branch using a 3.5 x 12 mm NC balloon. After this, intravascular ultrasound was performed using [employer]OMIC (formerly [employer]) eye quileute catheter which showed reference diameter of 3.6 x 3.8 in the OM branch. 3.5 x 12 mm Medtronic anand Reddick ZES was advanced in the OM branch and about 1-2 mm of the proximal edge of the stent was placed in the main LCX. Next, a 3.0 x 15 mm Medtronic anand ZES was advanced in the LCX. The OM branch stent was deployed at a maximum of 16 atmospheres. After this, the balloon of the wire was taken out. The main LCX stent was deployed at a maximum of 16 atmospheres. After this, the OM branch stent was rewired using a 0.014 Asahi black wire. Balloon angioplasty was performed in the OM branch, followed by balloon angioplasty of the LCX, followed by kissing balloon angioplasty. IVUS was performed which showed reasonable stent apposition. Good angiographic results after removal of the wire without angiographically visible dissection or distal embolization. Perclose vascular closure device was deployed, however, there was residual oozing of blood, therefore, another Perclose was deployed. Supplemental manual pressure was applied. There were no immediate procedure related complications. CONCLUSIONS: CAD-70-80% stenosis at the ostium-proximal segment of OM1 branch. PCI-IVUS, PTCA/stenting of left circumflex artery/OM branch using Medtronic anand Reddick ZES (3.5 x 12 mm in the OM branch and 3.0 x 15 mm in the LCX using mini crush technique). PLAN/RECOMMENDATIONS: Dual antiplatelet therapy with aspirin and ticagrelor, preferably for 6 months or longer if patient is able to tolerate; in addition to other medications including continuation of PCSK9 inhibitor. Due to insufficient social support, patient will be admitted overnight for observation, and likely discharged home tomorrow if clinically stable. Outpatient cardiology follow up after discharge. Voice recognition software was used to complete this document, therefore, extra gang supervisor variances may occur. Stuart Lynch MD, [facility] 11/13/24 us Stuart Lynch MD CV CARDIAC CATH PROCEDURES Edite d Result - Final * TRANSTHORACIC ECHO (TTE) COMPLETE W DOPPLER/CF WO CONTRAST (10/10/2024 9:49 AM CDT) EF Mod BP 68 % CONS SCIMAGE Anatomical Region Laterality Modality Ultrasound 10/10/2024 8:37 AM CDT Narrative 10/10/2024 10:21 [place] [address] Echocardiogram Report Patient Name: LEONARDO PATEL C : 1955 Study Date: 10/10/2024 8:37:17 AM Gender: F Tech: Location: [id number] Ref Provider: STUART LYNCH Height(Cm): 170 BSA: [...] valve. Electronically Signed By: Stuart Lynch MD, [facility] 10/10/2024 10:20:17 AM CDT Procedure Note Stuart Lynch MD - 10/10/2024 [place] [address] Echocardiogram Report Patient Name: LEONARDO PATEL C : 1955 Study Date: 10/10/2024 8:37:17 AM Gender: F Tech: Location: [id number] Ref Provider: STUART LYNCH Height(Cm): 170 BSA: [...] 2mmHg ACS MM 1.82 cm MV Decel [id number] msec [ 104 - 258 ] PV Peak Tavo 0.92 m/s [ 0.40 - 0.80 ] TR Peak Atvo 2.56 m/s [ 1.00 - 2.80 ] [...] valve. Electronically Signed By: Stuart Lynch MD, [facility] 10/10/2024 10:20:17 AM CDT us Stuart Lynch MD CV ECHO PROCEDURES Final Result * LEFT HEART CATHETERIZATION WITH CORONARY ANGIOGRAPHY GRAFT AND LEFT VENTRICULOGRAM, VASCULAR ACCESSUS GUIDANCE, CORONARY OCT, 1ST VESSEL, DUARTE MAJOR CORONARY, PCI DUARTE STENT ADDTN'L COR BRANCH (+) [id number] (10/09/2024 1:42 PM CDT) Anatomical Region Laterality [...] groin hematoma, retroperitoneal bleed, vessel perforation; periprocedural IA, cardiac arrhythmias, stroke, contrast induced nephropathy, and [...] and 4.5 x 26 mm Medtronic anand Reddick zotarolimus eluting stents in an overlapping fashion); B) balloon angioplasty and stenting of ostial RPDA using a 3.5 x 12 mm Medtronic anand Reddick zotarolimus eluting stent (ZES); balloon angioplasty of focal stenosis in the distal RPDA Moderate sedation-CPT code 41418 and beyond Deployment of Perclose vascular closure device at right common femoral arterial access site MODERATE SEDATION: Midazolam 4 mg , Fentanyl 100 mcg, start time 1202 stop time 1342, total direct [id number]-fz-[id number] monitoring of conscious sedation 100 minutes (CPT 55587) TRAINED OBSERVER: Vijaya Travis RN was trained observer for moderate sedation. ACCESS SITE: Right radial artery and right common femoral artery. Patient had severe spasm in the right radial artery and most of the PCI was performed through the right common femoral arterial access site. PROCEDURE: After obtaining informed consent, patient was brought to the labor arbitrator hearing office and prepped and draped in the usual sterile manner. Time-out and immediate reassessment of the patient was performed. After local anesthesia with lidocaine, right radial artery access was taken with micropuncture needle under ultrasound guidance followed by insertion of a 6 Moroccan sheath. Patient received 2.5 mg of verapamil, [...] and loading dose of ticagrelor in the labor arbitrator hearing office. Bivalirudin was used for procedural anticoagulation. Initially, we proceeded with the PCI through the right radial arterial access. RCA ostium was selectively engaged using 6 Moroccan AL1 guide catheter. The stenosis in the RCA and RPL was crossed using 0.014 luge wire. Next, balloon angioplasty was performed using a 2.5 x 8 mm NC balloon in the focal stenosis in the distal segment of the RPDA with good angiographic results. The same balloon was used for balloon angioplasty of the ostial RPL branch. IVUS was performed using backstitch new [place] eye catheter which showed distal reference diameter [...] needle followed by insertion of a 6 Moroccan sheath. RCA was selectively engaged using 3DRC guide catheter. The stenosis in the RCA and RPDA was crossed using 0.014 Asahi black wire. Next, balloon angioplasty was performed using the same 4.0 x 20 mm squared flex balloon. Balloon angioplasty was performed in the diffusely diseased segments of the RCA. Next, a 3.5 x 12 mm Medtronic anand Reddick ZES was deployed at a maximum of 16 atmospheres at the ostium of the RPDA. Postdilation was performed using the stent balloon with good angiographic results. Next, 4.0 x 38 mm and 4.5 x 26 mm Medtronic anand Reddick ZES were deployed in the RCA in [...] and 4.5 x 26 mm Medtronic anand Reddick ZES in an overlapping fashion; PTCA/stenting of ostial RPDA using a 3.5 x 12 mm Medtronic anand Reddick ZES; POBA of distal RPDA. PLAN/RECOMMENDATIONS: Dual [...] was used to complete this document, therefore, extra gang supervisor variances may occur. Stuart Lynch MD, [facility] 10/09/24 Stuart Lynch MD CV CARDIAC CATH PROCEDURES Final Result [...] of Race in Diagnosing Kidney Disease, JASN 202). The CKD-EPI equation should not be used for patients with unstable renal function and has not been validated in children and those over 70. Current interpretive data was last reviewed 2020. Blood 10/09/2024 10:3 3 AM CDT 10/09/2024 10:49 AM CDT Stuart Lynch MD LAB BLOOD ORDERABLES Final Resul t [facility] [id number] [place] [address] * (ABNORMAL) CBC without differential (10/09/2024 10:33 AM CDT) WBC 3.19(L) 3.80 - 9.90 K/cumm Hgb 11.9 11.9 - 15.5 g/dL [facility] Hct 37.6 35.6 - 45.5 % [facility] Plt 276 150 - 400 K/cumm [facility] MPV 9.0(L) 9.1 - 12.3 fL [facility] RBC 4.58 3.90 - 5.20 M/cumm [facility] MCV 82.1 81.3 - 96.4 fL [facility] MCH 26.0(L) 27.1 - 33.3 pg [facility] MCHC 31.6(L) 32.3 - 35.7 g/dL [facility] RDW CV 14.6 11.1 - 14.9 % [facility] RDW SD 43.8 35.7 - 48.1 fL [facility] NRBC abs 0.00 0.00 - 0.01 K/cumm [facility] Blood 10/09/2024 10:3 3 AM CDT 10/09/2024 10:49 AM CDT Narrative [facility] - 10/09/2024 11:03 AM CDT If most recent labs were drawn prior to 4 AM, draw only prior to initiating procedure. Stuart Lynch MD LAB BLOOD ORDERABLES Final Resul t [facility] [id number] [place] [address] * Basic metabolic panel (10/09/2024 10:33 AM CDT) Sodium 136 135 - 145 mmol/L Potassium, pl 4.0 3.3 - 4.9 mmol/L [facility] Comment:Hemolysis present. R esults may be affected. Chloride 104 97 - 110 mmol/L [facility] CO2 24 22 - 32 mmol/L [facility]] Anion gap 8 2 - 15 mmol/L [facility]] BUN 8 6 - 25 mg/dL [facility] Creatinine 0.65 0.60 - 1.10 mg/dL [facility] Glucose 93 70 - 199 mg/dL [facility] Comment: Interpretive Data Fasting glucose >/= 126 [...] classification and Diagnosis of Diabetes Diabetes Care 202; 46: S19-S40. Current interpretive data was last revised 2022. Calcium 9.1 8.5 - 10.3 mg/dL [facility] Blood 10/09/2024 10:3 3 AM CDT 10/09/2024 10:49 AM CDT Stuart Lynch MD LAB BLOOD ORDERABLES Final Resul t [facility]GE DOM[facility]O [id number] [place] [address] * SCAN - LABS (10/03/2024) Provider Scanning Final Result * SCAN - [...] Arnie Tay M.D., MPH Misti Michel NP IM CT PROCEDURES Eleonora l Result * Hepatitis C antibody (08/09/2021 12:52 PM CDT) Pathologist [facility] Hep C Ab Nonreactive Nonreactive [facility] Comment: Interpretive Data Nonreactive: Antibodies to HCV [...] performed by: [facility], [facility], [place]., [address] Blood 08/09/2021 12:5 2 PM CDT 08/09/2021 4:13 PM CDT Katherine Calle MD LAB MICROBIOLOGY - GENERAL ORDERABLES Final Result [facility] [id number] [facility]. [place] [address] from Last 3 Months or Most Recently Relevant to Health Maintenance Insurance [id number] [place] [address] MEDICARE AD[facility]ANTAGE [facility] MEDICARE Address: [address] [place] [address] MEDICARE ADVANTAGE [facility] MEDICARE Address: [address] [place] [address] [facility] MEDICARE AD[facility]AGE [facility] MEDICARE Address: [address] [address] Care Teams Retail Shift Manager Relationship Specialty Start Date End Date Caitlin Luo PA PCP - General Physician Director Of Financial Reporting 06/30/19 Katherine Calle MD [address] [facility] RHEUMATOLOGY, [address] [address] Consulting Physician Rheumatology 06/24/24 Stuart Lynch MD [address] , [address] [place] [address] Consulting Physician Cardiology 08/22/24
--- OUTSIDE RECORDS SUMMARY | 2024-12-11 09:41 | XMS_ITS | Encounter Summary ---
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 Gender Identity Female 08/07/2018 2:56 PM CDT Sexual Orientation Not on file documented as of this encounter Plan of Treatment Not on file documented as of this encounter Goals Goal [...] on filedocumented in this encounter Care Teams Brain Surgeon Relationship Specialty Start Date End Date ValerioMarisolSUNNY Barry PCP - General Physician Metal Annealer 06/30/19 Katherine Calle MD [address] [facility] RHEUMAT[facility], [facility] [address] [place] [address] Consulting Physician Rheumatology 06/24/24 Stuart Denson MD [address], [address] [place] [address] Consulting Physician Cardiology 08/22/24 documented as of this encounter
--- OUTSIDE RECORDS SUMMARY | 2024-12-11 09:41 | XMS_ITS | Encounter Summary ---
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 Gender Identity Female 08/07/2018 2:56 PM CDT [...] on filedocumented in this encounter Care Teams Interlocking Machine Operator Relationship Specialty Start Date End Date Caitlin Luo PA PCP - General Physician Cad Draftsman 06/30/19 Katherine Calle MD [address] [facility]HEUMATOLOGY, [address] [address] Consulting Physician Rheumatology 06/24/24 Stuart Denson MD [address] [facility] [address] [facility] C, [address] [place] [address] Consulting Physician Cardiology 08/22/24 documented as of this encounter
--- OUTSIDE RECORDS SUMMARY | 2024-12-11 09:41 | XMS_ITS | Encounter Summary ---
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
--- OUTSIDE RECORDS SUMMARY | 2024-12-11 09:41 | XMS_ITS | Encounter Summary ---
Author Organization [facility] Address [address] [place] [address] Care Team Providers Care Head Of Research & Insights Name Role Phone Caitlin Luogonzalo CORREA Primary Care Pr ovider Katherine Calle MD Unavailable Stuart Denson MD Unavailable Encounter Details Date Type Department Care Team (Late st Contact Info) Description 11/10/2024 Telephone [facility] Cardiology [address] [place] [address] Stuart Denson MD [facility] [facility] [address] [facility], [address] [place] [address] Social History Tobacco Use Types [...] on file 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 Monthly or less 11/13/2024 9:45 AM CLINTT Jill Chappell RN Q2: How many drinks containing alcohol do you have on a typical day when you are drinking? 1 or 2 11/13/2024 9:45 AM CLINTT Renaldo Chappell RN Q3: How often do you have six or more drinks on one occasion? Never 11/13/2024 9:45 AM CLINTT Jill Chappell RN documented as of this encounter Miscellaneous Notes * Telephone Encounter - Nina Shook RN - 11/11/2024 12:16 PM CDT Spoke with pt, reviewed response below from DK. Pt verbalizes understanding. Labs forwarded to PCP. * Telephone Encounter - Nina Shook RN - 11/10/2024 12:52 PM CDT CBC scanned under media and attached to this telephone note. Will forward to DK. Pt scheduled for planned PCI on 11/13. Still awaiting CMP results. * Telephone Encounter - Myra Botello - 11/10/2024 10:50 AM CDT Tay from [facility], called in regard to CBC order placed by ALBERTO. He states that the neutrophil count flagged and was 0.3. He will be faxing those results to the [phone]. Please advise. Thank you. documented in this encounter Plan of Treatment Not on file documented as of this encounter Goals Goal Patient Goal Type Associated Problems Recent Progress Patient-Stated? Author CCM Chronic Pain Care Plan Chronic Care Management Worsening(0 08/05/2024 9:36 AM CDT) No Shira Dent, KAROLINE Note: Problem: Chronic Pain Goals: 1. Minimize further functional decline 2. Maximize quality of life 3. Control pain Strategies: - Activity/exercise program recommendation - Conservative stepwise pain medicine strategy with multi-disciplinary approach - Recommend healthy lifestyle strategies and compensatory methods as needed documented as of this encounter Visit Diagnoses Not on filedocumented in this encounter Care Teams Head Of Research & Insights Relationship Specialty Start Date End Date Caitlin Luo PA PCP - General Physician Senior Education Specialist 06/30/19 Katherine Calle MD [address] [facility] DIV IM RHEUMATOLOGY, [address] [address] Consulting Physician Rheumatology 06/24/24 Stuart Denson MD [address] [facility] [address] [facility], [address] [place] [address] Consulting Physician Cardiology 08/22/24 documented as of this encounter
--- OUTSIDE RECORDS SUMMARY | 2024-12-11 09:41 | XMS_ITS | Encounter Summary ---
Author Organization [facility] Address [address] [place] [address] Phone Care Team Providers Care Superintendent Division Name Role Phone Caitlin Luo Primary Care Pr ovider Katherine Calle MD Unavailable [phone] Stuart Denson MD Unavailable Encounter Details Date Type Department Care Team (Late st Contact Info) Description 06/08/2020 Orders Only [facility] Scanning, Provider Social History Tobacco Use Types Packs/Day Years Used Date Smoking Tobacco: Former Smokeless Tobacco: Never Alcohol Use Standard Drinks/Week Comments Yes 0 (1 standard drink = 0.6 oz pur e alcohol) socially Comments Unknown Sex and Gender Information Value Date Recorded Sex Assigned at Not on file 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
--- OUTSIDE RECORDS SUMMARY | 2024-12-11 09:41 | XMS_ITS | Patient Health Record ---
Author Organization [facility] Address [id number] [place] [address] Care Team Providers Care Dean Name Role Phone SHANICE LORENZO Unavailable [phone] DARNELL ESCOTO Unavailable Unavailable Reason For Referral No Information Plan Of Treatment No Information Insurance Providers Payer Name Payer Address Payer Phone Subscriber Number Group Number Insured Name Patient Relationship to Insured Coverage Start Date Coverage End Date [employer] MEDICARE COMPLETE [address] [address] [place] [address] [id number] LEONARDO PATEL Self - patient is the insured
--- OUTSIDE RECORDS SUMMARY | 2024-12-11 09:41 | XMS_ITS | Clinical Summary ---
Author Organization [facility] Address [address] [place] [address] Phone Care Team Providers Care Salvage Grinder Name Role Phone Iglesia Junior MD Primary Care Provider [phone] Allergies No known active allergies Medications traMADol (ULTRAM) 50 mg tablet Take 100 mg by mouth every 6 hours as needed for Pain. Active multivitamin (DAILY-ANNA MARIE) tablet Take 1 Tab by mouth daily theatre professor. 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 Gender Identity Not on file Sexual Orientation [...] (#1) 2024 11/28/2012 COVID-19 Vaccine (2 - season) 2024 DTAP/TDAP/TD VACCINES (2 - Td or Tdap) 05/14/2033 Insurance [facility] Address: [place] [address] Advance Directives For more information, please contact: [phone] * Full Code (Latest Code Status on File) Date Activated Date Inactivated Comments 05/16/2013 8:51 PM 05/17/2013 6:48 PM Care Teams Salvage Grinder Relationship Specialty Start Date End Date Iglesia Junior MD [address] [place] [id number] PCP - General Internal Medicine 09/25/23
== END 2024-12-11 09:00 | disposition home or self-care (01) ==
PROVIDERS: PCP Physician Assistant; Visit Provider Nurse Practitioner Adult Health
DX: I97.618 Postprocedural hemorrhage of a circulatory system organ or structure following other circulatory system procedure (principal); Z98.890 Other specified postprocedural states
CPT/HCPCS: 93926

== ENCOUNTER 2025-01-01 11:50 | Outpatient (CLI) | payer MEDICARE, MEDICAID, SELFPAY ==
--- NOTE | ~2025-01-01 | CT_ITS ---
EXAM/PROCEDURE: CT diagnostic chest wo con HISTORY: Bronchiectasis, emphysema, lung nodule COMPARISON: October 30, 2023 TECHNIQUE: Noncontrast chest CT FINDINGS: Small 4 to 5 mm spiculated appearing nodule left apical region image 16 series 4 unchanged. No new nodules or masses. No acute process seen in the lungs or mediastinum. No bulky lymphadenopathy. Heart and great vessels appear normal size. The second coronary artery calcification and/or stenting present. Diffuse degenerative changes throughout the thoracic spine with chronic anterior wedge deformity T12-L1 unchanged. IMPRESSION: No acute findings. No suspicious lung nodule. 4 mm left apical nodule is unchanged in appearance. Reviewed, dictated and finalized at location A. MINER IMPRESSION: No acute findings. No suspicious lung nodule. 4 mm left apical nodule is unchan ged in appearance.
== END 2025-01-01 11:51 | disposition home or self-care (01) ==
LOC: MICIMG 11:50
PROVIDERS: PCP Physician Assistant; Visit Provider Physician Assistant
DX: J47.9 Bronchiectasis, uncomplicated (principal); R91.1 Solitary pulmonary nodule; J43.9 Emphysema, unspecified
CPT/HCPCS: 71250

== ENCOUNTER 2025-02-25 10:21 | Outpatient (CLI) | payer MEDICARE, MEDICAID, SELFPAY ==
--- OUTSIDE RECORDS SUMMARY | 2024-01-09 04:00 | XMS_ITS ---
Author Organization [facility] Address [address] [address] Care Team Providers Care Dog Handler Name Role Phone SHANICE LORENZO Unavailable [phone] DARNELL ESCOTO Unavailable Unavailable Encounters Encounter Location Date Provider Diagnosis [facility] [address] [address] 01/09/2024 SHANICE LORENZO Plan Of Treatment No Information Progress Notes * LEONARDO PATEL CDOB: (69 yo F)Acc No.[id number]:01/09/2024 Progress Notes Patient: LEONARDO NEFF Provider: Kristy LORENZO M.D. :1955 A ge:68 Y S ex:Female Date:01/09/2024 Address:[address] [place], [place] [id number] Subjective: * Chief Complaints: * * Medical History: Objective: * Vitals: Assessment: Plan: * Treatment: * * Electronic signature of SANTA LORENZO MD on 02/25/2025 at 10:36 AM COOKER SULFATE Sign off status: Pending * Provider: Kristy LORENZO M.D. Date: 03/10/2023 Generated for Michael ortega/Gera/Melisaitting on: 10:36 AM COOKER SULFATE
--- OUTSIDE RECORDS SUMMARY | 2025-02-25 10:36 | XMS_ITS | Encounter Summary ---
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 Gender Identity Female 08/07/2018 2:56 PM CDT [...] on filedocumented in this encounter Care Teams Sheet Metal Worker Maintenance Relationship Specialty Start Date End Date Valerio CaitlinSUNNY Barry PCP - General Physician Middleware Solutions Architect 06/30/19 Katherine Calle MD [address] [facility] DIV IM RHEUMATOLOGY, [facility] [address] [place] [address] Consulting Physician Rheumatology 06/24/24 Stuart Denson MD [address] [place] [address] [facility] C, [place] [address] [place] [address] Consulting Physician Cardiology 08/22/24 documented as of this encounter
--- OUTSIDE RECORDS SUMMARY | 2025-02-25 10:36 | XMS_ITS | Encounter Summary ---
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
--- OUTSIDE RECORDS SUMMARY | 2025-02-25 10:36 | XMS_ITS | Clinical Summary ---
Author Organization [facility] Address [address] [place] [address] Phone Care Team Providers Care Sat Act Instructor Name Role Phone Iglesia Junior MD Primary Care Provider [phone] Allergies No known active allergies Medications traMADol (ULTRAM) 50 mg tablet Take 100 mg by mouth every 6 hours as needed for Pain. 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 Gender Identity Not on file Sexual Orientation [...] Flex Sig/CT Colonography Q 5 years 10/09/1999 RSV VACCINE (60+ or ) (1 - Risk 50-74 years 1-dose series) 2004 ZOSTER VACCINE (1 of 2) 2004 PNEUMOCOCCAL VACCINE 50+ YEA RS (2 of 2 - PPSV23, PCV20, or PCV21) 02/10/2013 12/16/2012 OSTEOPOROSIS SCREENING 10/09/2019 INFLUENZA VACCINE (#1) 2024 11/28/2012 COVID-19 Vaccine (2 - season) 2024 DTAP/TDAP/TD VACCINES (2 - Td or Tdap) 05/14/2033 Insurance [address] [address] [address] [place] [address] [place] [id number] Advance Directives For more information, please contact: [phone] * Full Code (Latest Code Status on File) Date Activated Date Inactivated Comments 05/16/2013 8:51 PM 05/17/2013 6:48 PM Care Teams Sat Act Instructor Relationship Specialty Start Date End Date Iglesia Junior MD [address] [place] [id number] PCP - General Internal Medicine 09/25/23
--- OUTSIDE RECORDS SUMMARY | 2025-02-25 10:37 | XMS_ITS | Encounter Summary ---
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 RHEUMATOLOGY, [address] [address] Consulting Physician Rheumatology 06/24/24 Stuart Denson MD [address] [facility] C [facility] [address] [facility] C, [facility] [address] [place] [address] Consulting Physician Cardiology 08/22/24 documented as of this encounter
--- OUTSIDE RECORDS SUMMARY | 2025-02-25 10:37 | XMS_ITS | Clinical Summary ---
Author Organization [facility] Address [address] [place] [address] Care Team Providers Care Wirer Helper Name Role Phone Unavailable Primary Care Provider Unavailabl e Immunizations Immunization Administration Dates Next Due Covid-19 Vaccine, Vector-nr, Rs-ad26, Pf, 0.5 Ml ([employer]/AppLabs&AppLabs) 11/09/2020 Social History Tobacco Use Types Packs/Day [...] Immunization (#1) 2024 11/28/2012 SARS-COV-2 Immunization ( - season) 2024 03/27/2021, 11/09/2020 Respiratory Syncytial Virus (RSV) Immunization (Adult) (1 - 1-dose 75+ series) 2029 Hepatitis B Immunization Aged Out No longer eligible based on patient's age to complete this topic Human Papillomavirus (HPV) Immunization (No Doses Required) Completed Meningococcal Immunization (ACWY) Aged Out No longer eligible b ased on patient's age to complete this topic Rotavirus Immunization Aged Out No lo nger eligible based on patient's age to complete this topic
--- OUTSIDE RECORDS SUMMARY | 2025-02-25 10:37 | XMS_ITS | Patient Health Record ---
Author Organization [facility] Address [address] [place] [address] [place] [address] Care Team Providers Care Screw Remover Name Role Phone SHANICE LORENZO Unavailable [phone] DARNELL ESCOTO Unavailable Unavailable Reason For Referral No Information Plan Of Treatment No Information Insurance Providers Payer Name Payer Address Payer Phone Subscriber Number Group Number Insured Name Patient Relationship to Insured Coverage Start Date Coverage End Date [employer] MEDICARE COMPLETE [address] [address] [place] [address] [id number] LEONARDO PATEL Self - patient is the insured
--- OUTSIDE RECORDS SUMMARY | 2025-02-25 10:37 | XMS_ITS | Encounter Summary ---
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
--- OUTSIDE RECORDS SUMMARY | 2025-02-25 10:37 | XMS_ITS | Clinical Summary ---
Author Organization [facility] Address [address] [place] [address] Care Team Providers [employer] Delivery Driver Name Role Phone Valerio Caitlin CORREA Primary Care Pr ovider Katherine Calle MD Unavailable [phone] Stuart Denson MD Unavailable Allergies No known active allergies Medications amLODIPine (NORVASC) 5 mg tabletIndications:hype rtension Take 1 tablet (5 mg total) by mouth booking officer before breakfast 013 Active traMADoL (ULTRAM) 50 [...] Rheumatoid Arthritis, Informant: Self, Reported on 11/13/2024 evolocumab (Repatha SureClick) 140 mg/mL pen injectorIndications:Pu re hypercholesterolemia INJECT 1 ML SUBCUTANEOUSLY EVERY 2 WEEKS IN ABDOMEN,THIGH,OR OUTER AREA OF UPPER ARM (ROTATE SITES) 2 mL 11 Active Additional Information Patient not taking.Reported on 11/28/2024 lidocaine (LIDODERM) 5 %Indications:Osteonecr osis of left knee region (HCC),Chronic pain of left knee,Hypersensitivity, subsequent encounter,Wound of left lower extremity, sequela PLACE 1 PATCH ON THE LEFT BARRETO DAILY NEEDED FOR PAIN REMOVE & DISCARD PATCH WITHIN 12 HOURS. 30 patch 1 Active ALPRAZolam (XANAX) 0.25 mg tablet Take 1 tablet (0.25 mg total) by mouth 2 (two) times a day as needed for anxiety Active aspirin 81 mg capsule Take 81 mg by mouth booking officer before breakfast Active clopidogreL (PLAVIX) 75 mg tablet Take 1 tablet (75 mg total) by mouth daily Initial dose 600mg, then 75 mg daily thereafter. 38 tablet 11 2025 Active nitroglycerin (NITROSTAT) 0.4 mg SL tabletIndications:acut e episode of anginal pain Place 1 tablet (0.4 mg total) under the tongue every 5 (five) minutes as needed for chest pain May repeat dose q 5 min, up to 3 doses total 25 tablet 3 2025 Active albuterol (PROAIR RESPICLICK) 90 mcg/actuation inhaler Inhale 2 puffs every 6 (six) hours as needed for wheezing Active fluticasone/umeclidin/ vilanter (TRELEGY ELLIPTA INHAL) Inhale 1 puff 2 (two) times a day Active pregabalin (LYRICA) 25 mg capsuleIndications:Fib romyalgia Take 1 capsule (25 mg total) by mouth 3 (three) times a day 90 capsule 3 Active pregabalin (LYRICA) 25 mg capsule Take 1 capsule (25 mg total) by mouth 3 (three) times a day 90 capsule 3 025 2024 Disconti nued(Reo rder) pregabalin (LYRICA) 25 mg capsuleIndications:Fib romyalgia Take 1 capsule (25 mg total) by mouth 3 (three) times a day 90 capsule 3 025 2024 Disconti nued(Reo rder) Active Problems Problem Noted Date Diagnosed Date CAD (coronary artery disease) 10/09/2024 Coronary artery disease invo lving knik coronary artery of knik heart with unstable angina pectoris 10/09/2024 Abnormal [...] (05/11/2022): Added automatically from request for surgery [id number] Assessment & Plan (07/16/2022 1:14 AM CDT): [...] BID+ Assessment & Plan (04/21/2022 10:40 AM SALES RECRUITMENT SPECIALIST): Moderate to severe dry eye disease No improvement with Restasis in the past Recommend retain artificial tear drops 3 to 4 times a day Continue lubricating ointment at night Add daily steroid Blepharospasm of both eyes 04/21/2022 Assessment & Plan (04/21/2022 10:40 AM SALES RECRUITMENT SPECIALIST): Patient at that this should improve with the dry eye Age-related nuclear cataract, bilateral 04/21/19 23 Assessment & Plan (06/13/2023 9:16 AM CDT): Defer cataract surgery until signs and symptoms indicate. Pt was educated on the diagnosis. Recommend daily UV protection. Release updated glasses Rx Assessment & Plan (04/21/2022 10:41 AM SALES RECRUITMENT SPECIALIST): Not yet visually significant, monitor Xanthelasma of [...] future. Assessment & Plan (04/06/2022 4:57 PM SALES RECRUITMENT SPECIALIST): Risks, benefits and alternatives were discussed. Risks [...] future. Assessment & Plan (04/06/2022 4:59 PM SALES RECRUITMENT SPECIALIST): Bilateral upper eyelid ptosis with symptomatic visual [...] Encounters Date Type Department Care Team Description 02/10/2025 Orders Only [facility] [address] [facility] Advanced Medicine [address] [place] [address] Virginia Lujan MD PhD Neuropathic pain (Primary Dx) 01/28/2025 1:30 PM SALES RECRUITMENT SPECIALIST Infusion [facility] [address] [place] [id number] Rheumatoid arthritis involving multiple sites, unspecified whether rheumatoid factor present (HCC) (Primary Dx) 01/20/2025 Orders Only [facility] [address] [facility] Advanced Medicine 7th [place] [address] Rosalina Montesinos RN 12/19/2024 10:[address] [facility] [address] [place] [phone] Renata Raymundo RN Rheumatoid arthritis involving multiple sites, unspecified whether rheumatoid factor present (HCC) (Primary Dx) 12/02/2024 Orders Only [facility] Cardiology [address] [facility] [address] [place] [phone] ProviderJosé Miguel MD 11/28/2024 11:30 AM CDT Office Visit [facility] Cardiology [address] [facility] [address] [place] [phone] Gracia Lo NP Coronary artery disease of knik artery of knik heart with stable angina pectoris; Presence of stent in coronary artery; Status post coronary angiogram; Postprocedural hemorrhage of a circulatory system organ or structure following other circulatory system procedure from Last 3 Months Immunizations Immunization Administration Dates Next Due Tdap 05/15/2023 Surgical History Surgery Date Site/Laterality Comments TUBAL LIGATION 02/26/1979 - 02/26/1980 KNEE CARTILAGE SURGERY 02/27/2012 - 02/25/2013 Can't remember which knee COLONOSCOPY 02/26/2023 - 02/26/2024 N/A CARDIAC CATHETERIZATION 10/09/2024 N/A Procedure: LEFT HEART CATHETERIZATION WITH CORONARY ANGIOGRAPHY GRAFT AND WITH OR WITHOUT LEFT VENTRICULOGRAM [id number]; Surgeon: Stuart Denson MD; Location: CARDIAC [facility]; Service: Cardiovascular; Laterality: N/A; Medical devices from this surgery are in the Medical Devices section. CARDIAC CATHETERIZATION 10/09/2024 N/A Procedure: ULTRASOUND GUIDANCE FOR VASCULAR ACCESS S&I [id number]; Surgeon: Stuart Denson MD; Location: CARDIAC [facility]; Service: Cardiovascular; Laterality: N/A; Medical devices from this surgery are in the Medical Devices section. CARDIAC CATHETERIZATION 10/09/2024 N/A Procedure: IVUS/OCT CORS OR GRAFTS, FIRST VESSEL (+) [id number]; Surgeon: Stuart Denson MD; Location: CARDIAC [facility]; Service: Cardiovascular; Laterality: N/A; Medical devices from this surgery are in the Medical Devices section. CARDIAC CATHETERIZATION 10/09/2024 N/A Procedure: PCI DUARTE MAJOR CORONARY C9600 - [id number]; Surgeon: Stuart Denson MD; Location: CARDIAC [facility]; Service: Cardiovascular; Laterality: N/A; Medical devices from this surgery are in the Medical Devices section. TONSILLECTOMY CARDIAC CATHETERIZATION 11/13/2024 N/A Procedure: PCI DUARTE MAJOR CORONARY C9600 - [id number]; Surgeon: Stuart Denson MD; Location: CARDIAC TRUCK [facility]ARM[facility]; Service: Cardiovascular; Laterality: N/A; left circumflex artery Medical devices from this surgery are in the Medical Devices section. CARDIAC CATHETERIZATION 11/13/2024 N/A Procedure: ULTRASOUND GUIDANCE FOR VASCULAR ACCESS S&I [id number]; Surgeon: Stuart Denson MD; Location: [facility]; Service: Cardiovascular; Laterality: N/A; Medical devices from this surgery are in the Medical Devices section. CARDIAC CATHETERIZATION 11/13/2024 N/A Procedure: LEFT HEART CATHETERIZATION WITH CORONARY ANGIOGRAPHY AND WITH OR WITHOUT LEFT VENTRICULOGRAM [id number]; Surgeon: Stuart Denson MD; Location: CARDIAC [facility]; Service: Cardiovascular; Laterality: N/A; Medical devices from this surgery are in the Medical Devices section. CARDIAC CATHETERIZATION 11/13/2024 N/A Procedure: IVUS/OCT CORS OR GRAFTS, FIRST VESSEL (+) [id number]; Surgeon: Stuart Denson MD; Location: CARDIAC TRUCK [facility]; Service: Cardiovascular; Laterality: N/A; Medical devices from [...] Former Cigarettes 0.1 32 1 973 - 2004 Smokeless Tobacco: Never Tobacco Cessation:Counseling Given: [...] the money to buy more. Never true 01/29/20 25 Within the past 12 months, t he food you bought just didn't last and you didn't have money to get more. Never true 01/28/2025 Personal Safety Answer Date Recorded Have you ever been in or are you currently in a harmful physical or emotional relationship or is someone making you feel afraid or unsafe? 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 SPECIALIST Gender Identity Female 08/07/2018 2:56 PM CDT Sexual Orientation Not on file Last Filed Vital Signs Vital Sign Reading Time Taken Comments Blood Pressure 127/64 01/28/2025 3:45 PM SALES RECRUITMENT SPECIALIST Pulse 80 01/28/2025 3:45 PM SALES RECRUITMENT SPECIALIST Temperature 36.2 C (97.2 F) 12/19/2024 10:36 AM CDT Respiratory Rate 16 12/19/2024 10:36 AM CDT Oxygen Saturation 98% 01/28/2025 3:45 PM SALES RECRUITMENT SPECIALIST Inhaled Oxygen Concentration - - Weight 74.4 kg (164 lb) 01/28/2025 1:14 PM SALES RECRUITMENT SPECIALIST Height 170.2 cm (5' 7) 11/28/2024 11:32 AM CDT Body Mass Index 25.69 11/28/2024 11:32 AM CDT Plan of Treatment [...] as needed Medical Devices Implanted Type Area Swing Ride Operator Device Identifier Shelf Expiration Date Model / Serial / Lot Medtronic Card Vasc Surgery 3.5 X 12mm [place] [employer] Coronary Stent [id number] - [id number] Implanted:Qty: 1 on 10/09/2024 by Stuart Denson MD at [facility] Medtronic Card Vasc Surgery 02/05/2027 [id number] / / [id number] Medtronic Card Vasc Surgery 4.0 X 38mm [employer]is [place] Rx Coronary Stent [id number] - [id number] Implanted:Qty: 1 on 10/09/2024 by Stuart Denson MD at [facility]onic [facility] Vasc Surgery 09/16/2026 [id number] / / [id number] 001 Medtronic Card Vasc Surgery 4.5 X 26mm [place] Rx Coronary Stent [id number] - [id number] Implanted:Qty: 1 on 10/09/2024 by [facility] 02/13/2026 [id number] / / [id number] 001 [employer] Vascular System Closure Repair Femoral Artery Suture Mediated Perclose Prostyle 20099-00 - [id number] Implanted:Qty: 1 on 10/09/2024 by Stuart Denson MD at [facility] Vascular 07/26/2026 [id number] / / [id number] [employer] Vascular System Closure Repair Femoral Artery Suture Mediated Perclose Prostyle 51060-12 - [id number] Implanted:Qty: 1 on 11/13/2024 by Stuart Denson MD at [facility] [employer] 08/25/2026 [id number] / / [id number] Med[employer] [facility] Vasc Surgery 3.5 X 12mm [employer] [place] Rx Coronary Stent [id number] - [id number] Implanted:Qty: 1 on 11/13/2024 by Stuart Denson MD at [facility] [employer] [facility] Vasc Surgery 06/08/2027 [id number] / / [id number] 001 Med[employer] [facility] Vasc Surgery 3.0 X 15mm [place] Rx Coronary Stent [id number] - [id number] Implanted:Qty: 1 on 11/13/2024 by Stuart Denson MD at [facility] Vasc Surgery 01/28/2027 [id number] / / [id number] 001 [employer] Vascular System Closure Repair Femoral Artery Suture Mediated Perclose Prostyle 65371-70 - [id number] Implanted:Qty: 1 on 11/13/2024 by Stuart Denson MD at [facility] Vascular 08/25/2026 [id number] Procedures Procedure Name Priority Date/Time Associated Diagnosis Comments CBC WITHOUT DIFFERENTIAL Routine 11/26/2024 3:51 PM CDT HEPATITIS C ANTIBODY Routine 08/09/2021 12:52 PM [...] % EXTERNAL LAB Blood us Historical Provider LAB BLOOD ORDERABLES Edit ed Result - Final EXTERNAL LAB * Hepatitis C antibody (08/09/2021 12:52 PM CDT) Pathologist [facility] Hep C Ab Nonreactive Nonreactive [facility] Comment: Interpretive Data Nonreactive: Antibodies to HCV [...] last revised on 2019. Testing performed by: [facility], [facility] [facility], [place]., [address] Blood 08/09/2021 12:5 2 PM CDT 08/09/2021 4:13 PM CDT us Katherine Calle MD LAB MICROBIOLOGY - GENERAL ORDERABLES Final Result [facility] [id number] [facility]. Department [place] [address] from Last 3 Months or Most Recently Relevant to Health Maintenance Insurance [facility] MEDICARE ADVANTAGE [facility] MEDICARE ADVANTAGE [facility] MEDICARE ADVANTAGE Care Teams Auto [employer] Delivery Driver Relationship Specialty Start Date End Date Valerio CaitlinSUNNY Barry PCP - General Physician Industrial Relations Manager 06/30/19 Katherine Calle MD [address] [facility] R[facility], [address] [address] Consulting Physician Rheumatology 06/24/24 Stuart Denson MD [address] [place] [facility] [address] [place] [address] Consulting Physician Cardiology 08/22/24
--- OUTSIDE RECORDS SUMMARY | 2025-02-25 10:37 | XMS_ITS | Encounter Summary ---
Author Organization [facility] Address [address] [place] [address] Phone Care Team Providers Care Senior Medical Billing Specialist Name Role Phone Caitlin Luo Primary Care Pr ovider Katherine Calle MD Unavailable [phone] Stuart Denson MD Unavailable Encounter Details Date Type Department Care Team (Late st Contact Info) Description 08/19/2021 Orders Only [facility] Scanning, Provider Social History Tobacco Use Types Packs/Day Years Used Date Smoking Tobacco: Former Smokeless Tobacco: Never Alcohol Use Standard Drinks/Week Comments Yes 0 (1 standard drink = 0.6 oz pur e alcohol) socially Comments Unknown Sex and Gender Information Value Date Recorded Sex Assigned at Not on file 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 Gender Identity Female 08/07/2018 2:56 PM CDT [...] filedocumented in this encounter Care Teams Senior Medical Billing Specialist Relationship Specialty Start Date End Date MenMarisol martinSUNNY Barry PCP - General Physician Clay Hoister 06/30/19 Katherine Calle MD [address] [facility] RHEUM[facility]Y, [address] [address] Consulting Physician Rheumatology 06/24/24 Stuart Denson MD [address] [facility] [address] [facility] [address] [place] [address] Consulting Physician Cardiology 08/22/24 documented as of this encounter
--- OUTSIDE RECORDS SUMMARY | 2025-02-25 10:37 | XMS_ITS | Data Portability ---
Author Organization [facility] TJTwin Chetan Address [address] [place] [address] Care Team Providers Care Plater Hot Dip Name Role Phone CAITLIN LUO Primary Care Provider Unavailab le Assessment Encounter Date Assessment Date Assessment LastModified by Organization Details LastModified Time 03/18/2024 03/18/2024 APR 23 NCS of LEs planned. Seeing ortho surgeon LLJose Enrique. Not available 03/18/2024 11:17:45 Plan of Treatment Reminders Order Date Submit Date Provider Last Modified By Organization Details Last Modified Time Details Appointments ANY 15 2025 09:00A M SUNNY Buchanan Not available Not available Not available Lab CBC w/ auto diff [facility] [email or web address] [facility] [address], [place], [address], 08/31/2023 15:08:41 BMP, serum or plasma 2023 024 [email or web address] [address], [place], [address], 09/05/2023 09:22:43 hepatic function panel, serum 2023 024 [facility] [address], [place], [address], 09/04/2023 12:01:58 TSH + free T4, serum 2023 024 [email or web address] [place] [address], [place], [address], 08/31/2023 15:08:21 vitamin B12 + folate, serum or blood [address] [facility] At [address], [place], [address], 08/31/2023 15:08:22 lipid panel w/ direct LDL, serum 2023 024 [facility] [place], [address] [place] [address] [address], [place], [address], 09/05/2023 11:11:22 HbA1c (hemoglob in A1c), blood [address] At [address], [place], [address], 08/31/2023 15:08:22 ESR (erythroc yte sedimenta tion rate), blood [address] [facility] [address], [place], [address], 08/31/2023 15:08:22 C reactive protein, QN, serum or plasma [address] [facility] [place], [address] [place] [address] [address], [place], [address], 08/31/2023 15:08:22 Referral orthopedi c surgeon referral 2023 024 [facility], [address], [address], [place], [address], 10/15/2023 13:44:19 Procedures None recorded. Surgeries None recorded. Imaging US, breast, unilatera l, w/ axilla 2024 025 [facility], [address], [address], [place], [address], 05/06/2024 17:19:50 MAMMO, diagnosti c, bilateral 2024 025 [facility] , [address], [address] [address], [place], [address], 05/06/2024 13:32:17 Medication Orders lidocaine 5 % topical patch 2024 025 [id number], [address] [place], [address], 03/18/2024 11:27:00 amlodipin e 5 mg tablet 2024 025 [email or web address], [address] [place], [address], 01/29/2025 10:37:40 ergocalci ferol (vitamin D2) 1,250 mcg (50,000 unit) capsule 2023 024 [facility], [address] [place], [address], 07/30/2023 10:56:41 Patient TargetsNo targets recorded. Patient Instructions Encounter Date Encounter Id Patient Instructions Last Modified By Organization Details Last Modified Time 03/18/2024 [id number] A healthy lifestyle: care instructions Not available 03/18/2024 11:26:58 04/17/2024 [id number] A healthy lifestyle: care instructions Not available 04/17/2024 11:17:47 07/29/2024 [id number] A healthy lifestyle: care instructions Not available 08/17/2024 21:07:39 Reason for Referral Orthopedic Surgeon Referral for Injury of left lower leg left lower leg injury , sequalae of pain Referring Physician: Caitlin Luo, Internal Medicine, Encounter Date: 07/30/2023 Results Created Date Observation Date Name Description Value Unit Range Abnormal Flag Note LastModifiedBy Organization Detail LastModifiedTime 06/26/1906/25/2024 CBC W Auto Diffe renti al panel - Blood leukocytes [#/volume] in blood by automated count 3.2 K/uL low: 3.6K/u Lhigh: 11.2K/ uL low White Blood Count 3.2 (L) 3.6 - 11.2 K/uL [facility] Not Available Not Available 07/22/2024 10:01:06 06/26/19 25 06/25/2024 CBC W Auto Diffe renti al panel - Blood erythrocytes [#/volume] in blood by automated count 4.65 text: 3.63 - 4.92 M/uL RBC 4.65 3.63 - 4.92 M/uL [facility] Not Available Not Available 07/22/2024 10:01:06 06/26/19 25 06/25/2024 CBC W Auto Diffe renti al panel - Blood hemoglobin [mass/volume ] in blood 12.5 g/dL low: 11.9g/ dLhigh : 15.5g/ dL Hemog lobin 12.5 11.9 - 15.5 g/dL [facility] Not Available Not Available 07/22/2024 10:01:06 06/26/1906/25/2024 CBC W Auto Diffe renti al panel - Blood hematocrit [volume fraction] of blood by automated count 38.3 % low: 36.1%h igh: 44.3% Hemat ocrit 38.3 36.1 - 44.3 % [facility] Not Available Not Available 07/22/2024 10:01:06 06/26/1906/25/2024 CBC W Auto Diffe renti al panel - Blood MCV [entitic mean volume] in red blood cells by automated count 82.3 fL low: 80fLhi gh: 97.6fL MCV 82.3 80.0 - 97.[address] [facility] Not Available Not Available 07/22/2024 10:01:06 06/26/19 25 06/25/2024 CBC W Auto Diffe renti al panel - Blood MCH [entitic mass] by automated count 26.9 pg low: 26.7pg high: 33.7pg MCH 26.9 26.7 - 33.[address] [facility] Not Available Not Available 07/22/2024 10:01:06 06/26/19 25 06/25/2024 CBC W Auto Diffe renti al panel - Blood MCHC [entitic mass/volume] in red blood cells by automated count 32.7 g/dL low: 32.7g/ dLhigh : 35.5g/ dL MCHC 32.7 32.7 - 35.5 g/dL [facility] Not Available Not Available 07/22/2024 10:01:06 06/26/19 25 06/25/2024 CBC W Auto Diffe renti al panel - Blood erythrocyte [distwidth] in red blood cells by automated count 14.3 % low: 12.3%h igh: 17% RBC Dist Width 14.3 12.3 - 17.0 % [facility] Not Available Not Available 07/22/2024 10:01:06 06/26/19 25 06/25/2024 CBC W Auto Diffe renti al panel - Blood platelets [#/volume] in blood by automated count 271 K/uL low: 140K/u Lhigh: 440K/u L Plate let Count 271 140 - 440 K/uL [facility] Not Available Not Available 07/22/2024 10:01:06 06/26/19 25 06/25/2024 CBC W Auto Diffe renti al panel - Blood platelet [entitic mean volume] in blood by automated count 6.9 fL low: 6.8fLh igh: 10.4fL MPV 6.9 6.8 - 10.[address] [facility] Not Available Not Available 07/22/2024 10:01:06 06/26/19 25 06/25/2024 CBC W Auto Diffe renti al panel - Blood neutrophils/ leukocytes in blood by automated count 31.4 % low: 38.7%h igh: 74.5% low Neutr ophil s % 31.4 (L) 38.7 - 74.5 % [facility] Not Available Not Available 07/22/2024 10:01:06 06/26/19 25 06/25/2024 CBC W Auto Diffe renti al panel - Blood lymphocytes/ leukocytes in blood by automated count 52.6 % low: 20%hig h: 54.3% Lymph ocyte % 52.6 20.0 - 54.3 % [facility] Not Available Not Available 07/22/2024 10:01:06 06/26/1906/25/2024 CBC W Auto Diffe renti al panel - Blood monocytes/le ukocytes in blood by automated count 15.1 % low: 4.3%hi gh: 13.5% high Monoc ytes % 15.1 (H) 4.3 - 13.5 % [facility] Not Available Not Available 07/22/2024 10:01:06 06/26/1906/25/2024 CBC W Auto Diffe renti al panel - Blood eosinophils/ leukocytes in blood by automated count 0 % low: 0%high : 6% Eosin ophil s % 0.0 0.0 - 6.0 % [facility] Not Available Not Available 07/22/2024 10:01:06 06/26/1906/25/2024 CBC W Auto Diffe renti al panel - Blood basophils/le ukocytes in blood by automated count 0.9 % low: 0%high : 3% Basop hil % 0.9 0.0 - 3.0 % [facility] Not Available Not Available 07/22/2024 10:01:06 06/26/1906/25/2024 CBC W Auto Diffe renti al panel - Blood neutrophils [#/volume] in blood by automated count 1 K/uL low: 1.8K/u Lhigh: 6.6K/u L low [place] Neutr ophil 1.0 (L) 1.8 - 6.6 K/uL [facility] Not Available Not Available 07/22/2024 10:01:06 06/26/19 25 06/25/2024 CBC W Auto Diffe renti al panel - Blood lymphocytes [#/volume] in blood by automated count 1.7 K/uL low: 0.8K/u Lhigh: 3.3K/u L [place] Lymph ocyte 1.7 0.8 - 3.3 K/uL [facility] Not Available Not Available 07/22/2024 10:01:06 06/26/19 25 06/25/2024 CBC W Auto Diffe renti al panel - Blood monocytes [#/volume] in blood by automated count 0.5 K/uL low: 0.2K/u Lhigh: 1.2K/u L [place] Monoc yte 0.5 0.2 - 1.2 K/uL [facility] Not Available Not Available 07/22/2024 10:01:06 06/26/19 25 06/25/2024 CBC W Auto Diffe renti al panel - Blood eosinophils [#/volume] in blood by automated count 0 K/uL low: 0K/uLh igh: 0.5K/u L [place] Eosin ophil 0.0 0.0 - 0.5 K/uL [facility] Not Available Not Available 07/22/2024 10:01:06 06/26/1906/25/2024 CBC W Auto Diffe renti al panel - Blood basophils [#/volume] in blood by automated count 0 K/uL low: 0K/uLh igh: 0.2K/u L [place] Basop hil 0.0 0.0 - 0.2 K/uL [facility] Not Available Not Available 07/22/2024 10:01:06 06/26/1906/25/2024 CBC W Auto Diffe renti al panel - Blood nucleated erythrocytes /leukocytes [ratio] in blood by automated count 0.5 text: 0.0 - 0.4 /100 WBC high Nucle ated RBC % 0.5 (H) 0.0 - 0.4 /[address] [facility] Not Available Not Available 07/22/2024 10:01:06 06/26/19 25 06/25/2024 CBC W Auto Diffe renti al panel - Blood interpretati on and review of laboratory results Abnorm al Not Available Not Available 10:01:06 06/26/19 25 06/25/2024 Compr ehens milo metab olic 2000 panel - Serum or Plasm a protein [mass/volume ] in serum or plasma 9.7 g/dL low: 6.1g/d Lhigh: 8.4g/d L high Total Prote in 9.7 (H) 6.1 - 8.4 g/dL [facility] Not Available Not Available 07/22/2024 10:01:06 06/26/19 25 06/25/2024 [facility] [employer] [facility] 1999 panel - Serum or Plasm a albumin [mass/volume ] in serum or plasma by bromocresol green (bcg) dye binding method 3.8 g/dL low: 3.5g/d Lhigh: 5.2g/d L Album in 3.8 3.5 - 5.2 g/dL [facility] Not Available Not Available 07/22/2024 10:01:06 06/26/1906/25/2024 [facility] [employer] ic 1999 panel - Serum or Plasm a calcium [mass/volume ] in serum or plasma 9.2 mg/dL low: 8.6mg/ dLhigh : 10.3mg /dL Calci um 9.2 8.6 - 10.3 mg/dL [facility] Not Available Not Available 07/22/2024 10:01:06 06/26/1906/25/2024 [facility] [employer] ic 1999 panel - Serum or Plasm a urea nitrogen [mass/volume ] in serum or plasma 6 mg/dL low: 7mg/dL high: 23mg/d L low BUN 6 (L) 7 - 23 mg/dL [facility] Not Available Not Available 07/22/2024 10:01:06 06/26/19 25 06/25/2024 [facility] 1999 panel - Serum or Plasm a bilirubin.to jonathan [mass/volume ] in serum or plasma 0.46 mg/dL low: 0.2mg/ dLhigh : 1.4mg/ dL Total Bilir ubin 0.46 0.20 - 1.40 mg/dL [facility] Not Available Not Available 07/22/2024 10:01:06 06/26/19 25 06/25/2024 [facility] [employer] milo [employer] olic 1999 panel - Serum or Plasm a alkaline phosphatase [enzymatic activity/vol ume] in serum or plasma 72 text: 35 - 129 IU/L Alk Phos, Total 72 35 - 129 IU/L [facility] Not Available Not Available 07/22/2024 10:01:06 06/26/19 25 06/25/2024 Compr ehens milo metab olic 1999 panel - Serum or Plasm a aspartate aminotransfe rase [enzymatic activity/vol ume] in serum or plasma 28 text: 11 - 47 IU/L AST (SGOT ) 28 11 - 47 IU/L [facility] Not Available Not Available 07/22/2024 10:01:06 06/26/19 25 06/25/2024 [facility] [employer] [facility] 1999 panel - Serum or Plasm a alanine aminotransfe rase [enzymatic activity/vol ume] in serum or plasma by no addition of P-5'-P 13 text: 6 - 53 IU/L ALT (SGPT ) 13 6 - 53 IU/L [facility] Not Available Not Available 07/22/2024 10:01:06 06/26/19 25 06/25/2024 [facility] [employer] [facility] 1999 panel - Serum or Plasm a creatinine [mass/volume ] in serum or plasma 0.69 mg/dL low: 0.6mg/ dLhigh : 1.1mg/ dL Creat inine 0.69 0.60 - 1.10 mg/dL [facility] Not Available Not Available 07/22/2024 10:01:06 06/26/19 25 06/25/2024 [facility] [employer] [facility] 1999 panel - Serum or Plasm a sodium [moles/volum e] in serum or plasma 141 mmol/ L low: 135mmo l/Lhig h: 145mmo l/L Sodiu m 141 135 - 145 mmol/ L [facility] Not Available Not Available 07/22/2024 10:01:06 06/26/19 25 06/25/2024 [facility] [employer] 1999 panel - Serum or Plasm a potassium [moles/volum e] in serum or plasma 3.8 mmol/ L low: 3.3mmo l/Lhig h: 5.1mmo l/L Potas sium 3.8 3.3 - 5.1 mmol/ L [facility] Not Available Not Available 07/22/2024 10:01:06 06/26/19 25 06/25/2024 [facility] [employer] ic 1999 panel - Serum or Plasm a chloride [moles/volum e] in serum or plasma 104 mmol/ L low: 95mmol /Lhigh : 107mmo l/L Chlor cas 104 95 - 107 mmol/ L [facility] Not Available Not Available 07/22/2024 10:01:06 06/26/19 25 06/25/2024 Compr ehens milo metab olic 1999 panel - Serum or Plasm a bicarbonate [moles/volum e] in serum or plasma 26 mmol/ L low: 21mmol /Lhigh : 29mmol /L CO2 Dusty nt 26 21 - 29 mmol/ L [facility] Not Available Not Available 07/22/2024 10:01:06 06/26/19 25 06/25/2024 Compr ehens milo metab olic 2000 panel - Serum or Plasm a glucose [mass/volume ] in serum or plasma 73 mg/dL low: 64mg/d Lhigh: 99mg/d L Gluco se 73 64 - 99 mg/dL [facility] Not Available Not Available 07/22/2024 10:01:06 06/26/19 25 06/25/2024 Compr ehens milo metab olic 2000 panel - Serum or Plasm a glomerular filtration rate [volume rate/area] in serum, plasma or blood by creatinine-b ased formula (MDRD)/1.73 sq M among non black population >90.0 text: >60.0 mL/min /1.73 m2 eGFR >90.0 >60.0 mL/mi n/1.[address] [facility] Not Available Not Available 07/22/2024 10:01:06 06/26/19 25 06/25/2024 Compr [employer] milo metab olic 2000 panel - Serum or Plasm a interpretati on and review of laboratory results Abnorm al Not Available Not Available 10:01:06 08/17/19 24 08/17/2023 XR, chest , 2 view No observ ation record ed. [facility] [address] [facility] [address], [place], [address], 08/21/2023 11:52:23 09/11/19 24 09/11/2023 MRI, lower leg, w/o contr ast No observ ation record ed. [email or web address] [facility] [address] [facility] [address], [place], [address], 09/16/2023 01:01:36 09/24/19 24 09/24/2023 CT, knee, w/o contr ast No observ ation record ed. [address] [facility] [address], [place], [address], 09/24/2023 19:51:51 10/30/19 24 10/30/2023 CT, chest , w/o contr ast No observ ation record ed. [address], [place], [address], 10/31/2023 08:41:21 10/31/19 24 10/30/2023 PFT, compl ete No observ ation record ed. [address], [place], [address], 10/31/2023 08:42:11 05/07/19 25 05/02/2024 MAMMO , diagn ostic , bilat eral No observ ation record ed. [address], [place], [address], 05/06/2024 17:20:03 05/16/19 25 04/23/2024 nerve condu ction study No observ ation record ed. BARCODE Not Available 2024 13:51:55 09/23/1909/22/2024 CT, angio gram, coron boogie arter ies, w/ contr ast No observ ation record ed. [address] [facility] [address] [facility], [place], [address], 09/23/2024 08:26:13 10/01/19 25 09/24/2024 XR, hand, 3 or more view No observ ation record ed. [facility] [address] [place] [address] [address], [place], [address], 10/01/2024 13:21:37 12/02/1912/01/2024 US, liver No observ ation record ed. [facility] [address], [place], [address], 01/29/2025 11:17:39 12/16/1912/11/2024 US, duple x, arter ial, lower extre mity, unila teral No observ ation record ed. [facility] [place] [address] [address], [place], [address], 12/15/2024 13:31:28 01/02/2001/01/2025 CT, chest , w/o contr ast No observ ation record ed. [address] [facility] [address], [place], [address], 01/02/2025 01:25:22 Result Notes None recorded. 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, [place], [address], [place] [facility] 4 13:54:00 Asthma 585164438 Active 2023 SUNNY Buchanan Attn: Pebbles melgar,[address] [facility], [place], [address], [place] [facility] 4 13:54:50 Body mass index 25-29 - overweight 117027731 Active 2023 SUNNY Buchanan Attn: Pebbles melgar,[address] [facility], [place], [address], [place] [facility] 4 13:55:17 Pain of left knee joint 7363925688791 07 Active 2024 SUNNY Buchanan Attn: Johnsonstarla melgar,[address] [facility], [place], [address], [place] [facility] 5 17:03:14 Benign essential hypertensio n 7405323 Active 2024 SUNNY Buchanan Attn: Pebbles melgar,[address] [facility], [place], [address], [place] [facility] 5 08:04:55 Overweight 434193284 Active 2024 SUNNY Buchanan Attn: Johnsonstarla melgar,[address] [facility], [place], [address], [place] [facility] 5 08:05:20 Positive screening for depression on PHQ-9 (Patient Health Questionnai re 9) [id number] 00 Active 2024 SUNNY Buchanan Attn: Johnsonstarla melgar,[address] [facility], [place], [address], [place] [facility] 5 21:07:28 Notes:Some problems listed i n Document: #[id number] could not be added to this patient's chart. Please review this document and add these problems to the patient's chart manually as needed. Problem Notes None recorded. Procedures Surgical History Date Name Laterality Status Provider Name and Address Organization Details Recorded Time 4 Suture/Stapl e removal completed SUNNY CESAR Attn: Accounting,[address], [place], [address], [place] [facility] 06/03/2023 12:36:39 Imaging Results None recorded. Procedure Notes None recorded. Medical Equipment None Reported. Allergies No known drug allergies Medications Name Sig Start Date Stop Date Status Note LastModified by Organization Details LastModified Time prednison e 10 mg tablet Take 4 tablets as needed by oral route for 90 days. active Not Available Not Available No t Available azithromy miguel 250 mg tablet TAKE 2 TABLETS BY MOUTH TODAY, THEN TAKE 1 TABLET DAILY FOR 4 DAYS DIRECTED active Not Available Not Available No t Available meloxicam 15 mg tablet TAKE 1 TABLET (15 MG TOTAL) BY MOUTH DAILY. 03/18 completed stomach issues Not Available Not Available Not Available isosorbid e mononitra te ER 30 mg tablet,ex tended release 24 hr TAKE 1 TABLET BY MOUTH EVERY DAY active Not Available Not Available No t Available leflunomi de 10 mg tablet TAKE 1 TABLET BY MOUTH EVERY DAY active Not Available Not Available No t Available Advair Diskus 100 mcg-50 mcg/dose powder for inhalatio n Inhale 1 puff twice a day by inhalati on route. 07/29 completed Not Available Not Available Not Available Remicade 100 mg intraveno us solution Inject by intraven ous route. active 600 mg every 6 weeks Not Available Not Available Not Available clopidogr el 75 mg tablet Take 1 tablet every day by oral route. active Not Available Not Available No t Available amlodipin e 5 mg tablet Take [...] Not Available Not Available No t Available alprazola m 0.25 mg tablet Take 1 tablet as needed by oral route for 10 days. active Not Available Not Available No [...] DAILY (MAY WEAR UP TO 12HOURS. ) active Not Available Not Available No t Available nitroglyc deana 0.4 mg sublingua l tablet PLEASE SEE ATTACHED FOR DETAILED DIRECTIO NS active Not Available Not Available No t Available gabapenti n 300 mg capsule Take 1 capsule every day by oral route for 30 days. 01/29 completed Not Available Not Available Not Available diclofena c sodium 75 mg tablet,de [...] mcg (50,000 unit) capsule TAKE 1 CAPSULE BY MOUTH WEEKLY 2024 active Not Available Not Available Not Avai lable lotepredn ol etabonate 0.5 % eye drops,magdiel pension INSTILL 1 DROP INTO EACH EYE ONCE DAILY active Not Available Not Available No t Available albuterol sulfate HFA 90 mcg/actua tion aerosol inhaler 1 - 2 PUFF INHALED EVERY 4 - 6 HOURS NEEDED FOR SHORTNES S OF BREATH OR WHEEZING active Not Available Not Available No t Available ketoconaz ole 2 % topical cream APPLY TOPICALL Y DAILY FOR 2 WEEKS 07/29 completed No longer taking due to end of course Not Available Not Available Not Available amoxicill in 875 mg-potass ium clavulana te 125 mg tablet TAKE 1 TABLET BY MOUTH EVERY 12 HOURS 09/16 completed Not Available Not Available Not Available polyvinyl alcohol-p ovidone (PF) 1.4 %-0.6 % eye drops in a dropperet te active Not Available Not Available Not Available pregabali n 25 mg capsule TAKE 1 CAPSULE BY MOUTH 3 TIMES A DAY. active Not Available Not Available No t Available elderberr y fruit active Not Available Not Available Not Available diclofena c 1 % topical gel APPLY 4 GRAMS TO ARTHRITI C JOINTS THREE TIMES DAILY NEEDED. 07/29 completed Not Available Not Available Not Available salmon oil 1,000 mg-omega- 3 fatty acids 210 mg capsule Take by oral route. active Not Available Not Available No t Available Repatha SureClick 140 mg/mL subcutane ous pen injector INJECT 1 ML SUBCUTAN EOUSLY EVERY 2 WEEKS IN ABDOMEN, THIGH,OR OUTER AREA OF UPPER ARM (ROTATE SITES) active Not Available Not Available No t Available lidocaine 5 % medicated patch and dimethico ne 5 % topical cream 03/18 completed Not Available Not Available Not Available Repatha Pushtrone x 420 mg/3.5 mL subcutane ous wearable injector Inject 3.5 mL every month by subcutan eous route. 03/18 completed ever 6 weeks infusion Not Available Not Available Not Available Trelegy Ellipta 100 mcg-62.5 mcg-25 mcg powder for inhalatio n INHALE 1 PUFF DAILY RINSE MOUTH AND SPIT AFTER EACH USE active Not Available Not Available No t Available Wixela Inhub 250 mcg-50 mcg/dose powder for inhalatio n Inhale 1 puff twice a day by inhalati on route. active Not Available Not Available No t Available aspirin 81 mg capsule Take 1 capsule every day by oral route. active Not Available Not Available No t Available Paxlovid 300 mg (150 mg x 2)-100 mg tablets in a dose pack TAKE DIRECTED ON DOSEPAK 01/29 completed Not Available Not Available Not Available Vitals Date Recorded Body height Body mass index (BMI) Body weight Respiratory rate Oxygen saturation Heart rate Systolic And Diastolic Provider Name and Address Organization Details Last Updated DateTime 5 170.18 cm 28 kg/m2 16287.0 3 g 18 /min 99 % 72 /min 140/82 mm[Hg] Sammie Munoz MA [facility] 5 11:07:31 Date Recorded Systolic And Diastolic Provider Name and Address Organization Details Last Updated DateTime 04/17/2024 148/80 mm[Hg] SUNNY Buchanan Attn: Accounting,[address] [place], [address], [facility] 04/17/2024 11:15:44 Date Recorded Body height Body mass index (BMI) Body weight Respiratory rate Oxygen saturation Heart rate Systolic And Diastolic Provider Name and Address Organization Details Last Updated DateTime 5 170.18 cm 27.3 kg/m2 27638.0 7 g 18 /min 97 % 82 /min 140/82 mm[Hg] Sammie Munoz MA [facility] 5 10:58:48 Date Recorded Respiratory rate Systolic And Diastolic Provider Name and Address Organization Details Last Updated DateTime 07/30/2023 18 /min 110/80 mm[Hg] SUNNY Buchanan Attn: Accounting,[address] [place], [address], [facility] [facility] 07/30/2023 10:57:02 Date Recorded Body height Body mass index (BMI) Body weight Heart rate Oxygen saturation Systolic And Diastolic Provider Name and Address Organization Details Last Updated DateTime 4 170.18 cm 27.5 kg/m2 35919.1 8 g 71 /min 99 % 140/72 mm[Hg] Cherise Interiano MA [facility] 4 10:36:30 Date Recorded Respiratory rate Systolic And Diastolic Provider Name and Address Organization Details Last Updated DateTime 07/29/2024 16 /min 136/80 mm[Hg] SUNNY Buchanan Attn: Accounting[address] [place], [address], [facility] 08/17/2024 21:06:43 Date Recorded Body height Body mass index (BMI) Body weight Oxygen saturation Heart rate Systolic And Diastolic Provider Name and Address Organization Details Last Updated DateTime 170.18 cm 27.7 kg/m2 41903.8 5 g 97 % 80 /min 142/80 mm[Hg] Sammie Munoz MA [facility] 15:06:00 Date Recorded Systolic And Diastolic Provider Name and Address Organization Details Last Updated DateTime 01/29/2025 126/80 mm[Hg] SUNNY Buchanan Attn: Accounting[address] [place], [address], [facility] 01/29/2025 11:30:28 Date Recorded Body height Body mass index (BMI) Body weight Respiratory rate Oxygen saturation Heart rate Systolic And Diastolic Provider Name and Address Organization Details Last Updated DateTime 170.18 cm 25.2 kg/m2 66313.3 7 g 18 /min 100 % 87 /min 130/72 mm[Hg] Sammie Munoz MA [facility] 5 10:41:05 Social History Question Answer Notes LastModified by [employer] He[employer] ion Details LastModified Time Tobacco Smoking Status Former Smoker Cherise Interiano MA null, [facility] 07/30/2023 10:33:14 Do You Have An Advance Directive? No Information n ot available 07/30/2023 How Many Years Have You Consumed Alcohol? 50 Information not available 07/30/2023 Are You Blind Or Do You Have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
[2025-02-25 18:37] LABS: Hematocrit 36.3 % (37.0-47.0); Hemoglobin 11.0 g/dL (12.0-15.0); Mean Corpuscular HGB Conc 30.3 g/dl (32-36); Mean Corpuscular Hemoglobin 24.8 pg (26-34); Mean Corpuscular Volume 81.8 fl (80-100); Platelet Count Result 367 k/mm3 (150-375); Red Blood Count 4.44 M/mm3 (4.2-5.4); White Blood Count 2.4 K/mm3 (4.5-10.0)
[2025-02-25 18:52] LABS: Free T4 Free Thyroxine 1.18 ng/dL (0.78-2.19)
[2025-02-25 19:06] LABS: Alanine Aminotransferase 13 U/L (6-35); Albumin Level 3.9 g/dL (3.5-5.1); Alkaline Phosphatase 96 U/L (38-126); Anion Gap 5 mmol/L (4-12); Aspartate Amino Transferase 55 U/L (14-36); Bilirubin,Total 0.6 mg/dL (0.2-1.3); Blood Urea Nitrogen 7 mg/dL (7-17); Calcium 8.8 mg/dL (8.4-10.2); Carbon Dioxide 26 mmol/L (22-30); Chloride 110 mmol/L (98-107); Estimated Glomerular Filt Rate > 60; Glucose 77 mg/dL (65-110); HDL Direct 22 mg/dL; Potassium 4.2 mmol/L (3.4-5.0); Sodium 141 mmol/L (137-145); Total Protein 10.7 g/dL (6.3-8.2); Triglycerides 216 mg/dL (<150)
[2025-02-25 19:44] LABS: Cholesterol 344 mg/dL (0-200)
[2025-02-25 19:58] LABS: Thyroid Stimulating Hormone 1.510 uIU/mL (0.465-4.680)
[2025-02-25 20:13] LABS: Band Neutrophils Percent 1 % (0-6); Neutrophils Percent Manual 10 % (46-73); Total Cells Counted 100
[2025-02-25 20:33] LABS: Basophils Absolute Manual 0.02 K/mm3 (0.0-0.1); Basophils Percent Manual 1 % (0-1); Lymphocytes Absolute Manual 1.63 K/mm3 (1.1-4.5); Lymphocytes Percent Manual 68.0 % (18-44); Monocytes Absolute Manual 0.48 K/mm3 (0.1-0.90); Monocytes Percent Manual 20 % (3-9); Neutrophils Absolute Manual 0.26 K/mm3 (1.3-6.7)
[2025-02-25 20:36] LABS: Anisocytosis 1+; Burr Cells 1+; Ovalocytes Occasional; Schistocytes None Seen
[2025-02-25 23:19] LABS: Vitamin B12 197.0 pg/mL (239-931)
== END 2025-02-25 10:22 | disposition home or self-care (01) ==
PROVIDERS: PCP Physician Assistant; Visit Provider Physician Assistant
DX: E78.49 Other hyperlipidemia (principal); Z79.899 Other long term (current) drug therapy
CPT/HCPCS: 36415; 80053; 80061; 82607; 82746; 84100; 84439; 84443; 85025